=== PATIENT | female | born 1965 | race African-American/Black ===

== ENCOUNTER 2016-12-01 04:32 | Emergency (ER) | payer MEDICAID ==
[~2016-12-01] VITALS: Ht 165.1 cm; Wt 107.0 kg
[~2016-12-01 04:32] MED LIST: ALBUTEROL SULF8.5 GM INH; ATORVASTATIN CA10 MG ORAL; BENADRYL25 MG ORAL; BENADRYL50 MG/ML IV; CIPRO500 MG PO; CIPROFLOXACIN500 M2 ORAL; CLEOCIN150 MG ORAL; COLACE100 MG ORAL; CYCLOBENZAPRINE10 MG ORAL; DIFLUCAN200 MG ORAL; FLAGYL500 MG ORAL; GABAPENTIN100 MG ORAL; GLYBURIDE5 MG PO; IBUPROFEN600 MG ORAL; LORAZEPAM1 MG ORAL; METRONIDAZOLE500 MG ORAL; MULTI VITAMIN1 EACH; NEPHROVITE1 TAB ORAL; NORCO 10/3251 EA ORAL; NORCO 5-325 TA1 EACH ORAL; NORCO 5-325 TA1 EACH PO; NORCO1 EA ORAL; TEMAZEPAM15 MG ORAL; TUMS500 MG ORAL; VICODIN 5-5001 EACH PO; ZOLPIDEM TARTRA10 MG ORAL
[2016-12-01 04:50] VITALS: BP 117/51
--- NOTE | 2016-12-01 04:58 | Emergency Room Report ---
History of Present Illness General Chief Complaint: Abdominal Pain Source: Patient Present Illness HPI This is a 51-year-old male with a history renal failure on hemodialysis Friday, Friday, and Friday. She has a previous failed renal transplant. She presents with chief complaint abdominal pain. Onset yesterday. Diffuse in nature. Sharp, 05/08. No radiation. She felt very nauseous but no vomiting. No diarrhea. Denies any other complaint. No fever but has chills. Allergies: Coded Allergies: PENICILLINS (Verified Allergy, Intermediate, Hives, 12/07/12) MORPHINE (Unverified Allergy, Unknown, 09/22/14) Patient History Past Medical History: see triage record, old chart reviewed, HTN, diverticulitis, renal disease, dialysis Past Surgical History: other Pertinent Family History: none Social History: Denies: smoking Now: No Immunizations: other Reviewed Nursing Documentation: PMH: Agreed, PSxH: Agreed Nursing Documentation-PMH Hx Cardiac Problems: No Hx Hypertension: Yes Hx Pacemaker: No Hx Asthma: No Hx COPD: No Hx Diabetes: Yes Hx Cancer: No Hx Dialysis: Yes - ESRD Hx Neurological Problems: No Hx Cerebrovascular Accident: No Hx Seizures: No Review of Systems Eye: Denies: blurred vision, eye pain ENT: Denies: ear pain, nose congestion, throat swelling Respiratory: Denies: cough, shortness of breath Cardiovascular: Denies: chest pain, palpitations Gastrointestinal: Reports: abdominal pain, nausea, Denies: diarrhea, vomiting Musculoskeletal: Denies: back pain, joint pain Skin: Denies: rash Neurological: Denies: headache, numbness Endocrine: Denies: increased thirst, increased urine Hematologic/Lymphatic: Denies: easy bruising All Other Systems: negative except mentioned in HPI Physical Exam Vital Signs Date Time Temp Pulse Resp B/P Pulse Ox O2 Delivery O2 Flow Rate FiO2 12/01/16 04:35 98.4 99 16 117/51 100 Room Air vitals normal Sp02 EP Interpretation: reviewed, normal General Appearance: well appearing, no apparent distress, alert Head: normocephalic, atraumatic Eyes: bilateral eye EOMI, bilateral eye PERRL ENT: hearing grossly normal, normal pharynx Neck: full range of motion, supple, no meningismus Respiratory: chest non-tender, lungs clear, normal breath sounds Cardiovascular #1: regular rate, rhythm, no murmur Gastrointestinal: no mass, no organomegaly, no bruit, non-distended, abnormal bowel sounds - Hyper active, tenderness Musculoskeletal: back normal, gait/station normal, normal range of motion Neurologic: alert, oriented x3 Psychiatric: mood/affect normal Skin: warm/dry Medical Decision Making Diagnostic Impression: Primary Impression: Abdominal pain Qualified Codes: R10.84 - Generalized abdominal pain Additional Impression: Diverticulitis of sigmoid colon ER Course Patient presents with abdominal pain. She felt better now. CT scan pending. Labs unremarkable. CT scan negative, we'll discharge home. CT scan showed diverticulitis of the sigmoid colon. Lab Results Impression labs are at baseline. CT/MRI/US Diagnostic Results CT/MRI/US Diagnostic Results : Imaging Test Ordered: CT abdomen and pelvis Impression read by radiologist. Acute diverticulitis. Last Vital Signs Date Time Temp Pulse Resp B/P Pulse Ox O2 Delivery O2 Flow Rate FiO2 12/01/16 04:35 98.4 99 16 117/51 100 Room Air Status: improved Disposition: HOME, SELF-CARE Condition: Stable Scripts Hydrocodone/Acetaminophen 5-325* (HYDROCODONE/ACETAMINOPHEN 5-325*) 1 Each Tablet 1 TAB ORAL Q6H Y for For Pain, #20 TAB 0 Refills Prov: ALOK AGUILLON M.D. 12/01/16 Metronidazole* (FLAGYL*) 500 Mg Tablet 500 MG ORAL BID, #14 TAB Prov: ALOK AGUILLON M.D. 12/01/16 Ciprofloxacin Hcl* (CIPROFLOXACIN HCL*) 500 Mg Tablet 500 MG ORAL Q12H, #14 TAB 0 Refills Prov: ALOK AGUILLON M.D. 12/01/16 Additional Instructions: Followup with your DrElder in 2-3 days. Return for increasing pain, fever, chills or any concern. ALOK AGUILLON M.D. Dec 01, 2016 04:58
[2016-12-01] MEDS ORDERED: DiphenhydrAMINE 50mg/ml Inj IVP ONE (05:00)
[2016-12-01] MEDS ORDERED: HYDROmorphone 1mg/ml Carpuject IVP ONE ×2 (05:00→06:15)
[2016-12-01 05:50] LABS: BASOPHILS % (AUTO) 1.2 % (0.0-2.0); LYMPHOCYTES % (AUTO) 15.8 % (20.0-45.0); MEAN CORPUSCULAR HEMOGLOBIN 31.5 PG (27.0-31.0); MEAN CORPUSCULAR HGB CONC 31.7 G/DL (32.0-36.0); MEAN CORPUSCULAR VOLUME 99 FL (80-99); MEAN PLATELET VOLUME 9.4 FL (6.5-10.1); MONOCYTES % (AUTO) 6.9 % (1.0-10.0); NEUTROPHILS % (AUTO) 74.2 % (45.0-75.0); PLATELET COUNT 228 K/UL (150-450); RED BLOOD COUNT 3.76 M/UL (4.20-5.40); RED CELL DISTRIBUTION WIDTH 13.4 % (11.6-14.8); WHITE BLOOD COUNT 13.7 K/UL (4.8-10.8)
[2016-12-01 06:01] LABS: ALANINE AMINOTRANSFERASE 13 U/L (3-33); ALBUMIN/GLOBULIN RATIO 1.1 (1.0-2.7); ANION GAP 20 (5-15); ASPARTATE AMINO TRANSFERASE 12 U/L (5-40); CALCIUM 9.5 mg/dL (8.6-10.2); CARBON DIOXIDE 26 mEQ/L (20-30); CHLORIDE 92 mEQ/L (98-107); CREATININE 9.1 mg/dL (0.5-0.9); GLOMERULAR FILTRATION RATE 5.6 mL/min (>60); HEMOLYSIS 4; LIPASE 40 U/L (< 60); SODIUM 138 mEQ/L (135-145); TOTAL PROTEIN 7.5 g/dL (6.6-8.7)
[2016-12-01] MEDS ORDERED: METRONIDAZOLE500 MG ORAL (06:38)
[2016-12-01] MEDS ORDERED: CIPROFLOXACIN500 M2 ORAL (06:38)
[2016-12-01] MEDS ORDERED: HYDROCODON-ACE1 EA15 ORAL (06:38)
[2016-12-01] MEDS ORDERED: metroNIDAZOLE 500mg tab ORAL ONE (06:45)
[2016-12-01] MEDS ORDERED: Ciprofloxacin 500mg tab ORAL ONE (06:45)
[2016-12-01 06:50] VITALS: BP 123/55
--- NOTE | 2016-12-01 09:08 | Diagnostic Imaging Report ---
Indication: Abdominal pain Technique: CT scan of the abdomen and pelvis utilizing automated exposure control without intravenous or oral contrast. Axial, sagittal and coronal images were obtained. CT dose: Total DLP 1506 mGycm; CTDI vol 32.2 mGy Comparison: 02/14/14 Findings: Evaluation of the solid organs is limited without intravenous contrast material. 2 small nodules are seen within the right lower lobe measuring up to 6 mm. There is fatty infiltration of the liver. The adrenal glands, spleen and pancreas are unremarkable. No CT evident gallstones are seen. Colonic diverticula are seen with mild stranding adjacent to the proximal sigmoid colon. There is no abscess or free air. The bilateral kidneys are atrophic. Fat-containing paraumbilical hernia is seen. The appendix is normal. Degenerative changes of the spine are noted. Impression: Acute diverticulitis of the proximal sigmoid colon. No abscess or free air. Bilateral renal atrophy. Hepatic steatosis. Fat-containing right inguinal and paraumbilical hernias. Left iliac/inguinal clips. 2 tiny nodules of the partially visualized right lower lobe measuring up to 6 mm. Followup recommended as indicated. Other findings as above. The CT scanner at [facility] is accredited by the [employer] and the scans are performed using protocols designed to limit radiation exposure to as low as reasonably achievable to attain images of sufficient resolution adequate for diagnostic evaluation.
== END 2016-12-01 06:55 | disposition home or self-care (01) ==
LOC: EMR 04:56
DX: K57.32 Diverticulitis of large intestine without perforation or abscess without bleeding (principal); E11.22 Type 2 diabetes mellitus with diabetic chronic kidney disease; I12.0 Hypertensive chronic kidney disease with stage 5 chronic kidney disease or end stage renal disease; N18.6 End stage renal disease; Z99.2 Dependence on renal dialysis; Z88.0 Allergy status to penicillin; Z88.6 Allergy status to analgesic agent
CPT/HCPCS: 36415; 74176; 80053; 83690; 85025; 96374; 96375; 99284; J1170; J1200; J2405

== ENCOUNTER 2017-01-05 03:59 | Emergency (ER) | payer MEDICAID ==
[~2017-01-05] VITALS: Ht 165.1 cm; Wt 103.9 kg
[~2017-01-05 03:59] MED LIST changes: +HYDROCODON-ACE1 EA15 ORAL
[2017-01-05 04:15] VITALS: BP 114/60
[2017-01-05] MEDS ORDERED: HYDROmorphone 1mg/ml Carpuject IVP ONE ×2 (04:15→06:45)
[2017-01-05 04:44] LABS: BASOPHILS % (AUTO) 1.2 % (0.0-2.0); EOSINOPHILS % (AUTO) 1.6 % (0.0-3.0); MEAN CORPUSCULAR HEMOGLOBIN 30.6 PG (27.0-31.0); MEAN CORPUSCULAR HGB CONC 31.1 G/DL (32.0-36.0); MEAN CORPUSCULAR VOLUME 98 FL (80-99); MEAN PLATELET VOLUME 7.3 FL (6.5-10.1); MONOCYTES % (AUTO) 9.5 % (1.0-10.0); NEUTROPHILS % (AUTO) 65.7 % (45.0-75.0); PLATELET COUNT 257 K/UL (150-450); RED BLOOD COUNT 3.81 M/UL (4.20-5.40); RED CELL DISTRIBUTION WIDTH 14.4 % (11.6-14.8); WHITE BLOOD COUNT 12.6 K/UL (4.8-10.8)
[2017-01-05 04:59] LABS: ALBUMIN/GLOBULIN RATIO 1.2 (1.0-2.7); CREATININE 10.2 mg/dL (0.5-0.9); GLOMERULAR FILTRATION RATE 4.8 mL/min (>60); POTASSIUM 4.3 mEQ/L (3.4-4.9); TOTAL PROTEIN 8.1 g/dL (6.6-8.7)
[2017-01-05] MEDS ORDERED: DiphenhydrAMINE 50mg/ml Inj IVP ONE (05:45)
--- NOTE | 2017-01-05 06:22 | Emergency Room Report ---
History of Present Illness General Chief Complaint: Abdominal Pain Source: Patient Present Illness HPI Is a 51-year-old female with a history renal failure on hemodialysis Friday, Friday, and Friday. She presents with chief complaint of left lower quadrant pain. She has a history of diverticulitis. Eyes are last month for the same. She got better with antibiotics. Now complaining of left lower quadrant pain for last 2 days. Pain is 8/10. Throbbing nature. Worse with movement. Subjective fever. Allergies: Coded Allergies: PENICILLINS (Verified Allergy, Intermediate, Hives, 12/07/12) MORPHINE (Unverified Allergy, Unknown, 09/22/14) Patient History Past Medical History: see triage record, old chart reviewed, HTN, renal disease , dialysis Past Surgical History: other Pertinent Family History: none Social History: Denies: smoking Now: No Immunizations: other Reviewed Nursing Documentation: PMH: Agreed, PSxH: Agreed Nursing Documentation-PMH Hx Cardiac Problems: No Hx Hypertension: Yes Hx Pacemaker: No Hx Asthma: No Hx COPD: No Hx Diabetes: Yes Hx Cancer: No Hx Dialysis: Yes - ESRD,FRI-FRI-FRI Hx Neurological Problems: No Hx Cerebrovascular Accident: No Hx Seizures: No Review of Systems Eye: Denies: blurred vision, eye pain ENT: Denies: ear pain, nose congestion, throat swelling Respiratory: Denies: cough, shortness of breath Cardiovascular: Denies: chest pain, palpitations Gastrointestinal: Reports: abdominal pain, Denies: diarrhea, nausea, vomiting Musculoskeletal: Denies: back pain, joint pain Skin: Denies: rash Neurological: Denies: headache, numbness Endocrine: Denies: increased thirst, increased urine Hematologic/Lymphatic: Denies: easy bruising All Other Systems: negative except mentioned in HPI Physical Exam Vital Signs Date Time Temp Pulse Resp B/P Pulse Ox O2 Delivery O2 Flow Rate FiO2 01/05/17 04:06 98.2 104 20 118/90 99 Room Air vitals unremarkable Sp02 EP Interpretation: reviewed, normal General Appearance: well appearing, no apparent distress, alert, obese Head: normocephalic, atraumatic Eyes: bilateral eye EOMI, bilateral eye PERRL ENT: hearing grossly normal, normal pharynx Neck: full range of motion, supple, no meningismus Respiratory: chest non-tender, lungs clear, normal breath sounds Cardiovascular #1: regular rate, rhythm, no murmur Gastrointestinal: normal bowel sounds, no mass, no organomegaly, no bruit, non- distended, tenderness - Left lower quadrant Musculoskeletal: back normal, gait/station normal, normal range of motion Neurologic: normal inspection, alert, oriented x3 Psychiatric: mood/affect normal Skin: warm/dry Medical Decision Making Diagnostic Impression: Primary Impression: Abdominal pain Qualified Codes: R10.32 - Left lower quadrant pain ER Course Patient presents with left flank left lower quadrant pain. No evidence of inflammatory changes. This may be musculoskeletal pain. We'll discharge her with pain control. Not better in a couple days told patient to go ahead and fill antibiotics prescription. Return if symptom worsen. I see no evidence of acute abdomen or perforation. Laboratory Tests Test 01/05/17 04:30 White Blood Count 12.6 K/UL (4.8-10.8) H Red Blood Count 3.81 M/UL (4.20-5.40) L Hemoglobin 11.6 G/DL (12.0-16.0) L Hematocrit 37.4 % (37.0-47.0) Mean Corpuscular Volume 98 FL (80-99) Mean Corpuscular Hemoglobin 30.6 PG (27.0-31.0) Mean Corpuscular Hemoglobin Concent 31.1 G/DL (32.0-36.0) L Red Cell Distribution Width 14.4 % (11.6-14.8) Platelet Count 257 K/UL (150-450) Mean Platelet Volume 7.3 FL (6.5-10.1) Neutrophils (%) (Auto) 65.7 % (45.0-75.0) Lymphocytes (%) (Auto) 22.0 % (20.0-45.0) Monocytes (%) (Auto) 9.5 % (1.0-10.0) Eosinophils (%) (Auto) 1.6 % (0.0-3.0) Basophils (%) (Auto) 1.2 % (0.0-2.0) Sodium Level 137 mEQ/L (135-145) Potassium Level 4.3 mEQ/L (3.4-4.9) Chloride Level 90 mEQ/L (98-107) L Carbon Dioxide Level 27 mEQ/L (20-30) Anion Gap 20 (5-15) H Blood Urea Nitrogen 38 mg/dL (7-23) H Creatinine 10.2 mg/dL (0.5-0.9) H Estimat Glomerular Filtration Rate 4.8 mL/min (>60) Glucose Level 160 mg/dL (74-106) H Calcium Level 10.0 mg/dL (8.6-10.2) Total Bilirubin 0.2 mg/dL (0.0-1.2) Aspartate Amino Transf (AST/SGOT) 20 U/L (5-40) Alanine Aminotransferase (ALT/SGPT) 16 U/L (3-33) Alkaline Phosphatase 99 U/L (35-104) Total Protein 8.1 g/dL (6.6-8.7) Albumin 4.5 g/dL (3.5-5.2) Globulin 3.6 g/dL Albumin/Globulin Ratio 1.2 (1.0-2.7) Lab Results Impression labs unremarkable CT/MRI/US Diagnostic Results CT/MRI/US Diagnostic Results : Imaging Test Ordered: CT abdomen and pelvis Impression read by radiologist. No evidence of acute diverticulitis. Last Vital Signs Date Time Temp Pulse Resp B/P Pulse Ox O2 Delivery O2 Flow Rate FiO2 01/05/17 05:46 98.2 01/05/17 04:15 101 20 114/60 95 Room Air Status: improved Disposition: HOME, SELF-CARE Condition: Stable Scripts Hydrocodone/Acetaminophen 5-325* (HYDROCODONE/ACETAMINOPHEN 5-325*) 1 Each Tablet 1 TAB ORAL Q6H Y for For Pain, #30 TAB 0 Refills Prov: ALOK AGUILLON M.D. 01/05/17 Metronidazole* (FLAGYL*) 500 Mg Tablet 500 MG ORAL BID, #14 TAB Prov: ALOK AGUILLON M.D. 01/05/17 Ciprofloxacin Hcl* (CIPROFLOXACIN HCL*) 500 Mg Tablet 500 MG ORAL Q12H, #14 TAB 0 Refills Prov: ALOK AGUILLON M.D. 01/05/17 Referrals: NOT CHOSEN IPA/,REFERRING (PCP) Patient Instructions: Abdominal Pain, Adult Additional Instructions: Followup with your DrElder in 2-3 days. Continuing with dialysis. Take antibiotics if still having left lower quadrant pain after 2 days. ALOK AGUILLON M.D. Jan 05, 2017 06:22
[2017-01-05] MEDS ORDERED: HYDROCODON-ACE1 EA15 ORAL (06:43)
[2017-01-05] MEDS ORDERED: CIPROFLOXACIN500 M2 ORAL (06:43)
[2017-01-05] MEDS ORDERED: METRONIDAZOLE500 MG ORAL (06:43)
[2017-01-05 06:50] VITALS: BP 119/47
[2017-01-05 07:00] VITALS: BP 119/47
--- NOTE | 2017-01-05 09:26 | Diagnostic Imaging Report ---
Indication: Abdominal pain/left-sided back pain Technique: CT scan of the abdomen and pelvis utilizing automated exposure control without intravenous or oral contrast. Axial, sagittal and coronal images were obtained. CT dose: Total DLP 1621 mGycm; CTDI vol 32.8 mGy Comparison: 12/01/16 Findings: Evaluation of the solid organs is limited without intravenous contrast material. Nodules are seen in the partially visualized lung bases measuring up to 8 mm series 6 image 52. The liver is enlarged. There is fatty infiltration of the liver. Adrenal glands, spleen and pancreas are unremarkable. No CT evident gallstones are seen. There is bilateral renal atrophy with punctate calcifications measuring up to 3 mm. There is no hydronephrosis. The small bowel loops are normal in caliber. The appendix is normal. There is colonic diverticulosis without diverticulitis. There is no free intraperitoneal fluid or air. Left iliac clips are seen. Bladder is not well distended limiting evaluation. There is a fat-containing umbilical hernia. Degenerative changes of the spine are present. Impression: Bilateral renal atrophy. Punctate bilateral renal calcifications could represent nonobstructive calculi. No hydronephrosis. Clinical correlation recommended. Hepatomegaly with fatty infiltration. Colonic diverticulosis without diverticulitis. Underdistention of portions of the colon limiting evaluation. Clinical correlation recommended. Normal appendix. Scattered nodules of the partially visualized lung bases coronally. Neoplastic etiology cannot be excluded and further evaluation with dedicated CT of the chest recommended as indicated. The CT scanner at [facility] is accredited by the [employer] and the scans are performed using protocols designed to limit radiation exposure to as low as reasonably achievable to attain images of sufficient resolution adequate for diagnostic evaluation.
== END 2017-01-05 07:00 | disposition home or self-care (01) ==
LOC: EMR 04:37
DX: R10.32 Left lower quadrant pain (principal); Z88.6 Allergy status to analgesic agent; I12.0 Hypertensive chronic kidney disease with stage 5 chronic kidney disease or end stage renal disease; E11.22 Type 2 diabetes mellitus with diabetic chronic kidney disease; N18.6 End stage renal disease; Z99.2 Dependence on renal dialysis
CPT/HCPCS: 36415; 74176; 80053; 85025; 96374; 96375; 99284; J1170; J1200; J2405

== ENCOUNTER 2017-01-09 14:29 | Emergency (ER) | payer MEDICAID ==
[~2017-01-09] VITALS: Ht 165.1 cm; Wt 113.4 kg
--- NOTE | 2017-01-09 15:13 | Emergency Room Report ---
History of Present Illness General Chief Complaint: Pain Source: Patient Present Illness HPI This patient states that for the past couple weeks she has had ongoing pain in her left forearm. She does not recall any injury. She has a very localized area of tenderness that radiates from her lateral elbow to her hand. She states she occasionally has a tingling sensation. His symptoms are worse with movement. She denies fever or chills. She denies swelling. She has no other complaints. Allergies: Coded Allergies: PENICILLINS (Verified Allergy, Intermediate, Hives, 12/07/12) MORPHINE (Unverified Allergy, Unknown, 09/22/14) Patient History Past Medical History: see triage record, DM, HTN, psych hx, renal disease, dialysis Social History: Denies: alcohol use, drug use, smoking Last Menstrual Period: Post Now: No : 3 Para: 3 Reviewed Nursing Documentation: PMH: Agreed, PSxH: Agreed Nursing Documentation-PMH Past Medical History: No History, Except For Hx Cardiac Problems: No Hx Hypertension: Yes Hx Pacemaker: No Hx Asthma: No Hx COPD: No Hx Diabetes: Yes Hx Cancer: No Hx Dialysis: Yes - ESRD,MON-WED-FRI Hx Neurological Problems: No Hx Cerebrovascular Accident: No Hx Seizures: No Review of Systems All Other Systems: negative except mentioned in HPI Physical Exam Vital Signs Date Time Temp Pulse Resp B/P Pulse Ox O2 Delivery O2 Flow Rate FiO2 01/09/17 14:32 98.1 86 18 156/93 97 Room Air Sp02 EP Interpretation: reviewed, normal General Appearance: no apparent distress, alert, GCS 15, non-toxic Head: normocephalic, atraumatic Eyes: bilateral eye PERRL, bilateral eye normal inspection ENT: hearing grossly normal, normal pharynx, no angioedema, normal voice Neck: full range of motion, supple/symm/no masses Respiratory: no respiratory distress, no retraction, no accessory muscle use, speaking full sentences Cardiovascular #1: no edema Rectal: deferred Musculoskeletal: gait/station normal, normal range of motion, other - Localized tenderness to palpation along the left brachioradialis muscle. Sensation intact throughout. Full muscle strength throughout. Neurologic: alert, oriented x3, responsive, motor strength/tone normal, sensory intact, speech normal Psychiatric: judgement/insight normal, memory normal, mood/affect normal, no suicidal/homicidal ideation Skin: normal color, no rash, warm/dry, well hydrated Medical Decision Making Diagnostic Impression: Primary Impression: Muscle strain Additional Impression: Muscle pain ER Course This patient has a clinical presentation consistent with muscle strain/pain. There are no red flags on physical exam or history that would make me concerned for underlying fracture. I did obtain an elbow x-ray which showed no acute findings. The patient has pain with range of motion and has tenderness to palpation along the muscle. There is no evidence of compartment syndrome. There is no neurologic deficit. The patient was instructed on supportive home measures. She was given a sling for comfort. No emergency medical condition was identified. Of note, the patient requested Dilaudid for muscle strain. I did not feel that Dilaudid was indicated for a muscle strain. The patient was given a Claunch tablet. Further, the patient received 30 tablets of Claunch 5 days ago. There is also a history of narcotic seeking behavior and opiate dependence with review of her medical chart. I am very uncomfortable providing this patient any narcotics. Further, there is no medical indication for a narcotic needed. I did not identify an acute emergency medical condition. The patient was instructed to followup with her primary care physician. The patient was given return precautions and followup instructions. Labs Test 01/09/17 15:15 White Blood Count 8.4 K/UL (4.8-10.8) Red Blood Count 3.64 M/UL (4.20-5.40) Hemoglobin 10.8 G/DL (12.0-16.0) Hematocrit 36.3 % (37.0-47.0) Mean Corpuscular Volume 100 FL (80-99) Mean Corpuscular Hemoglobin 29.5 PG (27.0-31.0) Mean Corpuscular Hemoglobin Concent 29.7 G/DL (32.0-36.0) Red Cell Distribution Width 14.8 % (11.6-14.8) Platelet Count 227 K/UL (150-450) Mean Platelet Volume 7.9 FL (6.5-10.1) Neutrophils (%) (Auto) 56.0 % (45.0-75.0) Lymphocytes (%) (Auto) 27.7 % (20.0-45.0) Monocytes (%) (Auto) 12.2 % (1.0-10.0) Eosinophils (%) (Auto) 3.2 % (0.0-3.0) Basophils (%) (Auto) 1.0 % (0.0-2.0) Sodium Level 138 mEQ/L (135-145) Potassium Level 4.5 mEQ/L (3.4-4.9) Chloride Level 96 mEQ/L (98-107) Carbon Dioxide Level 26 mEQ/L (20-30) Anion Gap 16 (5-15) Blood Urea Nitrogen 25 mg/dL (7-23) Creatinine 8.1 mg/dL (0.5-0.9) Estimat Glomerular Filtration Rate 6.3 mL/min (>60) Glucose Level 96 mg/dL (74-106) Calcium Level 9.5 mg/dL (8.6-10.2) Total Creatine Kinase 27 U/L (26-140) Other X-Ray Diagnostic Results Other X-Ray Diagnostic Results : X-Ray Ordered: L. elbow EP Interpretation: Yes Findings: no fractures, no dislocation, no soft tissue swelling Number of Views: 3 Last Vital Signs Date Time Temp Pulse Resp B/P Pulse Ox O2 Delivery O2 Flow Rate FiO2 01/09/17 14:32 98.1 86 18 156/93 97 Room Air Disposition: HOME, SELF-CARE Condition: Improved Referrals: NON PHYSICIAN (PCP) JEN WHATLEY D.O. Jan 09, 2017 15:13
[2017-01-09] MEDS ORDERED: Norco 5mg/325mg tab ORAL ONE (15:15)
[2017-01-09 15:45] LABS: EOSINOPHILS % (AUTO) 3.2 % (0.0-3.0); LYMPHOCYTES % (AUTO) 27.7 % (20.0-45.0); MEAN CORPUSCULAR HEMOGLOBIN 29.5 PG (27.0-31.0); MEAN CORPUSCULAR HGB CONC 29.7 G/DL (32.0-36.0); MEAN CORPUSCULAR VOLUME 100 FL (80-99); MEAN PLATELET VOLUME 7.9 FL (6.5-10.1); MONOCYTES % (AUTO) 12.2 % (1.0-10.0); PLATELET COUNT 227 K/UL (150-450); RED BLOOD COUNT 3.64 M/UL (4.20-5.40); RED CELL DISTRIBUTION WIDTH 14.8 % (11.6-14.8); WHITE BLOOD COUNT 8.4 K/UL (4.8-10.8)
[2017-01-09 15:54] LABS: ANION GAP 16 (5-15); CALCIUM 9.5 mg/dL (8.6-10.2); CARBON DIOXIDE 26 mEQ/L (20-30); CHLORIDE 96 mEQ/L (98-107); CREATININE 8.1 mg/dL (0.5-0.9); GLOMERULAR FILTRATION RATE 6.3 mL/min (>60); HEMOLYSIS 2; POTASSIUM 4.5 mEQ/L (3.4-4.9); SODIUM 138 mEQ/L (135-145)
[2017-01-09] MEDS ORDERED: IBUPROFEN800 MG ORAL (17:08)
--- NOTE | 2017-01-09 17:15 | Diagnostic Imaging Report ---
Indication: PAIN Technique: 3 views of the left elbow Comparison: none Findings: No acute fractures. No dislocations. No joint effusion. Joint spaces are preserved. Normal mineralization. No radiopaque foreign body. Impression: Negative
[2017-01-09 17:19] VITALS: BP 152/95
[2017-01-09 17:20] VITALS: BP 152/95
== END 2017-01-09 17:20 | disposition home or self-care (01) ==
LOC: EMR 15:05
DX: T14.8 Other injury of unspecified body region (principal); M79.1 Myalgia; E11.9 Type 2 diabetes mellitus without complications; I10 Essential (primary) hypertension; I12.0 Hypertensive chronic kidney disease with stage 5 chronic kidney disease or end stage renal disease; E11.22 Type 2 diabetes mellitus with diabetic chronic kidney disease; N18.6 End stage renal disease; Z99.2 Dependence on renal dialysis; Z88.0 Allergy status to penicillin; Z88.6 Allergy status to analgesic agent; X58.XXXA Exposure to other specified factors, initial encounter; Y92.9 Unspecified place or not applicable; Y99.8 Other external cause status
CPT/HCPCS: 29240; 36415; 80048; 82550; 85025; 99283

== ENCOUNTER 2017-04-01 21:05 | Emergency (ER) | payer MEDICAID ==
[~2017-04-01] VITALS: Ht 165.1 cm; Wt 105.2 kg
[~2017-04-01 21:05] MED LIST changes: +IBUPROFEN800 MG ORAL
[2017-04-01] MEDS ORDERED: HYDROmorphone 1mg/ml Carpuject IM ONE (21:45)
--- NOTE | 2017-04-01 21:51 | Emergency Room Report ---
History of Present Illness General Chief Complaint: Back Pain-No Injury Source: Patient, Family Member Present Illness HPI Is a 51-year-old female with a BMI of almost 39. She has a history of renal failure on hemodialysis. She also has history of chronic back pain. She presents with chief complaint of left lower back and flank pain. Onset today. She has vomiting and diarrhea today. Vomiting is nonbloody nonbilious. Diarrhea is watery. It stopped around 3 PM. Tonight when she got up she felt pain to her back. This is worse than before. Pain is 10 out of 10. No radiation. No incontinence of bowel or urine. No anesthesia. No new trauma Allergies: Coded Allergies: PENICILLINS (Verified Allergy, Intermediate, Hives, 12/07/12) MORPHINE (Unverified Allergy, Unknown, 09/22/14) Patient History Past Medical History: see triage record, old chart reviewed, HTN, renal disease , dialysis Past Surgical History: other Pertinent Family History: none Social History: Denies: smoking Now: No Immunizations: other Reviewed Nursing Documentation: PMH: Agreed, PSxH: Agreed Nursing Documentation-PMH Hx Cardiac Problems: No Hx Hypertension: Yes Hx Pacemaker: No Hx Asthma: No Hx COPD: No Hx Diabetes: Yes Hx Cancer: No Hx Dialysis: Yes - ESRD,MON-WED-FRI Hx Neurological Problems: No Hx Cerebrovascular Accident: No Hx Seizures: No Review of Systems Eye: Denies: blurred vision, eye pain ENT: Denies: ear pain, nose congestion, throat swelling Respiratory: Denies: cough, shortness of breath Cardiovascular: Denies: chest pain, palpitations Gastrointestinal: Reports: abdominal pain, diarrhea, nausea, vomiting Musculoskeletal: Reports: back pain, Denies: joint pain Skin: Denies: rash Neurological: Denies: headache, numbness Endocrine: Denies: increased thirst, increased urine Hematologic/Lymphatic: Denies: easy bruising All Other Systems: negative except mentioned in HPI Physical Exam Vital Signs Date Time Temp Pulse Resp B/P Pulse Ox O2 Delivery O2 Flow Rate FiO2 04/01/17 21:25 99.0 106 18 103/66 97 Room Air vitals normal Sp02 EP Interpretation: reviewed, normal General Appearance: well appearing, no apparent distress, alert, obese Head: normocephalic, atraumatic Eyes: bilateral eye EOMI, bilateral eye PERRL ENT: hearing grossly normal, normal pharynx Neck: full range of motion, supple, no meningismus Respiratory: chest non-tender, lungs clear, normal breath sounds Cardiovascular #1: regular rate, rhythm, no murmur Gastrointestinal: normal bowel sounds, non tender, no mass, no organomegaly, no bruit, non-distended Musculoskeletal: gait/station normal, normal range of motion, other - Tenderness over the lower lumbar paraspinous muscle on the left. No midline tenderness. No anesthesia Neurologic: alert, oriented x3 Psychiatric: mood/affect normal Skin: warm/dry Medical Decision Making Diagnostic Impression: Primary Impression: Muscle strain ER Course She presents with back pain. No evidence of cauda equina syndrome, spinal or abscess or neoplastic process. No evidence of kidney stone or infection. Most likely muscle strain from her vomiting and diarrhea. We'll discharge home. She felt better after pain medication. CT/MRI/US Diagnostic Results CT/MRI/US Diagnostic Results : Imaging Test Ordered: CT abdomen and pelvis Impression read by radiologist. No acute finding. Last Vital Signs Date Time Temp Pulse Resp B/P Pulse Ox O2 Delivery O2 Flow Rate FiO2 04/01/17 21:25 99.0 106 18 103/66 97 Room Air Status: improved Disposition: HOME, SELF-CARE Condition: Stable Patient Instructions: Back Pain, Adult Additional Instructions: Followup with your Dr. in 7 days. Return if worse. ALOK AGUILLON M.D. Apr 01, 2017 21:51
[2017-04-01 23:28] VITALS: BP 103/66
--- NOTE | 2017-04-02 15:17 | Diagnostic Imaging Report ---
Indication: Abdominal pain Technique: Continuous helical transaxial imaging of the abdomen and pelvis was obtained from the lung bases to the pubic symphysis. No intravenous contrast was administered. Coronal 2-D reformats were also obtained. Total Dose length Product (DLP): [address] Dose Index Volume (CTDIvol): 19 mGy Comparison: 01/05/17 Findings: There are several small noncalcified nodules at the lung bases. Some of these were noted on the prior study. Would recommend obtaining CT for further evaluation. Kidneys are atrophic consistent with the renal insufficiency. Appendix is seen and normal. Extensive diverticulosis is present within the colon without definite diverticulitis. There is a right inguinal hernia containing fat. Uterus is noted. Urinary bladder is nondistended. There is no free fluid or free air. Impression: No acute findings in the abdomen identified. Normal appendix Extensive diverticulosis of the colon. Multiple small lung nodules. Further evaluation with chest CT is suggested. Atrophy of the [place] kidneys consistent with chronic renal disease The CT scanner at [facility] is accredited by the [employer] and the scans are performed using dose optimization techniques as appropriate to a performed exam including Automatic Exposure control.
== END 2017-04-01 23:30 | disposition home or self-care (01) ==
LOC: EMR 21:18
DX: S39.012A Strain of muscle, fascia and tendon of lower back, initial encounter (principal); Z88.0 Allergy status to penicillin; Z88.6 Allergy status to analgesic agent; I12.0 Hypertensive chronic kidney disease with stage 5 chronic kidney disease or end stage renal disease; E11.22 Type 2 diabetes mellitus with diabetic chronic kidney disease; N18.6 End stage renal disease; Z99.2 Dependence on renal dialysis; R10.9 Unspecified abdominal pain; X58.XXXA Exposure to other specified factors, initial encounter; Y92.9 Unspecified place or not applicable
CPT/HCPCS: 74176; 96372; 99284; J1170

== ENCOUNTER 2017-04-13 06:24 | Inpatient (IN) | payer MEDICAID ==
[~2017-04-13] VITALS: Ht 165.1 cm; Wt 105.2 kg
[2017-04-13] MEDS ORDERED: metroNIDAZOLE 500mg 100 ML IV STA (06:35)
[2017-04-13] MEDS ORDERED: Cefepime HCl 1 GM in NS 55 ML IV STA (06:35)
[2017-04-13] MEDS ORDERED: Vancomycin 1 GM in NS 275 ML IV ONE (06:45)
[2017-04-13] MEDS ORDERED: HYDROmorphone 1mg/ml Carpuject IVP ONE ×2 (06:45→11:45)
[2017-04-13] MEDS ORDERED: Cefepime 1gm vial ONE (06:52)
[2017-04-13 07:10] VITALS: BP 138/78
[2017-04-13 07:13] LABS: BASOPHILS % (AUTO) 1.7 % (0.0-2.0); EOSINOPHILS % (AUTO) 1.1 % (0.0-3.0); LYMPHOCYTES % (AUTO) 15.9 % (20.0-45.0); MEAN CORPUSCULAR HEMOGLOBIN 31.4 PG (27.0-31.0); MEAN CORPUSCULAR HGB CONC 31.7 G/DL (32.0-36.0); MEAN CORPUSCULAR VOLUME 99 FL (80-99); MEAN PLATELET VOLUME 8.5 FL (6.5-10.1); MONOCYTES % (AUTO) 5.3 % (1.0-10.0); NEUTROPHILS % (AUTO) 76.1 % (45.0-75.0); PLATELET COUNT 288 K/UL (150-450); RED BLOOD COUNT 3.51 M/UL (4.20-5.40); RED CELL DISTRIBUTION WIDTH 13.5 % (11.6-14.8)
--- NOTE | 2017-04-13 07:16 | Emergency Room Report ---
History of Present Illness General Chief Complaint: Fever Source: Patient (Ken Berkowitz M.D.) Present Illness HPI The patient was discharged from [facility] for low back pain. She had a CT done on April 10 - it was not done with contrast. She has sciatica. She is a dialysis patient. They gave her MS Contin to control the pain. Last night she developed fevers. She denies any cough. She does not make urine. The pain in her lower back is more severe at this time. She also has some weakness there that is chronic however, it is worse since discharge from [facility]. The pain in her lower back was mainly on the L before. Now the pain is on the R and radiates down her R leg. It is severe and constant. She denies cough, sore throat, chest pain, dyspnea, rashes. No NVD. She has dialysis MWF. (Ken Berkowitz M.D.) Allergies: Coded Allergies: PENICILLINS (Verified Allergy, Intermediate, Hives, 12/07/12) MORPHINE (Unverified Allergy, Unknown, 09/22/14) Patient History Past Medical History: see triage record Social History: Denies: alcohol use, drug use, smoking Social History Narrative with son Now: No Reviewed Nursing Documentation: PMH: Agreed, PSxH: Agreed (Ken Berkowitz M.D.) Nursing Documentation-PMH Hx Cardiac Problems: No Hx Hypertension: Yes Hx Pacemaker: No Hx Asthma: No Hx COPD: No Hx Diabetes: Yes Hx Cancer: No Hx Dialysis: Yes - M,W,F, Kidney Transplant Hx Neurological Problems: No Hx Cerebrovascular Accident: No Hx Seizures: No (Ken Berkowitz M.D.) Review of Systems All Other Systems: negative except mentioned in HPI (Ken Berkowitz M.D.) Physical Exam Vital Signs Date Time Temp Pulse Resp B/P Pulse Ox O2 Delivery O2 Flow Rate FiO2 04/13/17 06:37 103.1 131 14 138/78 96 Room Air Sp02 EP Interpretation: reviewed, normal General Appearance: no apparent distress, GCS 15, obese, Chronically Ill Head: normocephalic, atraumatic Eyes: bilateral eye PERRL, bilateral eye normal inspection ENT: normal pharynx, moist mucus membranes Neck: supple Respiratory: chest non-tender, lungs clear, normal breath sounds Cardiovascular #1: regular rate, rhythm Cardiovascular #2: 2+ radial (R) - fistula R with thrill Gastrointestinal: normal inspection, normal bowel sounds, non tender, no mass, non-distended, no guarding Musculoskeletal: tender - lumbar spine without swelling (obese). SLR + for both increased back and R leg pain Neurologic: alert, oriented x3, motor strength/tone normal, sensory intact, speech normal, no Babinski, other - bearly able to stand due to weakness, but 5/ 5 dorsiflexion and plantar flexion. Reflexes: 1+ knee (R), 1+ knee (L), 0 ankle (R), 0 ankle (L) Skin: normal inspection, other - hot, no rashes (Ken Berkowitz M.D.) Medical Decision Making Diagnostic Impression: Primary Impression: Sepsis Qualified Codes: A41.9 - Sepsis, unspecified organism Additional Impressions: ESRD (end stage renal disease) on dialysis lung nodules Lower back pain Qualified Codes: M54.5 - Low back pain; G89.29 - Other chronic pain ER Course The patient presents with back pain, weakness and fever. As there doesn't appear to be any other source of infection at this time we need to exclude an epidural abscess versus pyelonephritis versus bacteremia. A CT of the abdomen and pelvis and CT of the eyes lumbar spine is going to be performed with contrast. Initially the family was refusing to do CT with contrast but after explaining the importance of excluding an epidural abscess they've agreed to CT with contrast. The patient will be treated with IV antibiotics, some IV hydration and tylenol. In addition, she will be given decadron and dilaudid. Not need oral contrast as no GI symptoms. Labs with leukocytosis. Normal lactic acid. Lytes preclude need for dialysis emergently. Dilaudid repeated, as still with pain (though improved). Discussed in detail with Dr. Johnston and signed out to him. Initially requested telemetry bed, but waiting for CT results. May need transfer to higher level of care if epidural abscess. Laboratory Tests Test 04/13/17 06:50 White Blood Count 15.0 K/UL (4.8-10.8) H Red Blood Count 3.51 M/UL (4.20-5.40) L Hemoglobin 11.0 G/DL (12.0-16.0) L Hematocrit 34.8 % (37.0-47.0) L Mean Corpuscular Volume 99 FL (80-99) Mean Corpuscular Hemoglobin 31.4 PG (27.0-31.0) H Mean Corpuscular Hemoglobin Concent 31.7 G/DL (32.0-36.0) L Red Cell Distribution Width 13.5 % (11.6-14.8) Platelet Count 288 K/UL (150-450) Mean Platelet Volume 8.5 FL (6.5-10.1) Neutrophils (%) (Auto) 76.1 % (45.0-75.0) H Lymphocytes (%) (Auto) 15.9 % (20.0-45.0) L Monocytes (%) (Auto) 5.3 % (1.0-10.0) Eosinophils (%) (Auto) 1.1 % (0.0-3.0) Basophils (%) (Auto) 1.7 % (0.0-2.0) Prothrombin Time 9.7 SEC (9.30-11.50) Prothrombin Time INR 0.9 (0.9-1.1) PTT 26 SEC (23-33) Sodium Level 134 mEQ/L (135-145) L Potassium Level 5.1 mEQ/L (3.4-4.9) H Chloride Level 91 mEQ/L (98-107) L Carbon Dioxide Level 24 mEQ/L (20-30) Anion Gap 19 (5-15) H Blood Urea Nitrogen 35 mg/dL (7-23) H Creatinine 9.1 mg/dL (0.5-0.9) H Estimate Glomerular Filtration Rate 5.5 mL/min (>60) Glucose Level 180 mg/dL (74-106) H Lactic Acid Level 1.50 mmol/L (0.66-2.22) Calcium Level 9.0 mg/dL (8.6-10.2) Total Bilirubin 0.2 mg/dL (0.0-1.2) Aspartate Amino Transferase (AST) 16 U/L (5-40) Alanine Aminotransferase (ALT) 8 U/L (3-33) Alkaline Phosphatase 91 U/L (35-104) Total Creatine Kinase 135 U/L (26-140) Troponin I < 0.30 ng/mL (<=0.30) Pro-B-Type Natriuretic Peptide 858 pg/mL (0-125) H Total Protein 7.8 g/dL (6.6-8.7) Albumin 3.9 g/dL (3.5-5.2) Globulin 3.9 g/dL Albumin/Globulin Ratio 1.0 (1.0-2.7) Lipase 33 U/L (< 60) (Ken Berkowitz M.D.) ER Course Received signout from Dr Berkowitz at 7pm to followup CT AP/LS spine for eval for source of infection, suspected lower back abscess - CT no definitive abscess, collection in lower back - No Abd source of infection - Multiple lung nodules, possible inflammatory Endorsed all the above to Dr Gardiner for tele admit at 1107am ([facility] JOHNSTON M.D.) EKG Diagnostic Results Rate: tachycardiac ST Segments: no acute changes (Ken Berkowitz M.D.) Rhythm Strip Diag. Results EP Interpretation: yes Rhythm: no PVC's, no ectopy, other - ST (Ken Berkowitz M.D.) Status: improved (Ken Berkowitz M.D.) Status: improved ([facility] JOHNSTON M.D.) Disposition: ADMITTED INPATIENT Condition: Serious Referrals: ACCOUNTABLE [facility],REFERRING (PCP) Ken Berkowitz M.D. Apr 13, 2017 07:16 [facility] JOHNSTON M.D. Apr 13, 2017 11:08
[2017-04-13] MEDS ORDERED: Hydromorphone 0.5mg/0.5ml inj IVP STA (07:22)
[2017-04-13 07:24] LABS: ALANINE AMINOTRANSFERASE 8 U/L (3-33); ANION GAP 19 (5-15); ASPARTATE AMINO TRANSFERASE 16 U/L (5-40); CARBON DIOXIDE 24 mEQ/L (20-30); CHLORIDE 91 mEQ/L (98-107); CREATININE 9.1 mg/dL (0.5-0.9); GLOMERULAR FILTRATION RATE 5.5 mL/min (>60); HEMOLYSIS 7; LIPASE 33 U/L (< 60); POTASSIUM 5.1 mEQ/L (3.4-4.9); SODIUM 134 mEQ/L (135-145); TOTAL PROTEIN 7.8 g/dL (6.6-8.7); TROPONIN I < 0.30 ng/mL (<=0.30)
[2017-04-13] MEDS ORDERED: Dexamethasone 4mg/ml vial IVP ONE (07:30)
[2017-04-13 07:33] LABS: INR 0.9 (0.9-1.1); PROTHROMBIN TIME 9.7 SEC (9.30-11.50)
[2017-04-13] MEDS ORDERED: Vancomycin 1gm inj IVPB ONE (08:58)
[2017-04-13 09:05] VITALS: BP 114/51
--- NOTE | 2017-04-13 10:03 | Diagnostic Imaging Report ---
Indication: Low back pain Technique: CT of the abdomen and pelvis utilizing automated exposure control with intravenous contrast. Venous scanning performed. CT dose: Total DLP 1066 mGycm; CTDI vol 19.5 mGy Comparison: None Findings: There is atelectasis in the lung bases. Scattered nodules are seen in the partially visualized lung bases measuring up to 6 mm. There is mild fatty infiltration of the liver. Liver is enlarged. No CT evident gallstones are identified. The adrenal glands and pancreas are unremarkable. The spleen is mildly enlarged measuring 13 cm AP. There is a 5 mm splenic hypodensity. The bilateral kidneys are atrophic. There is a punctate calcification of the right kidney. The small bowel loops are normal in caliber. A fat-containing umbilical hernia is seen. The appendix is normal. There is limited evaluation of the bowel. Colonic diverticulosis is present without definitive evidence of diverticulitis. There is no free intraperitoneal fluid or air. The bladder is collapsed. A small fat-containing right inguinal hernia is seen. There is no gross adnexal abnormality. Degenerative changes of the spine are seen. There is no acute fracture. No obvious paravertebral inflammatory changes are identified. There is generalized increased density of the osseous structures. Mild dependent subcutaneous stranding is seen. Atherosclerotic changes are present. The abdominal aorta is normal in caliber. Left pelvic clips are seen. Impression: No CT evident acute osseous abnormality or obvious paravertebral inflammatory changes. MRI may be obtained for further evaluation as indicated. Atelectasis in the lung bases. Subtle infiltrate in the right base not excluded. Subcentimeter scattered nodules in the partially visualized lung bases. Inflammatory and neoplastic etiologies such as metastatic disease are both considered. Further evaluation recommended. Colonic diverticulosis without diverticulitis. Hepatosplenomegaly. Fatty infiltration of the liver. Bilateral renal atrophy. Punctate calcifications of the bilateral kidneys possibly nonobstructive calculi. No hydronephrosis. Increased density of the osseous structures may suggest renal osteodystrophy. Degenerative changes of the spine. Other findings as above. The CT scanner at [facility] is accredited by the [employer] and the scans are performed using protocols designed to limit radiation exposure to as low as reasonably achievable to attain images of sufficient resolution adequate for diagnostic evaluation.
[2017-04-13 10:42] VITALS: BP 100/59
[2017-04-13] MEDS ORDERED: NORCO 10-325 T1 EACH ORAL (11:09)
[2017-04-13] MEDS ORDERED: BENADRYL25 MG ORAL (11:09)
[2017-04-13] MEDS ORDERED: DiphenhydrAMINE 50mg/ml Inj IVP ONE (11:45)
[2017-04-13 11:53] VITALS: BP 105/62
--- NOTE | 2017-04-13 13:16 | History and Physical ---
History of Present Illness General Reason for Hospitalization: Fever Present Illness HPI This is a 52 yr old female with a PMHx significant for ESRD on HD MWF, HTN and CHF, who was recently discharged from [facility] for low back pain which is chronically on the left part, and is worse at this time and includes the right side with radiation to the right leg. She was treated and given MS Contin for pain control, but last night she developed fevers. She denies any cough. Pain is severe and constant. She denies cough, sore throat, chest pain, dyspnea, rashes, no N/V. Her temperature was found to be 103.1 degrees in the emergency room. So, she received wide spectrum antibiotics therapy. Chest x-ray did not show any significant pathology. CT of the abdomen and pelvis did not show any acute pathology to explain her back pain. Allergies: Coded Allergies: PENICILLINS (Verified Allergy, Intermediate, Hives, 12/07/12) MORPHINE (Unverified Allergy, Unknown, 09/22/14) Medication History Scheduled Atorvastatin Calcium* (Lipitor*), 10 MG ORAL BEDTIME, (Reported) Calcium Carbonate (Calcium), 500 MG ORAL AC, (Reported) Gabapentin* (Gabapentin*), 100 MG ORAL TID, (Reported) Glyburide (Glyburide), 5 MG PO BID, (Reported) Zolpidem Tartrate* (Zolpidem Tartrate*), 10 MG ORAL BEDTIME, (Reported) Scheduled PRN Diphenhydramine Hcl* (Benadryl*), 50 MG ORAL Q6H PRN for Itching, (Reported) Hydrocodone Bit/Acetaminophen 10-325* ([place] 10-325*), 1 TAB ORAL Q4H PRN for For Pain, (Reported) Hydrocodone/Acetaminophen 5-325* (Hydrocodone/Acetaminophen 5-325*), 1 TAB ORAL Q6H PRN for For Pain Lorazepam* (Lorazepam*), 1 MG ORAL PRN PRN for For Anxiety, (Reported) Temazepam (Temazepam*), 30 MG ORAL BEDTIME PRN for For Anxiety, (Reported) Patient History History Provided By: Patient Healthcare decision maker Resuscitation status Advanced Directive on File Past Medical/Surgical History Past Medical/Surgical History: (1) Cervical radiculopathy (2) Degenerative disc disease, cervical (3) Sepsis Review of Systems All Other Systems: negative except mentioned in HPI Physical Exam General Appearance: no apparent distress, alert Lines, tubes and drains: peripheral HEENT: normocephalic, atraumatic Neck: non-tender, normal alignment, supple, normal inspection Respiratory/Chest: lungs clear, normal breath sounds, no respiratory distress Cardiovascular/Chest: normal rate, regular rhythm Abdomen: non tender, soft, no organomegaly Genitourinary/Rectal: other - anuric Extremities: moderate edema Skin Exam: normal pigmentation, warm/dry Neurologic: alert, oriented x 3, responsive, normal mood/affect Last 24 Hour Vital Signs Date Time Temp Pulse Resp B/P Pulse Ox O2 Delivery O2 Flow Rate FiO2 04/13/17 12:04 98.4 90 16 105/62 96 Room Air 04/13/17 11:53 98.4 90 16 105/62 96 Room Air 04/13/17 10:42 98.6 97 16 100/59 96 Room Air 04/13/17 09:05 101.2 111 17 114/51 96 Room Air 04/13/17 07:55 103.1 04/13/17 07:26 103.1 04/13/17 07:26 103.1 04/13/17 07:10 103.1 125 14 138/78 96 Room Air 04/13/17 06:37 103.1 131 14 138/78 96 Room Air Laboratory Tests Test 04/13/17 06:50 White Blood Count 15.0 K/UL (4.8-10.8) H Red Blood Count 3.51 M/UL (4.20-5.40) L Hemoglobin 11.0 G/DL (12.0-16.0) L Hematocrit 34.8 % (37.0-47.0) L Mean Corpuscular Volume 99 FL (80-99) Mean Corpuscular Hemoglobin 31.4 PG (27.0-31.0) H Mean Corpuscular Hemoglobin Concent 31.7 G/DL (32.0-36.0) L Red Cell Distribution Width 13.5 % (11.6-14.8) Platelet Count 288 K/UL (150-450) Mean Platelet Volume 8.5 FL (6.5-10.1) Neutrophils (%) (Auto) 76.1 % (45.0-75.0) H Lymphocytes (%) (Auto) 15.9 % (20.0-45.0) L Monocytes (%) (Auto) 5.3 % (1.0-10.0) Eosinophils (%) (Auto) 1.1 % (0.0-3.0) Basophils (%) (Auto) 1.7 % (0.0-2.0) Prothrombin Time 9.7 SEC (9.30-11.50) Prothromb Time International Ratio 0.9 (0.9-1.1) Activated Partial Thromboplast Time 26 SEC (23-33) Sodium Level 134 mEQ/L (135-145) L Potassium Level 5.1 mEQ/L (3.4-4.9) H Chloride Level 91 mEQ/L (98-107) L Carbon Dioxide Level 24 mEQ/L (20-30) Anion Gap 19 (5-15) H Blood Urea Nitrogen 35 mg/dL (7-23) H Creatinine 9.1 mg/dL (0.5-0.9) H Estimat Glomerular Filtration Rate 5.5 mL/min (>60) Glucose Level 180 mg/dL (74-106) H Lactic Acid Level 1.50 mmol/L (0.66-2.22) Calcium Level 9.0 mg/dL (8.6-10.2) Total Bilirubin 0.2 mg/dL (0.0-1.2) Aspartate Amino Transf (AST/SGOT) 16 U/L (5-40) Alanine Aminotransferase (ALT/SGPT) 8 U/L (3-33) Alkaline Phosphatase 91 U/L (35-104) Total Creatine Kinase 135 U/L (26-140) Troponin I < 0.30 ng/mL (<=0.30) Pro-B-Type Natriuretic Peptide 858 pg/mL (0-125) H Total Protein 7.8 g/dL (6.6-8.7) Albumin 3.9 g/dL (3.5-5.2) Globulin 3.9 g/dL Albumin/Globulin Ratio 1.0 (1.0-2.7) Lipase 33 U/L (< 60) Height (Feet): 5 Height (Inches): 5.00 Weight (Pounds): 232 Medications Current Medications Medications (Trade) Dose Ordered Sig/Regina Route PRN Reason Start Time Stop Time Status Last Admin Dose Admin Dextrose (Dextrose 50%) STAT PRN IV Hypoglycemia 04/13/17 11:45 05/13/17 11:44 Ondansetron HCl (Zofran) 4 mg Q6H PRN IVP Nausea & Vomiting 04/13/17 11:45 05/13/17 11:44 Sodium Chloride (Sodium Chloride 1000ml bag) 1,000 ml @ 100 mls/hr Q10H IV 04/13/17 06:45 05/13/17 06:44 04/13/17 06:57 Assessment/Plan Problem List: (1) Lower back pain ICD Codes: M54.5 - Low back pain SNOMED: 142831773 Qualifiers: Qualified Codes: M54.5 - Low back pain; G89.29 - Other chronic pain (2) Degenerative disc disease, cervical ICD Codes: M50.30 - Degenerative disc disease, cervical SNOMED: 57867153 (3) ESRD (end stage renal disease) on dialysis ICD Codes: N18.6 - End stage renal disease; Z99.2 - Dependence on renal dialysis SNOMED: 206141429 (4) ACS (acute coronary syndrome) ICD Codes: I24.9 - Acute ischemic heart disease, unspecified SNOMED: 836974002 (5) Chest pain ICD Codes: R07.9 - Chest pain, unspecified SNOMED: 48022204 Assessment/Plan Admit to telemetry Continue home meds ID consult Monitor temp Abx per ID HD per schedule Pain management Glycemic control AM labs JORDY MONREAL Apr 13, 2017 13:16
--- NOTE | 2017-04-13 14:45 | Cardiac Electrophysiology PN ---
Subjective Subjective [id number]. HTN, CHF, ESRD on HD, Sepsis Right LBP Objective Last 24 Hour Vital Signs Date Time Temp Pulse Resp B/P Pulse Ox O2 Delivery O2 Flow Rate FiO2 04/13/17 12:04 98.4 90 16 105/62 96 Room Air 04/13/17 11:53 98.4 90 16 105/62 96 Room Air 04/13/17 10:42 98.6 97 16 100/59 96 Room Air 04/13/17 09:05 101.2 111 17 114/51 96 Room Air 04/13/17 07:55 103.1 04/13/17 07:26 103.1 04/13/17 07:26 103.1 04/13/17 07:10 103.1 125 14 138/78 96 Room Air 04/13/17 06:37 103.1 131 14 138/78 96 Room Air Laboratory Tests Test 04/13/17 06:50 White Blood Count 15.0 K/UL (4.8-10.8) H Red Blood Count 3.51 M/UL (4.20-5.40) L Hemoglobin 11.0 G/DL (12.0-16.0) L Hematocrit 34.8 % (37.0-47.0) L Mean Corpuscular Volume 99 FL (80-99) Mean Corpuscular Hemoglobin 31.4 PG (27.0-31.0) H Mean Corpuscular Hemoglobin Concent 31.7 G/DL (32.0-36.0) L Red Cell Distribution Width 13.5 % (11.6-14.8) Platelet Count 288 K/UL (150-450) Mean Platelet Volume 8.5 FL (6.5-10.1) Neutrophils (%) (Auto) 76.1 % (45.0-75.0) H Lymphocytes (%) (Auto) 15.9 % (20.0-45.0) L Monocytes (%) (Auto) 5.3 % (1.0-10.0) Eosinophils (%) (Auto) 1.1 % (0.0-3.0) Basophils (%) (Auto) 1.7 % (0.0-2.0) Prothrombin Time 9.7 SEC (9.30-11.50) Prothromb Time International Ratio 0.9 (0.9-1.1) Activated Partial Thromboplast Time 26 SEC (23-33) Sodium Level 134 mEQ/L (135-145) L Potassium Level 5.1 mEQ/L (3.4-4.9) H Chloride Level 91 mEQ/L (98-107) L Carbon Dioxide Level 24 mEQ/L (20-30) Anion Gap 19 (5-15) H Blood Urea Nitrogen 35 mg/dL (7-23) H Creatinine 9.1 mg/dL (0.5-0.9) H Estimat Glomerular Filtration Rate 5.5 mL/min (>60) Glucose Level 180 mg/dL (74-106) H Lactic Acid Level 1.50 mmol/L (0.66-2.22) Calcium Level 9.0 mg/dL (8.6-10.2) Total Bilirubin 0.2 mg/dL (0.0-1.2) Aspartate Amino Transf (AST/SGOT) 16 U/L (5-40) Alanine Aminotransferase (ALT/SGPT) 8 U/L (3-33) Alkaline Phosphatase 91 U/L (35-104) Total Creatine Kinase 135 U/L (26-140) Troponin I < 0.30 ng/mL (<=0.30) Pro-B-Type Natriuretic Peptide 858 pg/mL (0-125) H Total Protein 7.8 g/dL (6.6-8.7) Albumin 3.9 g/dL (3.5-5.2) Globulin 3.9 g/dL Albumin/Globulin Ratio 1.0 (1.0-2.7) Lipase 33 U/L (< 60) MANISH XIE Apr 13, 2017 14:45
--- NOTE | 2017-04-13 14:49 | Infectious Diseases Prog Note ---
Assessment/Plan Problems: (1) Lower back pain Assessment & Plan: rule out osteomylitis or diskitis, will order MRI of the thoracic/lumbar spine and pelvis , and start vancomycin with cefepime empirically for now, check SED rate (2) Sepsis Assessment & Plan: unclear source yet, will send blood culture and start vancomycin with cefepime empirically for now (3) ESRD (end stage renal disease) on dialysis Assessment & Plan: on HD, renal following (4) Diabetes mellitus Assessment & Plan: recommend tight glycemic control to keep blood glucose between 80-120 (5) Pneumonia Assessment & Plan: on wide spectrum antibiotics Subjective Allergies: Coded Allergies: PENICILLINS (Verified Allergy, Intermediate, Hives, 12/07/12) MORPHINE (Unverified Allergy, Unknown, 09/22/14) Objective Vital Signs Last 24 Hour Vital Signs Date Time Temp Pulse Resp B/P Pulse Ox O2 Delivery O2 Flow Rate FiO2 04/13/17 12:04 98.4 90 16 105/62 96 Room Air 04/13/17 11:53 98.4 90 16 105/62 96 Room Air 04/13/17 10:42 98.6 97 16 100/59 96 Room Air 04/13/17 09:05 101.2 111 17 114/51 96 Room Air 04/13/17 07:55 103.1 04/13/17 07:26 103.1 04/13/17 07:26 103.1 04/13/17 07:10 103.1 125 14 138/78 96 Room Air 04/13/17 06:37 103.1 131 14 138/78 96 Room Air Height (Feet): 5 Height (Inches): 5.00 Weight (Pounds): 232 Laboratory Tests Test 04/13/17 06:50 White Blood Count 15.0 K/UL (4.8-10.8) H Red Blood Count 3.51 M/UL (4.20-5.40) L Hemoglobin 11.0 G/DL (12.0-16.0) L Hematocrit 34.8 % (37.0-47.0) L Mean Corpuscular Volume 99 FL (80-99) Mean Corpuscular Hemoglobin 31.4 PG (27.0-31.0) H Mean Corpuscular Hemoglobin Concent 31.7 G/DL (32.0-36.0) L Red Cell Distribution Width 13.5 % (11.6-14.8) Platelet Count 288 K/UL (150-450) Mean Platelet Volume 8.5 FL (6.5-10.1) Neutrophils (%) (Auto) 76.1 % (45.0-75.0) H Lymphocytes (%) (Auto) 15.9 % (20.0-45.0) L Monocytes (%) (Auto) 5.3 % (1.0-10.0) Eosinophils (%) (Auto) 1.1 % (0.0-3.0) Basophils (%) (Auto) 1.7 % (0.0-2.0) Prothrombin Time 9.7 SEC (9.30-11.50) Prothromb Time International Ratio 0.9 (0.9-1.1) Activated Partial Thromboplast Time 26 SEC (23-33) Sodium Level 134 mEQ/L (135-145) L Potassium Level 5.1 mEQ/L (3.4-4.9) H Chloride Level 91 mEQ/L (98-107) L Carbon Dioxide Level 24 mEQ/L (20-30) Anion Gap 19 (5-15) H Blood Urea Nitrogen 35 mg/dL (7-23) H Creatinine 9.1 mg/dL (0.5-0.9) H Estimat Glomerular Filtration Rate 5.5 mL/min (>60) Glucose Level 180 mg/dL (74-106) H Lactic Acid Level 1.50 mmol/L (0.66-2.22) Calcium Level 9.0 mg/dL (8.6-10.2) Total Bilirubin 0.2 mg/dL (0.0-1.2) Aspartate Amino Transf (AST/SGOT) 16 U/L (5-40) Alanine Aminotransferase (ALT/SGPT) 8 U/L (3-33) Alkaline Phosphatase 91 U/L (35-104) Total Creatine Kinase 135 U/L (26-140) Troponin I < 0.30 ng/mL (<=0.30) Pro-B-Type Natriuretic Peptide 858 pg/mL (0-125) H Total Protein 7.8 g/dL (6.6-8.7) Albumin 3.9 g/dL (3.5-5.2) Globulin 3.9 g/dL Albumin/Globulin Ratio 1.0 (1.0-2.7) Lipase 33 U/L (< 60) Current Medications Medications (Trade) Dose Ordered Sig/Regina Route PRN Reason Start Time Stop Time Status Last Admin Dose Admin Dextrose (Dextrose 50%) STAT PRN IV Hypoglycemia 04/13/17 11:45 05/13/17 11:44 Hydromorphone HCl (Dilaudid) 1 mg Q4H PRN IVP For Pain 04/13/17 13:30 04/20/17 13:29 Ondansetron HCl (Zofran) 4 mg Q6H PRN IVP Nausea & Vomiting 04/13/17 11:45 05/13/17 11:44 Sodium Chloride (Sodium Chloride 1000ml bag) 1,000 ml @ 100 mls/hr Q10H IV 04/13/17 06:45 05/13/17 06:44 04/13/17 06:57 Italia De La Vega M.D. Apr 13, 2017 14:49
[2017-04-13 16:00] VITALS: BP 123/57
[2017-04-13] MEDS: NovoLOG Insulin Flexpen SUBQ SCH ×2 (17:49→19:56)
[2017-04-13] MEDS: HYDROmorphone 1mg/ml Carpuject IVP PRN (19:54)
[2017-04-13 20:00] VITALS: BP 96/50
[2017-04-14] VITALS: BP_SYST 109; BP_SYST 96; BP_DIAS 50; BP_DIAS 59
--- NOTE | 2017-04-14 00:45 | Consultation ---
DATE OF CONSULTATION: 04/13/2017 CARDIOLOGY CONSULTATION REFERRING PHYSICIAN: Memo Miranda M.D. REASON FOR CONSULTATION: Management of hypertension and congestive heart failure. HISTORY OF PRESENT ILLNESS: The patient is a 52-year-old lady with history of hypertension, diabetes, end-stage renal disease, on hemodialysis, and congestive heart failure, was discharged from [facility] for low back pain. The patient presented to the emergency room with low back pain, worse on the right side with radiation to the right leg. The patient received morphine sulfate, but overnight developed fevers. A Cardiology consultation was also obtained for further management per cardiac issues. REVIEW OF SYSTEMS: Negative other than what was mentioned in history of present illness. PAST MEDICAL HISTORY: 1. Diabetes. 2. Hyperlipidemia. 3. Congestive heart failure. 4. End-stage renal disease, on hemodialysis. MEDICATIONS: Lipitor 10 mg daily, glyburide 5 mg b.i.d., gabapentin, and calcium carbonate. SOCIAL HISTORY: She lives at home. Does not smoke or drink alcohol. FAMILY HISTORY: Noncontributory. PHYSICAL EXAMINATION: VITAL SIGNS: Blood pressure is 105/62, pulse 96, temperature 98.4 degrees. HEAD AND NECK: Showed no JVD. LUNGS: Clear. CARDIOVASCULAR: Regular S1 and S2 with no gallop or murmur. ABDOMEN: Soft and nontender. Morbid obesity. EXTREMITIES: No pitting edema. Her right arm has AV fistula. LABORATORY DATA: White count 15, hemoglobin 11, hematocrit of 34.8, and platelet count 288,000. Sodium 134, potassium 5.1, BUN 35, creatinine 9.1, and glucose of 180. INR is 0.9. Her EKG showed sinus tachycardia at 128, poor R-wave progression. ASSESSMENT AND PLAN: 1. History of congestive heart failure. The patient is already on hemodialysis. We will get an echocardiogram and brain natriuretic peptide again. Her baseline BNP is almost 900. The first troponin is also negative. 2. Hypertension hemodialysis. 3. End-stage renal disease, on hemodialysis. 4. Sepsis, on IV antibiotics. 5. Back pain. Thank you very much Dr. Miranda for allowing me to participate in the care of this patient. Please do not hesitate to contact me for any questions regarding my evaluation. Pawel Daugherty M.D. DR: David JOB#: [id number] CC:
[2017-04-14] MEDS: HYDROmorphone 1mg/ml Carpuject IVP PRN ×4 (00:56→21:16)
[2017-04-14] MEDS: Cefepime HCl 500 MG in D5W 55 ML IV SCH (02:41)
--- NOTE | 2017-04-14 03:00 | Consultation ---
DATE OF CONSULTATION: INFECTIOUS DISEASE CONSULTATION REQUESTING PHYSICIAN: Memo Miranda M.D. REASON FOR CONSULTATION: Sepsis, low back pain, fever, recommendation for antibiotics treatment. HISTORY OF PRESENT ILLNESS: The patient is a 52-year-old female with end-stage renal disease, on hemodialysis, was recently discharged from [facility] for low back pain and had a CT scan on 04/10/2017, which was done without contrast, she was found to have sciatica. She was treated with MS Contin to control her pain and discharged home. Last night, she developed fever up to 103 degrees with severe left-sided lower back pain radiated to the right lower extremity dull, deep, aching pain associated with some numbness in the right leg. Denied any trauma or falls. No cough or shortness of breath. She had some weakness, which is chronic in the lower extremities, but worse since she was discharged from [place]. The patient denied any sore throat, runny nose, or earache. No diarrhea. No recent travel or sick contacts. Her temperature was found to be 103.1 degrees in the emergency room. So, she received wide spectrum antibiotics therapy. Chest x-ray did not show any significant pathology. CT of the abdomen and pelvis did not show any acute pathology to explain her back pain. She was admitted to the hospital for further evaluation and management and I was consulted by the primary provider team for antibiotics management of her sepsis and possible spine infection. REVIEW OF SYSTEMS: A 12-point system reviewed, were all negative apart from the one I mentioned above in my History and Physical. PAST MEDICAL HISTORY: Significant for hypertension, diabetes, and end-stage renal disease, on hemodialysis Friday, Friday, and Friday. PAST SURGICAL HISTORY: Negative. SOCIAL HISTORY: She lives at home with family. Unemployed. Denied using drugs, tobacco, or alcohol. ALLERGIES: She is allergic to penicillin and morphine. MEDICATIONS: She received vancomycin, cefepime, and Flagyl in the emergency room. For the rest of her medications, please refer to MAR. PHYSICAL EXAMINATION: GENERAL: A middle-aged female, lying in bed, complains of back pain, not in acute distress. VITAL SIGNS: Temperature 98.4 degrees, pulse 90, respirations 16, blood pressure 105/62, and saturation 96% on room air. HEENT: Normocephalic and atraumatic. Pupils are reactive to light. Dry oral mucosa. No exudate. NECK: Supple. No lymphadenopathy. CARDIOVASCULAR: Regular rate and rhythm. No murmur. LUNGS: She had diminished breathing sounds at the bases with crackles. No wheezing or rhonchi. ABDOMEN: Soft, nontender, and nondistended. Positive bowel sounds. No hepatosplenomegaly or ascites. EXTREMITIES: No edema or cyanosis. BACK: She had tenderness in the lumbar area and the sacrum, radiates to the right leg mainly. LABORATORY AND DIAGNOSTIC DATA: Showed white count of 15,000, platelets of 288,000. BUN of 35, creatinine of 9.1. AST of 16 and ALT of 8. Imaging, CT scan of the abdomen and pelvis showed no acute osseous abnormalities or obvious paravertebral inflammatory changes, atelectasis in the lung bases, focal infiltrate in the right base, not excluded, subcentimeter scattered nodules in the partially visualized lung bases. ASSESSMENT AND RECOMMENDATION: 1. Low back pain with fever, rule out osteomyelitis and discitis. We will order MRI of the thoracic and lumbar spine and pelvis. We will start the patient empirically on vancomycin and cefepime. We will check blood culture and sedimentation rate. 2. Sepsis, unclear etiology at this point. We will send blood culture and start cefepime and vancomycin for empiric treatment pending further culture. 3. End-stage renal disease, on hemodialysis. Renal is following. 4. Diabetes. Recommend tight glycemic control to keep blood glucose between 80 to 120. 5. possible pneumonia ; already on wide spectrum antibiotics Thank you for the consult. Infectious Disease will continue to follow with you. Italia De La Vega M.D. DR: Jasen JOB#: [id number] CC: BEATRIZ
[2017-04-14 04:00] VITALS: BP 95/51
[2017-04-14] MEDS: NovoLOG Insulin Flexpen SUBQ SCH ×4 (06:21→21:00)
[2017-04-14 06:58] LABS: MEAN CORPUSCULAR HEMOGLOBIN 32.4 PG (27.0-31.0); MEAN CORPUSCULAR HGB CONC 32.6 G/DL (32.0-36.0); MEAN CORPUSCULAR VOLUME 99 FL (80-99); MEAN PLATELET VOLUME 9.1 FL (6.5-10.1); PLATELET COUNT 249 K/UL (150-450); RED CELL DISTRIBUTION WIDTH 13.5 % (11.6-14.8); WHITE BLOOD COUNT 14.3 K/UL (4.8-10.8)
[2017-04-14 07:09] LABS: TROPONIN I < 0.30 ng/mL (<=0.30)
[2017-04-14 07:36] LABS: CALCIUM 8.7 mg/dL (8.6-10.2); CHOLESTEROL/HDL RATIO 7.5 (3.3-4.4); CREATININE 10.8 mg/dL (0.5-0.9); GLOMERULAR FILTRATION RATE 4.5 mL/min (>60)
[2017-04-14 07:37] LABS: POTASSIUM 6.4 mEQ/L (3.4-4.9)
[2017-04-14 07:43] LABS: BAND NEUTROPHILS % (MANUAL) 0 % (0-8); BASOPHILS % (MANUAL) 0 % (0-2); EOSINOPHILS % (MANUAL) 0 % (0-3); HYPOCHROMASIA 1+; LYMPHOCYTES % (MANUAL) 4 % (20-45); NEUTROPHILS % (MANUAL) 91 % (45-75); PLATELET ESTIMATE ADEQUATE; PLATELET MORPHOLOGY NORMAL; TOTAL CELLS COUNTED 100
[2017-04-14 07:46] LABS: THYROID STIMULATING HORMONE 1.12 uIU/mL (0.300-4.500)
[2017-04-14 08:00] VITALS: BP 92/55
--- NOTE | 2017-04-14 08:40 | Diagnostic Imaging Report ---
Indication: Chest pain Technique: XRAY CHEST 1 V Comparison: 07/28/16 Findings: Cardiac silhouette is prominent. There is mild central pulmonary vessel congestion. There is no consolidation or pleural effusion. Degenerative changes of the spine are seen. Left-sided vascular stent is noted. Impression: Cardiomegaly with mild central pulmonary vascular congestion.
--- NOTE | 2017-04-14 10:29 | Consultation ---
Consult Note Consult Note DATE OF CONSULTATION: 04/14/2017 PULMONARY CONSULTATION REFERRING PHYSICIAN: Memo Miranda M.D. REASON FOR CONSULTATION: Pulmonary edema and lung nodules HISTORY OF PRESENT ILLNESS: The patient is a 52-year-old lady with history of hypertension, diabetes, end-stage renal disease, on hemodialysis, and congestive heart failure, was discharged from [facility] for low back pain. The patient presented to the emergency room with low back pain, worse on the right side with radiation to the right leg. The patient received morphine sulfate, but overnight developed fevers. A CT abdomen showed atelectasis ans bilateral pulmonary nodules. REVIEW OF SYSTEMS: Negative other than what was mentioned in history of present illness. PAST MEDICAL HISTORY: 1. Diabetes. 2. Hyperlipidemia. 3. Congestive heart failure. 4. End-stage renal disease, on hemodialysis. MEDICATIONS: Lipitor 10 mg daily, glyburide 5 mg b.i.d., gabapentin, and calcium carbonate. SOCIAL HISTORY: She lives at home. Does not smoke or drink alcohol. FAMILY HISTORY: Noncontributory. PHYSICAL EXAMINATION: VITAL SIGNS: Blood pressure is 105/62, pulse 96, temperature 98.4 degrees. HEAD AND NECK: Showed no JVD. LUNGS: Decreased biltaerally. CARDIOVASCULAR: Regular S1 and S2 with no gallop or murmur. ABDOMEN: Soft and nontender. Morbid obesity. EXTREMITIES: No pitting edema. Her right arm has AV fistula. LABORATORY DATA: White count 15, hemoglobin 11, hematocrit of 34.8, and platelet count 288,000. Sodium 134, potassium 5.1, BUN 35, creatinine 9.1, and glucose of 180. INR is 0.9. CT andomen discussed above ASSESSMENT AND PLAN: 1. History of congestive heart failure. 2. Hypertension 3. End-stage renal disease, on hemodialysis. 4. Sepsis, on IV antibiotics. 5. Back pain. 6. Pulmonary nodules; will need dedicated CT chest once pt is stable Thank you very much Dr. Miranda for allowing me to participate in the care of this patient. Please do not hesitate to contact me for any questions regarding my evaluation. Vinicio Weaver M.D., MD Apr 14, 2017 10:29
[2017-04-14 12:00] VITALS: BP 98/61
[2017-04-14] MEDS: DiphenhydrAMINE 50mg/ml Inj IVP PRN ×2 (13:20→21:24)
--- NOTE | 2017-04-14 15:45 | Infectious Diseases Prog Note ---
Assessment/Plan Problems: (1) Lower back pain Assessment & Plan: rule out osteomylitis or diskitis, await MRI of the thoracic/lumbar spine , and continue vancomycin with cefepime empirically for now, check SED rate (2) Sepsis Assessment & Plan: unclear source yet, await blood culture and continue vancomycin with cefepime empirically for now (3) ESRD (end stage renal disease) on dialysis Assessment & Plan: on HD, renal following (4) Diabetes mellitus Assessment & Plan: recommend tight glycemic control to keep blood glucose between 80-120 (5) Pneumonia Assessment & Plan: on wide spectrum antibiotics Subjective Constitutional: Reports: no symptoms HEENT: Reports: no symptoms Respiratory: Reports: no symptoms Breasts: Reports: no symptoms Cardiovascular: Reports: no symptoms Gastrointestinal/Abdominal: Reports: no symptoms Genitourinary: Reports: no symptoms Neurologic: Reports: no symptoms Psychiatric: Reports: no symptoms Skin: Reports: no symptoms Musculoskeletal: Reports: pain Allergies: Coded Allergies: PENICILLINS (Verified Allergy, Intermediate, Hives, 12/07/12) MORPHINE (Unverified Allergy, Unknown, 09/22/14) Subjective she had less back pain and no fever today Objective Vital Signs Last 24 Hour Vital Signs Date Time Temp Pulse Resp B/P Pulse Ox O2 Delivery O2 Flow Rate FiO2 04/14/17 13:43 97.5 04/14/17 12:40 Room Air 04/14/17 12:00 97.5 84 17 98/61 99 Room Air 04/14/17 08:00 97.7 90 17 92/55 100 Room Air 04/14/17 04:00 90 04/14/17 04:00 97.3 65 23 95/51 99 Room Air 04/14/17 00:00 98.1 93 20 109/59 95 Room Air 04/14/17 00:00 96.9 95 20 96/50 99 Room Air 04/14/17 00:00 92 04/13/17 20:00 97.7 95 20 96/50 99 Room Air 04/13/17 20:00 105 04/13/17 16:00 91 04/13/17 16:00 96.9 107 17 123/57 95 Room Air Height (Feet): 5 Height (Inches): 5.00 Weight (Pounds): 232 General Appearance: WD/WN, no acute distress HEENT: normocephalic, atraumatic, anicteric, mucous membranes moist Respiratory/Chest: chest wall non-tender, lungs clear, normal breath sounds, no respiratory distress, no accessory muscle use Cardiovascular: normal peripheral pulses, normal rate, regular rhythm, no gallop/murmur, no JVD Abdomen: normal bowel sounds, soft, non tender, no organomegaly, non distended , no mass Extremities: no cyanosis, no clubbing Skin: no rash, no lesions, no ulcers Neurologic/Psychiatric: alert, oriented x 3 Lymphatic: no groin adenopathy Laboratory Tests Test 04/14/17 05:20 White Blood Count 14.3 K/UL (4.8-10.8) H Red Blood Count 3.00 M/UL (4.20-5.40) L Hemoglobin 9.7 G/DL (12.0-16.0) L Hematocrit 29.7 % (37.0-47.0) L Mean Corpuscular Volume 99 FL (80-99) Mean Corpuscular Hemoglobin 32.4 PG (27.0-31.0) H Mean Corpuscular Hemoglobin Concent 32.6 G/DL (32.0-36.0) Red Cell Distribution Width 13.5 % (11.6-14.8) Platelet Count 249 K/UL (150-450) Mean Platelet Volume 9.1 FL (6.5-10.1) Neutrophils (%) (Auto) % (45.0-75.0) Lymphocytes (%) (Auto) % (20.0-45.0) Monocytes (%) (Auto) % (1.0-10.0) Eosinophils (%) (Auto) % (0.0-3.0) Basophils (%) (Auto) % (0.0-2.0) Differential Total Cells Counted 100 Neutrophils % (Manual) 91 % (45-75) H Lymphocytes % (Manual) 4 % (20-45) L Monocytes % (Manual) 5 % (1-10) Eosinophils % (Manual) 0 % (0-3) Basophils % (Manual) 0 % (0-2) Band Neutrophils 0 % (0-8) Platelet Estimate Adequate Platelet Morphology Normal Hypochromasia 1+ Sodium Level 134 mEQ/L (135-145) L Potassium Level 6.4 mEQ/L (3.4-4.9) *H Chloride Level 92 mEQ/L (98-107) L Carbon Dioxide Level 21 mEQ/L (20-30) Anion Gap 21 (5-15) H Blood Urea Nitrogen 60 mg/dL (7-23) #H Creatinine 10.8 mg/dL (0.5-0.9) H Estimat Glomerular Filtration Rate 4.5 mL/min (>60) Glucose Level 200 mg/dL (74-106) H Calcium Level 8.7 mg/dL (8.6-10.2) Troponin I < 0.30 ng/mL (<=0.30) Pro-B-Type Natriuretic Peptide 3515 pg/mL (0-125) H Triglycerides Level 386 mg/dL (< 150) H Cholesterol Level 196 mg/dL (< 200) LDL Cholesterol 93 mg/dL (60-99) HDL Cholesterol 26 mg/dL (> 60) Cholesterol/HDL Ratio 7.5 (3.3-4.4) H Thyroid Stimulating Hormone (TSH) 1.120 uIU/mL (0.300-4.500) Free Thyroxine 0.78 ng/dL (0.86-1.85) L Current Medications Medications (Trade) Dose Ordered Sig/Regina Route PRN Reason Start Time Stop Time Status Last Admin Dose Admin Cefepime HCl/ Dextrose (Maxipime/D5W) 55 ml @ 110 mls/hr DAILY@0400 IV 04/14/17 04:00 04/21/17 03:59 04/14/17 02:41 Dextrose (Dextrose 50%) STAT PRN IV Hypoglycemia 04/13/17 11:45 05/13/17 11:44 Diphenhydramine HCl (Benadryl) 25 mg Q4H PRN IVP Itching 04/14/17 13:15 05/14/17 13:14 04/14/17 13:20 Hydromorphone HCl (Dilaudid) 1 mg Q4H PRN IVP For Pain 04/13/17 13:30 04/20/17 13:29 04/14/17 13:13 Insulin Aspart (NovoLOG) BEFORE MEALS AND HS SUBQ 04/13/17 17:00 05/13/17 16:59 04/13/17 19:56 Lidocaine (Xylocaine 5% cream) 1 applic Q4H PRN TOPIC for dialysis 04/14/17 12:57 05/14/17 12:29 04/14/17 13:02 Ondansetron HCl (Zofran) 4 mg Q6H PRN IVP Nausea & Vomiting 04/13/17 11:45 05/13/17 11:44 Sodium Chloride (Sodium Chloride 1000ml bag) 1,000 ml @ 100 mls/hr Q10H IV 04/13/17 06:45 05/13/17 06:44 04/14/17 02:40 Vancomycin HCl 1 ea 1 ea DAILY PRN MISC Per rx protocol 04/13/17 14:45 05/13/17 14:44 Italia De La Vega M.D. Apr 14, 2017 15:45
[2017-04-14 16:00] VITALS: BP 91/80
--- NOTE | 2017-04-14 16:08 | Nephrology Progress Note ---
Assessment/Plan Problem List: (1) Degenerative disc disease, cervical (2) Lower back pain (3) Sepsis (4) lung nodules (5) Septicemia (6) ESRD (end stage renal disease) on dialysis (7) ACS (acute coronary syndrome) (8) Diabetes mellitus (9) Obesity (10) Diabetic peripheral neuropathy (11) Hypertension Plan Monitor temp Abx per ID Monitor lytes, correct with HD Pain management HD with ultrafiltration, MWF f/u with ID rec AM labs Subjective Subjective In bed, in no apparent distress, HD ongoing, pt is sleeping but easily aroused. Objective Objective Last 24 Hour Vital Signs Date Time Temp Pulse Resp B/P Pulse Ox O2 Delivery O2 Flow Rate FiO2 04/14/17 13:43 97.5 04/14/17 12:40 Room Air 04/14/17 12:00 97.5 84 17 98/61 99 Room Air 04/14/17 08:00 97.7 90 17 92/55 100 Room Air 04/14/17 04:00 90 04/14/17 04:00 97.3 65 23 95/51 99 Room Air 04/14/17 00:00 98.1 93 20 109/59 95 Room Air 04/14/17 00:00 96.9 95 20 96/50 99 Room Air 04/14/17 00:00 92 04/13/17 20:00 97.7 95 20 96/50 99 Room Air 04/13/17 20:00 105 Intake and Output 04/13/17 04/14/17 19:00 07:00 Intake Total 1255 ml 500 ml Output Total 0 ml Balance 1255 ml 500 ml Intake Oral 450 ml IV Total 755 ml 500 ml Other 50 ml Output Urine Total 0 ml # Bowel Movements 1 Laboratory Tests 04/14/17 05:20: White Blood Count 14.3H, Red Blood Count 3.00L, Hemoglobin 9.7L, Hematocrit 29.7L, Mean Corpuscular Volume 99, Mean Corpuscular Hemoglobin 32.4H, Mean Corpuscular Hemoglobin Concent 32.6, Red Cell Distribution Width 13.5, Platelet Count 249, Mean Platelet Volume 9.1, Neutrophils (%) (Auto) , Lymphocytes (%) ( Auto) , Monocytes (%) (Auto) , Eosinophils (%) (Auto) , Basophils (%) (Auto) , Differential Total Cells Counted 100, Neutrophils % (Manual) 91H, Lymphocytes % (Manual) 4L, Monocytes % (Manual) 5, Eosinophils % (Manual) 0, Basophils % ( Manual) 0, Band Neutrophils 0, Platelet Estimate Adequate, Platelet Morphology Normal, Hypochromasia 1+, Sodium Level 134L, Potassium Level 6.4*H, Chloride Level 92L, Carbon Dioxide Level 21, Anion Gap 21H, Blood Urea Nitrogen 60#H, Creatinine 10.8H, Estimat Glomerular Filtration Rate 4.5, Glucose Level 200H, Calcium Level 8.7, Troponin I < 0.30, Pro-B-Type Natriuretic Peptide 3515H, Triglycerides Level 386H, Cholesterol Level 196, LDL Cholesterol 93, HDL Cholesterol 26, Cholesterol/HDL Ratio 7.5H, Thyroid Stimulating Hormone (TSH) 1.120, Free Thyroxine 0.78L Height (Feet): 5 Height (Inches): 5.00 Weight (Pounds): 232 General Appearance: no apparent distress EENT: normal ENT inspection Neck: non-tender, normal alignment Cardiovascular: normal rate, regular rhythm, no JVD Respiratory/Chest: lungs clear, normal breath sounds Abdomen: non tender, soft Genitourinary/Rectal: other - defered Extremities: moderate edema Neurologic: alert, oriented x 3, responsive Mirna Tatum N.P. Apr 14, 2017 16:08
--- NOTE | 2017-04-14 17:58 | Cardiac Electrophysiology PN ---
Assessment/Plan Assessment/Plan 1. Congestive heart failure. The patient is already on hemodialysis. Echocardiogram pending.Brain natriuretic peptide >3000. Ruled out for [place] 2. Hypertension On hemodialysis. 3. End-stage renal disease, on hemodialysis. 4. Sepsis, on IV antibiotics. 5. Back pain. Subjective Subjective Alert in NAD. Just had HD. Family at bedside. Objective Last 24 Hour Vital Signs Date Time Temp Pulse Resp B/P Pulse Ox O2 Delivery O2 Flow Rate FiO2 04/14/17 16:54 Room Air 04/14/17 16:00 97.8 88 18 91/80 98 Room Air 86 04/14/17 13:43 97.5 04/14/17 12:40 Room Air 04/14/17 12:00 97.5 84 17 98/61 99 Room Air 04/14/17 08:00 97.7 90 17 92/55 100 Room Air 04/14/17 04:00 90 04/14/17 04:00 97.3 65 23 95/51 99 Room Air 04/14/17 00:00 98.1 93 20 109/59 95 Room Air 04/14/17 00:00 96.9 95 20 96/50 99 Room Air 04/14/17 00:00 92 04/13/17 20:00 97.7 95 20 96/50 99 Room Air 04/13/17 20:00 105 Intake and Output 04/13/17 04/14/17 19:00 07:00 Intake Total 1255 ml 500 ml Output Total 0 ml Balance 1255 ml 500 ml Intake Oral 450 ml IV Total 755 ml 500 ml Other 50 ml Output Urine Total 0 ml # Bowel Movements 1 Laboratory Tests Test 04/14/17 05:20 White Blood Count 14.3 K/UL (4.8-10.8) H Red Blood Count 3.00 M/UL (4.20-5.40) L Hemoglobin 9.7 G/DL (12.0-16.0) L Hematocrit 29.7 % (37.0-47.0) L Mean Corpuscular Volume 99 FL (80-99) Mean Corpuscular Hemoglobin 32.4 PG (27.0-31.0) H Mean Corpuscular Hemoglobin Concent 32.6 G/DL (32.0-36.0) Red Cell Distribution Width 13.5 % (11.6-14.8) Platelet Count 249 K/UL (150-450) Mean Platelet Volume 9.1 FL (6.5-10.1) Neutrophils (%) (Auto) % (45.0-75.0) Lymphocytes (%) (Auto) % (20.0-45.0) Monocytes (%) (Auto) % (1.0-10.0) Eosinophils (%) (Auto) % (0.0-3.0) Basophils (%) (Auto) % (0.0-2.0) Differential Total Cells Counted 100 Neutrophils % (Manual) 91 % (45-75) H Lymphocytes % (Manual) 4 % (20-45) L Monocytes % (Manual) 5 % (1-10) Eosinophils % (Manual) 0 % (0-3) Basophils % (Manual) 0 % (0-2) Band Neutrophils 0 % (0-8) Platelet Estimate Adequate Platelet Morphology Normal Hypochromasia 1+ Sodium Level 134 mEQ/L (135-145) L Potassium Level 6.4 mEQ/L (3.4-4.9) *H Chloride Level 92 mEQ/L (98-107) L Carbon Dioxide Level 21 mEQ/L (20-30) Anion Gap 21 (5-15) H Blood Urea Nitrogen 60 mg/dL (7-23) #H Creatinine 10.8 mg/dL (0.5-0.9) H Estimat Glomerular Filtration Rate 4.5 mL/min (>60) Glucose Level 200 mg/dL (74-106) H Calcium Level 8.7 mg/dL (8.6-10.2) Troponin I < 0.30 ng/mL (<=0.30) Pro-B-Type Natriuretic Peptide 3515 pg/mL (0-125) H Triglycerides Level 386 mg/dL (< 150) H Cholesterol Level 196 mg/dL (< 200) LDL Cholesterol 93 mg/dL (60-99) HDL Cholesterol 26 mg/dL (> 60) Cholesterol/HDL Ratio 7.5 (3.3-4.4) H Thyroid Stimulating Hormone (TSH) 1.120 uIU/mL (0.300-4.500) Free Thyroxine 0.78 ng/dL (0.86-1.85) L Objective HEAD AND NECK: Showed no JVD. LUNGS: Clear. CARDIOVASCULAR: Regular S1 and S2 with no gallop or murmur. ABDOMEN: Soft and nontender. Morbid obesity. EXTREMITIES: No pitting edema. Her right arm has AV fistula. MANISH XIE Apr 14, 2017 17:58
[2017-04-14 20:00] VITALS: BP 107/58
[2017-04-15] VITALS (7 sets, daily range): BP systolic 98–134; BP diastolic 50–65
[2017-04-15] MEDS: DiphenhydrAMINE 50mg/ml Inj IVP PRN ×3 (02:34→20:20)
[2017-04-15] MEDS: HYDROmorphone 1mg/ml Carpuject IVP PRN ×3 (02:35→20:20)
[2017-04-15] MEDS: Cefepime HCl 500 MG in D5W 55 ML IV SCH (04:28)
[2017-04-15] MEDS: NovoLOG Insulin Flexpen SUBQ SCH ×4 (06:30→21:00)
[2017-04-15 08:22] LABS: BASOPHILS % (AUTO) 0.9 % (0.0-2.0); EOSINOPHILS % (AUTO) 0.3 % (0.0-3.0); LYMPHOCYTES % (AUTO) 13.3 % (20.0-45.0); MEAN CORPUSCULAR HEMOGLOBIN 32.1 PG (27.0-31.0); MEAN CORPUSCULAR VOLUME 100 FL (80-99); MEAN PLATELET VOLUME 8.6 FL (6.5-10.1); MONOCYTES % (AUTO) 7.8 % (1.0-10.0); NEUTROPHILS % (AUTO) 77.8 % (45.0-75.0); PLATELET COUNT 263 K/UL (150-450); RED BLOOD COUNT 3.01 M/UL (4.20-5.40); RED CELL DISTRIBUTION WIDTH 13.7 % (11.6-14.8); WHITE BLOOD COUNT 13.5 K/UL (4.8-10.8)
[2017-04-15 08:33] LABS: CALCIUM 8.8 mg/dL (8.6-10.2); CREATININE 8.8 mg/dL (0.5-0.9); GLOMERULAR FILTRATION RATE 5.7 mL/min (>60); POTASSIUM 5.5 mEQ/L (3.4-4.9)
--- NOTE | 2017-04-15 09:58 | Cardiac Electrophysiology PN ---
Assessment/Plan Assessment/Plan 1. Congestive heart failure. On hemodialysis. Echocardiogram report EF 65%. Brain natriuretic peptide >3000. Ruled out for [place] 2. Hypertension On hemodialysis. 3. End-stage renal disease, on hemodialysis. 4. Sepsis, on IV antibiotics.Blood Cx negative 5. Back pain. 6. Hyperkalemia this am. Jayro ALEGRE RN Subjective Subjective Alert in NAD.Had HD yesterday. RN at bedside. Objective Last 24 Hour Vital Signs Date Time Temp Pulse Resp B/P Pulse Ox O2 Delivery O2 Flow Rate FiO2 04/15/17 08:00 89 04/15/17 07:44 97.3 73 18 134/58 95 Room Air 04/15/17 04:00 85 04/15/17 03:52 97.6 79 19 98/56 96 Room Air 04/15/17 03:15 97.8 04/15/17 00:04 97.8 83 18 101/52 98 Room Air 04/15/17 00:00 84 04/14/17 20:00 93 04/14/17 20:00 97.7 91 19 107/58 94 Room Air 04/14/17 16:54 Room Air 04/14/17 16:00 97.8 88 18 91/80 98 Room Air 86 04/14/17 16:00 84 04/14/17 12:40 Room Air 04/14/17 12:00 97.5 84 17 98/61 99 Room Air 04/14/17 12:00 85 Intake and Output 04/14/17 04/15/17 19:00 07:00 Output Total 2100 ml Balance -2100 ml Hemodialysis UF 2100 ml Laboratory Tests Test 04/15/17 07:30 White Blood Count 13.5 K/UL (4.8-10.8) H Red Blood Count 3.01 M/UL (4.20-5.40) L Hemoglobin 9.7 G/DL (12.0-16.0) L Hematocrit 30.2 % (37.0-47.0) L Mean Corpuscular Volume 100 FL (80-99) H Mean Corpuscular Hemoglobin 32.1 PG (27.0-31.0) H Mean Corpuscular Hemoglobin Concent 32.0 G/DL (32.0-36.0) Red Cell Distribution Width 13.7 % (11.6-14.8) Platelet Count 263 K/UL (150-450) Mean Platelet Volume 8.6 FL (6.5-10.1) Neutrophils (%) (Auto) 77.8 % (45.0-75.0) H Lymphocytes (%) (Auto) 13.3 % (20.0-45.0) L Monocytes (%) (Auto) 7.8 % (1.0-10.0) Eosinophils (%) (Auto) 0.3 % (0.0-3.0) Basophils (%) (Auto) 0.9 % (0.0-2.0) Sodium Level 136 mEQ/L (135-145) Potassium Level 5.5 mEQ/L (3.4-4.9) H Chloride Level 94 mEQ/L (98-107) L Carbon Dioxide Level 23 mEQ/L (20-30) Anion Gap 19 (5-15) H Blood Urea Nitrogen 54 mg/dL (7-23) H Creatinine 8.8 mg/dL (0.5-0.9) H Estimat Glomerular Filtration Rate 5.7 mL/min (>60) Glucose Level 147 mg/dL (74-106) H Calcium Level 8.8 mg/dL (8.6-10.2) Random Vancomycin Level 8.7 ug/mL Microbiology Date/Time Source Procedure Growth Status 04/13/17 06:50 Blood Blood Culture - Preliminary NO GROWTH AFTER 24 HOURS Resulted 04/13/17 06:35 Blood Blood Culture - Preliminary NO GROWTH AFTER 24 HOURS Resulted 04/13/17 12:02 Nasal Nares MRSA Culture - Final NO METHICILLIN RESISTANT STAPH AUREUS... Complete 04/13/17 12:02 Rectum VRE Culture - Final NO VANCOMYCIN RESISTANT ENTEROCOCCUS ... Complete Objective HEAD AND NECK: Showed no JVD. LUNGS: Clear. CARDIOVASCULAR: Regular S1 and S2 with no gallop or murmur. ABDOMEN: Soft and nontender. Morbid obesity. EXTREMITIES: No pitting edema. Her right arm has AV fistula. AMNISH XIE Apr 15, 2017 09:58
[2017-04-15] MEDS ORDERED: Sodium Polystyrene Sulfonate 15gm Powder ORAL ONE (10:30)
[2017-04-15] MEDS ORDERED: Vancomycin 1500mg IVPB ONE (12:00)
--- NOTE | 2017-04-15 12:12 | Pulmonology Progress Note ---
Assessment/Plan Assessment/Plan 1. History of congestive heart failure. 2. Hypertension 3. End-stage renal disease, on hemodialysis. 4. Sepsis, on IV antibiotics. 5. Back pain. 6. Pulmonary nodules; will need dedicated CT chest once pt is stable Will follow and monitor Subjective Interval Events: No new reported events Constitutional: Reports: no symptoms HEENT: Repors: no symptoms Respiratory: Reports: no symptoms Cardiovascular: Reports: no symptoms Allergies: Coded Allergies: PENICILLINS (Verified Allergy, Intermediate, Hives, 12/07/12) MORPHINE (Unverified Allergy, Unknown, 09/22/14) Objective Last 24 Hour Vital Signs Date Time Temp Pulse Resp B/P Pulse Ox O2 Delivery O2 Flow Rate FiO2 04/15/17 11:19 97.3 79 18 114/65 100 Room Air 04/15/17 08:00 89 04/15/17 07:44 97.3 73 18 134/58 95 Room Air 04/15/17 04:00 85 04/15/17 03:52 97.6 79 19 98/56 96 Room Air 04/15/17 03:15 97.8 04/15/17 00:04 97.8 83 18 101/52 98 Room Air 04/15/17 00:00 84 04/14/17 20:00 93 04/14/17 20:00 97.7 91 19 107/58 94 Room Air 04/14/17 16:54 Room Air 04/14/17 16:00 97.8 88 18 91/80 98 Room Air 86 04/14/17 16:00 84 04/14/17 12:40 Room Air Intake and Output 04/14/17 04/15/17 19:00 07:00 Output Total 2100 ml Balance -2100 ml Hemodialysis UF 2100 ml General Appearance: no acute distress HEENT: normocephalic Respiratory/Chest: chest wall non-tender, decreased breath sounds Cardiovascular: normal peripheral pulses, normal rate, regular rhythm Microbiology Date/Time Source Procedure Growth Status 04/13/17 06:50 Blood Blood Culture - Preliminary NO GROWTH AFTER 24 HOURS Resulted 04/13/17 06:35 Blood Blood Culture - Preliminary NO GROWTH AFTER 24 HOURS Resulted 04/13/17 12:02 Nasal Nares MRSA Culture - Final NO METHICILLIN RESISTANT STAPH AUREUS... Complete 04/13/17 12:02 Rectum VRE Culture - Final NO VANCOMYCIN RESISTANT ENTEROCOCCUS ... Complete Laboratory Tests 04/15/17 07:30: White Blood Count 13.5H, Red Blood Count 3.01L, Hemoglobin 9.7L, Hematocrit 30.2L, Mean Corpuscular Volume 100H, Mean Corpuscular Hemoglobin 32.1H, Mean Corpuscular Hemoglobin Concent 32.0, Red Cell Distribution Width 13.7, Platelet Count 263, Mean Platelet Volume 8.6, Neutrophils (%) (Auto) 77.8H, Lymphocytes ( %) (Auto) 13.3L, Monocytes (%) (Auto) 7.8, Eosinophils (%) (Auto) 0.3, Basophils (%) (Auto) 0.9, Sodium Level 136, Potassium Level 5.5H, Chloride Level 94L, Carbon Dioxide Level 23, Anion Gap 19H, Blood Urea Nitrogen 54H, Creatinine 8.8H, Estimat Glomerular Filtration Rate 5.7, Glucose Level 147H, Calcium Level 8.8, Random Vancomycin Level 8.7 Current Medications Medications (Trade) Dose Ordered Sig/Regina Route PRN Reason Start Time Stop Time Status Last Admin Dose Admin Cefepime HCl/ Dextrose (Maxipime/D5W) 55 ml @ 110 mls/hr DAILY@0400 IV 04/14/17 04:00 04/21/17 03:59 04/15/17 04:28 Dextrose (Dextrose 50%) STAT PRN IV Hypoglycemia 04/13/17 11:45 05/13/17 11:44 Diphenhydramine HCl 25 mg 25 mg Q4H PRN IVP Itching 04/14/17 13:15 05/14/17 13:14 04/15/17 10:57 Hydromorphone HCl (Dilaudid) 1 mg Q4H PRN IVP For Pain 04/13/17 13:30 04/20/17 13:29 04/15/17 11:04 Insulin Aspart (NovoLOG) BEFORE MEALS AND HS SUBQ 04/13/17 17:00 05/13/17 16:59 04/13/17 19:56 Lidocaine (Xylocaine 5% cream) 1 applic Q4H PRN TOPIC for dialysis 04/14/17 12:57 05/14/17 12:29 04/14/17 13:02 Ondansetron HCl (Zofran) 4 mg Q6H PRN IVP Nausea & Vomiting 04/13/17 11:45 05/13/17 11:44 Sodium Chloride (Sodium Chloride 1000ml bag) 1,000 ml @ 100 mls/hr Q10H IV 04/13/17 06:45 05/13/17 06:44 04/14/17 02:40 Vancomycin HCl 1 ea 1 ea DAILY PRN MISC Per rx protocol 04/13/17 14:45 05/13/17 14:44 Vancomycin HCl/ Dextrose (Vancomycin 1.5gm/D5W 250ml) 250 ml @ 125 mls/hr ONCE ONCE IVPB 04/15/17 12:00 04/15/17 13:59 Vinicio Johnston MD Apr 15, 2017 12:12
--- NOTE | 2017-04-15 14:35 | Diagnostic Imaging Report ---
Indication: Back pain Technique: MRI examination of the Lumbar spine was performed in a 1.5 Yudith magnet. Sequences obtained include sagittal and axial T1 and T2 fast spin echo, and sagittal STIR. No IV gadolinium was given Comparison: none Findings: There is no evidence of bone marrow edema. There is no evidence of discitis. The intervertebral discs demonstrate normal signal and height. Conus medullaris is slightly low-lying. The tip of the conus is seen opposite the mid to lower L2 vertebra level. The filum terminale does not appear thickened. There is no evidence of traction, fatty changes or lipoma within the filum terminale. No evidence on this exam for spinal dysraphic present. The spinal canal is capacious. There is no central or lateral recess narrowing. There is no evidence of foraminal stenosis. Bone marrow signal is diffusely abnormal with diffusely low signal intensity on all sequences. Findings reflect relative absence of yellow marrow, which has a large differential diagnosis which includes benign or malignant marrow proliferation such as myelodysplasia, multiple myeloma or reconversion disorders such as sickle cell anemia. There are many other possibilities. Kidneys are atrophic Impression: No evidence of discitis/osteomyelitis involving the lumbar spine. Incidental low-lying conus medullaris. No associated abnormalities seen on this examination to suggest tethered cord syndrome. Please correlate clinically. Abnormal bone marrow signal as discussed above. Findings are nonspecific. Clinical correlation is suggested. Atrophic kidneys
--- NOTE | 2017-04-15 15:00 | Infectious Diseases Prog Note ---
Assessment/Plan Problems: (1) Lower back pain Assessment & Plan: no evidence of osteomylitis or diskitis on MRI of the lumbar spine , but abnormal bone marrow signal suggesting myelodysplasia or MM, recommend HEM/ONC consult for further eval, will continue vancomycin with cefepime empirically for now pending blood culture results (2) Sepsis Assessment & Plan: unclear source yet, await blood culture and continue vancomycin with cefepime empirically for now (3) ESRD (end stage renal disease) on dialysis Assessment & Plan: on HD, renal following (4) Diabetes mellitus Assessment & Plan: recommend tight glycemic control to keep blood glucose between 80-120 (5) Pneumonia Assessment & Plan: on wide spectrum antibiotics , improving. Subjective Constitutional: Reports: no symptoms HEENT: Reports: no symptoms Respiratory: Reports: no symptoms Breasts: Reports: no symptoms Cardiovascular: Reports: no symptoms Gastrointestinal/Abdominal: Reports: no symptoms Genitourinary: Reports: no symptoms Neurologic: Reports: weakness Psychiatric: Reports: no symptoms Skin: Reports: no symptoms Musculoskeletal: Reports: pain Allergies: Coded Allergies: PENICILLINS (Verified Allergy, Intermediate, Hives, 12/07/12) MORPHINE (Unverified Allergy, Unknown, 09/22/14) Subjective she had less back pain and no fever today Objective Vital Signs Last 24 Hour Vital Signs Date Time Temp Pulse Resp B/P Pulse Ox O2 Delivery O2 Flow Rate FiO2 04/15/17 12:00 81 04/15/17 11:19 97.3 79 18 114/65 100 Room Air 04/15/17 08:00 89 04/15/17 07:44 97.3 73 18 134/58 95 Room Air 04/15/17 04:00 85 04/15/17 03:52 97.6 79 19 98/56 96 Room Air 04/15/17 03:15 97.8 04/15/17 00:04 97.8 83 18 101/52 98 Room Air 04/15/17 00:00 84 04/14/17 20:00 93 04/14/17 20:00 97.7 91 19 107/58 94 Room Air 04/14/17 16:54 Room Air 04/14/17 16:00 97.8 88 18 91/80 98 Room Air 86 04/14/17 16:00 84 Height (Feet): 5 Height (Inches): 5.00 Weight (Pounds): 232 General Appearance: WD/WN, no acute distress HEENT: normocephalic, atraumatic, anicteric, mucous membranes moist, PERRL, supple, no JVD Respiratory/Chest: chest wall non-tender, lungs clear, normal breath sounds, no respiratory distress, no accessory muscle use Cardiovascular: normal peripheral pulses, normal rate, regular rhythm, no gallop/murmur, no JVD Abdomen: normal bowel sounds, soft, non tender, no organomegaly, non distended , no mass, no scars Extremities: no cyanosis, no clubbing Skin: no rash, no lesions, no ulcers Lymphatic: no neck adenopathy, no groin adenopathy Microbiology Date/Time Source Procedure Growth Status 04/13/17 06:50 Blood Blood Culture - Preliminary NO GROWTH AFTER 24 HOURS Resulted 04/13/17 06:35 Blood Blood Culture - Preliminary NO GROWTH AFTER 24 HOURS Resulted 04/13/17 12:02 Nasal Nares MRSA Culture - Final NO METHICILLIN RESISTANT STAPH AUREUS... Complete 04/13/17 12:02 Rectum VRE Culture - Final NO VANCOMYCIN RESISTANT ENTEROCOCCUS ... Complete Laboratory Tests Test 04/15/17 07:30 White Blood Count 13.5 K/UL (4.8-10.8) H Red Blood Count 3.01 M/UL (4.20-5.40) L Hemoglobin 9.7 G/DL (12.0-16.0) L Hematocrit 30.2 % (37.0-47.0) L Mean Corpuscular Volume 100 FL (80-99) H Mean Corpuscular Hemoglobin 32.1 PG (27.0-31.0) H Mean Corpuscular Hemoglobin Concent 32.0 G/DL (32.0-36.0) Red Cell Distribution Width 13.7 % (11.6-14.8) Platelet Count 263 K/UL (150-450) Mean Platelet Volume 8.6 FL (6.5-10.1) Neutrophils (%) (Auto) 77.8 % (45.0-75.0) H Lymphocytes (%) (Auto) 13.3 % (20.0-45.0) L Monocytes (%) (Auto) 7.8 % (1.0-10.0) Eosinophils (%) (Auto) 0.3 % (0.0-3.0) Basophils (%) (Auto) 0.9 % (0.0-2.0) Sodium Level 136 mEQ/L (135-145) Potassium Level 5.5 mEQ/L (3.4-4.9) H Chloride Level 94 mEQ/L (98-107) L Carbon Dioxide Level 23 mEQ/L (20-30) Anion Gap 19 (5-15) H Blood Urea Nitrogen 54 mg/dL (7-23) H Creatinine 8.8 mg/dL (0.5-0.9) H Estimat Glomerular Filtration Rate 5.7 mL/min (>60) Glucose Level 147 mg/dL (74-106) H Calcium Level 8.8 mg/dL (8.6-10.2) Random Vancomycin Level 8.7 ug/mL Current Medications Medications (Trade) Dose Ordered Sig/Regina Route PRN Reason Start Time Stop Time Status Last Admin Dose Admin Cefepime HCl/ Dextrose (Maxipime/D5W) 55 ml @ 110 mls/hr DAILY@0400 IV 04/14/17 04:00 04/21/17 03:59 04/15/17 04:28 Dextrose (Dextrose 50%) STAT PRN IV Hypoglycemia 04/13/17 11:45 05/13/17 11:44 Diphenhydramine HCl (Benadryl) 25 mg Q4H PRN IVP Itching 04/14/17 13:15 05/14/17 13:14 04/15/17 10:57 Hydromorphone HCl (Dilaudid) 1 mg Q4H PRN IVP For Pain 04/13/17 13:30 04/20/17 13:29 04/15/17 11:04 Insulin Aspart (NovoLOG) BEFORE MEALS AND HS SUBQ 04/13/17 17:00 05/13/17 16:59 04/13/17 19:56 Lidocaine (Xylocaine 5% cream) 1 applic Q4H PRN TOPIC for dialysis 04/14/17 12:57 05/14/17 12:29 04/14/17 13:02 Ondansetron HCl (Zofran) 4 mg Q6H PRN IVP Nausea & Vomiting 04/13/17 11:45 05/13/17 11:44 Sodium Chloride (Sodium Chloride 1000ml bag) 1,000 ml @ 100 mls/hr Q10H IV 04/13/17 06:45 05/13/17 06:44 04/14/17 02:40 Vancomycin HCl 1 ea 1 ea DAILY PRN MISC Per rx protocol 04/13/17 14:45 05/13/17 14:44 Italia De La Vega M.D. Apr 15, 2017 15:00
[2017-04-15 19:44] LABS: THYROID STIMULATING HORMONE 0.993 uIU/mL (0.300-4.500)
[2017-04-15 22:15] LABS: BAND NEUTROPHILS % (MANUAL) 0 % (0-8); BASOPHILS % (MANUAL) 0 % (0-2); EOSINOPHILS % (MANUAL) 0 % (0-3); LYMPHOCYTES % (MANUAL) 17 % (20-45); NEUTROPHILS % (MANUAL) 79 % (45-75); PLATELET ESTIMATE ADEQUATE; PLATELET MORPHOLOGY NORMAL; TOTAL CELLS COUNTED 100
[2017-04-15 22:16] LABS: PATH BLOOD SMEAR/OMC SENT TO PATHOLOGIST
[2017-04-16] VITALS: BP 120/47
--- NOTE | 2017-04-16 00:14 | Nephrology Progress Note ---
Assessment/Plan Problem List: (1) Lower back pain (2) Degenerative disc disease, cervical (3) ESRD (end stage renal disease) on dialysis (4) ACS (acute coronary syndrome) (5) Chest pain Plan HD tomorrow. monitor labs. Subjective Subjective no new c/o. Objective Objective Last 24 Hour Vital Signs Date Time Temp Pulse Resp B/P Pulse Ox O2 Delivery O2 Flow Rate FiO2 04/16/17 00:00 97.0 80 20 120/47 100 Room Air 04/15/17 20:12 97.7 81 23 109/62 96 Room Air 04/15/17 20:00 97.7 81 23 109/62 Room Air 04/15/17 16:00 73 04/15/17 15:22 97.5 72 18 103/50 96 Room Air 04/15/17 12:00 81 04/15/17 11:19 97.3 79 18 114/65 100 Room Air 04/15/17 08:00 89 04/15/17 07:44 97.3 73 18 134/58 95 Room Air 04/15/17 04:00 85 04/15/17 03:52 97.6 79 19 98/56 96 Room Air 04/15/17 03:15 97.8 Intake and Output 04/15/17 04/16/17 19:00 07:00 Intake Total 850 ml Balance 850 ml Intake Oral 600 ml IV Total 250 ml Laboratory Tests 04/15/17 07:30: White Blood Count 13.5H, Red Blood Count 3.01L, Hemoglobin 9.7L, Hematocrit 30.2L, Mean Corpuscular Volume 100H, Mean Corpuscular Hemoglobin 32.1H, Mean Corpuscular Hemoglobin Concent 32.0, Red Cell Distribution Width 13.7, Platelet Count 263, Mean Platelet Volume 8.6, Neutrophils (%) (Auto) 77.8H, Lymphocytes ( %) (Auto) 13.3L, Monocytes (%) (Auto) 7.8, Eosinophils (%) (Auto) 0.3, Basophils (%) (Auto) 0.9, Differential Total Cells Counted 100, Neutrophils % ( Manual) 79H, Lymphocytes % (Manual) 17L, Monocytes % (Manual) 4, Eosinophils % ( Manual) 0, Basophils % (Manual) 0, Band Neutrophils 0, Platelet Estimate Adequate, Platelet Morphology Normal, Red Blood Cell Morphology Normal, Reticulocyte Count 1.2, Sodium Level 136, Potassium Level 5.5H, Chloride Level 94L, Carbon Dioxide Level 23, Anion Gap 19H, Blood Urea Nitrogen 54H, Creatinine 8.8H, Estimat Glomerular Filtration Rate 5.7, Glucose Level 147H, Calcium Level 8.8, Iron Level 77, Total Iron Binding Capacity 231L, Percent Iron Saturation 33, Unsaturated Iron Binding 154, Ferritin 913H, Total Protein ( PEP) [Pending], Albumin (PEP) [Pending], Globulin (PEP) [Pending], Albumin/ Globulin Ratio [Pending], Sfswe-8-Xkvsmuvad [Pending], Fwooi-4-Tkyscotia [ Pending], Beta Globulins [Pending], Beta Gamma Globulin [Pending], PEP Abnormal Protein Bands [Pending], Protein Electrophoresis Interpret [Pending], Carcinoembryonic Antigen 1.6, CA 15-3 Antigen [Pending], CA 19-9 Antigen 28.10, CA 125 Antigen [Pending], Vitamin B12 Level 339, Thyroid Stimulating Hormone ( TSH) 0.993, Random Vancomycin Level 8.7, HIV (1&2) Antibody Rapid Negative 04/15/17 23:30: Lactic Acid Level [Pending] Height (Feet): 5 Height (Inches): 5.00 Weight (Pounds): 232 General Appearance: no apparent distress Cardiovascular: normal rate, regular rhythm Respiratory/Chest: lungs clear Abdomen: non tender, soft JORDY MONREAL Apr 16, 2017 00:14
[2017-04-16] MEDS: HYDROmorphone 1mg/ml Carpuject IVP PRN ×3 (00:28→16:00)
[2017-04-16] MEDS: DiphenhydrAMINE 50mg/ml Inj IVP PRN ×3 (00:28→16:10)
[2017-04-16] MEDS: Cefepime HCl 500 MG in D5W 55 ML IV SCH (04:00)
--- NOTE | 2017-04-16 05:30 | Consultation ---
DATE OF CONSULTATION: 04/15/2017 HEMATOLOGY/ONCOLOGY CONSULTATION CONSULTING PHYSICIAN: Uriel Flor M.D. REQUESTING PHYSICIAN: Memo Miranda M.D. REASON FOR CONSULTATION: Evaluation of abnormal bone signal. IDENTIFICATION DATA: Dear Dr. Memo Miranda, The patient is a pleasant 52-year-old female with a past medical history significant for end-stage renal disease, is on hemodialysis, recently discharged from [facility] for low back pain, had a CT scan on 04/10/2017, which was done without contrast and was found to have sciatica, treated with MS Contin. Denies any recent trauma or falls. She had a fever and ID service was consulted for some broad-spectrum antibiotics. CAT of the abdomen and pelvis did not show any acute pathology. nodules noted in the lungs, rule out metastatic disease. Increased density in the osseous structures may suggest renal osteodystrophy. An MRI of the lumbar spine shows bone marrow signal diffusely abnormal. Findings reflect bone marrow, which has large differentials including benign/malignant marrow infiltration. No evidence of diskitis or osteomyelitis. PAST MEDICAL HISTORY: Hypertension, diabetes mellitus, end-stage renal disease, on hemodialysis three times a week. PAST SURGICAL HISTORY: None noted. MEDICATIONS: Vancomycin, cefepime, and Flagyl. ALLERGIES: Allergic to penicillin and morphine. SOCIAL HISTORY: Lives at home. . Denies any alcohol, tobacco, or illicit drug use. REVIEW OF SYSTEMS: Constitutional: No fever, chills, or night sweats. Skin: No rashes, lumps, or itching. HEENT: No headache, hearing or vision changes. Breasts: No lumps, pain, or discharge. Pulmonary: No cough, sputum, or shortness of breath. Cardiovascular: No chest pain, tightness, or palpitations. Gastrointestinal: No nausea, vomiting, or diarrhea. Genitourinary: No dysuria, frequency, or urgency. PHYSICAL EXAMINATION: GENERAL: The patient is in no acute distress. VITAL SIGNS: Reviewed. PULMONARY: Decreased breath sounds. CARDIOVASCULAR: Regular rate. No S3 or S4. ABDOMEN: Soft, nontender, and nondistended. EXTREMITIES: A 1+ edema. LABORATORY DATA: WBC 13.5, hemoglobin 9.7, hematocrit 30, and platelet count 363,000. INR 0.9. Potassium 4.5, BUN 54, and creatinine 8.8. ASSESSMENT AND PLAN: 1. Abnormal bone marrow findings on MRI. Findings are nonspecific. Many possibilities exist. We will send biopsy at this time, tumor markers workup in addition to anemia workup. 2. Anemia secondary to chronic disease. 3. Anemia secondary to kidney disease. 4. Hyperkalemia with a history of underlying end-stage renal disease. 5. Lactic acidosis. 6. Leukocytosis. 7. History of underlying infection. 8. Hyperglycemia. Continue to closely monitor. 9. Elevated BNP. Cardiology is on board. 10. Pulmonary nodules to be monitored by pulmonary team. 11. At this time, hold off on bone marrow biopsy. Uriel Flor M.D. DR: EDUARDO JOB#: [id number] CC:
[2017-04-16] MEDS: NovoLOG Insulin Flexpen SUBQ SCH ×3 (06:11→16:30)
[2017-04-16 07:30] VITALS: BP 129/70
--- NOTE | 2017-04-16 07:50 | Diagnostic Imaging Report ---
APPROVED REPORT CPT Code: 46627 Present Symptoms Comments: Back pain BILATERAL: Imaging reveals a patent deep venous system bilaterally. There is no evidence of thrombus within the femoral, popliteal or tibial segments. The greater saphenous veins are also within normal limits. Doppler indicates normal spontaneous flow within these segments.
[2017-04-16 08:41] LABS: CALCIUM 8.3 mg/dL (8.6-10.2); CREATININE 10.2 mg/dL (0.5-0.9); GLOMERULAR FILTRATION RATE 4.8 mL/min (>60); POTASSIUM 4.5 mEQ/L (3.4-4.9)
--- NOTE | 2017-04-16 09:06 | Pulmonology Progress Note ---
Assessment/Plan Assessment/Plan 1. History of congestive heart failure. 2. Hypertension 3. End-stage renal disease, on hemodialysis. 4. Sepsis, on IV antibiotics. 5. Back pain. 6. Pulmonary nodules; will need dedicated CT chest once pt is stable Will follow and monitor Subjective Interval Events: None reported Constitutional: Reports: no symptoms HEENT: Repors: no symptoms Respiratory: Reports: no symptoms Cardiovascular: Reports: no symptoms Genitourinary: Reports: no symptoms Allergies: Coded Allergies: PENICILLINS (Verified Allergy, Intermediate, Hives, 12/07/12) MORPHINE (Unverified Allergy, Unknown, 09/22/14) Objective Last 24 Hour Vital Signs Date Time Temp Pulse Resp B/P Pulse Ox O2 Delivery O2 Flow Rate FiO2 04/16/17 07:30 97.2 77 22 129/70 99 Room Air 04/16/17 04:00 73 04/16/17 00:00 81 04/16/17 00:00 97.0 80 20 120/47 100 Room Air 04/15/17 20:12 97.7 81 23 109/62 96 Room Air 04/15/17 20:00 97.7 81 23 109/62 Room Air 04/15/17 20:00 79 04/15/17 16:00 73 04/15/17 15:22 97.5 72 18 103/50 96 Room Air 04/15/17 12:00 81 04/15/17 11:19 97.3 79 18 114/65 100 Room Air Intake and Output 04/15/17 04/16/17 19:00 07:00 Intake Total 850 ml Output Total 600 ml Balance 850 ml -600 ml Intake Oral 600 ml IV Total 250 ml Output Urine Total 600 ml # Voids 2 General Appearance: no acute distress HEENT: normocephalic Respiratory/Chest: chest wall non-tender, decreased breath sounds Cardiovascular: normal peripheral pulses Microbiology Date/Time Source Procedure Growth Status 04/13/17 12:02 Nasal Nares MRSA Culture - Final NO METHICILLIN RESISTANT STAPH AUREUS... Complete 04/13/17 12:02 Rectum VRE Culture - Final NO VANCOMYCIN RESISTANT ENTEROCOCCUS ... Complete Laboratory Tests 04/15/17 23:30: Lactic Acid Level 1.30 04/16/17 07:40: Sodium Level 135, Potassium Level 4.5, Chloride Level 94L, Carbon Dioxide Level 21, Anion Gap 20H, Blood Urea Nitrogen 72H, Creatinine 10.2H, Estimat Glomerular Filtration Rate 4.8, Glucose Level 102, Calcium Level 8.3L Current Medications Medications (Trade) Dose Ordered Sig/Regina Route PRN Reason Start Time Stop Time Status Last Admin Dose Admin Cefepime HCl/ Dextrose (Maxipime/D5W) 55 ml @ 110 mls/hr DAILY@0400 IV 04/14/17 04:00 04/21/17 03:59 04/16/17 04:00 Dextrose (Dextrose 50%) STAT PRN IV Hypoglycemia 04/13/17 11:45 05/13/17 11:44 Diphenhydramine HCl (Benadryl) 25 mg Q4H PRN IVP Itching 04/14/17 13:15 05/14/17 13:14 04/16/17 06:34 Hydromorphone HCl (Dilaudid) 1 mg Q4H PRN IVP For Pain 04/13/17 13:30 04/20/17 13:29 04/16/17 06:33 Insulin Aspart (NovoLOG) BEFORE MEALS AND HS SUBQ 04/13/17 17:00 05/13/17 16:59 04/13/17 19:56 Lidocaine (Xylocaine 5% cream) 1 applic Q4H PRN TOPIC for dialysis 04/14/17 12:57 05/14/17 12:29 04/14/17 13:02 Ondansetron HCl (Zofran) 4 mg Q6H PRN IVP Nausea & Vomiting 04/13/17 11:45 05/13/17 11:44 Vancomycin HCl 1 ea 1 ea DAILY PRN MISC Per rx protocol 04/13/17 14:45 05/13/17 14:44 Vinicio Johnston MD Apr 16, 2017 09:06
--- NOTE | 2017-04-16 09:44 | Cardiac Electrophysiology PN ---
Assessment/Plan Assessment/Plan 1. Congestive heart failure. Echocardiogram EF 65%. Brain natriuretic peptide >3000. Ruled out for DC. On hemodialysis. 2. Hypertension On hemodialysis. 3. End-stage renal disease, getting hemodialysis today. 4. Sepsis, on IV antibiotics.Blood Cx negative 5. Back pain. 6. Hyperkalemia resolved after kayoxalate DW RN DC tele Subjective Subjective Alert in NAD.Son and RN at bedside. Objective Last 24 Hour Vital Signs Date Time Temp Pulse Resp B/P Pulse Ox O2 Delivery O2 Flow Rate FiO2 04/16/17 08:00 87 04/16/17 07:30 97.2 77 22 129/70 99 Room Air 04/16/17 04:00 73 04/16/17 00:00 81 04/16/17 00:00 97.0 80 20 120/47 100 Room Air 04/15/17 20:12 97.7 81 23 109/62 96 Room Air 04/15/17 20:00 97.7 81 23 109/62 Room Air 04/15/17 20:00 79 04/15/17 16:00 73 04/15/17 15:22 97.5 72 18 103/50 96 Room Air 04/15/17 12:00 81 04/15/17 11:19 97.3 79 18 114/65 100 Room Air Intake and Output 04/15/17 04/16/17 19:00 07:00 Intake Total 850 ml Output Total 600 ml Balance 850 ml -600 ml Intake Oral 600 ml IV Total 250 ml Output Urine Total 600 ml # Voids 2 Laboratory Tests Test 04/15/17 23:30 04/16/17 07:40 Lactic Acid Level 1.30 mmol/L (0.66-2.22) Sodium Level 135 mEQ/L (135-145) Potassium Level 4.5 mEQ/L (3.4-4.9) Chloride Level 94 mEQ/L (98-107) L Carbon Dioxide Level 21 mEQ/L (20-30) Anion Gap 20 (5-15) H Blood Urea Nitrogen 72 mg/dL (7-23) H Creatinine 10.2 mg/dL (0.5-0.9) H Estimat Glomerular Filtration Rate 4.8 mL/min (>60) Glucose Level 102 mg/dL (74-106) Calcium Level 8.3 mg/dL (8.6-10.2) L Microbiology Date/Time Source Procedure Growth Status 04/13/17 12:02 Nasal Nares MRSA Culture - Final NO METHICILLIN RESISTANT STAPH AUREUS... Complete 04/13/17 12:02 Rectum VRE Culture - Final NO VANCOMYCIN RESISTANT ENTEROCOCCUS ... Complete Objective HEAD AND NECK: Showed no JVD. LUNGS: Clear. CARDIOVASCULAR: Regular S1 and S2 with no gallop or murmur. ABDOMEN: Soft and nontender. Morbid obesity. EXTREMITIES: No pitting edema, Right arm has AV fistula. MANISH XIE Apr 16, 2017 09:44
[2017-04-16 11:46] VITALS: BP 108/55
[2017-04-16 12:18] LABS: A/G RATIO 0.9 (0.7-1.7); ABNORMAL PROTEIN BAND 1 Not Observed g/dL (Not Observed); ALBUMIN 3.7 g/dL (2.9-4.4); ALPHA-1 GLOBULIN 0.3 g/dL (0.0-0.4); ALPHA-2 GLOBULIN 1.2 g/dL (0.4-1.0); BETA GLOBULIN 1.1 g/dL (0.7-1.3); GAMMA GLOBULIN 1.5 g/dL (0.4-1.8); TOTAL PROTEIN 7.7 g/dL (6.0-8.5)
[2017-04-16] MEDS ORDERED: LEVAQUIN500 MG ORAL (13:55)
--- NOTE | 2017-04-16 15:17 | Infectious Diseases Prog Note ---
Assessment/Plan Problems: (1) Lower back pain Assessment & Plan: no evidence of osteomylitis or diskitis on MRI of the lumbar spine , but abnormal bone marrow signal , was evaluated by HEM/ONC , will switch vancomycin and cefepime to oral levaquin, to finish her course (2) Sepsis Assessment & Plan: unclear source yet, await blood culture and continue vancomycin with cefepime empirically for now (3) ESRD (end stage renal disease) on dialysis Assessment & Plan: on HD, renal following (4) Diabetes mellitus Assessment & Plan: recommend tight glycemic control to keep blood glucose between 80-120 (5) Pneumonia Assessment & Plan: on wide spectrum antibiotics , improving. Subjective Constitutional: Reports: no symptoms HEENT: Reports: no symptoms Respiratory: Reports: no symptoms Breasts: Reports: no symptoms Cardiovascular: Reports: no symptoms Gastrointestinal/Abdominal: Reports: no symptoms Genitourinary: Reports: no symptoms Neurologic: Reports: no symptoms Psychiatric: Reports: no symptoms Skin: Reports: no symptoms Musculoskeletal: Reports: pain Allergies: Coded Allergies: PENICILLINS (Verified Allergy, Intermediate, Hives, 12/07/12) MORPHINE (Unverified Allergy, Unknown, 09/22/14) Subjective she had less back pain and no fever today Objective Vital Signs Last 24 Hour Vital Signs Date Time Temp Pulse Resp B/P Pulse Ox O2 Delivery O2 Flow Rate FiO2 04/16/17 11:46 97.0 70 20 108/55 98 Room Air 04/16/17 08:00 87 04/16/17 07:30 97.2 77 22 129/70 99 Room Air 04/16/17 04:00 73 04/16/17 00:00 81 04/16/17 00:00 97.0 80 20 120/47 100 Room Air 04/15/17 20:12 97.7 81 23 109/62 96 Room Air 04/15/17 20:00 97.7 81 23 109/62 Room Air 04/15/17 20:00 79 04/15/17 16:00 73 04/15/17 15:22 97.5 72 18 103/50 96 Room Air Height (Feet): 5 Height (Inches): 5.00 Weight (Pounds): 232 General Appearance: WD/WN, no acute distress HEENT: normocephalic, atraumatic Respiratory/Chest: chest wall non-tender, lungs clear, normal breath sounds, no respiratory distress, no accessory muscle use Cardiovascular: normal peripheral pulses, normal rate, regular rhythm, no gallop/murmur, no JVD Abdomen: normal bowel sounds, soft, non tender, no organomegaly, non distended , no mass Extremities: no cyanosis, no clubbing Skin: no rash, no lesions Neurologic/Psychiatric: alert, oriented x 3 Laboratory Tests Test 04/15/17 23:30 04/16/17 07:40 Lactic Acid Level 1.30 mmol/L (0.66-2.22) Sodium Level 135 mEQ/L (135-145) Potassium Level 4.5 mEQ/L (3.4-4.9) Chloride Level 94 mEQ/L (98-107) L Carbon Dioxide Level 21 mEQ/L (20-30) Anion Gap 20 (5-15) H Blood Urea Nitrogen 72 mg/dL (7-23) H Creatinine 10.2 mg/dL (0.5-0.9) H Estimat Glomerular Filtration Rate 4.8 mL/min (>60) Glucose Level 102 mg/dL (74-106) Calcium Level 8.3 mg/dL (8.6-10.2) L Current Medications Medications (Trade) Dose Ordered Sig/Regina Route PRN Reason Start Time Stop Time Status Last Admin Dose Admin Cefepime HCl/ Dextrose (Maxipime/D5W) 55 ml @ 110 mls/hr DAILY@0400 IV 04/14/17 04:00 04/21/17 03:59 04/16/17 04:00 Dextrose (Dextrose 50%) STAT PRN IV Hypoglycemia 04/13/17 11:45 05/13/17 11:44 Diphenhydramine HCl (Benadryl) 25 mg Q4H PRN IVP Itching 04/14/17 13:15 05/14/17 13:14 04/16/17 06:34 Hydromorphone HCl (Dilaudid) 1 mg Q4H PRN IVP For Pain 04/13/17 13:30 04/20/17 13:29 04/16/17 06:33 Insulin Aspart (NovoLOG) BEFORE MEALS AND HS SUBQ 04/13/17 17:00 05/13/17 16:59 04/13/17 19:56 Lidocaine (Xylocaine 5% cream) 1 applic Q4H PRN TOPIC for dialysis 04/14/17 12:57 05/14/17 12:29 04/14/17 13:02 Ondansetron HCl (Zofran) 4 mg Q6H PRN IVP Nausea & Vomiting 04/13/17 11:45 05/13/17 11:44 Vancomycin HCl 1 ea 1 ea DAILY PRN MISC Per rx protocol 04/13/17 14:45 05/13/17 14:44 Italia De La Vega M.D. Apr 16, 2017 15:17
[2017-04-16 16:00] VITALS: BP 115/67
--- NOTE | 2017-04-16 17:01 | Cardiology Report ---
APPROVED REPORT EKG Measurement Heart [id number] Sinus tachycardia Cannot rule out Anterior infarct, age undetermined Abnormal ECG
--- NOTE | 2017-04-16 17:50 | Nephrology Progress Note ---
Assessment/Plan Problem List: (1) Degenerative disc disease, cervical (2) Lower back pain (3) Sepsis (4) lung nodules (5) Septicemia (6) ESRD (end stage renal disease) on dialysis (7) ACS (acute coronary syndrome) (8) Diabetes mellitus (9) Obesity (10) Diabetic peripheral neuropathy (11) Hypertension Plan Monitor temp Abx per ID Monitor lytes, correct with HD Pain management HD with ultrafiltration, MWF f/u with ID rec DC home after HD Subjective Constitutional: Denies: chills, diaphoresis, fever, malaise, no symptoms, other , weakness HEENT: Denies: blurred vision, double vision, ear discharge, ear pain, eye pain , mouth pain, mouth swelling, no symptoms, nose congestion, nose pain, other, tearing, throat pain, throat swelling Genitourinary: Denies: burning, discharge, flank pain, frequency, hematuria, incontinence, no symptoms, other, pain, urgency Neurologic/Psychiatric: Denies: anxiety, depressed, emotional problems, headache, no symptoms, numbness, other, paresthesia, pre-existing deficit, seizure, tingling, tremors, weakness Subjective In bed, in no apparent distress, HD ongoing, pt is sleeping but easily aroused. Objective Objective Last 24 Hour Vital Signs Date Time Temp Pulse Resp B/P Pulse Ox O2 Delivery O2 Flow Rate FiO2 04/16/17 16:35 Room Air 04/16/17 16:00 97.2 21 115/67 100 Room Air 04/16/17 11:46 97.0 70 20 108/55 98 Room Air 04/16/17 08:00 87 04/16/17 07:30 97.2 77 22 129/70 99 Room Air 04/16/17 04:00 73 04/16/17 00:00 81 04/16/17 00:00 97.0 80 20 120/47 100 Room Air 04/15/17 20:12 97.7 81 23 109/62 96 Room Air 04/15/17 20:00 97.7 81 23 109/62 Room Air 04/15/17 20:00 79 Intake and Output 04/15/17 04/16/17 19:00 07:00 Intake Total 850 ml Output Total 600 ml Balance 850 ml -600 ml Intake Oral 600 ml IV Total 250 ml Output Urine Total 600 ml # Voids 2 Laboratory Tests 04/15/17 23:30: Lactic Acid Level 1.30 04/16/17 07:40: Sodium Level 135, Potassium Level 4.5, Chloride Level 94L, Carbon Dioxide Level 21, Anion Gap 20H, Blood Urea Nitrogen 72H, Creatinine 10.2H, Estimat Glomerular Filtration Rate 4.8, Glucose Level 102, Calcium Level 8.3L Height (Feet): 5 Height (Inches): 5.00 Weight (Pounds): 232 General Appearance: no apparent distress, alert EENT: normal ENT inspection Neck: non-tender, normal alignment Cardiovascular: normal rate, regular rhythm, no JVD Respiratory/Chest: normal breath sounds, no respiratory distress Abdomen: non tender, soft Extremities: non-tender Neurologic: alert, oriented x 3, responsive Mirna Tatum N.P. Apr 16, 2017 17:50
--- NOTE | 2017-04-16 19:25 | General Progress Note ---
Assessment/Plan Assessment/Plan 1. Abnormal bone marrow findings on MRI. Findings are nonspecific. Many possibilities exist. We will send biopsy at this time, tumor markers workup in addition to anemia workup. --> has been reviewed --> have ordered hgb electrophoresis 2. Anemia secondary to chronic disease. 3. Anemia secondary to kidney disease. 4. Hyperkalemia with a history of underlying end-stage renal disease. 5. Lactic acidosis. 6. Leukocytosis. 7. History of underlying infection. 8. Hyperglycemia. Continue to closely monitor. 9. Elevated BNP. Cardiology is on board. 10. Pulmonary nodules to be monitored by pulmonary team. 11. At this time, hold off on bone marrow biopsy. Subjective Constitutional: Reports: no symptoms HEENT: Reports: no symptoms Cardiovascular: Reports: no symptoms Respiratory: Reports: no symptoms Gastrointestinal/Abdominal: Reports: no symptoms Genitourinary: Reports: no symptoms Neurologic/Psychiatric: Reports: no symptoms Endocrine: Reports: no symptoms Hematologic/Lymphatic: Reports: no symptoms Allergies: Coded Allergies: PENICILLINS (Verified Allergy, Intermediate, Hives, 12/07/12) MORPHINE (Unverified Allergy, Unknown, 09/22/14) Subjective afebrile, no acute complaints Objective Last 24 Hour Vital Signs Date Time Temp Pulse Resp B/P Pulse Ox O2 Delivery O2 Flow Rate FiO2 04/16/17 18:54 Room Air 04/16/17 16:35 Room Air 04/16/17 16:00 97.2 21 115/67 100 Room Air 04/16/17 11:46 97.0 70 20 108/55 98 Room Air 04/16/17 08:00 87 04/16/17 07:30 97.2 77 22 129/70 99 Room Air 04/16/17 04:00 73 04/16/17 00:00 81 04/16/17 00:00 97.0 80 20 120/47 100 Room Air 04/15/17 20:12 97.7 81 23 109/62 96 Room Air 04/15/17 20:00 97.7 81 23 109/62 Room Air 04/15/17 20:00 79 Intake and Output 04/15/17 04/16/17 19:00 07:00 Intake Total 850 ml Output Total 600 ml Balance 850 ml -600 ml Intake Oral 600 ml IV Total 250 ml Output Urine Total 600 ml # Voids 2 Laboratory Tests 04/15/17 23:30: Lactic Acid Level 1.30 04/16/17 07:40: Sodium Level 135, Potassium Level 4.5, Chloride Level 94L, Carbon Dioxide Level 21, Anion Gap 20H, Blood Urea Nitrogen 72H, Creatinine 10.2H, Estimat Glomerular Filtration Rate 4.8, Glucose Level 102, Calcium Level 8.3L Height (Feet): 5 Height (Inches): 5.00 Weight (Pounds): 232 General Appearance: no apparent distress EENT: PERRL/EOMI Neck: normal alignment Cardiovascular: normal peripheral pulses Respiratory/Chest: chest wall non-tender Abdomen: no organomegaly Edema: no edema noted Pedal (L), no edema noted Pedal (R) Neurologic: clinical project assistant II-XII grossly normal Skin: warm/dry Uriel Flor Apr 16, 2017 19:25
--- NOTE | 2017-04-17 09:45 | Cardiology Report ---
APPROVED REPORT EXAM: Two-dimensional and M-mode echocardiogram with Doppler and color Doppler. INDICATION Congestive Heart Failure M-Mode DIMENSIONS IVSd0.8 (0.7-1.1cm)Left Atrium (MM)3.3 (1.6-4.0cm) LVDd5.1 (3.5-5.6cm)Aortic Root2.5 (2.0-3.7cm) PWd0.9 (0.7-1.1cm)Aortic Cusp Exc.2.0 (1.5-2.0cm) LVDs3.6 (2.5-4.0cm) PWs1.0 cm Normal left ventricular chamber size, systolic function and wall motion. Left ventricular ejection fraction estimated to be 60-65%. No evidence of left ventricular hypertrophy. No evidence of pericardial fat or effusion. Right cardiac chamber sizes are within normal limits. Mild left atrial enlargement by 2D. Focal aortic valve sclerosis with adequate cusp excursion Thickened mitral valve leaflets with normal excursion. Mitral annulus and aortic root calcification. Pulmonic valve not well visualized. Normal tricuspid valve structure. IVC dilated at 3.0cm with physiological collapse. RA pressure of 10mmHg. A color flow and spectral Doppler study was performed and revealed: No aortic regurgitation. No mitral regurgitation. Normal left ventricular diastolic function. Mild tricuspid regurgitation. Tricuspid systolic velocities suggests peak right ventricular systolic pressure of 39 mmHg Consistent with mild pulmonary hypertension.
[2017-04-17 13:12] LABS: CA 125 17.6 U/mL (0.0-38.1); CA15-3 26.3 U/mL (0.0-25.0)
--- NOTE | 2017-04-17 20:21 | Discharge Summary ---
Discharge Summary Hospital Course Date of Admission Apr 13, 2017 at 06:50 Date of Discharge Apr 16, 2017 at 20:03 Admitting Diagnosis sepsis/ESRD HPI John Hinds is a 52 year old female who was admitted on Apr 13, 2017 at 06: 50 for Sepsis End Stage Renal Failure Hospital Course [id number] Discharge Discharge Disposition Patient was discharged to Home (01) Discharge Diagnoses: Karrie Nguyen NP Apr 17, 2017 20:21
--- NOTE | 2017-04-18 01:15 | Discharge Summary 2 SIG ---
DATE OF ADMISSION: 04/13/2017 DATE OF DISCHARGE: 04/16/2017 CONSULTANTS: 1. Uriel Flor M.D. 2. Italia De La Vega M.D. 3. Pawel Daugherty M.D. 4. Vinicio Johnston M.D. BRIEF HOSPITAL COURSE: The patient is a 52-year-old female with past medical history significant for end-stage renal disease, on hemodialysis, every Friday, Friday, and Friday, hypertension, and CHF, who was recently discharged from [facility] for low back pain, which is chronically on the left part and got worse and included radiation to the right leg. She was treated and was given MS Contin for pain control, however she developed fever and pain had been severe and constant. She presented to ED. On evaluation, the patient was febrile, temperature of 103 degrees. She was given IV hydration and was given Decadron and Dilaudid. Laboratories showed leukocytosis, WBC 15. Potassium was 5.1. Creatinine was 9. CT of the abdomen and pelvis showed no evident acute osseous abnormality and there was concern for a spine infection, suspect lower back abscess. However, there was no definitive abscess or collection seen on CT scan. She was then admitted to telemetry for evaluation of low back pain, ACS, and chest pain. She was started on vancomycin and cefepime. CRP was elevated to 8. ESR was 87. She had MRI of the lumbar spine, which showed no evidence of diskitis or osteomyelitis with abnormal bone marrow signal. The findings were nonspecific and recommended some additional workup as an outpatient. Hold off on bone marrow biopsy for now. There were also pulmonary nodules and will need a dedicated CT of the chest that can be done once the patient is stable. She had echocardiogram done showed ejection fraction of 65%. BNP was was greater than 3000. Troponin was negative x2. She was ruled out for LA. She was continued on inpatient hemodialysis and hyperkalemia resolved. Blood cultures did not isolate any growth. Antibiotic was switched to oral Levaquin. She was then discharged home post dialysis. FINAL DIAGNOSES: 1. Sepsis. 2. Degenerative disk disease. 3. Lung nodule. 4. End-stage renal disease, on hemodialysis. 5. Diabetes mellitus. 6. Obesity. 7. Diabetes with peripheral neuropathy. 8. Hypertension. 9. Abnormal bone marrow finding. 10. Anemia of chronic disease. 11. Anemia of kidney disease. 12. Hyperkalemia. 13. Congestive heart failure. Memo Miranda M.D. I have been assigned to dictate discharge summary on this account and I was not involved in the patient's management. Karrie Nguyen N.P. DR: Johnny JOB#: [id number] CC:
== END 2017-04-16 20:03 | disposition home or self-care (01) | DRG 720 ==
LOC: ENRESERVDT → ENRESERVTM → ENRESERV → EMR 06:34 → 2E 06:50 → EDBEDREQ 07:01 → 2E 04-15 07:49
PROC: 5A1D60Z (ICD-10-PCS; principal; 2017-04-14)
DX: A41.9 Sepsis, unspecified organism (principal); N18.6 End stage renal disease; J18.9 Pneumonia, unspecified organism; I12.0 Hypertensive chronic kidney disease with stage 5 chronic kidney disease or end stage renal disease; E11.22 Type 2 diabetes mellitus with diabetic chronic kidney disease; Z99.2 Dependence on renal dialysis; I50.9 Heart failure, unspecified; M54.5 Low back pain; R91.8 Other nonspecific abnormal finding of lung field; E11.42 Type 2 diabetes mellitus with diabetic polyneuropathy; E66.9 Obesity, unspecified; D63.1 Anemia in chronic kidney disease; E87.5 Hyperkalemia; Z88.6 Allergy status to analgesic agent; Z88.0 Allergy status to penicillin; E78.5 Hyperlipidemia, unspecified; E11.65 Type 2 diabetes mellitus with hyperglycemia; M50.30 Other cervical disc degeneration, unspecified cervical region
CPT/HCPCS: 36415; 71010; 72148; 74177; 80048; 80053; 80061; 80202; 82378; 82550; 82607; 82728; 82962; 83036; 83540; 83550; 83605; 83690; 83880; 84165; 84439; 84443; 84484; 85007; 85025; 85044; 85060; 85610; 85651; 85730; 86140; 86300; 86301; 86304; 86703; 87040; 87081; 93005; 93306; 93970; J1815; J2405

== ENCOUNTER 2017-05-13 13:29 | Emergency (ER) | payer MEDICAID ==
[~2017-05-13] VITALS: Ht 165.1 cm; Wt 103.4 kg
[~2017-05-13 13:29] MED LIST changes: +LEVAQUIN500 MG ORAL; +NORCO 10-325 T1 EACH ORAL
[2017-05-13 13:41] VITALS: BP 129/73
[2017-05-13] MEDS ORDERED: NORCO 5-325 TA1 EAC1 ORAL (14:57)
[2017-05-13] MEDS ORDERED: CEPHALEXIN500 MG ORAL (14:57)
[2017-05-13] MEDS ORDERED: Norco 5mg/325mg tab ORAL ONE (15:00)
[2017-05-13 15:06] VITALS: BP 129/73
--- NOTE | 2017-05-13 15:32 | Diagnostic Imaging Report ---
Indication: PAIN Technique: 3 views right hand Comparison: none Findings: There is a small ossific density adjacent to the ulnar styloid, could represent an old ununited fracture or developmental anomaly. There is mild narrowing of the second through fifth proximal interphalangeal joints, and of the fourth and fifth distal interphalangeal joints, and possibly of the fifth metacarpal phalangeal joint. No acute fractures. No dislocations. Impression: No acute bony trauma Degenerative changes, as described
--- NOTE | 2017-05-13 16:16 | Emergency Room Report ---
History of Present Illness General Chief Complaint: Pain Source: Patient Present Illness HPI The patient is a 52-year-old female presenting for right index finger pain. The pain began one week prior for no known reason. She denies any injury. She noticed swelling to the area as well. Pain is described as a 7/10 dull/ throbbing ache. Does not radiate. Worse with movement. She denies any numbness or tingling. She denies any fever, chills, shortness of breath, chest pain. She denies history of smoking Allergies: Coded Allergies: PENICILLINS (Verified Allergy, Intermediate, Hives, 12/07/12) MORPHINE (Unverified Allergy, Unknown, 09/22/14) Patient History Past Medical History: see triage record Pertinent Family History: none Reviewed Nursing Documentation: PMH: Agreed, PSxH: Agreed Nursing Documentation-PMH Hx Cardiac Problems: No Hx Hypertension: Yes Hx Pacemaker: No Hx Asthma: No Hx COPD: No Hx Diabetes: Yes Hx Cancer: No Hx Gastrointestinal Problems: Yes - DIVERTICULITIS Hx Dialysis: Yes - M-W-F Hx Neurological Problems: No Hx Cerebrovascular Accident: No Hx Seizures: No Review of Systems All Other Systems: negative except mentioned in HPI Physical Exam Vital Signs Date Time Temp Pulse Resp B/P Pulse Ox O2 Delivery O2 Flow Rate FiO2 05/13/17 13:41 98.8 99 18 129/73 95 Room Air Sp02 EP Interpretation: reviewed, normal General Appearance: no apparent distress, alert, GCS 15, non-toxic Head: normocephalic, atraumatic Eyes: bilateral eye PERRL, bilateral eye normal inspection ENT: hearing grossly normal, normal pharynx, no angioedema, normal voice Neck: full range of motion, supple/symm/no masses Respiratory: chest non-tender, lungs clear, normal breath sounds, speaking full sentences Cardiovascular #1: normal peripheral pulses, normal capillary refill Cardiovascular #2: 2+ radial (R), 2+ radial (L) Musculoskeletal: decreased range of motion - Decreased active flexion due to pain, swelling - R index finger from PIPJ to DIPJ, tender - diffuse TTP over the R index finger Neurologic: alert, oriented x3, responsive, motor strength/tone normal, sensory intact, speech normal Psychiatric: judgement/insight normal, memory normal, mood/affect normal, no suicidal/homicidal ideation Skin: normal turgor, other - mild pallor of the R index finger. Lymphatic: no adenopathy Medical Decision Making PA Attestation Dr. Cook is my supervising physician. Patient management was discussed with my supervising physician Diagnostic Impression: Primary Impression: Arthritis ER Course The patient is a 52-year-old female presenting for right index finger pain Ddx considered include but not limited to sprain/strain, fracture, contusion, Raynaud disease, tenosynovitis, among others PE: afebrile. NAD Right index finger has soft tissue swelling from the MCP to DIP joint. Tender to palpation diffusely. Mild pallor. Good cap refill Otherwise exam is unremarkable X-ray shows no acute findings The patient will be discharged home with a prescription for pain medication and antibiotics and is to follow up with primary doctor. ER precautions given Other X-Ray Diagnostic Results Other X-Ray Diagnostic Results : X-Ray ordered: R hand # of Views/Limited Vs Complete: 3 View Indication: Pain EP Interpretation: Yes Interpretation: no dislocation, no fractures, other - + STS of index Impression: Other - R index finger swollen Interpreting ER Provider: Dr. Joey PAVON Scribe Text I am acting as scribe for my supervising physician. My supervising physician's interpretation of the R hand xrays are there are no fractures, dislocations. There is isolated STS to index finger Last Vital Signs Date Time Temp Pulse Resp B/P Pulse Ox O2 Delivery O2 Flow Rate FiO2 05/13/17 15:06 98.8 99 18 129/73 95 Room Air Status: improved Disposition: HOME, SELF-CARE Condition: Improved Scripts Cephalexin* (KEFLEX*) 500 Mg Capsule 500 MG ORAL EVERY 12 HOURS, #14 CAP 0 Refills Prov: TERZIAN,JAYE P.A. 05/13/17 Hydrocodone Bit/Acetaminophen 5-325* (NORCO 5-325 TABLET*) 1 Each Tablet 1 TAB ORAL Q6HR Y for For Pain, #10 TAB Prov: TERZIAN,JAYE P.A. 05/13/17 Patient Instructions: Arthritis Additional Instructions: I discussed my findings with the patient. All questions and concerns have been answered. Treatment and medication compliance have been addressed. I advised the patient that they need to follow up with PMD in 3-5 days. Return to ED if pain remains or worsens, numbness or tingling occurs, new rash is noticed, fever is noticed, your finger becomes discolored, or if needed for any reason. Patient verbalized understanding of discharge instructions. JAYE RODRIGUEZ May 13, 2017 16:16
== END 2017-05-13 15:06 | disposition home or self-care (01) ==
LOC: EMR 14:26
DX: M19.041 Primary osteoarthritis, right hand (principal); E11.9 Type 2 diabetes mellitus without complications; I10 Essential (primary) hypertension
CPT/HCPCS: 99284

== ENCOUNTER 2017-09-03 14:56 | Inpatient (IN) | payer MEDICAID ==
[~2017-09-03] VITALS: Ht 165.1 cm; Wt 102.5 kg
[~2017-09-03 14:56] MED LIST changes: +CEPHALEXIN500 MG ORAL; +NORCO 5-325 TA1 EAC1 ORAL
[2017-09-03 15:02] VITALS: BP 119/73
[2017-09-03] MEDS ORDERED: Vancomycin 1.5gm/D5W 250ml 250 ML IVPB ONE (15:30)
[2017-09-03] MEDS ORDERED: HYDROmorphone 1mg/ml Carpuject IVP ONE (15:30)
[2017-09-03] MEDS ORDERED: DiphenhydrAMINE 50mg/ml Inj IVP ONE ×2 (15:30→17:45)
[2017-09-03] MEDS ORDERED: Cefepime HCl 1 GM in NS 55 ML IV SCH (15:30)
--- NOTE | 2017-09-03 15:34 | Emergency Room Report ---
History of Present Illness General Chief Complaint: General Complaint Source: Patient Present Illness HPI The patient complains that 2 days of increased swelling and pain in the midportion of her anterior chest. She denies any fevers. The pain is 8/10 and pressure in burning at this time. She's dialysis patient. She was told by dialysis nurses today not to press on that area. She's never had this problem before. She's not being creasing upper extremity workout. There's no productive cough at the moment. The patient does not make urine. She denies any exertional dyspnea or worsening of the chest pain there. It is worsened with movement and also with deep breathing. The size of the bump gotten larger over the last 2 days in the pain is now constant. Her dialysis fistula is in her right upper arm. She had dialysis today without any problems. No NVD, headache, rashes (other than darkening of bump), extremity pain, edema. In the past she's had a CT with abnormalities in lungs (nodularity). Allergies: Coded Allergies: PENICILLINS (Verified Allergy, Intermediate, Hives, 12/07/12) MORPHINE (Unverified Allergy, Unknown, 09/22/14) VANCOMYCIN (Verified Allergy, Unknown, Rash, 09/03/17) Patient History Past Medical History: see triage record, old chart reviewed Past Surgical History: other - History Social History: Reports: smoking - former Social History Narrative Reviewed Nursing Documentation: PMH: Agreed, PSxH: Agreed Nursing Documentation-PMH Hx Cardiac Problems: No Hx Hypertension: Yes Hx Pacemaker: No Hx Asthma: No Hx COPD: No Hx Diabetes: Yes Hx Cancer: No Hx Gastrointestinal Problems: Yes - DIVERTICULITIS Hx Dialysis: Yes - M-W-F Hx Neurological Problems: No Hx Cerebrovascular Accident: No Hx Seizures: No Review of Systems All Other Systems: negative except mentioned in HPI Physical Exam Vital Signs Date Time Temp Pulse Resp B/P (MAP) Pulse Ox O2 Delivery O2 Flow Rate FiO2 09/03/17 15:02 98.2 96 14 119/73 99 Room Air Sp02 EP Interpretation: reviewed, normal General Appearance: well appearing, no apparent distress, GCS 15 Head: normocephalic Eyes: bilateral eye normal inspection, bilateral eye PERRL ENT: moist mucus membranes Neck: full range of motion, supple Respiratory: lungs clear, normal breath sounds, other - sternomanubrial tenderness with mass present Cardiovascular #1: regular rate, rhythm Cardiovascular #2: 2+ radial (R) - fistula with thrill RUE Gastrointestinal: normal inspection, normal bowel sounds, non tender, no mass, non-distended Musculoskeletal: back normal, gait/station normal, normal range of motion Neurologic: alert, oriented x3, grossly normal Psychiatric: mood/affect normal Skin: warm/dry, other - lesion with hyperpigmentation Medical Decision Making Diagnostic Impression: Primary Impression: Sternal mass Additional Impressions: ESRD (end stage renal disease) on dialysis Chest pain Qualified Codes: R07.9 - Chest pain, unspecified ER Course ESRD patient with swelling and mass central chest DDX abscess, cellulitis, costochondritis amongst others. Evaluation with labs, BC, lactate, EKG and CXR. Suspicion for cellulitis or abscess is high, will start antibiotics covering staph and strep. In addition, patient needs analgesia. Dialysis today so doubt renal emergency. Patient requesting Dilaudid. Normal WBC but elevated sed rate. Patient with hives with Vanco (after contrast). Stopped. CT without evidence of abscess. Admit med Dr. Miranda for continued evaluation for cellulitis, costochondritis versus painful lipoma. Laboratory Tests Test 09/03/17 16:15 White Blood Count 8.1 K/UL (4.8-10.8) Red Blood Count 4.49 M/UL (4.20-5.40) Hemoglobin 13.4 G/DL (12.0-16.0) Hematocrit 43.0 % (37.0-47.0) Mean Corpuscular Volume 96 FL (80-99) Mean Corpuscular Hemoglobin 29.9 PG (27.0-31.0) Mean Corpuscular Hemoglobin Concent 31.2 G/DL (32.0-36.0) L Red Cell Distribution Width 13.4 % (11.6-14.8) Platelet Count 263 K/UL (150-450) Mean Platelet Volume 9.7 FL (6.5-10.1) Neutrophils (%) (Auto) 66.3 % (45.0-75.0) Lymphocytes (%) (Auto) 24.4 % (20.0-45.0) Monocytes (%) (Auto) 5.8 % (1.0-10.0) Eosinophils (%) (Auto) 1.8 % (0.0-3.0) Basophils (%) (Auto) 1.7 % (0.0-2.0) Erythrocyte Sedimentation Rate 63 MM/HR (0-30) H Prothrombin Time 9.7 SEC (9.30-11.50) Prothrombin Time INR 0.9 (0.9-1.1) PTT 25 SEC (23-33) Sodium Level 138 MMOL/L (136-145) Potassium Level 3.8 MMOL/L (3.5-5.1) Chloride Level 97 MMOL/L (98-107) L Carbon Dioxide Level 31 MMOL/L (21-32) Anion Gap 11 mmol/L (5-15) Blood Urea Nitrogen 16 mg/dL (7-18) Creatinine 5.8 MG/DL (0.55-1.30) H Estimate Glomerular Filtration Rate 9.2 mL/min (>60) Glucose Level 130 MG/DL (74-106) H Lactic Acid Level 0.90 mmol/L (0.66-2.22) Calcium Level 9.9 MG/DL (8.5-10.1) Total Bilirubin 0.3 MG/DL (0.2-1.0) Aspartate Amino Transferase (AST) 15 U/L (15-37) Alanine Aminotransferase (ALT) 14 U/L (12-78) Alkaline Phosphatase 167 U/L (46-116) H Total Creatine Kinase 42 U/L (26-308) Troponin I 0.000 ng/mL (0.000-0.056) Pro-B-Type Natriuretic Peptide 537 pg/mL (0-125) H Total Protein 9.1 G/DL (6.4-8.2) H Albumin 4.3 G/DL (3.4-5.0) Globulin 4.8 g/dL Albumin/Globulin Ratio 0.9 (1.0-2.7) L EKG Diagnostic Results Rate: normal Rhythm: NSR ST Segments: no acute changes Rhythm Strip Diag. Results EP Interpretation: yes Rhythm: NSR, no PVC's, no ectopy Chest X-Ray Diagnostic Results Chest X-Ray Diagnostic Results : Chest X-Ray Ordered: Yes # of Views/Limited/Complete: 1 View Indication: Other EP Interpretation: Yes Interpretation: no consolidation, no effusion, no pneumothorax Impression: Other Electronically Signed by: Ken Berkowitz MD CT/MRI/US Diagnostic Results CT/MRI/US Diagnostic Results : Imaging Test Ordered: chest with contrast Impression fatty mass no evidence of abscess. Pulmonary nodularity Last Vital Signs Date Time Temp Pulse Resp B/P (MAP) Pulse Ox O2 Delivery O2 Flow Rate FiO2 09/03/17 19:59 97.9 88 18 139/73 98 Room Air Status: improved Disposition: ADMITTED INPATIENT Condition: Serious Ken Berkowitz M.D. Sep 03, 2017 15:34
[2017-09-03] MEDS ORDERED: Cefepime 1gm vial ONE (16:05)
[2017-09-03 16:38] LABS: BASOPHILS % (AUTO) 1.7 % (0.0-2.0); EOSINOPHILS % (AUTO) 1.8 % (0.0-3.0); LYMPHOCYTES % (AUTO) 24.4 % (20.0-45.0); MEAN CORPUSCULAR HEMOGLOBIN 29.9 PG (27.0-31.0); MEAN CORPUSCULAR HGB CONC 31.2 G/DL (32.0-36.0); MEAN CORPUSCULAR VOLUME 96 FL (80-99); MEAN PLATELET VOLUME 9.7 FL (6.5-10.1); MONOCYTES % (AUTO) 5.8 % (1.0-10.0); NEUTROPHILS % (AUTO) 66.3 % (45.0-75.0); PLATELET COUNT 263 K/UL (150-450); RED BLOOD COUNT 4.49 M/UL (4.20-5.40); RED CELL DISTRIBUTION WIDTH 13.4 % (11.6-14.8); WHITE BLOOD COUNT 8.1 K/UL (4.8-10.8)
[2017-09-03 16:48] VITALS: BP 129/66
[2017-09-03 16:53] LABS: ANION GAP 11 mmol/L (5-15); CALCIUM 9.9 MG/DL (8.5-10.1); CARBON DIOXIDE 31 MMOL/L (21-32); CHLORIDE 97 MMOL/L (98-107); CREATININE 5.8 MG/DL (0.55-1.30); GLOMERULAR FILTRATION RATE 9.2 mL/min (>60); POTASSIUM 3.8 MMOL/L (3.5-5.1); SODIUM 138 MMOL/L (136-145)
[2017-09-03 17:05] LABS: ALANINE AMINOTRANSFERASE 14 U/L (12-78); ALBUMIN/GLOBULIN RATIO 0.9 (1.0-2.7); ASPARTATE AMINO TRANSFERASE 15 U/L (15-37); TOTAL PROTEIN 9.1 G/DL (6.4-8.2)
[2017-09-03 17:07] LABS: INR 0.9 (0.9-1.1); PROTHROMBIN TIME 9.7 SEC (9.30-11.50)
--- NOTE | 2017-09-03 17:15 | Diagnostic Imaging Report ---
Clinical Indication: Sternal pain in the midportion of the anterior chest, 05/08 Technique: IV administration nonionic contrast. Spiral acquisition obtained through the chest. Multiplanar reconstructions generated. Total dose length product 1373 mGycm. CTDIvol(s) 8, 73, 31 mGy. Dose reduction achieved using automated exposure control Comparison: 06/12/2013 Findings: Large collateral veins are seen in the presacral fat, also evident previously. The pre-sternal fat is otherwise unremarkable, without evidence of cellulitis or abscess. No significant retrosternal abnormality is demonstrated. No osseous sternal abnormality is demonstrated. The remainder of the chest wall soft tissues are unremarkable. There is a left subclavian stent. There may be some stenosis of the downstream end of the stent, but the left innominate vein nonetheless remains patent. No acute fractures. The remaining bones are likewise intact. Slight diffuse osteosclerosis may indicate a component of early renal osteodystrophy. Again demonstrated are innumerable mostly subcentimeter nodules scattered throughout both lungs. These appear similar in size and extent as was demonstrated on the prior study. No infiltrates, effusions, or congestion demonstrated The heart size is normal. No pericardial effusion. No mediastinal or hilar mass or adenopathy. No axillary or chest wall mass or adenopathy. Included thyroid is unremarkable. The included upper, anatomy demonstrates atrophic [place] kidneys. The liver is incompletely visualized, but quite possibly enlarged. Impression: No anterior chest wall abnormality or sternal abnormality to suggest etiology of stated clinical history of sternal pain and swelling. Innumerable bilateral lung nodules. These appear similar to the previous chest CT of 06/12/2013, and therefore most likely postinflammatory rather than neoplastic in etiology Left subclavian stent, also previously reported. Patent, but with possible downstream stenosis, which may be the source of some chest wall collaterals also previously demonstrated No osseous abnormality Atrophic [place] kidneys, consistent with known history of chronic renal disease Possible hepatomegaly, also reported on recent abdomen pelvis CT The CT scanner at [facility] is accredited by the [employer] and the scans are performed using protocols designed to limit radiation exposure to as low as reasonably achievable to attain images of sufficient resolution adequate for diagnostic evaluation.
[2017-09-03 17:42] LABS: ERYTHROCYTE SEDIMENTATION RATE 63 MM/HR (0-30)
[2017-09-03] MEDS ORDERED: Solu-MEDROL 125mg Inj IVP ONE (17:45)
[2017-09-03] MEDS ORDERED: KENALOG 0.1% CR15 GM (18:29)
[2017-09-03] MEDS ORDERED: FAMOTIDINE40 MG PO (18:29)
[2017-09-03] MEDS ORDERED: ALPHAGAN P5 M2 (18:29)
[2017-09-03] MEDS ORDERED: LIDOCAINE HCL30 ML (18:29)
[2017-09-03] MEDS ORDERED: TUMS500 MG ORAL (18:30)
[2017-09-03] MEDS ORDERED: AFRIN NASAL SPR30 ML NASAL (18:32)
[2017-09-03 18:58] VITALS: BP 139/73
[2017-09-03] MEDS ORDERED: Cefepime HCl 1 GM in D5W 55 ML IVPB SCH (19:30)
[2017-09-03 19:59] VITALS: BP 126/64
--- NOTE | 2017-09-03 20:05 | Infectious Diseases Prog Note ---
Assessment/Plan Problems: (1) Cellulitis of sternum Assessment & Plan: will start vancomycin and cefepime empirically, pending blood culture, check ESR, ans CRP (2) Sepsis Assessment & Plan: due to the above, susanna send blood culture, and continue vancomycin and cefepime empirically (3) ESRD (end stage renal disease) on dialysis Assessment & Plan: continue HD as per renal (4) Chest pain Assessment & Plan: due to the above, rule out ACS, recommend troponin monitor and cardiology eval (5) Diabetes mellitus Assessment & Plan: poorly controlled, recommend tight glycemic control to keep blood glucose between 80 -120 Subjective Allergies: Coded Allergies: PENICILLINS (Verified Allergy, Intermediate, Hives, 12/07/12) MORPHINE (Unverified Allergy, Unknown, 09/22/14) Objective Vital Signs Last 24 Hour Vital Signs Date Time Temp Pulse Resp B/P (MAP) Pulse Ox O2 Delivery O2 Flow Rate FiO2 09/03/17 19:59 97.9 88 18 139/73 98 Room Air 09/03/17 19:59 97.9 88 18 126/64 99 Room Air 09/03/17 18:58 89 18 139/73 98 Room Air 09/03/17 16:48 97.9 91 16 129/66 99 Room Air 09/03/17 15:02 98.2 96 14 119/73 99 Room Air 09/03/17 15:02 98.2 96 14 119/73 99 Room Air Height (Feet): 5 Height (Inches): 5.00 Weight (Pounds): 226 Laboratory Tests Test 09/03/17 16:15 White Blood Count 8.1 K/UL (4.8-10.8) Red Blood Count 4.49 M/UL (4.20-5.40) Hemoglobin 13.4 G/DL (12.0-16.0) Hematocrit 43.0 % (37.0-47.0) Mean Corpuscular Volume 96 FL (80-99) Mean Corpuscular Hemoglobin 29.9 PG (27.0-31.0) Mean Corpuscular Hemoglobin Concent 31.2 G/DL (32.0-36.0) L Red Cell Distribution Width 13.4 % (11.6-14.8) Platelet Count 263 K/UL (150-450) Mean Platelet Volume 9.7 FL (6.5-10.1) Neutrophils (%) (Auto) 66.3 % (45.0-75.0) Lymphocytes (%) (Auto) 24.4 % (20.0-45.0) Monocytes (%) (Auto) 5.8 % (1.0-10.0) Eosinophils (%) (Auto) 1.8 % (0.0-3.0) Basophils (%) (Auto) 1.7 % (0.0-2.0) Erythrocyte Sedimentation Rate 63 MM/HR (0-30) H Prothrombin Time 9.7 SEC (9.30-11.50) Prothromb Time International Ratio 0.9 (0.9-1.1) Activated Partial Thromboplast Time 25 SEC (23-33) Sodium Level 138 MMOL/L (136-145) Potassium Level 3.8 MMOL/L (3.5-5.1) Chloride Level 97 MMOL/L (98-107) L Carbon Dioxide Level 31 MMOL/L (21-32) Anion Gap 11 mmol/L (5-15) Blood Urea Nitrogen 16 mg/dL (7-18) Creatinine 5.8 MG/DL (0.55-1.30) H Estimat Glomerular Filtration Rate 9.2 mL/min (>60) Glucose Level 130 MG/DL (74-106) H Lactic Acid Level 0.90 mmol/L (0.66-2.22) Calcium Level 9.9 MG/DL (8.5-10.1) Total Bilirubin 0.3 MG/DL (0.2-1.0) Aspartate Amino Transf (AST/SGOT) 15 U/L (15-37) Alanine Aminotransferase (ALT/SGPT) 14 U/L (12-78) Alkaline Phosphatase 167 U/L (46-116) H Total Creatine Kinase 42 U/L (26-308) Troponin I 0.000 ng/mL (0.000-0.056) Pro-B-Type Natriuretic Peptide 537 pg/mL (0-125) H Total Protein 9.1 G/DL (6.4-8.2) H Albumin 4.3 G/DL (3.4-5.0) Globulin 4.8 g/dL Albumin/Globulin Ratio 0.9 (1.0-2.7) L Current Medications Medications (Trade) Dose Ordered Sig/Regina Route PRN Reason Start Time Stop Time Status Last Admin Dose Admin Cefepime HCl 1 gm/ Dextrose 55 ml @ 110 mls/hr Q24H IVPB 09/03/17 19:30 09/10/17 19:29 UNV Cefepime HCl 1 gm/ Sodium Chloride 55 ml @ 110 mls/hr Q12H IV 09/03/17 15:30 09/04/17 15:29 09/03/17 16:06 Vancomycin HCl (Vanco rx to dose) 1 ea DAILY PRN MISC Per rx protocol 09/03/17 19:30 10/03/17 19:29 [id number] Italia De La Vega M.D. Sep 03, 2017 20:05
[2017-09-03] MEDS ORDERED: LORazepam 1mg tab ORAL PRN ×2 (22:00→22:45)
[2017-09-03] MEDS: Hydromorphone 0.5mg/0.5ml inj IVP PRN (22:36)
[2017-09-03] MEDS: Zolpidem 5mg tab ORAL SCH (23:43)
[2017-09-03] MEDS: Tums 500mg ORAL SCH (23:44)
[2017-09-04] VITALS: BP 111/68
[2017-09-04] MEDS: Hydromorphone 0.5mg/0.5ml inj IVP PRN ×6 (02:38→22:45)
[2017-09-04 04:00] VITALS: BP 123/59
[2017-09-04 08:00] VITALS: BP 150/79
--- NOTE | 2017-09-04 08:20 | Diagnostic Imaging Report ---
Indication: Chest pain Technique: One view of the chest Comparison: 04/13/2017 Findings: The lungs and pleural spaces are clear. Heart is enlarged. Nodules described on recent chest CT are not visible radiographically Findings are unchanged Impression: No acute process
[2017-09-04] MEDS: Tums 500mg ORAL SCH ×3 (08:55→18:42)
[2017-09-04] MEDS ORDERED: Tums 500mg ORAL SCH (09:00)
[2017-09-04] MEDS: Clindamycin 600mg/D5W 50ml Pre-Mix IV SCH ×2 (10:25→18:43)
[2017-09-04] MEDS: DiphenhydrAMINE 50mg/ml Inj IVP PRN ×2 (11:18→18:43)
--- NOTE | 2017-09-04 11:34 | Cardiac Electrophysiology PN ---
Subjective Subjective [id number] Objective Last 24 Hour Vital Signs Date Time Temp Pulse Resp B/P (MAP) Pulse Ox O2 Delivery O2 Flow Rate FiO2 09/04/17 08:00 97.7 96 20 150/79 99 09/04/17 04:00 97.9 98 18 123/59 100 09/04/17 00:00 98.1 98 21 111/68 95 09/03/17 19:59 97.9 88 18 139/73 98 Room Air 09/03/17 19:59 97.9 88 18 126/64 99 Room Air 09/03/17 18:58 89 18 139/73 98 Room Air 09/03/17 16:48 97.9 91 16 129/66 99 Room Air 09/03/17 15:02 98.2 96 14 119/73 99 Room Air 09/03/17 15:02 98.2 96 14 119/73 99 Room Air Laboratory Tests Test 09/03/17 16:15 09/04/17 06:10 White Blood Count 8.1 K/UL (4.8-10.8) Red Blood Count 4.49 M/UL (4.20-5.40) Hemoglobin 13.4 G/DL (12.0-16.0) Hematocrit 43.0 % (37.0-47.0) Mean Corpuscular Volume 96 FL (80-99) Mean Corpuscular Hemoglobin 29.9 PG (27.0-31.0) Mean Corpuscular Hemoglobin Concent 31.2 G/DL (32.0-36.0) L Red Cell Distribution Width 13.4 % (11.6-14.8) Platelet Count 263 K/UL (150-450) Mean Platelet Volume 9.7 FL (6.5-10.1) Neutrophils (%) (Auto) 66.3 % (45.0-75.0) Lymphocytes (%) (Auto) 24.4 % (20.0-45.0) Monocytes (%) (Auto) 5.8 % (1.0-10.0) Eosinophils (%) (Auto) 1.8 % (0.0-3.0) Basophils (%) (Auto) 1.7 % (0.0-2.0) Erythrocyte Sedimentation Rate 63 MM/HR (0-30) H Prothrombin Time 9.7 SEC (9.30-11.50) Prothromb Time International Ratio 0.9 (0.9-1.1) Activated Partial Thromboplast Time 25 SEC (23-33) Sodium Level 138 MMOL/L (136-145) Potassium Level 3.8 MMOL/L (3.5-5.1) Chloride Level 97 MMOL/L (98-107) L Carbon Dioxide Level 31 MMOL/L (21-32) Anion Gap 11 mmol/L (5-15) Blood Urea Nitrogen 16 mg/dL (7-18) Creatinine 5.8 MG/DL (0.55-1.30) H Estimat Glomerular Filtration Rate 9.2 mL/min (>60) Glucose Level 130 MG/DL (74-106) H Lactic Acid Level 0.90 mmol/L (0.66-2.22) Calcium Level 9.9 MG/DL (8.5-10.1) Total Bilirubin 0.3 MG/DL (0.2-1.0) Aspartate Amino Transf (AST/SGOT) 15 U/L (15-37) Alanine Aminotransferase (ALT/SGPT) 14 U/L (12-78) Alkaline Phosphatase 167 U/L (46-116) H Total Creatine Kinase 42 U/L (26-308) Troponin I 0.000 ng/mL (0.000-0.056) Pro-B-Type Natriuretic Peptide 537 pg/mL (0-125) H Total Protein 9.1 G/DL (6.4-8.2) H Albumin 4.3 G/DL (3.4-5.0) Globulin 4.8 g/dL Albumin/Globulin Ratio 0.9 (1.0-2.7) L Random Vancomycin Level < 2.0 ug/mL MANISH XIE Sep 04, 2017 11:34
[2017-09-04 12:02] VITALS: BP 127/76
--- NOTE | 2017-09-04 13:42 | Consultation ---
History of Present Illness General Date patient seen: Sep 04, 2017 Chief Complaint: General Complaint Reason for Consultation: sternal pain Present Illness HPI 52 year old female with history of ESRD on HD, DM, Right upper arm AV fistula with prior stent for stenosis presents with sternal chest discomfort. As per patient she began to note some sternal superficial discomfort yesterday and noted some edema around her mid sternum with tenderness on palpation. Came to ED for evaluation. States that when given meds in ED felt better. Swelling has since improved. Labs okay without signs of infection. CT demonstrates no significant abnormality of anterior chest except for some dilated collateral veins in presternal fat. Surgery called to evaluate. When seen states pain improved and swelling decreased. Still has some discomfort but not much. Cardiac enzymes normal. Allergies: Coded Allergies: PENICILLINS (Verified Allergy, Intermediate, Hives, 12/07/12) MORPHINE (Unverified Allergy, Unknown, 09/22/14) VANCOMYCIN (Verified Allergy, Unknown, Rash, 09/03/17) Medication History Scheduled Atorvastatin Calcium* (Lipitor*), 10 MG ORAL BEDTIME, (Reported) Calcium Carbonate (Calcium), 500 MG ORAL AC, (Reported) Famotidine (Famotidine), 40 MG PO DAILY, (Reported) Gabapentin* (Gabapentin*), 100 MG ORAL TID, (Reported) Glyburide (Glyburide), 5 MG PO BID, (Reported) Oxymetazoline HCl (Afrin), 1 SPRAY NASAL TWICE A DAY, (Reported) Zolpidem Tartrate* (Zolpidem Tartrate*), 10 MG ORAL BEDTIME, (Reported) Scheduled PRN Diphenhydramine Hcl* (Benadryl*), 50 MG ORAL Q6H PRN for Dialysis, (Reported) Hydrocodone Bit/Acetaminophen 10-325* (Ravenel 10-325*), 1 TAB ORAL Q4H PRN for For Pain, (Reported) Lidocaine HCl (Lidocaine HCl), for Dialysis, (Reported) Lorazepam* (Lorazepam*), 1 MG ORAL PRN PRN for For Anxiety, (Reported) Miscellaneous Medications Brimonidine Tartrate (Alphagan P), (Reported) Triamcinolone Acet (Triamcinolone Acetonide), (Reported) Discontinued Medications Cephalexin* (Keflex*), 500 MG ORAL EVERY 12 HOURS Discontinued Reason: Pt stopped taking med Hydrocodone Bit/Acetaminophen 5-325* (Ravenel 5-325 Tablet*), 1 TAB ORAL Q6HR PRN for For Pain Discontinued Reason: Pt stopped taking med Hydrocodone/Acetaminophen 5-325* (Hydrocodone/Acetaminophen 5-325*), 1 TAB ORAL Q6H PRN for For Pain Discontinued Reason: Pt stopped taking med Levofloxacin* (Levaquin*), 500 MG ORAL DAILY, (Reported) Discontinued Reason: Pt stopped taking med Temazepam (Temazepam*), 30 MG ORAL BEDTIME PRN for For Anxiety, (Reported) Discontinued Reason: Pt stopped taking med Patient History History Provided By: Patient Healthcare decision maker Resuscitation status Full Code Advanced Directive on File Past Medical/Surgical History Past Medical/Surgical History: (1) Chest pain (2) Hyperkalemia (3) Contusion shoulder/arm (4) Muscle strain (5) Cervical radiculopathy (6) Degenerative disc disease, cervical (7) Pneumonia (8) Arthritis (9) Sepsis (10) Cellulitis of sternum (11) Sternal mass (12) Diverticulitis of sigmoid colon (13) lung nodules (14) Diverticulitis of sigmoid colon (15) Septicemia (16) Bleeding (17) Leukocytosis (18) Flank pain (19) Colitis (20) Leukocytosis (21) muscle strain (22) Opiate dependence (23) Abdominal pain (24) Pain (25) Pain (26) Headache (27) Headache (28) Chest pain (29) ESRD (end stage renal disease) on dialysis (30) ACS (acute coronary syndrome) (31) ESRD (end stage renal disease) on dialysis (32) Hypertension (33) Diabetes mellitus (34) Obesity (35) Diabetic peripheral neuropathy (36) Hypercholesteremia (37) GERD (gastroesophageal reflux disease) (38) Chest pain (39) HTN (hypertension) Review of Systems Constitutional: Denies: no symptoms, see HPI, chills, sweats, fever, malaise, weakness, other Eye: Denies: no symptoms, see HPI, eye pain, blurred vision, tearing, double vision, nose pain, nose congestion, acuity changes, discharge, other ENT: Denies: no symptoms, see HPI, ear pain, ear discharge, nose pain, nose congestion, throat pain, throat swelling, mouth pain, hearing loss, nasal discharge, other Respiratory: Denies: no symptoms, see HPI, cough, orthopnea, shortness of breath, stridor, wheezing, LEON, sputum, other Cardiovascular: Reports: chest pain, edema Gastrointestinal: Denies: no symptoms, see HPI, abdominal pain, constipation, diarrhea, nausea, vomiting, melena, hematemesis, other Genitourinary: Denies: no symptoms, see HPI, discharge, dysuria, frequency, hematuria, pain, retention, incontinence, urgency, vag bleed/dc, other Musculoskeletal: Denies: no symptoms, see HPI, back pain, gout, joint pain, joint swelling, muscle pain, muscle stiffness, other Skin: Denies: no symptoms, see HPI, rash, change in color, change in hair/nails , dryness, lesions, other Psychiatric: Denies: no symptoms, see HPI, prior hx, anxiety, depressed feelings, emotional problems, SI, HI, hallucinations, other Neurological: Denies: no symptoms, see HPI, headache, numbness, paresthesia, seizure, tingling, tremors, focal weakness, syncope, dizziness, other Endocrine: Denies: no symptoms, see HPI, excessive sweating, flushing, intolerance to temperature, increased thirst, increased urine, unexplained weight loss, other Hematologic/Lymphatic: Denies: no symptoms, see HPI, anemia, blood clots, easy bleeding, easy bruising, swollen glands, diathesis, other All Other Systems: negative except mentioned in HPI Physical Exam General Appearance: WD/WN, no apparent distress Lines, tubes and drains: peripheral HEENT: normocephalic, mucous membranes moist, PERRL Neck: normal alignment Respiratory/Chest: normal breath sounds, no respiratory distress, no accessory muscle use Cardiovascular/Chest: normal peripheral pulses, normal rate, other - superfical discomfort/tenderness around presternal fat. mild edema but likely fat. no masses. no signs of infection. no trauma. dilated veins noted around superficial superior breast area in anterior chest wall. Abdomen: normal bowel sounds, non tender, soft, no organomegaly Extremities: normal inspection, other - right arm AV fistula Skin Exam: normal pigmentation Neurologic: alert, oriented x 3 Last 24 Hour Vital Signs Date Time Temp Pulse Resp B/P (MAP) Pulse Ox O2 Delivery O2 Flow Rate FiO2 09/04/17 12:02 98.6 81 18 127/76 95 Room Air 09/04/17 08:00 97.7 96 20 150/79 99 09/04/17 04:00 97.9 98 18 123/59 100 09/04/17 00:00 98.1 98 21 111/68 95 09/03/17 19:59 97.9 88 18 139/73 98 Room Air 09/03/17 19:59 97.9 88 18 126/64 99 Room Air 09/03/17 18:58 89 18 139/73 98 Room Air 09/03/17 16:48 97.9 91 16 129/66 99 Room Air 09/03/17 15:02 98.2 96 14 119/73 99 Room Air 09/03/17 15:02 98.2 96 14 119/73 99 Room Air Intake and Output 09/04/17 09/05/17 19:00 07:00 Intake Total 50 ml Balance 50 ml IV Total 50 ml Laboratory Tests Test 09/03/17 16:15 09/04/17 06:10 White Blood Count 8.1 K/UL (4.8-10.8) Red Blood Count 4.49 M/UL (4.20-5.40) Hemoglobin 13.4 G/DL (12.0-16.0) Hematocrit 43.0 % (37.0-47.0) Mean Corpuscular Volume 96 FL (80-99) Mean Corpuscular Hemoglobin 29.9 PG (27.0-31.0) Mean Corpuscular Hemoglobin Concent 31.2 G/DL (32.0-36.0) L Red Cell Distribution Width 13.4 % (11.6-14.8) Platelet Count 263 K/UL (150-450) Mean Platelet Volume 9.7 FL (6.5-10.1) Neutrophils (%) (Auto) 66.3 % (45.0-75.0) Lymphocytes (%) (Auto) 24.4 % (20.0-45.0) Monocytes (%) (Auto) 5.8 % (1.0-10.0) Eosinophils (%) (Auto) 1.8 % (0.0-3.0) Basophils (%) (Auto) 1.7 % (0.0-2.0) Erythrocyte Sedimentation Rate 63 MM/HR (0-30) H Prothrombin Time 9.7 SEC (9.30-11.50) Prothromb Time International Ratio 0.9 (0.9-1.1) Activated Partial Thromboplast Time 25 SEC (23-33) Sodium Level 138 MMOL/L (136-145) Potassium Level 3.8 MMOL/L (3.5-5.1) Chloride Level 97 MMOL/L (98-107) L Carbon Dioxide Level 31 MMOL/L (21-32) Anion Gap 11 mmol/L (5-15) Blood Urea Nitrogen 16 mg/dL (7-18) Creatinine 5.8 MG/DL (0.55-1.30) H Estimat Glomerular Filtration Rate 9.2 mL/min (>60) Glucose Level 130 MG/DL (74-106) H Lactic Acid Level 0.90 mmol/L (0.66-2.22) Calcium Level 9.9 MG/DL (8.5-10.1) Total Bilirubin 0.3 MG/DL (0.2-1.0) Aspartate Amino Transf (AST/SGOT) 15 U/L (15-37) Alanine Aminotransferase (ALT/SGPT) 14 U/L (12-78) Alkaline Phosphatase 167 U/L (46-116) H Total Creatine Kinase 42 U/L (26-308) Troponin I 0.000 ng/mL (0.000-0.056) Pro-B-Type Natriuretic Peptide 537 pg/mL (0-125) H Total Protein 9.1 G/DL (6.4-8.2) H Albumin 4.3 G/DL (3.4-5.0) Globulin 4.8 g/dL Albumin/Globulin Ratio 0.9 (1.0-2.7) L Random Vancomycin Level < 2.0 ug/mL Height (Feet): 5 Height (Inches): 5.00 Weight (Pounds): 226 Medications Current Medications Medications (Trade) Dose Ordered Sig/Regina Route PRN Reason Start Time Stop Time Status Last Admin Dose Admin Atorvastatin Calcium (Lipitor) 10 mg BEDTIME ORAL 09/04/17 21:00 10/04/17 20:59 Calcium Carbonate (Tums) 1,000 mg THREE TIMES A DAY ORAL 09/03/17 23:00 10/03/17 22:59 09/04/17 13:14 Cefepime HCl 500 mg/Dextrose 55 ml @ 110 mls/hr Q24H IVPB 09/04/17 21:00 09/11/17 20:59 Clindamycin HCl/ Dextrose 50 ml @ 100 mls/hr Q6HR IV 09/04/17 10:00 09/11/17 09:59 09/04/17 10:25 Diphenhydramine HCl (Benadryl) 25 mg Q6H PRN IVP Itching 09/04/17 10:15 10/04/17 10:14 09/04/17 11:18 Diphenhydramine HCl (Benadryl) 50 mg Q6H PRN ORAL Dialysis 09/03/17 22:00 10/03/17 21:59 Gabapentin (Neurontin) 100 mg TID ORAL 09/04/17 09:00 10/04/17 08:59 09/04/17 13:13 Glyburide (Diabeta) 5 mg BID ORAL 09/04/17 09:00 10/04/17 08:59 Hydromorphone HCl (Dilaudid) 1 mg Q4H PRN IVP For Moderate to Severe Pain 09/03/17 21:15 09/10/17 21:14 09/04/17 11:18 Lorazepam (Ativan) 1 mg EVERY 6 HOURS PRN ORAL For Anxiety 09/03/17 22:45 09/10/17 21:59 Multivitamins (Multivitamins) 1 tab DAILY ORAL 09/04/17 09:00 10/04/17 08:59 09/04/17 08:55 Ondansetron HCl (Zofran) 4 mg Q4H PRN IVP Nausea & Vomiting 09/03/17 22:15 10/03/17 22:14 Zolpidem Tartrate (Ambien) 10 mg BEDTIME ORAL 09/03/17 22:45 09/10/17 22:44 09/03/17 23:43 Assessment/Plan Problem List: (1) Chest pain Assessment & Plan: 52F with superficial sternal chest pain/discomfort. improved since admission. afebrile. HD stable. VSS. no leukocytosis. no signs or symptoms of infection. exam benign otherwise without masses or tumors. CT reviewed and no abnormalities noted other than dilated presternal collateral veins. Likely dilated superficial phlebitis of presternal vein causing some discomfort which is resolving.\ -no acute surgical intervention necessary -okay to warm packs on area -recommend anti-inflammatory till resolved thank you for this consultation. ICD Codes: R07.9 - Chest pain, unspecified SNOMED: [id number] Status: stable Pardeep Robins Sep 04, 2017 13:42
--- NOTE | 2017-09-04 14:53 | Infectious Diseases Prog Note ---
Assessment/Plan Problems: (1) Cellulitis of sternum Assessment & Plan: will switch vancomycin to clindamycin and continue cefepime empirically, pending blood culture, will order venous doppler of both arms to rule out DVT (2) Sepsis Assessment & Plan: due to the above, await blood culture, and continue clindamycin and cefepime empirically (3) ESRD (end stage renal disease) on dialysis Assessment & Plan: continue HD as per renal (4) Chest pain Assessment & Plan: due to the above, rule out ACS, recommend troponin monitor and cardiology eval (5) Diabetes mellitus Assessment & Plan: poorly controlled, recommend tight glycemic control to keep blood glucose between 80 -120 Subjective Constitutional: Reports: no symptoms HEENT: Reports: no symptoms Respiratory: Reports: no symptoms Breasts: Reports: no symptoms Cardiovascular: Reports: no symptoms Gastrointestinal/Abdominal: Reports: no symptoms Genitourinary: Reports: no symptoms Neurologic: Reports: no symptoms Psychiatric: Reports: no symptoms Skin: Reports: other - swallen and tender on the anterior chest , no erythema Endocrine: Reports: no symptoms Hematologic: Reports: no symptoms Musculoskeletal: Reports: no symptoms Allergies: Coded Allergies: PENICILLINS (Verified Allergy, Intermediate, Hives, 12/07/12) MORPHINE (Unverified Allergy, Unknown, 09/22/14) VANCOMYCIN (Verified Allergy, Unknown, Rash, 09/03/17) Objective Vital Signs Last 24 Hour Vital Signs Date Time Temp Pulse Resp B/P (MAP) Pulse Ox O2 Delivery O2 Flow Rate FiO2 09/04/17 12:02 98.6 81 18 127/76 95 Room Air 09/04/17 08:00 97.7 96 20 150/79 99 09/04/17 04:00 97.9 98 18 123/59 100 09/04/17 00:00 98.1 98 21 111/68 95 09/03/17 19:59 97.9 88 18 139/73 98 Room Air 09/03/17 19:59 97.9 88 18 126/64 99 Room Air 09/03/17 18:58 89 18 139/73 98 Room Air 09/03/17 16:48 97.9 91 16 129/66 99 Room Air 09/03/17 15:02 98.2 96 14 119/73 99 Room Air 09/03/17 15:02 98.2 96 14 119/73 99 Room Air Height (Feet): 5 Height (Inches): 5.00 Weight (Pounds): 226 General Appearance: WD/WN, no acute distress HEENT: normocephalic, atraumatic, anicteric, mucous membranes moist, PERRL, EOMI, pharynx normal, supple, no JVD Respiratory/Chest: chest wall non-tender, lungs clear, normal breath sounds, no respiratory distress, no accessory muscle use, decreased breath sounds Cardiovascular: normal peripheral pulses, normal rate, regular rhythm, no gallop/murmur, no JVD Abdomen: normal bowel sounds, soft, non tender, no organomegaly, non distended , no mass, no scars Extremities: no cyanosis, no clubbing Skin: no rash, no lesions, no ulcers Neurologic/Psychiatric: alert, oriented x 3 Lymphatic: no neck adenopathy, no groin adenopathy Laboratory Tests Test 09/03/17 16:15 09/04/17 06:10 White Blood Count 8.1 K/UL (4.8-10.8) Red Blood Count 4.49 M/UL (4.20-5.40) Hemoglobin 13.4 G/DL (12.0-16.0) Hematocrit 43.0 % (37.0-47.0) Mean Corpuscular Volume 96 FL (80-99) Mean Corpuscular Hemoglobin 29.9 PG (27.0-31.0) Mean Corpuscular Hemoglobin Concent 31.2 G/DL (32.0-36.0) L Red Cell Distribution Width 13.4 % (11.6-14.8) Platelet Count 263 K/UL (150-450) Mean Platelet Volume 9.7 FL (6.5-10.1) Neutrophils (%) (Auto) 66.3 % (45.0-75.0) Lymphocytes (%) (Auto) 24.4 % (20.0-45.0) Monocytes (%) (Auto) 5.8 % (1.0-10.0) Eosinophils (%) (Auto) 1.8 % (0.0-3.0) Basophils (%) (Auto) 1.7 % (0.0-2.0) Erythrocyte Sedimentation Rate 63 MM/HR (0-30) H Prothrombin Time 9.7 SEC (9.30-11.50) Prothromb Time International Ratio 0.9 (0.9-1.1) Activated Partial Thromboplast Time 25 SEC (23-33) Sodium Level 138 MMOL/L (136-145) Potassium Level 3.8 MMOL/L (3.5-5.1) Chloride Level 97 MMOL/L (98-107) L Carbon Dioxide Level 31 MMOL/L (21-32) Anion Gap 11 mmol/L (5-15) Blood Urea Nitrogen 16 mg/dL (7-18) Creatinine 5.8 MG/DL (0.55-1.30) H Estimat Glomerular Filtration Rate 9.2 mL/min (>60) Glucose Level 130 MG/DL (74-106) H Lactic Acid Level 0.90 mmol/L (0.66-2.22) Calcium Level 9.9 MG/DL (8.5-10.1) Total Bilirubin 0.3 MG/DL (0.2-1.0) Aspartate Amino Transf (AST/SGOT) 15 U/L (15-37) Alanine Aminotransferase (ALT/SGPT) 14 U/L (12-78) Alkaline Phosphatase 167 U/L (46-116) H Total Creatine Kinase 42 U/L (26-308) Troponin I 0.000 ng/mL (0.000-0.056) Pro-B-Type Natriuretic Peptide 537 pg/mL (0-125) H Total Protein 9.1 G/DL (6.4-8.2) H Albumin 4.3 G/DL (3.4-5.0) Globulin 4.8 g/dL Albumin/Globulin Ratio 0.9 (1.0-2.7) L Random Vancomycin Level < 2.0 ug/mL Current Medications Medications (Trade) Dose Ordered Sig/Regina Route PRN Reason Start Time Stop Time Status Last Admin Dose Admin Atorvastatin Calcium (Lipitor) 10 mg BEDTIME ORAL 09/04/17 21:00 10/04/17 20:59 Calcium Carbonate (Tums) 1,000 mg THREE TIMES A DAY ORAL 09/03/17 23:00 10/03/17 22:59 09/04/17 13:14 Cefepime HCl 500 mg/Dextrose 55 ml @ 110 mls/hr Q24H IVPB 09/04/17 21:00 09/11/17 20:59 Clindamycin HCl/ Dextrose 50 ml @ 100 mls/hr Q6HR IV 09/04/17 10:00 09/11/17 09:59 09/04/17 10:25 Diphenhydramine HCl (Benadryl) 25 mg Q6H PRN IVP Itching 09/04/17 10:15 10/04/17 10:14 09/04/17 11:18 Diphenhydramine HCl (Benadryl) 50 mg Q6H PRN ORAL Dialysis 09/03/17 22:00 10/03/17 21:59 Gabapentin (Neurontin) 100 mg TID ORAL 09/04/17 09:00 10/04/17 08:59 09/04/17 13:13 Glyburide (Diabeta) 5 mg BID ORAL 09/04/17 09:00 10/04/17 08:59 Hydromorphone HCl (Dilaudid) 1 mg Q4H PRN IVP For Moderate to Severe Pain 09/03/17 21:15 09/10/17 21:14 09/04/17 11:18 Lorazepam (Ativan) 1 mg EVERY 6 HOURS PRN ORAL For Anxiety 09/03/17 22:45 09/10/17 21:59 Multivitamins (Multivitamins) 1 tab DAILY ORAL 09/04/17 09:00 10/04/17 08:59 09/04/17 08:55 Ondansetron HCl (Zofran) 4 mg Q4H PRN IVP Nausea & Vomiting 09/03/17 22:15 10/03/17 22:14 Zolpidem Tartrate (Ambien) 10 mg BEDTIME ORAL 09/03/17 22:45 09/10/17 22:44 09/03/17 23:43 Italia De La Vega M.D. Sep 04, 2017 14:53
[2017-09-04] MEDS ORDERED: Tubing IV Secondary IV ONE (16:04)
[2017-09-04 16:28] VITALS: BP 117/69
--- NOTE | 2017-09-04 17:30 | Consultation ---
DATE OF CONSULTATION: 09/04/2017 INFECTIOUS DISEASE CONSULTATION REQUESTING PHYSICIAN: Memo Miranda M.D. REASON FOR CONSULTATION: Anterior chest cellulitis and swelling. Recommendation for antibiotics therapy. HISTORY OF PRESENT ILLNESS: The patient is a 52-year-old female with end-stage renal disease, on hemodialysis, diabetes, right upper extremity AV fistula, and left subclavian vein stent presented to the emergency room at [facility] for anterior chest discomfort and swelling. Symptoms started on Friday all of sudden. Denied any trauma or any injury to the anterior wall of the chest. She noticed swelling in front of the sternum, below the neck area. No difficulty breathing. No cough or shortness of breath. No wheezing. No fever or chills. The patient was brought into the emergency room for evaluation and had a CT scan of the chest showed collateral veins, but no abscess or other etiology to explain her anterior chest the pain and swelling. The patient received IV antibiotics in the emergency room and I was consulted by the primary provider for antibiotics treatment and further management. PAST MEDICAL HISTORY: Significant for end-stage renal disease, on hemodialysis, diabetes, hypertension, and history of diverticulitis. PAST SURGICAL HISTORY: She had right upper extremity AV fistula and stent placement in the left subclavian vein of the upper extremity. MEDICATIONS: The patient received vancomycin and cefepime by the emergency room physician and methyl prednisolone. For the rest of her medications, please refer to [facility]. ALLERGIES: She is allergic to penicillin, morphine and vancomycin, which she reacted in the emergency room with itching. SOCIAL HISTORY: The patient is , lives with family, unemployed. Denied using any drugs, tobacco, or alcohol. FAMILY HISTORY: Not contributory. REVIEW OF SYSTEMS: A 14-point of system reviewed were all negative apart from the one I mentioned above in my History and Physical. PHYSICAL EXAMINATION: GENERAL: A middle-aged female, obese, sitting in chair, awake, alert, complaining of mild anterior chest wall pain and swelling, not in distress. VITAL SIGNS: Temperature 97.9 degrees, pulse 88, respiration 18, blood pressure 126/64 and pulse oximetry 99% on room air. HEENT: Normocephalic and atraumatic. Pupils are reactive to light. Moist oral mucosa. No exudate. NECK: Supple. No lymphadenopathy. CHEST: She had anterior sternum swelling and tenderness with local palpation. No redness. No skin break or open wound. CARDIOVASCULAR: Regular rate and rhythm. No murmur or gallop. LUNGS: Clear bilaterally. No wheezing or rhonchi. Normal breathing sounds. ABDOMEN: Soft, obese, nontender, nondistended. Positive bowel sounds. No hepatosplenomegaly. No ascites. EXTREMITIES: No edema or cyanosis. Right upper extremity AV fistula with good bruits sounds. LABORATORY AND DIAGNOSTIC DATA: Labs showed white count of 8.1, hemoglobin 13.4 and platelet count of 263. BUN of 16, creatinine of 5.8, and glucose of 130. Imaging, chest x-ray showed no acute process. CT scan of the chest with contrast showed no anterior chest wall abnormalities or sternal abnormality to suggest the etiology of the stated clinical history of sternal pain and swelling. Enumerable bilateral lung nodules appeared to be similar to previous CT scan in 2013. Left subclavian stent also previously reported with possible downstream stenosis. ASSESSMENT AND RECOMMENDATION: 1. Cellulitis of the anterior sternum skin. We will start the patient on vancomycin and cefepime empiric coverage pending blood culture. Check sedimentation rate and C-reactive protein. CT scan did not show any evidence of drainable fluid. I am concerned about subclavian vein stent occlusion. So, I am going to order a venous Doppler of both arms and carotid Doppler on both sides, rule out vascular etiology. 2. Sepsis due to the above. We will send blood culture and continue vancomycin and cefepime empiric treatment. 3. End-stage renal disease, on hemodialysis. Continue hemodialysis as per Renal. 4. Chest pain due to the above, rule out acute coronary syndrome. Recommend troponin monitor and Cardiology evaluation. 5. Diabetes, poorly controlled. Recommend tight glycemic control to keep blood glucose between 80 to 120. Thank you for the consult. ID will continue to follow. Italia De La Vega M.D. DR: JASKARAN JOB#: [id number] CC:
--- NOTE | 2017-09-04 18:30 | Consultation ---
DATE OF CONSULTATION: 09/04/2017 PULMONARY CONSULTATION CONSULTING PHYSICIAN: Vinicio Johnston M.D. HISTORY OF PRESENT ILLNESS: This is a 52-year-old female with a long-standing history of ESRD, on dialysis. She came to the emergency room with complaints of pain and swelling in the mid portion of anterior chest pain. She denied fever. She states the pain was severe and she was requesting pain medications. This is a new issue for her. The patient has history of bilateral upper extremity grafts. Presently, she is using only the right upper extremity graft. She was dialyzed yesterday without problems. She underwent imaging studies at [facility], which showed that there is no obvious anterior chest wall abnormality; however, there is a large collateral vein seen in the presternal fat. There was no evidence of cellulitis or abscess. PAST MEDICAL HISTORY: Notable for opiate dependence; history of headaches; ESRD on dialysis; hypertension; diabetes mellitus; obesity; peripheral neuropathy; hyperlipidemia; and GERD. The patient denies any headaches, hematemesis, melena, or hematochezia. HOME MEDICATIONS: Include Lipitor, Tums, Benadryl, Neurontin, DiaBeta, Dilaudid, Ativan, multivitamin, Zofran, and Ambien. ALLERGIES: To penicillin, morphine, and vancomycin. PHYSICAL EXAMINATION: GENERAL: An obese 52-year-old female. VITAL SIGNS: Blood pressure 150/70, heart rate 74, respirations 16, afebrile. HEENT: Unremarkable. CHEST: Clear breath sounds bilaterally. There is palpable fullness of the suprasternal area, however, there is no fluctuance, erythema, warmth, or tenderness. ABDOMEN: Soft. NEUROLOGICAL: Nonfocal. EXTREMITIES: Vascular grafts are noted. LABORATORY DATA: Lab testing shows normal CBC. BMP is notable for creatinine 5.8. IMAGING STUDIES: As discussed above. IMPRESSION: 1. Presternal prominence, suspect secondary to vascular congestion, likely secondary to vascular grafts. 2. End-stage renal disease, on dialysis. 3. Diabetes mellitus. 4. Hypertension. 5. Opiate dependence. DISCUSSION: At this point, I do not see an actual pathological problem in the presternal area, although the patient is very concerned about it. Dr. De La Vega has recommended antibiotics, with which I concur, although I would recommend discontinuing them unless there is clear evidence of infection. We will follow carefully. Vinicio Johnston M.D. DR: Salomón JOB#: [id number] CC:
[2017-09-04 20:02] VITALS: BP 135/69
--- NOTE | 2017-09-04 20:45 | Consultation ---
DATE OF CONSULTATION: 09/04/2017 CARDIOLOGY CONSULTATION CONSULTING PHYSICIAN: Pawel Daugherty M.D. REFERRING PHYSICIAN: Memo Miranda M.D. REASON FOR CONSULTATION: Chest pain. HISTORY OF PRESENT ILLNESS: The patient is a very pleasant 52-year-old lady with history of hypertension and diabetes as well as history of diverticulitis, who is on dialysis Friday, Friday, and Friday, and came to the emergency room with two days of increased swelling and pain in the midportion of the anterior chest. Pain was 8/10 and was very tender by touching it. She never had this before. 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 She stated that she has had stent placement in that area in the past. Cardiology consultation was obtained for further evaluation and management. CT of the chest showed no evidence of abscess. PAST MEDICAL HISTORY: As mentioned above. FAMILY HISTORY: Noncontributory. SOCIAL HISTORY: She lives at home. Does not smoke or drink alcohol. REVIEW OF SYSTEMS: Performed and was negative other than what was mentioned in the history of present illness. PHYSICAL EXAMINATION: VITAL SIGNS: Blood pressure is 152/79, pulse 96, respirations 18, and temperature 97.7. HEAD AND NECK: Shows no JVD or carotid bruits. LUNGS: Clear. CARDIOVASCULAR: Shows regular S1 and S2. The mid anterior chest wall is tender, but no erythema. EXTREMITIES: No pitting edema. ABDOMEN: Soft. LABORATORY AND DIAGNOSTIC DATA: Show white count 8.1, hemoglobin 13.4, hematocrit 43, and platelet count 263,000. Sodium 138, potassium 3.9. creatinine 5.8 and glucose of 130. Troponin is negative. ASSESSMENT AND PLAN: 1. Anterior chest pain, chest wall. Troponin is negative. We will get an EKG and echocardiogram for further evaluation and completely rule out myocardial infarction protocol even though it is unlikely. 2. Hypertension. Blood pressure is stable off antihypertensive therapy. 3. Hyperlipidemia, on Lipitor. 4. Diabetes, on glyburide. 5. End-stage renal disease, on hemodialysis per Dr. Miranda. Thank you very much, Dr. Miranda, for allowing me to participate in the care of this patient. Please do not hesitate to contact me for any questions regarding my evaluation. Pawel Daugherty M.D. DR: FABRICE JOB#: [id number] CC:
[2017-09-04] MEDS ORDERED: Zolpidem 5mg tab ORAL SCH (21:00)
[2017-09-04] MEDS: Zolpidem 5mg tab ORAL SCH (22:33)
--- NOTE | 2017-09-04 22:49 | History and Physical ---
History of Present Illness General Date patient seen: Sep 04, 2017 Reason for Hospitalization: General Complaint Present Illness Allergies: Coded Allergies: PENICILLINS (Verified Allergy, Intermediate, Hives, 12/07/12) MORPHINE (Unverified Allergy, Unknown, 09/22/14) VANCOMYCIN (Verified Allergy, Unknown, Rash, 09/03/17) Medication History Scheduled Atorvastatin Calcium* (Lipitor*), 10 MG ORAL BEDTIME, (Reported) Calcium Carbonate (Calcium), 500 MG ORAL AC, (Reported) Famotidine (Famotidine), 40 MG PO DAILY, (Reported) Gabapentin* (Gabapentin*), 100 MG ORAL TID, (Reported) Glyburide (Glyburide), 5 MG PO BID, (Reported) Oxymetazoline HCl (Afrin), 1 SPRAY NASAL TWICE A DAY, (Reported) Zolpidem Tartrate* (Zolpidem Tartrate*), 10 MG ORAL BEDTIME, (Reported) Scheduled PRN Diphenhydramine Hcl* (Benadryl*), 50 MG ORAL Q6H PRN for Dialysis, (Reported) Hydrocodone Bit/Acetaminophen 10-325* ([place] 10-325*), 1 TAB ORAL Q4H PRN for For Pain, (Reported) Lidocaine HCl (Lidocaine HCl), for Dialysis, (Reported) Lorazepam* (Lorazepam*), 1 MG ORAL PRN PRN for For Anxiety, (Reported) Miscellaneous Medications Brimonidine Tartrate (Alphagan P), (Reported) Triamcinolone Acet (Triamcinolone Acetonide), (Reported) Discontinued Medications Cephalexin* (Keflex*), 500 MG ORAL EVERY 12 HOURS Discontinued Reason: Pt stopped taking med Hydrocodone Bit/Acetaminophen 5-325* ([place] 5-325 Tablet*), 1 TAB ORAL Q6HR PRN for For Pain Discontinued Reason: Pt stopped taking med Hydrocodone/Acetaminophen 5-325* (Hydrocodone/Acetaminophen 5-325*), 1 TAB ORAL Q6H PRN for For Pain Discontinued Reason: Pt stopped taking med Levofloxacin* (Levaquin*), 500 MG ORAL DAILY, (Reported) Discontinued Reason: Pt stopped taking med Temazepam (Temazepam*), 30 MG ORAL BEDTIME PRN for For Anxiety, (Reported) Discontinued Reason: Pt stopped taking med Patient History Healthcare decision maker Resuscitation status Full Code Advanced Directive on File Physical Exam Last 24 Hour Vital Signs Date Time Temp Pulse Resp B/P (MAP) Pulse Ox O2 Delivery O2 Flow Rate FiO2 09/04/17 20:02 97.7 87 14 135/69 100 Room Air 09/04/17 16:28 97.7 89 14 117/69 89 Room Air 09/04/17 12:02 98.6 81 18 127/76 95 Room Air 09/04/17 08:00 97.7 96 20 150/79 99 09/04/17 04:00 97.9 98 18 123/59 100 09/04/17 00:00 98.1 98 21 111/68 95 Intake and Output 09/04/17 09/05/17 19:00 07:00 Intake Total 1850 ml 50 ml Balance 1850 ml 50 ml Intake Oral 1800 ml IV Total 50 ml 50 ml # Voids 3 # Bowel Movements 1 Laboratory Tests Test 09/04/17 06:10 Random Vancomycin Level < 2.0 ug/mL Height (Feet): 5 Height (Inches): 5.00 Weight (Pounds): 226 Medications Current Medications Medications (Trade) Dose Ordered Sig/Regina Route PRN Reason Start Time Stop Time Status Last Admin Dose Admin Atorvastatin Calcium (Lipitor) 10 mg BEDTIME ORAL 09/04/17 21:00 10/04/17 20:59 09/04/17 22:33 Calcium Carbonate (Tums) 1,000 mg THREE TIMES A DAY ORAL 09/03/17 23:00 10/03/17 22:59 09/04/17 18:42 Cefepime HCl 500 mg/Dextrose 55 ml @ 110 mls/hr Q24H IVPB 09/04/17 21:00 09/11/17 20:59 Clindamycin HCl/ Dextrose 50 ml @ 100 mls/hr Q6HR IV 09/04/17 10:00 09/11/17 09:59 09/04/17 18:43 Diphenhydramine HCl (Benadryl) 25 mg Q6H PRN IVP Itching 09/04/17 10:15 10/04/17 10:14 09/04/17 18:43 Diphenhydramine HCl (Benadryl) 50 mg Q6H PRN ORAL Dialysis 09/03/17 22:00 10/03/17 21:59 Gabapentin (Neurontin) 100 mg TID ORAL 09/04/17 09:00 10/04/17 08:59 09/04/17 18:42 Glyburide (Diabeta) 5 mg BID ORAL 09/04/17 09:00 10/04/17 08:59 09/04/17 18:42 Hydromorphone HCl (Dilaudid) 1 mg Q4H PRN IVP For Moderate to Severe Pain 09/03/17 21:15 09/10/17 21:14 09/04/17 22:45 Lorazepam (Ativan) 1 mg EVERY 6 HOURS PRN ORAL For Anxiety 09/03/17 22:45 09/10/17 21:59 Multivitamins (Multivitamins) 1 tab DAILY ORAL 09/04/17 09:00 10/04/17 08:59 09/04/17 08:55 Ondansetron HCl (Zofran) 4 mg Q4H PRN IVP Nausea & Vomiting 09/03/17 22:15 10/03/17 22:14 Zolpidem Tartrate (Ambien) 10 mg BEDTIME ORAL 09/03/17 22:45 09/10/17 22:44 09/04/17 22:33 JORDY MONREAL Sep 04, 2017 22:49
[2017-09-04] MEDS: Cefepime 500mg in D5W 55ml IVPB SCH (22:50)
[2017-09-05] MEDS: Clindamycin 600mg/D5W 50ml Pre-Mix IV SCH ×4 (00:31→18:35)
[2017-09-05] MEDS: DiphenhydrAMINE 50mg/ml Inj IVP PRN ×4 (00:31→23:10)
[2017-09-05 00:34] VITALS: BP 101/56
[2017-09-05] MEDS: Hydromorphone 0.5mg/0.5ml inj IVP PRN ×4 (04:00→23:10)
[2017-09-05 04:58] VITALS: BP 121/65
[2017-09-05] MEDS: NovoLOG Insulin Flexpen SUBQ SCH ×4 (05:58→21:00)
[2017-09-05 08:00] VITALS: BP 138/63
[2017-09-05 08:09] LABS: THYROID STIMULATING HORMONE 0.679 uiU/mL (0.358-3.740)
--- NOTE | 2017-09-05 08:55 | Pulmonology Progress Note ---
Assessment/Plan Assessment/Plan IMPRESSION: 1. Presternal prominence, suspect secondary to vascular congestion, likely secondary to vascular grafts. 2. End-stage renal disease, on dialysis. 3. Diabetes mellitus. 4. Hypertension. 5. Opiate dependence. DISCUSSION: At this point, I do not see an actual pathological problem in the presternal area, although the patient is very concerned about it. Dr. De La Vega has recommended antibiotics, with which I concur, although I would recommend discontinuing them unless there is clear evidence of infection. We will follow carefully. Subjective Interval Events: No new events Constitutional: Reports: no symptoms HEENT: Repors: no symptoms Respiratory: Reports: no symptoms Cardiovascular: Reports: no symptoms Gastrointestinal/Abdominal: Reports: no symptoms Genitourinary: Reports: no symptoms Allergies: Coded Allergies: PENICILLINS (Verified Allergy, Intermediate, Hives, 12/07/12) MORPHINE (Unverified Allergy, Unknown, 09/22/14) VANCOMYCIN (Verified Allergy, Unknown, Rash, 09/03/17) Objective Last 24 Hour Vital Signs Date Time Temp Pulse Resp B/P (MAP) Pulse Ox O2 Delivery O2 Flow Rate FiO2 09/05/17 04:58 97.7 73 14 121/65 98 Room Air 09/05/17 00:34 97.7 80 14 101/56 98 Room Air 09/04/17 20:02 97.7 87 14 135/69 100 Room Air 09/04/17 16:28 97.7 89 14 117/69 89 Room Air 09/04/17 12:02 98.6 81 18 127/76 95 Room Air General Appearance: no acute distress HEENT: normocephalic Respiratory/Chest: chest wall non-tender, lungs clear Cardiovascular: normal peripheral pulses, normal rate Abdomen: normal bowel sounds Microbiology Date/Time Source Procedure Growth Status 09/03/17 16:15 Blood Blood Culture - Preliminary NO GROWTH AFTER 24 HOURS Resulted 09/03/17 16:05 Blood Blood Culture - Preliminary NO GROWTH AFTER 24 HOURS Resulted Laboratory Tests 09/05/17 05:50: Troponin I 0.000, Pro-B-Type Natriuretic Peptide 426H, Thyroid Stimulating Hormone (TSH) 0.679, Free Thyroxine 0.71L Current Medications Medications (Trade) Dose Ordered Sig/Regina Route PRN Reason Start Time Stop Time Status Last Admin Dose Admin Atorvastatin Calcium (Lipitor) 10 mg BEDTIME ORAL 09/04/17 21:00 10/04/17 20:59 09/04/17 22:33 Calcium Carbonate (Tums) 1,000 mg THREE TIMES A DAY ORAL 09/03/17 23:00 10/03/17 22:59 09/04/17 18:42 Cefepime HCl 500 mg/Dextrose 55 ml @ 110 mls/hr Q24H IVPB 09/04/17 21:00 09/11/17 20:59 09/04/17 22:50 Clindamycin HCl/ Dextrose 50 ml @ 100 mls/hr Q6HR IV 09/04/17 10:00 09/11/17 09:59 09/05/17 05:33 Dextrose (Dextrose 50%) STAT PRN IV Hypoglycemia 09/05/17 01:00 10/05/17 00:59 Diphenhydramine HCl (Benadryl) 25 mg Q6H PRN IVP Itching 09/04/17 10:15 10/04/17 10:14 09/05/17 00:31 Diphenhydramine HCl (Benadryl) 50 mg Q6H PRN ORAL Dialysis 09/03/17 22:00 10/03/17 21:59 Gabapentin (Neurontin) 100 mg TID ORAL 09/04/17 09:00 10/04/17 08:59 09/04/17 18:42 Hydromorphone HCl (Dilaudid) 1 mg Q4H PRN IVP For Moderate to Severe Pain 09/03/17 21:15 09/10/17 21:14 09/05/17 04:00 Insulin Aspart (NovoLOG) BEFORE MEALS AND HS SUBQ 09/05/17 06:30 10/05/17 06:29 Lorazepam (Ativan) 1 mg EVERY 6 HOURS PRN ORAL For Anxiety 09/03/17 22:45 09/10/17 21:59 Multivitamins (Multivitamins) 1 tab DAILY ORAL 09/04/17 09:00 10/04/17 08:59 09/04/17 08:55 Ondansetron HCl (Zofran) 4 mg Q4H PRN IVP Nausea & Vomiting 09/03/17 22:15 10/03/17 22:14 Zolpidem Tartrate (Ambien) 10 mg BEDTIME ORAL 09/03/17 22:45 09/10/17 22:44 09/04/17 22:33 Vinicio Johnston MD Sep 05, 2017 08:55
[2017-09-05] MEDS: Tums 500mg ORAL SCH ×3 (09:06→18:34)
--- NOTE | 2017-09-05 09:20 | General Surgery Progress Note ---
General Surgery-Progress Note Subjective Symptoms: improved Additional Comments doing well. no complaints. pain improved. no n/v/f/c. tolerating diet. ambulatory. Objective Last 24 Hour Vital Signs Date Time Temp Pulse Resp B/P (MAP) Pulse Ox O2 Delivery O2 Flow Rate FiO2 09/05/17 04:58 97.7 73 14 121/65 98 Room Air 09/05/17 00:34 97.7 80 14 101/56 98 Room Air 09/04/17 20:02 97.7 87 14 135/69 100 Room Air 09/04/17 16:28 97.7 89 14 117/69 89 Room Air 09/04/17 12:02 98.6 81 18 127/76 95 Room Air Cardiovascular: RSR Respiratory: clear Abdomen: soft, non-tender, present bowel sounds Extremities: other - right upper extremity fistula functional. Laboratory Tests Test 09/05/17 05:50 Troponin I 0.000 ng/mL (0.000-0.056) Pro-B-Type Natriuretic Peptide 426 pg/mL (0-125) H Thyroid Stimulating Hormone (TSH) 0.679 uiU/mL (0.358-3.740) Free Thyroxine 0.71 NG/DL (0.76-1.46) L Plan Problems: (1) Chest pain Assessment & Plan: 52F with superficial sternal chest pain/discomfort. afebrile. HD stable. VSS. labs okay. no signs or symptoms of infection. exam benign otherwise without masses or tumors. CT reviewed and no abnormalities noted other than dilated presternal collateral veins possibly from distal stenosis. Likely dilated superficial phlebitis of presternal vein causing some discomfort which is resolving. -no acute surgical intervention necessary -recommend anti-inflammatory for discomfort. thank you for this consultation. Pardeep Robins Sep 05, 2017 09:20
--- NOTE | 2017-09-05 11:27 | Cardiology Report ---
APPROVED REPORT EKG Measurement Heart [id number] Normal sinus rhythm Cannot rule out Anterior infarct, age undetermined Abnormal ECG
--- NOTE | 2017-09-05 11:34 | Cardiology Report ---
APPROVED REPORT EKG Measurement Heart [id number] [place] [id number] Normal sinus rhythm Septal infarct, age undetermined Abnormal ECG
[2017-09-05 12:00] VITALS: BP 142/74
--- NOTE | 2017-09-05 14:15 | Infectious Diseases Prog Note ---
Assessment/Plan Problems: (1) Cellulitis of sternum Assessment & Plan: improving on clindamycin and cefepime empirically, pending blood culture, await venous doppler of both arms to rule out DVT (2) Sepsis Assessment & Plan: due to the above, await blood culture, and continue clindamycin and cefepime empirically (3) ESRD (end stage renal disease) on dialysis Assessment & Plan: continue HD as per renal (4) Chest pain Assessment & Plan: due to the above, rule out ACS, recommend troponin monitor and cardiology eval (5) Diabetes mellitus Assessment & Plan: poorly controlled, recommend tight glycemic control to keep blood glucose between 80 -120 Subjective Constitutional: Reports: no symptoms HEENT: Reports: no symptoms Respiratory: Reports: no symptoms Breasts: Reports: no symptoms Cardiovascular: Reports: no symptoms Gastrointestinal/Abdominal: Reports: no symptoms Genitourinary: Reports: no symptoms Neurologic: Reports: no symptoms Psychiatric: Reports: no symptoms Skin: Reports: no symptoms Endocrine: Reports: no symptoms Hematologic: Reports: no symptoms Musculoskeletal: Reports: pain, swelling, other - on the sternum Allergies: Coded Allergies: PENICILLINS (Verified Allergy, Intermediate, Hives, 12/07/12) MORPHINE (Unverified Allergy, Unknown, 09/22/14) VANCOMYCIN (Verified Allergy, Unknown, Rash, 09/03/17) Objective Vital Signs Last 24 Hour Vital Signs Date Time Temp Pulse Resp B/P (MAP) Pulse Ox O2 Delivery O2 Flow Rate FiO2 09/05/17 09:46 97.7 09/05/17 04:58 97.7 73 14 121/65 98 Room Air 09/05/17 00:34 97.7 80 14 101/56 98 Room Air 09/04/17 20:02 97.7 87 14 135/69 100 Room Air 09/04/17 16:28 97.7 89 14 117/69 89 Room Air Height (Feet): 5 Height (Inches): 5.00 Weight (Pounds): 226 General Appearance: WD/WN, no acute distress HEENT: normocephalic, atraumatic, anicteric, mucous membranes moist, PERRL, EOMI, pharynx normal, supple, no JVD Respiratory/Chest: chest wall non-tender, lungs clear, normal breath sounds, no respiratory distress, no accessory muscle use, decreased breath sounds Cardiovascular: normal peripheral pulses, normal rate, regular rhythm, no gallop/murmur, no JVD Abdomen: normal bowel sounds, soft, non tender, no organomegaly, non distended , no mass, no scars Extremities: no cyanosis, no clubbing Skin: no rash, no lesions, no ulcers Neurologic/Psychiatric: alert, oriented x 3, responsive Microbiology Date/Time Source Procedure Growth Status 09/03/17 16:15 Blood Blood Culture - Preliminary NO GROWTH AFTER 24 HOURS Resulted 09/03/17 16:05 Blood Blood Culture - Preliminary NO GROWTH AFTER 24 HOURS Resulted Laboratory Tests Test 09/05/17 05:50 Troponin I 0.000 ng/mL (0.000-0.056) Pro-B-Type Natriuretic Peptide 426 pg/mL (0-125) H Thyroid Stimulating Hormone (TSH) 0.679 uiU/mL (0.358-3.740) Free Thyroxine 0.71 NG/DL (0.76-1.46) L Current Medications Medications (Trade) Dose Ordered Sig/Regina Route PRN Reason Start Time Stop Time Status Last Admin Dose Admin Atorvastatin Calcium (Lipitor) 10 mg BEDTIME ORAL 09/04/17 21:00 10/04/17 20:59 09/04/17 22:33 Calcium Carbonate (Tums) 1,000 mg THREE TIMES A DAY ORAL 09/03/17 23:00 10/03/17 22:59 09/05/17 09:06 Cefepime HCl 500 mg/Dextrose 55 ml @ 110 mls/hr Q24H IVPB 09/04/17 21:00 09/11/17 20:59 09/04/17 22:50 Clindamycin HCl/ Dextrose 50 ml @ 100 mls/hr Q6HR IV 09/04/17 10:00 09/11/17 09:59 09/05/17 12:33 Dextrose (Dextrose 50%) STAT PRN IV Hypoglycemia 09/05/17 01:00 10/05/17 00:59 Diphenhydramine HCl (Benadryl) 25 mg Q6H PRN IVP Itching 09/04/17 10:15 10/04/17 10:14 09/05/17 09:12 Diphenhydramine HCl (Benadryl) 50 mg Q6H PRN IVP PRN DIALYSIS 09/05/17 13:45 10/05/17 13:44 09/05/17 13:44 Gabapentin (Neurontin) 100 mg TID ORAL 09/04/17 09:00 10/04/17 08:59 09/05/17 12:33 Hydromorphone HCl (Dilaudid) 1 mg Q4H PRN IVP For Moderate to Severe Pain 09/03/17 21:15 09/10/17 21:14 09/05/17 09:16 Insulin Aspart (NovoLOG) BEFORE MEALS AND HS SUBQ 09/05/17 06:30 10/05/17 06:29 09/05/17 12:35 Lorazepam (Ativan) 1 mg EVERY 6 HOURS PRN ORAL For Anxiety 09/03/17 22:45 09/10/17 21:59 Multivitamins (Multivitamins) 1 tab DAILY ORAL 09/04/17 09:00 10/04/17 08:59 09/05/17 09:06 Ondansetron HCl (Zofran) 4 mg Q4H PRN IVP Nausea & Vomiting 09/03/17 22:15 10/03/17 22:14 Zolpidem Tartrate (Ambien) 10 mg BEDTIME ORAL 09/03/17 22:45 09/10/17 22:44 09/04/17 22:33 Italia De La Vega M.D. Sep 05, 2017 14:15
--- NOTE | 2017-09-05 14:37 | Nephrology Progress Note ---
Assessment/Plan Problem List: (1) ESRD (end stage renal disease) on dialysis (2) ACS (acute coronary syndrome) (3) Hypertension (4) Diabetes mellitus (5) Chest pain (6) Cellulitis of sternum Plan Continue HD per schedule Pain med as needed Monitor lites and correct with HD Fluid restriction Abx per Dr De La Vega AM labs Subjective Constitutional: Denies: no symptoms, chills, diaphoresis, fever, malaise, weakness, other HEENT: Denies: no symptoms, eye pain, blurred vision, tearing, double vision, ear pain, ear discharge, nose pain, nose congestion, throat pain, throat swelling, mouth pain, mouth swelling, other Genitourinary: Denies: no symptoms, burning, discharge, frequency, flank pain, hematuria, incontinence, pain, urgency, other Neurologic/Psychiatric: Denies: no symptoms, anxiety, depressed, emotional problems, headache, numbness, paresthesia, pre-existing deficit, seizure, tingling, tremors, weakness, other Subjective In bed, on dialysis, in no apparent distress, states some pain in her chest area Objective Objective Last 24 Hour Vital Signs Date Time Temp Pulse Resp B/P (MAP) Pulse Ox O2 Delivery O2 Flow Rate FiO2 09/05/17 09:46 97.7 09/05/17 04:58 97.7 73 14 121/65 98 Room Air 09/05/17 00:34 97.7 80 14 101/56 98 Room Air 09/04/17 20:02 97.7 87 14 135/69 100 Room Air 09/04/17 16:28 97.7 89 14 117/69 89 Room Air Laboratory Tests 09/05/17 05:50: Troponin I 0.000, Pro-B-Type Natriuretic Peptide 426H, Thyroid Stimulating Hormone (TSH) 0.679, Free Thyroxine 0.71L Height (Feet): 5 Height (Inches): 5.00 Weight (Pounds): 226 General Appearance: no apparent distress, alert EENT: normal ENT inspection Neck: non-tender, normal alignment, supple Cardiovascular: normal rate, no JVD Respiratory/Chest: lungs clear, normal breath sounds Abdomen: non tender, soft, no organomegaly Extremities: non-tender, normal inspection Neurologic: alert, oriented x 3, responsive, normal mood/affect Mirna Tatum N.P. Sep 05, 2017 14:37
[2017-09-05 16:00] VITALS: BP 121/67
--- NOTE | 2017-09-05 16:00 | Cardiac Electrophysiology PN ---
Assessment/Plan Assessment/Plan 1. Anterior chest chest wall pain. Troponin is negative. EKG non ischemic and echocardiogram Nl EF 2. Hypertension. Stable off antihypertensive therapy. 3. Hyperlipidemia, on Lipitor. 4. Diabetes, on glyburide. 5. End-stage renal disease, on hemodialysis per Dr. Miranda. Subjective Subjective Comfortable getting HD. No chest pain or SOB. Tele DCed Objective Last 24 Hour Vital Signs Date Time Temp Pulse Resp B/P (MAP) Pulse Ox O2 Delivery O2 Flow Rate FiO2 09/05/17 13:25 Room Air 09/05/17 12:00 98.1 81 16 142/74 98 Room Air 09/05/17 09:46 97.7 09/05/17 08:00 138/63 09/05/17 04:58 97.7 73 14 121/65 98 Room Air 09/05/17 00:34 97.7 80 14 101/56 98 Room Air 09/04/17 20:02 97.7 87 14 135/69 100 Room Air 09/04/17 16:28 97.7 89 14 117/69 89 Room Air Laboratory Tests Test 09/05/17 05:50 Troponin I 0.000 ng/mL (0.000-0.056) Pro-B-Type Natriuretic Peptide 426 pg/mL (0-125) H Thyroid Stimulating Hormone (TSH) 0.679 uiU/mL (0.358-3.740) Free Thyroxine 0.71 NG/DL (0.76-1.46) L Microbiology Date/Time Source Procedure Growth Status 09/03/17 16:15 Blood Blood Culture - Preliminary NO GROWTH AFTER 24 HOURS Resulted 09/03/17 16:05 Blood Blood Culture - Preliminary NO GROWTH AFTER 24 HOURS Resulted Objective HEAD AND NECK: Shows no JVD or carotid bruits. LUNGS: Clear. CARDIOVASCULAR: Shows regular S1 and S2. The mid anterior chest wall is tender, but no erythema. EXTREMITIES: No pitting edema. ABDOMEN: Soft. MANISH XIE Sep 05, 2017 16:00
[2017-09-05 20:00] VITALS: BP 133/73
[2017-09-05] MEDS: Cefepime 500mg in D5W 55ml IVPB SCH (21:33)
[2017-09-06] VITALS: BP 120/66
[2017-09-06] MEDS: Clindamycin 600mg/D5W 50ml Pre-Mix IV SCH ×4 (00:06→17:38)
[2017-09-06] MEDS: Zolpidem 5mg tab ORAL PRN ×2 (00:06→01:08)
[2017-09-06 04:00] VITALS: BP 106/58
[2017-09-06] MEDS: Hydromorphone 0.5mg/0.5ml inj IVP PRN ×4 (06:05→21:14)
[2017-09-06] MEDS: NovoLOG Insulin Flexpen SUBQ SCH ×4 (06:12→21:00)
[2017-09-06 08:00] VITALS: BP 108/57
[2017-09-06] MEDS: Tums 500mg ORAL SCH ×3 (08:52→17:38)
[2017-09-06] MEDS: DiphenhydrAMINE 50mg/ml Inj IVP PRN ×2 (10:23→21:25)
--- NOTE | 2017-09-06 11:06 | General Surgery Progress Note ---
General Surgery-Progress Note Subjective Symptoms: improved, tolerating diet, voiding well, passing flatus, BM Additional Comments pain resolved. symptoms improved. no complaints. Objective Last 24 Hour Vital Signs Date Time Temp Pulse Resp B/P (MAP) Pulse Ox O2 Delivery O2 Flow Rate FiO2 09/06/17 10:53 97.7 09/06/17 08:00 97.7 81 18 108/57 100 09/06/17 04:00 97.7 83 19 106/58 100 Room Air 09/06/17 00:00 97.3 86 20 120/66 96 Room Air 09/05/17 20:00 97.9 89 20 133/73 97 Room Air 09/05/17 16:00 97.6 82 16 121/67 99 Room Air 09/05/17 13:25 Room Air 09/05/17 12:00 98.1 81 16 142/74 98 Room Air Drains: none Cardiovascular: RSR Respiratory: clear Abdomen: soft, non-tender, present bowel sounds Extremities: no tenderness Plan Problems: (1) Chest pain Assessment & Plan: 52F with superficial sternal chest pain/discomfort. afebrile. HD stable. VSS. labs okay. no signs or symptoms of infection. exam benign otherwise without masses or tumors. CT reviewed and no abnormalities noted other than dilated presternal collateral veins possibly from distal stenosis. currently asymptomatic. Likely dilated superficial phlebitis of presternal vein causing some discomfort which is resolving. -no acute surgical intervention necessary -recommend anti-inflammatory for discomfort. -office info given to patient for outpatient follow up as needed thank you for this consultation. Pardeep Robins Sep 06, 2017 11:06
[2017-09-06 12:00] VITALS: BP 115/63
[2017-09-06] MEDS ORDERED: Tubing IV Secondary IV ONE (14:51)
[2017-09-06] MEDS ORDERED: NS 500ML ONE (14:51)
[2017-09-06 16:15] VITALS: BP 137/69
--- NOTE | 2017-09-06 16:31 | Cardiac Electrophysiology PN ---
Assessment/Plan Assessment/Plan 1. Anterior chest chest wall pain.Due to local cellulitis.On Abx per Dr De La Vega. Troponin is negative.EKG non ischemic and echocardiogram Nl EF 2. Hypertension. Stable off antihypertensive therapy. 3. Hyperlipidemia, on Lipitor. 4. Diabetes, on glyburide. 5. End-stage renal disease, on hemodialysis per Dr. Miranda. Subjective Subjective Had HD yesterday. No SOB. Tele DCed. Still has chest wall tenderness. Objective Last 24 Hour Vital Signs Date Time Temp Pulse Resp B/P (MAP) Pulse Ox O2 Delivery O2 Flow Rate FiO2 09/06/17 12:00 98.0 79 18 115/63 98 09/06/17 10:53 97.7 09/06/17 08:00 97.7 81 18 108/57 100 09/06/17 04:00 97.7 83 19 106/58 100 Room Air 09/06/17 00:00 97.3 86 20 120/66 96 Room Air 09/05/17 20:00 97.9 89 20 133/73 97 Room Air Intake and Output 09/06/17 09/07/17 19:00 07:00 Intake Total 800 ml Balance 800 ml Intake Oral 800 ml # Voids 4 Microbiology Date/Time Source Procedure Growth Status 09/03/17 19:42 Nasal Nares MRSA Culture - Final NO METHICILLIN RESISTANT STAPH AUREUS... Complete 09/03/17 19:42 Rectum VRE Culture - Final NO VANCOMYCIN RESISTANT ENTEROCOCCUS ... Complete Objective HEAD AND NECK: Shows no JVD or carotid bruits. LUNGS: Clear. CARDIOVASCULAR: Shows regular S1 and S2. The mid anterior chest wall is tender EXTREMITIES: No pitting edema. ABDOMEN: Soft. MANISH XIE Sep 06, 2017 16:31
[2017-09-06 20:00] VITALS: BP 131/68
--- NOTE | 2017-09-06 20:28 | Infectious Diseases Prog Note ---
Assessment/Plan Problems: (1) Cellulitis of sternum Assessment & Plan: improving on clindamycin and cefepime empirically, pending blood culture, venous doppler of both arms is negative for DVT (2) Sepsis Assessment & Plan: less likely with negative blood culture, already on clindamycin and cefepime empirically (3) ESRD (end stage renal disease) on dialysis Assessment & Plan: continue HD as per renal (4) Chest pain Assessment & Plan: due to the above, rule out ACS, recommend troponin monitor and cardiology eval (5) Diabetes mellitus Assessment & Plan: poorly controlled, recommend tight glycemic control to keep blood glucose between 80 -120 Subjective Constitutional: Reports: no symptoms HEENT: Reports: no symptoms Respiratory: Reports: no symptoms Breasts: Reports: no symptoms Cardiovascular: Reports: no symptoms Gastrointestinal/Abdominal: Reports: no symptoms Genitourinary: Reports: no symptoms Neurologic: Reports: no symptoms Psychiatric: Reports: no symptoms Skin: Reports: other - STERNUM SKIN SWELLING AND TENDERNESS Endocrine: Reports: no symptoms Hematologic: Reports: no symptoms Allergies: Coded Allergies: PENICILLINS (Verified Allergy, Intermediate, Hives, 12/07/12) MORPHINE (Unverified Allergy, Unknown, 09/22/14) VANCOMYCIN (Verified Allergy, Unknown, Rash, 09/03/17) Objective Vital Signs Last 24 Hour Vital Signs Date Time Temp Pulse Resp B/P (MAP) Pulse Ox O2 Delivery O2 Flow Rate FiO2 09/06/17 16:15 98.2 80 21 137/69 99 Room Air 09/06/17 15:31 98.2 09/06/17 12:00 98.0 79 18 115/63 98 09/06/17 08:00 97.7 81 18 108/57 100 09/06/17 04:00 97.7 83 19 106/58 100 Room Air 09/06/17 00:00 97.3 86 20 120/66 96 Room Air Height (Feet): 5 Height (Inches): 5.00 Weight (Pounds): 226 General Appearance: WD/WN, no acute distress HEENT: normocephalic, atraumatic, anicteric, mucous membranes moist Respiratory/Chest: chest wall non-tender, lungs clear, normal breath sounds, no respiratory distress, no accessory muscle use Cardiovascular: normal peripheral pulses, normal rate, regular rhythm, no gallop/murmur, no JVD Abdomen: normal bowel sounds, soft, non tender, no organomegaly, non distended , no mass, no scars Genitourinary: normal external genitalia Extremities: no cyanosis, no clubbing Skin: no rash, no lesions, no ulcers, other - mild swelling and tenderness in the sternum skin area Neurologic/Psychiatric: alert, oriented x 3, responsive Current Medications Medications (Trade) Dose Ordered Sig/Regina Route PRN Reason Start Time Stop Time Status Last Admin Dose Admin Atorvastatin Calcium (Lipitor) 10 mg BEDTIME ORAL 09/04/17 21:00 10/04/17 20:59 09/05/17 21:33 Calcium Carbonate (Tums) 1,000 mg THREE TIMES A DAY ORAL 09/03/17 23:00 10/03/17 22:59 09/06/17 17:38 Cefepime HCl 500 mg/Dextrose 55 ml @ 110 mls/hr Q24H IVPB 09/04/17 21:00 09/11/17 20:59 09/05/17 21:33 Clindamycin HCl/ Dextrose 50 ml @ 100 mls/hr Q6HR IV 09/04/17 10:00 09/11/17 09:59 09/06/17 17:38 Dextrose (Dextrose 50%) STAT PRN IV Hypoglycemia 09/05/17 01:00 10/05/17 00:59 Diphenhydramine HCl (Benadryl) 25 mg Q6H PRN IVP Itching 09/04/17 10:15 10/04/17 10:14 09/06/17 10:23 Diphenhydramine HCl (Benadryl) 50 mg Q6H PRN IVP PRN DIALYSIS 09/05/17 13:45 10/05/17 13:44 09/05/17 13:44 Gabapentin (Neurontin) 100 mg TID ORAL 09/04/17 09:00 10/04/17 08:59 09/06/17 17:38 Hydromorphone HCl (Dilaudid) 1 mg Q4H PRN IVP For Moderate to Severe Pain 09/03/17 21:15 09/10/17 21:14 09/06/17 15:01 Insulin Aspart (NovoLOG) BEFORE MEALS AND HS SUBQ 09/05/17 06:30 10/05/17 06:29 09/05/17 12:35 Lorazepam (Ativan) 1 mg EVERY 6 HOURS PRN ORAL For Anxiety 09/03/17 22:45 09/10/17 21:59 Multivitamins (Multivitamins) 1 tab DAILY ORAL 09/04/17 09:00 10/04/17 08:59 09/06/17 08:51 Ondansetron HCl (Zofran) 4 mg Q4H PRN IVP Nausea & Vomiting 09/03/17 22:15 10/03/17 22:14 Zolpidem Tartrate (Ambien) 5 mg BEDTIME PRN ORAL sleep 09/05/17 14:30 09/12/17 14:29 09/06/17 01:08 Italia De La Vega M.D. Sep 06, 2017 20:28
[2017-09-06] MEDS: Cefepime 500mg in D5W 55ml IVPB SCH (21:33)
--- NOTE | 2017-09-06 23:59 | Nephrology Progress Note ---
Objective Objective Last 24 Hour Vital Signs Date Time Temp Pulse Resp B/P (MAP) Pulse Ox O2 Delivery O2 Flow Rate FiO2 09/06/17 20:00 97.3 78 18 131/68 98 Room Air 09/06/17 16:15 98.2 80 21 137/69 99 Room Air 09/06/17 15:31 98.2 09/06/17 12:00 98.0 79 18 115/63 98 09/06/17 08:00 97.7 81 18 108/57 100 09/06/17 04:00 97.7 83 19 106/58 100 Room Air 09/06/17 00:00 97.3 86 20 120/66 96 Room Air Intake and Output 09/06/17 09/07/17 19:00 07:00 Intake Total 1280 ml Balance 1280 ml Intake Oral 1280 ml # Voids 4 Height (Feet): 5 Height (Inches): 5.00 Weight (Pounds): 226 JORDY MONREAL Sep 06, 2017 23:59
[2017-09-07] VITALS: BP 109/68
[2017-09-07] MEDS: Clindamycin 600mg/D5W 50ml Pre-Mix IV SCH ×4 (00:02→18:00)
[2017-09-07] MEDS: Zolpidem 5mg tab ORAL PRN ×2 (00:17→22:03)
[2017-09-07] MEDS: Hydromorphone 0.5mg/0.5ml inj IVP PRN ×6 (01:24→22:38)
[2017-09-07 04:00] VITALS: BP 122/66
[2017-09-07] MEDS: DiphenhydrAMINE 50mg/ml Inj IVP PRN ×3 (05:30→22:45)
[2017-09-07] MEDS: NovoLOG Insulin Flexpen SUBQ SCH ×4 (06:30→21:00)
[2017-09-07 08:15] VITALS: BP 125/58
[2017-09-07] MEDS: Tums 500mg ORAL SCH ×3 (09:04→18:27)
[2017-09-07 12:04] VITALS: BP 145/73
--- NOTE | 2017-09-07 13:59 | Infectious Diseases Prog Note ---
Assessment/Plan Problems: (1) Cellulitis of sternum Assessment & Plan: improving on clindamycin and cefepime empirically, blood culture is negative , venous doppler of both arms is negative for DVT, will switch to oral levaquin for 6 more days (2) Sepsis Assessment & Plan: less likely with negative blood culture, already on clindamycin and cefepime empirically (3) ESRD (end stage renal disease) on dialysis Assessment & Plan: continue HD as per renal (4) Chest pain Assessment & Plan: due to the above, rule out ACS, recommend troponin monitor and cardiology eval (5) Diabetes mellitus Assessment & Plan: poorly controlled, recommend tight glycemic control to keep blood glucose between 80 -120 Subjective Constitutional: Reports: no symptoms HEENT: Reports: no symptoms Respiratory: Reports: no symptoms Breasts: Reports: no symptoms Cardiovascular: Reports: no symptoms Gastrointestinal/Abdominal: Reports: no symptoms Genitourinary: Reports: no symptoms Neurologic: Reports: no symptoms Psychiatric: Reports: no symptoms Skin: Reports: no symptoms Endocrine: Reports: no symptoms Hematologic: Reports: no symptoms Allergies: Coded Allergies: PENICILLINS (Verified Allergy, Intermediate, Hives, 12/07/12) MORPHINE (Unverified Allergy, Unknown, 09/22/14) VANCOMYCIN (Verified Allergy, Unknown, Rash, 09/03/17) Objective Vital Signs Last 24 Hour Vital Signs Date Time Temp Pulse Resp B/P (MAP) Pulse Ox O2 Delivery O2 Flow Rate FiO2 09/07/17 12:04 97.6 80 23 145/73 99 Room Air 09/07/17 10:34 97.7 09/07/17 08:15 97.7 76 21 125/58 97 Room Air 09/07/17 04:00 97.9 80 20 122/66 100 Room Air 09/07/17 00:00 97.7 78 18 109/68 97 Room Air 09/06/17 20:00 97.3 78 18 131/68 98 Room Air 09/06/17 16:15 98.2 80 21 137/69 99 Room Air Height (Feet): 5 Height (Inches): 5.00 Weight (Pounds): 226 General Appearance: WD/WN, no acute distress HEENT: normocephalic, atraumatic, anicteric, mucous membranes moist, PERRL, EOMI, pharynx normal, supple, no JVD Respiratory/Chest: chest wall non-tender, lungs clear, normal breath sounds, no respiratory distress, no accessory muscle use Cardiovascular: normal peripheral pulses, normal rate, regular rhythm, no gallop/murmur, no JVD Abdomen: normal bowel sounds, soft, non tender, no organomegaly, non distended , no mass, no scars Extremities: no cyanosis, no clubbing Skin: no rash, no lesions, no ulcers Neurologic/Psychiatric: alert, oriented x 3, responsive Current Medications Medications (Trade) Dose Ordered Sig/Regina Route PRN Reason Start Time Stop Time Status Last Admin Dose Admin Atorvastatin Calcium (Lipitor) 10 mg BEDTIME ORAL 09/04/17 21:00 10/04/17 20:59 09/06/17 21:12 Calcium Carbonate (Tums) 1,000 mg THREE TIMES A DAY ORAL 09/03/17 23:00 10/03/17 22:59 09/07/17 12:03 Cefepime HCl 500 mg/Dextrose 55 ml @ 110 mls/hr Q24H IVPB 09/04/17 21:00 09/11/17 20:59 09/06/17 21:33 Clindamycin HCl/ Dextrose 50 ml @ 100 mls/hr Q6HR IV 09/04/17 10:00 09/11/17 09:59 09/07/17 12:03 Dextrose (Dextrose 50%) STAT PRN IV Hypoglycemia 09/05/17 01:00 10/05/17 00:59 Diphenhydramine HCl (Benadryl) 25 mg Q6H PRN IVP Itching 09/04/17 10:15 10/04/17 10:14 09/07/17 05:30 Diphenhydramine HCl (Benadryl) 50 mg Q6H PRN IVP PRN DIALYSIS 09/05/17 13:45 10/05/17 13:44 09/05/17 13:44 Gabapentin (Neurontin) 100 mg TID ORAL 09/04/17 09:00 10/04/17 08:59 09/07/17 12:04 Hydromorphone HCl (Dilaudid) 1 mg Q4H PRN IVP For Moderate to Severe Pain 09/03/17 21:15 09/10/17 21:14 09/07/17 10:04 Insulin Aspart (NovoLOG) BEFORE MEALS AND HS SUBQ 09/05/17 06:30 10/05/17 06:29 09/05/17 12:35 Lorazepam (Ativan) 1 mg EVERY 6 HOURS PRN ORAL For Anxiety 09/03/17 22:45 09/10/17 21:59 Multivitamins (Multivitamins) 1 tab DAILY ORAL 09/04/17 09:00 10/04/17 08:59 09/07/17 09:03 Ondansetron HCl (Zofran) 4 mg Q4H PRN IVP Nausea & Vomiting 09/03/17 22:15 10/03/17 22:14 Zolpidem Tartrate (Ambien) 5 mg BEDTIME PRN ORAL sleep 09/05/17 14:30 09/12/17 14:29 09/07/17 00:17 Italia De La Vega M.D. Sep 07, 2017 13:59
[2017-09-07 16:14] VITALS: BP 119/53
[2017-09-07 20:00] VITALS: BP 133/69
[2017-09-07] MEDS: Cefepime 500mg in D5W 55ml IVPB SCH (21:15)
[2017-09-08] VITALS: BP 109/63
[2017-09-08] MEDS: Clindamycin 600mg/D5W 50ml Pre-Mix IV SCH ×4 (00:06→12:00)
[2017-09-08] MEDS: Hydromorphone 0.5mg/0.5ml inj IVP PRN ×2 (05:50→12:23)
[2017-09-08] MEDS: DiphenhydrAMINE 50mg/ml Inj IVP PRN ×2 (06:04→10:02)
[2017-09-08] MEDS: NovoLOG Insulin Flexpen SUBQ SCH ×2 (06:16→11:30)
[2017-09-08 08:15] VITALS: BP 122/72
[2017-09-08] MEDS: Tums 500mg ORAL SCH (08:28)
--- NOTE | 2017-09-08 08:51 | Pulmonology Progress Note ---
Assessment/Plan Assessment/Plan IMPRESSION: 1. Presternal prominence, suspect secondary to vascular congestion, likely secondary to vascular grafts. ID treating for cellulitis. 2. End-stage renal disease, on dialysis. 3. Diabetes mellitus. 4. Hypertension. 5. Opiate dependence. DISCUSSION: No new recommendations Subjective Interval Events: None Constitutional: Reports: no symptoms HEENT: Repors: no symptoms Respiratory: Reports: no symptoms Cardiovascular: Reports: no symptoms Gastrointestinal/Abdominal: Reports: no symptoms Allergies: Coded Allergies: PENICILLINS (Verified Allergy, Intermediate, Hives, 12/07/12) MORPHINE (Unverified Allergy, Unknown, 09/22/14) VANCOMYCIN (Verified Allergy, Unknown, Rash, 09/03/17) Objective Last 24 Hour Vital Signs Date Time Temp Pulse Resp B/P (MAP) Pulse Ox O2 Delivery O2 Flow Rate FiO2 09/08/17 04:00 Room Air 09/08/17 00:00 Room Air 09/08/17 00:00 97.7 86 21 109/63 93 09/07/17 20:00 Room Air 09/07/17 20:00 97.7 75 21 133/69 96 09/07/17 18:58 97.5 09/07/17 16:14 97.5 74 21 119/53 97 Room Air 09/07/17 12:04 97.6 80 23 145/73 99 Room Air General Appearance: no acute distress HEENT: normocephalic Respiratory/Chest: chest wall non-tender, lungs clear Cardiovascular: normal peripheral pulses, normal rate Current Medications Medications (Trade) Dose Ordered Sig/Regina Route PRN Reason Start Time Stop Time Status Last Admin Dose Admin Atorvastatin Calcium (Lipitor) 10 mg BEDTIME ORAL 09/04/17 21:00 10/04/17 20:59 09/07/17 21:15 Calcium Carbonate (Tums) 1,000 mg THREE TIMES A DAY ORAL 09/03/17 23:00 10/03/17 22:59 09/08/17 08:28 Cefepime HCl 500 mg/Dextrose 55 ml @ 110 mls/hr Q24H IVPB 09/04/17 21:00 09/11/17 20:59 09/07/17 21:15 Clindamycin HCl/ Dextrose 50 ml @ 100 mls/hr Q6HR IV 09/04/17 10:00 09/11/17 09:59 09/08/17 00:06 Dextrose (Dextrose 50%) STAT PRN IV Hypoglycemia 09/05/17 01:00 10/05/17 00:59 Diphenhydramine HCl (Benadryl) 25 mg Q6H PRN IVP Itching 09/04/17 10:15 10/04/17 10:14 09/08/17 06:04 Diphenhydramine HCl (Benadryl) 50 mg Q6H PRN IVP PRN DIALYSIS 09/05/17 13:45 10/05/17 13:44 09/05/17 13:44 Gabapentin (Neurontin) 100 mg TID ORAL 09/04/17 09:00 10/04/17 08:59 09/08/17 08:28 Hydromorphone HCl (Dilaudid) 1 mg Q4H PRN IVP For Moderate to Severe Pain 09/03/17 21:15 09/10/17 21:14 09/08/17 05:50 Insulin Aspart (NovoLOG) BEFORE MEALS AND HS SUBQ 09/05/17 06:30 10/05/17 06:29 09/05/17 12:35 Lorazepam (Ativan) 1 mg EVERY 6 HOURS PRN ORAL For Anxiety 09/03/17 22:45 09/10/17 21:59 Multivitamins (Multivitamins) 1 tab DAILY ORAL 09/04/17 09:00 10/04/17 08:59 09/08/17 08:27 Ondansetron HCl (Zofran) 4 mg Q4H PRN IVP Nausea & Vomiting 09/03/17 22:15 10/03/17 22:14 09/08/17 06:03 Zolpidem Tartrate (Ambien) 5 mg BEDTIME PRN ORAL sleep 09/05/17 14:30 09/12/17 14:29 09/07/17 22:03 Vinicio Johnston MD Sep 08, 2017 08:51
[2017-09-08 09:00] VITALS: BP 155/80
[2017-09-08 10:09] LABS: ANION GAP 15 mmol/L (5-15); CALCIUM 8.4 MG/DL (8.5-10.1); CARBON DIOXIDE 26 MMOL/L (21-32); CHLORIDE 96 MMOL/L (98-107); CREATININE 13.5 MG/DL (0.55-1.30); GLOMERULAR FILTRATION RATE 3.5 mL/min (>60); POTASSIUM 5.4 MMOL/L (3.5-5.1); SODIUM 136 MMOL/L (136-145)
--- NOTE | 2017-09-08 10:19 | Cardiology Report ---
APPROVED REPORT EXAM: Two-dimensional and M-mode echocardiogram with Doppler and color Doppler. M-Mode DIMENSIONS IVSd1.1 (0.7-1.1cm)Left Atrium (MM)3.0 (1.6-4.0cm) LVDd5.9 (3.5-5.6cm)Aortic Root3.6 (2.0-3.7cm) PWd1.2 (0.7-1.1cm)Aortic Cusp Exc.2.2 (1.5-2.0cm) IVSs1.4 cm LVDs4.4 (2.5-4.0cm) PWs1.4 cm Normal left ventricular chamber size, systolic function and wall motion. Left ventricular ejection fraction estimated to be 55 %. Mild left ventricular hypertrophy. No evidence of pericardial effusion. All other cardiac chamber sizes are within normal limits. Focal aortic valve sclerosis with adequate cusp excursion. Thickened mitral valve leaflets with normal excursion. Mitral annulus and aortic root calcification. Pulmonic valve not well visualized. Normal tricuspid valve structure. IVC dilated at 2.9 cm with slight physiologic collapse suggestive of increased RA pressure. A color flow and spectral Doppler study was performed and revealed: No aortic regurgitation. Trace mitral regurgitation. Normal left ventricular function . Mild tricuspid regurgitation. Tricuspid systolic velocities suggests peak right ventricular systolic pressure of 24 mmHg No Pulmonic regurgitation present.
[2017-09-08 10:28] LABS: BASOPHILS % (AUTO) 1.9 % (0.0-2.0); EOSINOPHILS % (AUTO) 4.1 % (0.0-3.0); LYMPHOCYTES % (AUTO) 25.1 % (20.0-45.0); MEAN CORPUSCULAR HEMOGLOBIN 30.8 PG (27.0-31.0); MEAN CORPUSCULAR HGB CONC 32.3 G/DL (32.0-36.0); MEAN CORPUSCULAR VOLUME 95 FL (80-99); MEAN PLATELET VOLUME 8.7 FL (6.5-10.1); MONOCYTES % (AUTO) 6.8 % (1.0-10.0); PLATELET COUNT 211 K/UL (150-450); RED BLOOD COUNT 3.56 M/UL (4.20-5.40); RED CELL DISTRIBUTION WIDTH 13.5 % (11.6-14.8)
--- NOTE | 2017-09-08 12:02 | Cardiac Electrophysiology PN ---
Assessment/Plan Assessment/Plan 1. Anterior chest chest wall pain. Due to local cellulitis.On Abx per Dr De La Vega. Better No AK.EKG non ischemic and echocardiogram Nl EF 2. Hypertension. Stable off antihypertensive therapy. 3. Hyperlipidemia, on Lipitor. 4. Diabetes, on glyburide. 5. End-stage renal disease, on hemodialysis per Dr. Miranda. OK to DC Subjective Subjective Getting HD . No SOB. Awaiting DC after HD today. Son and sister at bedside. Objective Last 24 Hour Vital Signs Date Time Temp Pulse Resp B/P (MAP) Pulse Ox O2 Delivery O2 Flow Rate FiO2 09/08/17 08:15 97.3 70 22 122/72 96 Room Air 09/08/17 04:00 Room Air 09/08/17 00:00 Room Air 09/08/17 00:00 97.7 86 21 109/63 93 09/07/17 20:00 Room Air 09/07/17 20:00 97.7 75 21 133/69 96 09/07/17 18:58 97.5 09/07/17 16:14 97.5 74 21 119/53 97 Room Air 09/07/17 12:04 97.6 80 23 145/73 99 Room Air Intake and Output 09/08/17 09/09/17 19:00 07:00 Intake Total 240 ml Balance 240 ml Intake Oral 240 ml # Voids 1 # Bowel Movements 1 Laboratory Tests Test 09/08/17 09:50 White Blood Count 9.0 K/UL (4.8-10.8) Red Blood Count 3.56 M/UL (4.20-5.40) L Hemoglobin 11.0 G/DL (12.0-16.0) L Hematocrit 34.0 % (37.0-47.0) L Mean Corpuscular Volume 95 FL (80-99) Mean Corpuscular Hemoglobin 30.8 PG (27.0-31.0) Mean Corpuscular Hemoglobin Concent 32.3 G/DL (32.0-36.0) Red Cell Distribution Width 13.5 % (11.6-14.8) Platelet Count 211 K/UL (150-450) Mean Platelet Volume 8.7 FL (6.5-10.1) Neutrophils (%) (Auto) 62.0 % (45.0-75.0) Lymphocytes (%) (Auto) 25.1 % (20.0-45.0) Monocytes (%) (Auto) 6.8 % (1.0-10.0) Eosinophils (%) (Auto) 4.1 % (0.0-3.0) H Basophils (%) (Auto) 1.9 % (0.0-2.0) Sodium Level 136 MMOL/L (136-145) Potassium Level 5.4 MMOL/L (3.5-5.1) H Chloride Level 96 MMOL/L (98-107) L Carbon Dioxide Level 26 MMOL/L (21-32) Anion Gap 15 mmol/L (5-15) Blood Urea Nitrogen 76 mg/dL (7-18) H Creatinine 13.5 MG/DL (0.55-1.30) H Estimat Glomerular Filtration Rate 3.5 mL/min (>60) Glucose Level 214 MG/DL (74-106) H Calcium Level 8.4 MG/DL (8.5-10.1) L Objective HEAD AND NECK: Shows no JVD LUNGS: Clear. CARDIOVASCULAR: Shows regular S1 and S2. The mid anterior chest wall is tenderness is better EXTREMITIES: No pitting edema. ABDOMEN: Soft. MANISH XIE Sep 08, 2017 12:02
[2017-09-08 12:15] VITALS: BP 116/65
--- NOTE | 2017-09-08 12:43 | Nephrology Progress Note ---
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 Subjective Constitutional: Denies: no symptoms, chills, diaphoresis, fever, malaise, weakness, other HEENT: Denies: no symptoms, eye pain, blurred vision, tearing, double vision, ear pain, ear discharge, nose pain, nose congestion, throat pain, throat swelling, mouth pain, mouth swelling, other Genitourinary: Denies: no symptoms, burning, discharge, frequency, flank pain, hematuria, incontinence, pain, urgency, other Neurologic/Psychiatric: Denies: no symptoms, anxiety, depressed, emotional problems, headache, numbness, paresthesia, pre-existing deficit, seizure, tingling, tremors, weakness, other Subjective In bed, on dialysis, in no apparent distress Objective Objective Last 24 Hour Vital Signs Date Time Temp Pulse Resp B/P (MAP) Pulse Ox O2 Delivery O2 Flow Rate FiO2 09/08/17 12:37 97.7 09/08/17 12:15 97.7 86 20 116/65 97 Room Air 09/08/17 08:15 97.3 70 22 122/72 96 Room Air 09/08/17 04:00 Room Air 09/08/17 00:00 Room Air 09/08/17 00:00 97.7 86 21 109/63 93 09/07/17 20:00 Room Air 09/07/17 20:00 97.7 75 21 133/69 96 09/07/17 16:14 97.5 74 21 119/53 97 Room Air Intake and Output 09/08/17 09/09/17 19:00 07:00 Intake Total 240 ml Balance 240 ml Intake Oral 240 ml # Voids 1 # Bowel Movements 1 Laboratory Tests 09/08/17 09:50: White Blood Count 9.0, Red Blood Count 3.56L, Hemoglobin 11.0L, Hematocrit 34.0L , Mean Corpuscular Volume 95, Mean Corpuscular Hemoglobin 30.8, Mean Corpuscular Hemoglobin Concent 32.3, Red Cell Distribution Width 13.5, Platelet Count 211, Mean Platelet Volume 8.7, Neutrophils (%) (Auto) 62.0, Lymphocytes (% ) (Auto) 25.1, Monocytes (%) (Auto) 6.8, Eosinophils (%) (Auto) 4.1H, Basophils (%) (Auto) 1.9, Sodium Level 136, Potassium Level 5.4H, Chloride Level 96L, Carbon Dioxide Level 26, Anion Gap 15, Blood Urea Nitrogen 76H, Creatinine 13.5H , Estimat Glomerular Filtration Rate 3.5, Glucose Level 214H, Calcium Level 8.4L Height (Feet): 5 Height (Inches): 5.00 Weight (Pounds): 226 General Appearance: no apparent distress, alert Neck: non-tender Cardiovascular: normal rate, regular rhythm, no JVD Respiratory/Chest: normal breath sounds Abdomen: soft, no organomegaly Extremities: non-tender, normal inspection Neurologic: alert, oriented x 3, responsive, normal mood/affect Mirna Tatum N.P. Sep 08, 2017 12:43
[2017-09-08 13:30] VITALS: BP 128/72
[2017-09-08 13:45] VITALS: BP 128/72
--- NOTE | 2017-09-08 13:51 | Infectious Diseases Prog Note ---
Assessment/Plan Problems: (1) Cellulitis of sternum Assessment & Plan: improving on clindamycin and cefepime empirically, blood culture is negative , venous doppler of both arms is negative for DVT, will switch to oral levaquin for 6 more days to finish her course of therapy (2) Sepsis Assessment & Plan: less likely with negative blood culture, already on clindamycin and cefepime empirically (3) ESRD (end stage renal disease) on dialysis Assessment & Plan: continue HD as per renal (4) Chest pain Assessment & Plan: suspect musculoskeletal , improving , follow up with cardiology (5) Diabetes mellitus Assessment & Plan: poorly controlled, recommend tight glycemic control to keep blood glucose between 80 -120 Subjective Constitutional: Reports: no symptoms HEENT: Reports: no symptoms Respiratory: Reports: no symptoms Breasts: Reports: no symptoms Cardiovascular: Reports: no symptoms Gastrointestinal/Abdominal: Reports: no symptoms Genitourinary: Reports: no symptoms Neurologic: Reports: no symptoms Psychiatric: Reports: no symptoms Skin: Reports: no symptoms Endocrine: Reports: no symptoms Hematologic: Reports: no symptoms Musculoskeletal: Reports: other - mild swelling and tenderness of the sternum Allergies: Coded Allergies: PENICILLINS (Verified Allergy, Intermediate, Hives, 12/07/12) MORPHINE (Unverified Allergy, Unknown, 09/22/14) VANCOMYCIN (Verified Allergy, Unknown, Rash, 09/03/17) Objective Vital Signs Last 24 Hour Vital Signs Date Time Temp Pulse Resp B/P (MAP) Pulse Ox O2 Delivery O2 Flow Rate FiO2 09/08/17 12:37 97.7 09/08/17 12:15 97.7 86 20 116/65 97 Room Air 09/08/17 08:15 97.3 70 22 122/72 96 Room Air 09/08/17 04:00 Room Air 09/08/17 00:00 Room Air 09/08/17 00:00 97.7 86 21 109/63 93 09/07/17 20:00 Room Air 09/07/17 20:00 97.7 75 21 133/69 96 09/07/17 16:14 97.5 74 21 119/53 97 Room Air Height (Feet): 5 Height (Inches): 5.00 Weight (Pounds): 226 General Appearance: WD/WN, no acute distress HEENT: normocephalic, atraumatic, anicteric, mucous membranes moist Respiratory/Chest: lungs clear, normal breath sounds, no respiratory distress, no accessory muscle use, decreased breath sounds, crackles/rales, other - anterior chest wall tenderness Cardiovascular: normal peripheral pulses, normal rate, regular rhythm, no gallop/murmur, no JVD Abdomen: normal bowel sounds, soft, non tender, no organomegaly, non distended , no mass, no scars Extremities: no cyanosis, no clubbing Skin: no rash, no lesions, no ulcers Neurologic/Psychiatric: alert, oriented x 3, responsive Lymphatic: no neck adenopathy, no groin adenopathy Laboratory Tests Test 09/08/17 09:50 White Blood Count 9.0 K/UL (4.8-10.8) Red Blood Count 3.56 M/UL (4.20-5.40) L Hemoglobin 11.0 G/DL (12.0-16.0) L Hematocrit 34.0 % (37.0-47.0) L Mean Corpuscular Volume 95 FL (80-99) Mean Corpuscular Hemoglobin 30.8 PG (27.0-31.0) Mean Corpuscular Hemoglobin Concent 32.3 G/DL (32.0-36.0) Red Cell Distribution Width 13.5 % (11.6-14.8) Platelet Count 211 K/UL (150-450) Mean Platelet Volume 8.7 FL (6.5-10.1) Neutrophils (%) (Auto) 62.0 % (45.0-75.0) Lymphocytes (%) (Auto) 25.1 % (20.0-45.0) Monocytes (%) (Auto) 6.8 % (1.0-10.0) Eosinophils (%) (Auto) 4.1 % (0.0-3.0) H Basophils (%) (Auto) 1.9 % (0.0-2.0) Sodium Level 136 MMOL/L (136-145) Potassium Level 5.4 MMOL/L (3.5-5.1) H Chloride Level 96 MMOL/L (98-107) L Carbon Dioxide Level 26 MMOL/L (21-32) Anion Gap 15 mmol/L (5-15) Blood Urea Nitrogen 76 mg/dL (7-18) H Creatinine 13.5 MG/DL (0.55-1.30) H Estimat Glomerular Filtration Rate 3.5 mL/min (>60) Glucose Level 214 MG/DL (74-106) H Calcium Level 8.4 MG/DL (8.5-10.1) L Current Medications Medications (Trade) Dose Ordered Sig/Regina Route PRN Reason Start Time Stop Time Status Last Admin Dose Admin Atorvastatin Calcium (Lipitor) 10 mg BEDTIME ORAL 09/04/17 21:00 10/04/17 20:59 09/07/17 21:15 Calcium Carbonate (Tums) 1,000 mg THREE TIMES A DAY ORAL 09/03/17 23:00 10/03/17 22:59 09/08/17 08:28 Cefepime HCl 500 mg/Dextrose 55 ml @ 110 mls/hr Q24H IVPB 09/04/17 21:00 09/11/17 20:59 09/07/17 21:15 Clindamycin HCl/ Dextrose 50 ml @ 100 mls/hr Q6HR IV 09/04/17 10:00 09/11/17 09:59 09/08/17 00:06 Dextrose (Dextrose 50%) STAT PRN IV Hypoglycemia 09/05/17 01:00 10/05/17 00:59 Diphenhydramine HCl (Benadryl) 25 mg Q6H PRN IVP Itching 09/04/17 10:15 10/04/17 10:14 09/08/17 06:04 Diphenhydramine HCl (Benadryl) 50 mg Q6H PRN IVP PRN DIALYSIS 09/05/17 13:45 10/05/17 13:44 09/05/17 13:44 Gabapentin (Neurontin) 100 mg TID ORAL 09/04/17 09:00 10/04/17 08:59 09/08/17 08:28 Hydromorphone HCl (Dilaudid) 1 mg Q4H PRN IVP For Moderate to Severe Pain 09/03/17 21:15 09/10/17 21:14 09/08/17 12:23 Insulin Aspart (NovoLOG) BEFORE MEALS AND HS SUBQ 09/05/17 06:30 10/05/17 06:29 09/05/17 12:35 Lorazepam (Ativan) 1 mg EVERY 6 HOURS PRN ORAL For Anxiety 09/03/17 22:45 09/10/17 21:59 Multivitamins (Multivitamins) 1 tab DAILY ORAL 09/04/17 09:00 10/04/17 08:59 09/08/17 08:27 Ondansetron HCl (Zofran) 4 mg Q4H PRN IVP Nausea & Vomiting 09/03/17 22:15 10/03/17 22:14 09/08/17 06:03 Zolpidem Tartrate (Ambien) 5 mg BEDTIME PRN ORAL sleep 09/05/17 14:30 09/12/17 14:29 09/07/17 22:03 Italia De La Vega M.D. Sep 08, 2017 13:51
--- NOTE | 2017-09-08 13:56 | General Surgery Progress Note ---
General Surgery-Progress Note Subjective Symptoms: improved, tolerating diet, BM Additional Comments HD today. doing well. no complaints. pain resolved. Objective Last 24 Hour Vital Signs Date Time Temp Pulse Resp B/P (MAP) Pulse Ox O2 Delivery O2 Flow Rate FiO2 09/08/17 13:45 97.8 78 18 128/72 98 Room Air 09/08/17 12:37 97.7 09/08/17 12:15 97.7 86 20 116/65 97 Room Air 09/08/17 08:15 97.3 70 22 122/72 96 Room Air 09/08/17 04:00 Room Air 09/08/17 00:00 Room Air 09/08/17 00:00 97.7 86 21 109/63 93 09/07/17 20:00 Room Air 09/07/17 20:00 97.7 75 21 133/69 96 09/07/17 16:14 97.5 74 21 119/53 97 Room Air I&O Intake and Output 09/08/17 09/09/17 19:00 07:00 Intake Total 240 ml Balance 240 ml Intake Oral 240 ml # Voids 1 # Bowel Movements 1 Drains: none Respiratory: clear Abdomen: soft, non-tender Extremities: no tenderness Laboratory Tests Test 09/08/17 09:50 White Blood Count 9.0 K/UL (4.8-10.8) Red Blood Count 3.56 M/UL (4.20-5.40) L Hemoglobin 11.0 G/DL (12.0-16.0) L Hematocrit 34.0 % (37.0-47.0) L Mean Corpuscular Volume 95 FL (80-99) Mean Corpuscular Hemoglobin 30.8 PG (27.0-31.0) Mean Corpuscular Hemoglobin Concent 32.3 G/DL (32.0-36.0) Red Cell Distribution Width 13.5 % (11.6-14.8) Platelet Count 211 K/UL (150-450) Mean Platelet Volume 8.7 FL (6.5-10.1) Neutrophils (%) (Auto) 62.0 % (45.0-75.0) Lymphocytes (%) (Auto) 25.1 % (20.0-45.0) Monocytes (%) (Auto) 6.8 % (1.0-10.0) Eosinophils (%) (Auto) 4.1 % (0.0-3.0) H Basophils (%) (Auto) 1.9 % (0.0-2.0) Sodium Level 136 MMOL/L (136-145) Potassium Level 5.4 MMOL/L (3.5-5.1) H Chloride Level 96 MMOL/L (98-107) L Carbon Dioxide Level 26 MMOL/L (21-32) Anion Gap 15 mmol/L (5-15) Blood Urea Nitrogen 76 mg/dL (7-18) H Creatinine 13.5 MG/DL (0.55-1.30) H Estimat Glomerular Filtration Rate 3.5 mL/min (>60) Glucose Level 214 MG/DL (74-106) H Calcium Level 8.4 MG/DL (8.5-10.1) L Plan Problems: (1) Chest pain Assessment & Plan: 52F with superficial sternal chest pain/discomfort. afebrile. HD stable. VSS. labs okay. no signs or symptoms of infection. exam benign otherwise without masses or tumors. CT reviewed and no abnormalities noted other than dilated presternal collateral veins possibly from distal stenosis. currently asymptomatic. Likely dilated superficial phlebitis of presternal vein causing some discomfort which is resolving. -no acute surgical intervention necessary -recommend anti-inflammatory for discomfort. -office info given to patient for outpatient follow up as needed -okay to d/c from surgical standpoint thank you for this consultation. Pardeep Robins Sep 08, 2017 13:56
--- NOTE | 2017-09-09 14:36 | Discharge Summary ---
Discharge Summary Hospital Course Date of Admission Sep 03, 2017 at 16:43 Date of Discharge Sep 08, 2017 at 14:00 Admitting Diagnosis sternomanubrial abscess/ESRD JOAN Hinds is a 52 year old female who was admitted on Sep 03, 2017 at 16: 43 for Sternomanubrial Abscess/End Stage Renal Disease Hospital Course dc summary #[id number] Discharge Discharge Disposition Patient was discharged to Home (01) Discharge Diagnoses: Discharge Instructions Discharge Instructions Special Instructions I have been assigned to complete a D/C Summary on this account. I was not involved in the patient management I have been assigned to complete a D/C Summary on this account. I was not involved in the patient management Jaja Gallagher NP ([place]te[place]) Sep 09, 2017 14:36
--- NOTE | 2017-09-10 05:15 | Discharge Summary 2 SIG ---
DATE OF ADMISSION: 09/03/2017 DATE OF DISCHARGE: 09/08/2017 REASON FOR ADMISSION: 52 years old female with end-stage renal disease, on hemodialysis with history of hypertension and diabetes, presented to emergency department with two-day swelling and pain at the mid point of her anterior chest. She denied fever or chills. Pain described as 8/10, burning, and pressure like. No cough. No congestion. No exertional dyspnea. Pain worsened with movement and with deep breathing. The size of bump got larger over the last two days. Pain upon presentation was reported to be constant. Workup in the emergency room revealed no fever, stable vital signs. Physical examination revealed swelling and a mass in the central anterior chest. Laboratory workup revealed no leukocytosis. Elevated sedimentation rate. The patient was started on vancomycin, but had hives and antibiotic subsequently stopped. EKG revealed normal sinus rate. No ischemic changes. Chest x-ray revealed no acute cardiopulmonary pathology. CT of the chest revealed no evidence of abscess, but showed multiple bilateral lung nodules, appeared similar to the previous chest CT on 06/12/2013. Therefore, most likely post inflammatory rather than neoplastic. The patient was admitted for management of sternal mass, end-stage renal disease, and chest pain. HOSPITAL COURSE: The patient was admitted to telemetry floor. Infectious Disease , Cardiology and Surgery consults were requested. Per Infectious Disease doctor, the patient had cellulitis of the sternum. The patient was started on antibiotics. The patient was clinically improving. Blood cultures were negative. Infectious Disease recommended to complete the course of antibiotic at home with oral antibiotics. [employer] seen and evaluated the patient. [employer] stated the patient had the anterior chest wall pain secondary to local cellulitis. Troponin was negative. EKG revealed normal sinus rhythm. The patient was ruled out for acute coronary syndrome. Echocardiogram revealed preserved ejection fraction of 55%, right ventricular systolic pressure of 24. Statin was continued. The patient at this time was off any antihypertensive medications and remained normotensive. Blood sugar was managed with glyburide and was stable. Pain management was addressed. Bowel regimen instituted. Surgeon seen and evaluated the patient. Per surgeon, the patient had likely dilated superficial phlebitis of presternal vein causing some discomfort, which was resolving. No acute surgical intervention was necessary. Surgeon recommended anti-inflammatory medication for discomfort. Office information provided to the patient for follow up as needed . Surgeon cleared the patient for discharge. The patient was stable for discharge home. Follow up with the primary medical doctor next week. Follow up with outpatient hemodialysis. FINAL DIAGNOSES: : 1. Cellulitis of sternum. 2. Possible sepsis. 3. End-stage renal disease, on hemodialysis. 4. Anterior chest wall pain secondary to local cellulitis 5. Likely dilated superficial phlebitis of presternal vein, 6. Presternal prominence likely secondary to vascular congestion due to vascular grafts. 7. Diabetes mellitus. 8. Hypertension. 9. Hyperlipidemia. 10. Opiate dependency. DISCHARGE MEDICATIONS: The patient needs to complete the course of oral antibiotic as per Infectious Diseases recommendation. DISCHARGE INSTRUCTIONS: The patient to follow up with the primary medical doctor next week. The patient to follow up with outpatient hemodialysis. Memo Miranda M.D. I have been assigned to dictate discharge summary on this account and I was not involved in the patient's management. Jaja Bucknerewa N.PElder DR: Aminta JOB#: [id number] CC: BEATRIZ
--- NOTE | 2017-09-11 11:01 | Diagnostic Imaging Report ---
APPROVED REPORT CPT Code: 25992 Present Symptoms Comments: Pain BILATERAL UPPER EXTREMITY: Imaging reveals patency of the internal jugular, subclavian, axillary and brachial veins. The cephalic and basilic veins are also patent. Doppler indicates normal spontaneous flow within these venous segments, bilaterally. 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
--- NOTE | 2017-09-11 11:01 | Diagnostic Imaging Report ---
APPROVED REPORT CPT Code: 78700 Vascular Symptoms Comments: R/O occlusion Doppler Spectral Velocity Analysis RightLeft BIATERAL CAROTID: CCA - Imaging reveals no significant plaque in the common carotid the external carotid arteries. The Doppler signal indicates the degree of stenosis is minimal (5-10%) in the internal and external carotid arteries. VERTEBRAL - The vertebral arteries are patent, without evidence of stenosis or steal, bilaterally.
== END 2017-09-08 14:00 | disposition home or self-care (01) | DRG 383 ==
LOC: EDBEDREQ 15:38 → EMR 16:15 → 4E 16:43 → EDBEDREQ 16:58 → 4E 20:17
PROC: 5A1D70Z Performance of Urinary Filtration, Intermittent, Less than 6 Hours Per Day (ICD-10-PCS; principal; 2017-09-05)
DX: L03.313 Cellulitis of chest wall (principal); A41.9 Sepsis, unspecified organism; N18.6 End stage renal disease; I12.0 Hypertensive chronic kidney disease with stage 5 chronic kidney disease or end stage renal disease; I80.8 Phlebitis and thrombophlebitis of other sites; F11.20 Opioid dependence, uncomplicated; E11.22 Type 2 diabetes mellitus with diabetic chronic kidney disease; R07.9 Chest pain, unspecified; E11.65 Type 2 diabetes mellitus with hyperglycemia; Z99.2 Dependence on renal dialysis; Z88.6 Allergy status to analgesic agent; Z88.1 Allergy status to other antibiotic agents; Z88.0 Allergy status to penicillin; G62.9 Polyneuropathy, unspecified; E78.5 Hyperlipidemia, unspecified; Z79.84 Long term (current) use of oral hypoglycemic drugs
CPT/HCPCS: 36415; 71010; 71260; 80048; 80053; 80202; 82550; 82962; 83605; 83880; 84439; 84443; 84484; 85025; 85610; 85651; 85730; 86850; 86900; 86901; 87040; 87081; 93005; 93306; 93880; 93970; 99285; J1815; J2405; S0077

== ENCOUNTER 2017-10-19 00:23 | Emergency (ER) | payer MEDICAID ==
[~2017-10-19] VITALS: Ht 165.1 cm; Wt 102.5 kg
[~2017-10-19 00:23] MED LIST changes: +AFRIN NASAL SPR30 ML NASAL; +ALPHAGAN P5 M2; +FAMOTIDINE40 MG PO; +KENALOG 0.1% CR15 GM; +LIDOCAINE HCL30 ML
[2017-10-19] MEDS ORDERED: Ketorolac 30mg Inj IV ONE (01:00)
[2017-10-19 01:51] LABS: BASOPHILS % (AUTO) 0.7 % (0.0-2.0); HEMATOCRIT 36.2 % (37.0-47.0); HEMOGLOBIN 11.6 G/DL (12.0-16.0); LYMPHOCYTES % (AUTO) 19.7 % (20.0-45.0); MEAN CORPUSCULAR VOLUME 96 FL (80-99); MONOCYTES % (AUTO) 10.9 % (1.0-10.0); NEUTROPHILS % (AUTO) 66.7 % (45.0-75.0); PLATELET COUNT 224 K/UL (150-450); RED BLOOD COUNT 3.76 M/UL (4.20-5.40); RED CELL DISTRIBUTION WIDTH 14.1 % (11.6-14.8)
[2017-10-19] MEDS ORDERED: HYDROmorphone 1mg/ml Carpuject IVP ONE (02:00)
[2017-10-19 02:06] LABS: ANION GAP 15 mmol/L (5-15); BLOOD UREA NITROGEN 44 mg/dL (7-18); CALCIUM 8.7 MG/DL (8.5-10.1); CARBON DIOXIDE 29 MMOL/L (21-32); CHLORIDE 94 MMOL/L (98-107); CREATININE 10.3 MG/DL (0.55-1.30); POTASSIUM 4.4 MMOL/L (3.5-5.1); SODIUM 138 MMOL/L (136-145)
[2017-10-19] MEDS ORDERED: IBUPROFEN600 MG ORAL (02:27)
[2017-10-19] MEDS ORDERED: TAMIFLU75 MG ORAL (02:27)
--- NOTE | 2017-10-19 02:28 | Emergency Room Report ---
History of Present Illness General Chief Complaint: General Complaint Source: Patient Present Illness HPI This is a 52-year-old female with a history of renal failure hemodialysis. She presents with chief complaint of fever up to 102 at home. Also with diffuse body pain and back pain. Has nausea but no vomiting. Mild cough. No abdominal pain. Never had this problem before. Has not been sick in the last 2 months. Allergies: Coded Allergies: PENICILLINS (Verified Allergy, Intermediate, Hives, 12/07/12) MORPHINE (Unverified Allergy, Unknown, 09/22/14) VANCOMYCIN (Verified Allergy, Unknown, Rash, 09/03/17) Patient History Past Medical History: see triage record, old chart reviewed, HTN, renal disease , dialysis Past Surgical History: other Pertinent Family History: none Social History: Denies: smoking Last Menstrual Period: 2005 Now: No : 3 Para: 3 Immunizations: other Reviewed Nursing Documentation: PMH: Agreed, PSxH: Agreed Nursing Documentation-PMH Hx Cardiac Problems: No Hx Hypertension: Yes Hx Pacemaker: No Hx Asthma: No Hx COPD: No Hx Diabetes: Yes Hx Cancer: No Hx Gastrointestinal Problems: Yes - DIVERTICULITIS Hx Dialysis: Yes - M-W-F Hx Neurological Problems: No Hx Cerebrovascular Accident: No Hx Seizures: No Review of Systems Constitutional: Reports: chills, fever Eye: Denies: eye pain, blurred vision ENT: Denies: ear pain, nose congestion, throat swelling Respiratory: Denies: cough, shortness of breath Cardiovascular: Denies: chest pain, palpitations Gastrointestinal: Reports: nausea, Denies: abdominal pain, diarrhea, vomiting Musculoskeletal: Reports: back pain, Denies: joint pain Skin: Denies: rash Neurological: Denies: headache, numbness Endocrine: Denies: increased thirst, increased urine Hematologic/Lymphatic: Denies: easy bruising All Other Systems: negative except mentioned in HPI Physical Exam Vital Signs Date Time Temp Pulse Resp B/P (MAP) Pulse Ox O2 Delivery O2 Flow Rate FiO2 10/19/17 00:35 99.7 112 18 110/60 91 Room Air vitals with low-grade fever Sp02 EP Interpretation: reviewed, normal - Oxygenation on room air is 95% without intervention General Appearance: well appearing, no apparent distress, alert, obese Head: normocephalic, atraumatic Eyes: bilateral eye PERRL, bilateral eye EOMI ENT: hearing grossly normal, normal pharynx Neck: full range of motion, supple, no meningismus Respiratory: chest non-tender, lungs clear, normal breath sounds Cardiovascular #1: regular rate, rhythm, no murmur Gastrointestinal: normal bowel sounds, non tender, no mass, no organomegaly, no bruit, non-distended Musculoskeletal: back normal, gait/station normal, normal range of motion Psychiatric: mood/affect normal Skin: warm/dry Medical Decision Making Diagnostic Impression: Primary Impression: Influenza-like illness ER Course Patient with influenza-like illness. Even though flu swab was negative, we'll go injury because of her risk factor of obesity and renal failure. CBC unremarkable but differential was elevated monocyte count. This points toward a viral illness. No evidence of pneumonia, sepsis, ACS, acute abdomen to name a few. She felt better now. We'll discharge home. Lab Results Impression labs unremarkable Chest X-Ray Diagnostic Results Chest X-Ray Diagnostic Results : Chest X-Ray Ordered: Yes # of Views/Limited/Complete: 1 View Indication: Shortness of Breath EP Interpretation: Yes Interpretation: no consolidation, no effusion, no pneumothorax, no acute cardiopulmonary disease Impression: No acute disease Electronically Signed by: Clayton Hair MD Last Vital Signs Date Time Temp Pulse Resp B/P (MAP) Pulse Ox O2 Delivery O2 Flow Rate FiO2 10/19/17 00:35 99.7 112 18 110/60 91 Room Air Status: improved Disposition: HOME, SELF-CARE Condition: Stable Scripts Oseltamivir Phosphate (Tamiflu) 75 Mg Capsule 75 MG ORAL TWICE A DAY, #10 CAP Prov: CLAYTON HAIR M.D. 10/19/17 Ibuprofen* (MOTRIN*) 600 Mg Tablet 600 MG ORAL Q8H Y for For Pain, #30 TAB 0 Refills Prov: CLAYTON HAIR M.D. 10/19/17 Referrals: NOT CHOSEN IPA/,REFERRING (PCP) Additional Instructions: Followup with your DrElder in 7 days. Return if symptom worsen. CLAYTON HAIR M.D. Oct 19, 2017 02:28
[2017-10-19 02:30] VITALS: BP 115/56
[2017-10-19 02:40] VITALS: BP 115/56
--- NOTE | 2017-10-19 09:14 | Diagnostic Imaging Report ---
Indication: Reason For Exam: COUGH Technique: XRAY Chest 1v Comparison:09/03/2017 Findings: The heart remains enlarged. Pulmonary vascularity is unchanged. No new infiltrates. No pleural fluid. This been no change from prior study. Impression: No change from prior examination. No acute abnormality.
== END 2017-10-19 02:40 | disposition home or self-care (01) ==
LOC: EMR 01:06
DX: J11.1 Influenza due to unidentified influenza virus with other respiratory manifestations (principal); I12.0 Hypertensive chronic kidney disease with stage 5 chronic kidney disease or end stage renal disease; N18.6 End stage renal disease; Z99.2 Dependence on renal dialysis; Z88.0 Allergy status to penicillin; Z88.5 Allergy status to narcotic agent
CPT/HCPCS: 36415; 71045; 80048; 85025; 86710; 87040; 96374; 96375; 99284; J1170; J2405

== ENCOUNTER 2017-11-28 14:42 | Emergency (ER) | payer MEDICAID ==
[~2017-11-28] VITALS: Ht 165.1 cm; Wt 104.3 kg
[~2017-11-28 14:42] MED LIST changes: +TAMIFLU75 MG ORAL
[2017-11-28 15:59] LABS: BASOPHILS % (AUTO) 1.4 % (0.0-2.0); EOSINOPHILS % (AUTO) 1.7 % (0.0-3.0); HEMATOCRIT 37.8 % (37.0-47.0); HEMOGLOBIN 12.8 G/DL (12.0-16.0); MEAN CORPUSCULAR VOLUME 96 FL (80-99); MONOCYTES % (AUTO) 7.4 % (1.0-10.0); NEUTROPHILS % (AUTO) 63.4 % (45.0-75.0); PLATELET COUNT 273 K/UL (150-450); RED BLOOD COUNT 3.95 M/UL (4.20-5.40); RED CELL DISTRIBUTION WIDTH 14.2 % (11.6-14.8); WHITE BLOOD COUNT 9.2 K/UL (4.8-10.8)
--- NOTE | 2017-11-28 16:05 | Emergency Room Report ---
History of Present Illness General Chief Complaint: Back Pain-No Injury Source: Patient, Medical Record Present Illness HPI 52 YO Female presents to the ED c/O left flank pain x 3 days, rated as 10/10 in severity, intermittent in nature. She denies nausea, vomiting, fevers or chills. Patient reports she has end-stage renal disease and is on dialysis Friday. Denies swelling of the lower extremities. She reports history of diverticulitis which presented with pain in the same area. She states that she has anuria due to kidney disease. She denies abdominal tenderness, constipation or diarrhea. Denies CP, Palpitations, LOC, AMS, dizziness, Changes in Vision, Sensation, paresthesias, or a sudden severe headache. Pt. re ports she is rx'd 10mg Nora's for which she has not taken for her symptoms. Allergies: Coded Allergies: PENICILLINS (Verified Allergy, Intermediate, Hives, 12/07/12) MORPHINE (Unverified Allergy, Unknown, 09/22/14) VANCOMYCIN (Verified Allergy, Unknown, Rash, 09/03/17) Patient History Past Medical History: see triage record Past Surgical History: none Pertinent Family History: none Reviewed Nursing Documentation: PMH: Agreed, PSxH: Agreed Nursing Documentation-PMH Past Medical History: No History, Except For Hx Cardiac Problems: No Hx Hypertension: Yes Hx Pacemaker: No Hx Asthma: No Hx COPD: No Hx Diabetes: Yes Hx Cancer: No Hx Gastrointestinal Problems: Yes - DIVERTICULITIS Hx Dialysis: Yes - M-W-F Hx Neurological Problems: No Hx Cerebrovascular Accident: No Hx Seizures: No Review of Systems All Other Systems: negative except mentioned in HPI Physical Exam Vital Signs Date Time Temp Pulse Resp B/P (MAP) Pulse Ox O2 Delivery O2 Flow Rate FiO2 11/28/17 14:53 98.7 104 18 115/68 100 Room Air 98.8 Sp02 EP Interpretation: reviewed, normal General Appearance: no apparent distress, alert, GCS 15, non-toxic Head: normocephalic, atraumatic ENT: hearing grossly normal, normal voice Neck: full range of motion Respiratory: chest non-tender, lungs clear, normal breath sounds, no respiratory distress, no wheezing, speaking full sentences Cardiovascular #1: regular rate, rhythm, no edema, normal capillary refill Gastrointestinal: normal bowel sounds, non tender, soft, non-distended, no guarding Rectal: deferred Genitourinary: normal inspection, no CVA tenderness Musculoskeletal: back normal, gait/station normal, normal range of motion, tender - some left posterior lateral TTP to the flank area. Neurologic: alert, oriented x3, responsive, motor strength/tone normal, sensory intact, speech normal, grossly normal Psychiatric: judgement/insight normal Skin: normal color, no rash, warm/dry, well hydrated Medical Decision Making PA Attestation Dr. Solorzano is my supervising Physician whom patient management has been discussed with. Diagnostic Impression: Primary Impression: Flank pain Additional Impression: ESRD (end stage renal disease) on dialysis ER Course 52 YO Female presents to the ED c/O left flank pain x 3 days, rated as 10/10 in severity, intermittent in nature. She denies nausea, vomiting, fevers or chills. Patient reports she has end-stage renal disease and is on dialysis Friday. Denies swelling of the lower extremities. She reports history of diverticulitis which presented with pain in the same area. She states that she has anuria due to kidney disease. She denies abdominal tenderness, constipation or diarrhea. Denies CP, Palpitations, LOC, AMS, dizziness, Changes in Vision, Sensation, paresthesias, or a sudden severe headache. Pt. re ports she is rx'd 10mg Nora's for which she has not taken for her symptoms. Ddx considered but are not limited to Diverticulitis, acute appy, diarrhea,UC, PUD, GE, pancreatitis, gallstone, kidney stone, pyelonephritis, UTI, obstruction. Vital signs: are WNL, pt. is afebrile H&PE are most consistent with possible kidney stone will r/o diverticulitis due to hx, however abdominal exam is benign other than some left flank tenderness, no appreciable CVA. ORDERS: -CBC: Unremarkable - CMP: Elevated Cr, BUN, alk phos. decreased NACl - consistent with ESRD - CT abdomen and pelvis no contrast: "NO evidence of stones, renal atrophy bilaterally, diverticulosis, multiple lung nodules. "Per official radiology report- Please see report for specific details. ED INTERVENTIONS: --1mg Dilaudid for pain -I do not identify an emergent condition at this time. With current presentation , pt. is stable for close outpatient follow up and conservative treatment. D/ w pt. to return promptly to ED with worsening or new symptoms.- Pt. (and or responsible democrat) verbalizes' understanding and agreement with proposed treatment plan.proposed treatment plan. DISCHARGE: At this time pt. is stable for d/c to home. Will provide printed patient care instructions, and any necessary prescriptions. Care plan and follow up instructions have been discussed with the patient prior to discharge. Labs Test 11/28/17 15:21 White Blood Count 9.2 K/UL (4.8-10.8) Red Blood Count 3.95 M/UL (4.20-5.40) Hemoglobin 12.8 G/DL (12.0-16.0) Hematocrit 37.8 % (37.0-47.0) Mean Corpuscular Volume 96 FL (80-99) Mean Corpuscular Hemoglobin 32.3 PG (27.0-31.0) Mean Corpuscular Hemoglobin Concent 33.8 G/DL (32.0-36.0) Red Cell Distribution Width 14.2 % (11.6-14.8) Platelet Count 273 K/UL (150-450) Mean Platelet Volume 9.1 FL (6.5-10.1) Neutrophils (%) (Auto) 63.4 % (45.0-75.0) Lymphocytes (%) (Auto) 26.0 % (20.0-45.0) Monocytes (%) (Auto) 7.4 % (1.0-10.0) Eosinophils (%) (Auto) 1.7 % (0.0-3.0) Basophils (%) (Auto) 1.4 % (0.0-2.0) Sodium Level 135 MMOL/L (136-145) Potassium Level 3.9 MMOL/L (3.5-5.1) Chloride Level 96 MMOL/L (98-107) Carbon Dioxide Level 28 MMOL/L (21-32) Anion Gap 11 mmol/L (5-15) Blood Urea Nitrogen 21 mg/dL (7-18) Creatinine 5.3 MG/DL (0.55-1.30) Estimat Glomerular Filtration Rate 10.3 mL/min (>60) Glucose Level 158 MG/DL (74-106) Calcium Level 9.6 MG/DL (8.5-10.1) Total Bilirubin 0.3 MG/DL (0.2-1.0) Aspartate Amino Transf (AST/SGOT) 13 U/L (15-37) Alanine Aminotransferase (ALT/SGPT) 19 U/L (12-78) Alkaline Phosphatase 180 U/L (46-116) Total Protein 8.5 G/DL (6.4-8.2) Albumin 4.0 G/DL (3.4-5.0) Globulin 4.5 g/dL Albumin/Globulin Ratio 0.9 (1.0-2.7) CT/MRI/US Diagnostic Results CT/MRI/US Diagnostic Results : Imaging Test Ordered: CT Abdomen and Pelvis No Contrast Impression "No Acute findings prominent liver diverticulosis no definitive diverticulitis, atrophic kidneys, evidence of previous surgery in the left inguinal/iliac region. A and nodules partially imaged that comparison to previous CT nodules were felt to be postinflammatory and stable since 2012" - Per official radiology report- Please see report for specific details. Last Vital Signs Date Time Temp Pulse Resp B/P (MAP) Pulse Ox O2 Delivery O2 Flow Rate FiO2 11/28/17 14:53 98.7 104 18 115/68 100 Room Air 98.8 Status: unchanged Disposition: HOME, SELF-CARE Condition: Stable Patient Instructions: Back Pain, Adult, [place]-Edcw, Flank Pain, Sgrx-of-[id number] Additional Instructions: Take medications as directed. Follow up with a Primary Care Provider in 3-5 days, even if your symptoms have resolved. --Please review list of primary care clinics, if you do not already have a primary care provider Return sooner to ED if new symptoms occur, or current symptoms become worse. Do not drink alcohol, drive, or operate heavy machinery while taking Muscle Relaxers as this may cause drowsiness. - Please note that this Emergency Department Report was dictated using Profistamechanical facilities technician technology software, occasionally this can lead to erroneous entry secondary to interpretation by the dictation equipment. Kati Obrien Nov 28, 2017 16:05
[2017-11-28 16:11] LABS: ANION GAP 11 mmol/L (5-15); BLOOD UREA NITROGEN 21 mg/dL (7-18); CALCIUM 9.6 MG/DL (8.5-10.1); CARBON DIOXIDE 28 MMOL/L (21-32); CHLORIDE 96 MMOL/L (98-107); CREATININE 5.3 MG/DL (0.55-1.30); POTASSIUM 3.9 MMOL/L (3.5-5.1); SODIUM 135 MMOL/L (136-145)
[2017-11-28 16:16] LABS: ALANINE AMINOTRANSFERASE 19 U/L (12-78); ALBUMIN/GLOBULIN RATIO 0.9 (1.0-2.7); ALKALINE PHOSPHATASE 180 U/L (46-116); ASPARTATE AMINO TRANSFERASE 13 U/L (15-37); BILIRUBIN,TOTAL 0.3 MG/DL (0.2-1.0)
--- NOTE | 2017-11-28 16:30 | Diagnostic Imaging Report ---
Indication: Abdominal pain Technique: Continuous helical transaxial imaging of the abdomen and pelvis was obtained from the lung bases to the pubic symphysis. No intravenous contrast was administered. Coronal 2-D reformats were also obtained. Automatic Exposure Control was utilized. Total Dose length Product (DLP): 966.[address] Dose Index Volume (CTDIvol): 19.07 mGy Comparison: none Findings: There are multiple noncalcified lung nodules within the visualized portion of the lung bases. Metastatic neoplasm is certainly possible. However, patient has a history of multiple lung nodules documented on CT chest 09/03/2017. Comparison at that time to an earlier study from 2012 had demonstrated stability and therefore it was felt to most likely be postinflammatory. The nodules at this time are not adequately evaluated and only partially seen within the visualized part of the lung base. The kidneys are markedly atrophic. The liver is enlarged. Gallbladder is unremarkable. There are diverticula within the sigmoid colon. No obvious acute diverticulitis. Surgical clips in the left hemipelvis noted. Atrophic uterus demonstrated. The urinary bladder is nondistended. A normal appendix is demonstrated. There is no free fluid. The evaluation of solid organs is limited given absence of intravenous contrast. IMPRESSION: No acute findings in the abdomen identified. Prominent liver. Diverticulosis of the colon. No definite diverticulitis. Atrophic kidneys Evidence of previous surgery in the left inguinal/iliac region. Innumerable lung nodules, partially imaged on this study. By report patient has had evaluation by CT chest 09/03/2017, at which time the nodules were felt to be postinflammatory given stability since 2012. The CT scanner at [facility] is accredited by the [employer] and the scans are performed using dose optimization techniques as appropriate to a performed exam including Automatic Exposure control.
[2017-11-28 17:43] VITALS: BP 95/59
== END 2017-11-28 17:40 | disposition home or self-care (01) ==
LOC: EMR 16:00
DX: R10.9 Unspecified abdominal pain (principal); I12.0 Hypertensive chronic kidney disease with stage 5 chronic kidney disease or end stage renal disease; N18.6 End stage renal disease; Z99.2 Dependence on renal dialysis; E11.9 Type 2 diabetes mellitus without complications; Z88.0 Allergy status to penicillin; Z88.2 Allergy status to sulfonamides; K57.30 Diverticulosis of large intestine without perforation or abscess without bleeding
CPT/HCPCS: 36415; 74176; 80053; 85025; 96374; 99284; J1170

== ENCOUNTER 2018-01-04 15:03 | Emergency (ER) | payer MEDICAID ==
[~2018-01-04] VITALS: Ht 165.1 cm; Wt 105.2 kg
[2018-01-04 15:29] VITALS: BP 118/70
--- NOTE | 2018-01-04 15:41 | Emergency Room Report ---
History of Present Illness General Chief Complaint: Upper Respiratory Illness Source: Patient Present Illness HPI 52-year-old female, history of hypertension, diabetes, end-stage renal disease on dialysis Friday, last dialysis was Friday, presents with myalgias cough, runny nose for 7 days. Cough is productive with greenish yellow phlegm. Pt still eating/drinking well. . No recent travel. Complaining of some chest congestion and shortness of breath no chest pain. No abdominal pain nausea vomiting or diarrhea. Patient states that she was prescribed azithromycin by her PCP, she has 2 days left Allergies: Coded Allergies: PENICILLINS (Verified Allergy, Intermediate, Hives, 12/07/12) MORPHINE (Unverified Allergy, Unknown, 09/22/14) VANCOMYCIN (Verified Allergy, Unknown, Rash, 09/03/17) Patient History Past Medical History: see triage record Past Surgical History: none Pertinent Family History: none Reviewed Nursing Documentation: PMH: Agreed; PSxH: Agreed Nursing Documentation-PMH Hx Cardiac Problems: No Hx Hypertension: Yes Hx Pacemaker: No Hx Asthma: No Hx COPD: No Hx Diabetes: Yes Hx Cancer: No Hx Gastrointestinal Problems: Yes - DIVERTICULITIS Hx Dialysis: Yes - M-W-F Hx Neurological Problems: No Hx Cerebrovascular Accident: No Hx Seizures: No Review of Systems All Other Systems: negative except mentioned in HPI Physical Exam Vital Signs Date Time Temp Pulse Resp B/P (MAP) Pulse Ox O2 Delivery O2 Flow Rate FiO2 01/04/18 15:12 98.1 82 16 118/70 100 Room Air 98.1 Sp02 EP Interpretation: reviewed, normal General Appearance: alert, GCS 15, non-toxic, mild distress Head: normocephalic, atraumatic Eyes: bilateral eye normal inspection, bilateral eye PERRL, bilateral eye EOMI ENT: normal ENT inspection, normal pharynx, normal voice, moist mucus membranes Neck: normal inspection, full range of motion, supple Respiratory: normal inspection, lungs clear, normal breath sounds, no respiratory distress, no retraction, no wheezing, speaking full sentences, chest symmetrical Cardiovascular #1: normal inspection, regular rate, rhythm, no edema, normal capillary refill Cardiovascular #2: 2+ radial (R), 2+ radial (L) Gastrointestinal: normal inspection, non tender, soft, non-distended, no guarding Musculoskeletal: normal inspection, back normal, normal range of motion, non- tender Neurologic: normal inspection, alert, oriented x3, responsive, motor strength/ tone normal, sensory intact, normal gait, speech normal Psychiatric: normal inspection, judgement/insight normal, memory normal Skin: normal inspection, normal color, no rash, warm/dry, well hydrated, normal turgor Medical Decision Making Diagnostic Impression: Primary Impression: Upper respiratory infection ER Course 52-year-old female, myalgias, runny nose, cough Appears non- toxic, well hydrated, tolerating PO DDX: Viral URI / pneumonia Plan: Labs, chest x-ray ER course: Pt stable in ED, remains nontoxic appearing, no sob. Tolerating PO Patient has been conversing at bedside with family member, nontoxic-appearing, labs revealing no leukocytosis, has renal failure already known, no hyperkalemia Chest x-ray is negative Patient is nontoxic appearing, able to be discharged home Likely viral illness but unable to give Tamiflu secondary to renal failure Patient is instructed to just finish her azithromycin and follow up with her doctor Disposition: Patient discharged to home with Patricia Brower Patient instructed to follow up with PMD in 1 week Very strict return precautions discussed with patient such as intractable fever and chills, unable to eat or drink, severe chest pain or shortness of breath. Patient verbalized understanding and agrees with plan. Please note that this Emergency Department Report was dictated using [employer] technology software, occasionally this can lead to erroneous entry secondary to interpretation by the dictation equipment EKG Diagnostic Results EP Interpretation: Yes Rate: normal Rhythm: NSR ST Segments: No acute changes ASA given to patient: No Rhythm Strip EP Interpretation: Yes Rate: 70 Rhythm: NSR, no PVCs, no ectopy Chest X-ray CXR: Ordered: Yes 1 view Indication: Cough EP interpretation: Yes Interpretation: enlarged heart Impression: enlarged heart Electronically signed by Reg Reddy MD Laboratory Tests Test 01/04/18 15:45 White Blood Count 11.9 K/UL (4.8-10.8) H Red Blood Count 3.65 M/UL (4.20-5.40) L Hemoglobin 11.1 G/DL (12.0-16.0) L Hematocrit 34.7 % (37.0-47.0) L Mean Corpuscular Volume 95 FL (80-99) Mean Corpuscular Hemoglobin 30.3 PG (27.0-31.0) Mean Corpuscular Hemoglobin Concent 31.8 G/DL (32.0-36.0) L Red Cell Distribution Width 14.1 % (11.6-14.8) Platelet Count 221 K/UL (150-450) Mean Platelet Volume 8.1 FL (6.5-10.1) Neutrophils (%) (Auto) 59.8 % (45.0-75.0) Lymphocytes (%) (Auto) 26.8 % (20.0-45.0) Monocytes (%) (Auto) 8.1 % (1.0-10.0) Eosinophils (%) (Auto) 3.5 % (0.0-3.0) H Basophils (%) (Auto) 1.8 % (0.0-2.0) Sodium Level 136 MMOL/L (136-145) Potassium Level 4.6 MMOL/L (3.5-5.1) Chloride Level 97 MMOL/L (98-107) L Carbon Dioxide Level 25 MMOL/L (21-32) Anion Gap 14 mmol/L (5-15) Blood Urea Nitrogen 50 mg/dL (7-18) H Creatinine 11.3 MG/DL (0.55-1.30) H Estimate Glomerular Filtration Rate 4.4 mL/min (>60) Glucose Level 101 MG/DL (74-106) Lactic Acid Level 0.90 mmol/L (0.66-2.22) Calcium Level 8.8 MG/DL (8.5-10.1) Total Bilirubin 0.2 MG/DL (0.2-1.0) Aspartate Amino Transferase (AST) 14 U/L (15-37) L Alanine Aminotransferase (ALT) 15 U/L (12-78) Alkaline Phosphatase 144 U/L (46-116) H Pro-B-Type Natriuretic Peptide 323 pg/mL (0-125) H Total Protein 8.0 G/DL (6.4-8.2) Albumin 3.5 G/DL (3.4-5.0) Globulin 4.5 g/dL Albumin/Globulin Ratio 0.8 (1.0-2.7) L Last Vital Signs Date Time Temp Pulse Resp B/P (MAP) Pulse Ox O2 Delivery O2 Flow Rate FiO2 01/04/18 15:29 98.1 16 118/70 100 Room Air 98.1 01/04/18 15:29 82 Disposition: HOME, SELF-CARE Condition: Improved Scripts Benzonatate* (PATRICIA LÓPEZ*) 100 Mg Capsule 100 MG ORAL THREE TIMES A DAY, #21 PERLE Prov: Reg Reddy M.D. 01/04/18 Reg Reddy M.D. Jan 04, 2018 15:41
[2018-01-04] MEDS ORDERED: Acetaminophen 500mg (ES) tab ORAL ONE (15:45)
[2018-01-04 16:21] LABS: BASOPHILS % (AUTO) 1.8 % (0.0-2.0); EOSINOPHILS % (AUTO) 3.5 % (0.0-3.0); HEMATOCRIT 34.7 % (37.0-47.0); HEMOGLOBIN 11.1 G/DL (12.0-16.0); LYMPHOCYTES % (AUTO) 26.8 % (20.0-45.0); MEAN CORPUSCULAR VOLUME 95 FL (80-99); MONOCYTES % (AUTO) 8.1 % (1.0-10.0); NEUTROPHILS % (AUTO) 59.8 % (45.0-75.0); PLATELET COUNT 221 K/UL (150-450); RED BLOOD COUNT 3.65 M/UL (4.20-5.40); RED CELL DISTRIBUTION WIDTH 14.1 % (11.6-14.8); WHITE BLOOD COUNT 11.9 K/UL (4.8-10.8)
[2018-01-04 16:23] LABS: ANION GAP 14 mmol/L (5-15); BLOOD UREA NITROGEN 50 mg/dL (7-18); CALCIUM 8.8 MG/DL (8.5-10.1); CARBON DIOXIDE 25 MMOL/L (21-32); CHLORIDE 97 MMOL/L (98-107); CREATININE 11.3 MG/DL (0.55-1.30); POTASSIUM 4.6 MMOL/L (3.5-5.1); SODIUM 136 MMOL/L (136-145)
[2018-01-04 16:34] LABS: ALANINE AMINOTRANSFERASE 15 U/L (12-78); ALBUMIN 3.5 G/DL (3.4-5.0); ALBUMIN/GLOBULIN RATIO 0.8 (1.0-2.7); ALKALINE PHOSPHATASE 144 U/L (46-116); ASPARTATE AMINO TRANSFERASE 14 U/L (15-37); BILIRUBIN,TOTAL 0.2 MG/DL (0.2-1.0)
[2018-01-04] MEDS ORDERED: TESSALON PERLE100 MG ORAL (16:34)
[2018-01-04] MEDS ORDERED: DiphenhydrAMINE 50mg/ml Inj IVP ONE (16:45)
[2018-01-04 16:55] VITALS: BP 132/77
--- NOTE | 2018-01-05 10:21 | Diagnostic Imaging Report ---
Indication: Cough Comparison: 10/19/2017 A single view chest radiograph was obtained. Findings: There is some interstitial and vascular prominence but this appears stable and chronic. Heart is enlarged. The bones are unremarkable. IMPRESSION: No acute disease
== END 2018-01-04 16:56 | disposition home or self-care (01) ==
LOC: EMR 15:55
DX: J06.9 Acute upper respiratory infection, unspecified (principal); I12.0 Hypertensive chronic kidney disease with stage 5 chronic kidney disease or end stage renal disease; E11.22 Type 2 diabetes mellitus with diabetic chronic kidney disease; N18.6 End stage renal disease; Z99.2 Dependence on renal dialysis; K57.90 Diverticulosis of intestine, part unspecified, without perforation or abscess without bleeding
CPT/HCPCS: 36415; 71045; 80053; 83605; 83880; 85025; 86710; 87040; 93005; 96374; 96375; 99284; J1200; J2405

== ENCOUNTER → 2018-02-19 | Emergency (ER) | payer MEDICAID ==
[~2018-02-19] VITALS: Ht 165.1 cm; Wt 105.2 kg
[~2018-02-19] MED LIST changes: +Hydromorphone 0.5mg/0.5ml inj IM ONE; +Hydromorphone 0.5mg/0.5ml inj IVP ONE; +TESSALON PERLE100 MG ORAL
[2018-02-19 06:34] VITALS: BP 117/69
--- NOTE | 2018-02-19 06:54 | Emergency Room Report ---
History of Present Illness General Chief Complaint: Pain Source: Patient Present Illness HPI Patient presents initially complaining of total body discomfort On my examination complains of left-sided body pain starting from the left top of the head all the way down to the left foot Reports the pain started last night and was having difficulty sleeping Denies any abdominal pain Denies any focal weakness Pain is 10 out of 10 Denies any trauma recently Patient is on dialysis and had essentially full dialysis yesterday Does not make urine Pain is a sharp type pain Denies any other chest pain or shortness of breath Allergies: Coded Allergies: PENICILLINS (Verified Allergy, Intermediate, Hives, 02/19/18) MORPHINE (Unverified Allergy, Unknown, 02/19/18) VANCOMYCIN (Verified Allergy, Unknown, Rash, 02/19/18) Patient History Past Medical History: see triage record Pertinent Family History: none Last Menstrual Period: n/a Reviewed Nursing Documentation: PMH: Agreed; PSxH: Agreed Nursing Documentation-PMH Past Medical History: No History, Except For Hx Cardiac Problems: No Hx Hypertension: Yes Hx Pacemaker: No Hx Asthma: No Hx COPD: No Hx Diabetes: Yes Hx Cancer: No Hx Gastrointestinal Problems: Yes - DIVERTICULITIS Hx Dialysis: Yes - M-W-F, shunt upper right arm Hx Neurological Problems: No Hx Cerebrovascular Accident: No Hx Seizures: No Review of Systems All Other Systems: negative except mentioned in HPI Physical Exam Vital Signs Date Time Temp Pulse Resp B/P (MAP) Pulse Ox O2 Delivery O2 Flow Rate FiO2 02/19/18 06:19 98.0 97 16 117/69 96 Room Air 98.1 Sp02 EP Interpretation: reviewed, normal General Appearance: well appearing, no apparent distress Head: normocephalic, atraumatic Eyes: bilateral eye PERRL, bilateral eye EOMI ENT: hearing grossly normal, normal pharynx, TMs + canals normal, uvula midline Neck: full range of motion, supple, no meningismus, no bony tend Respiratory: lungs clear, normal breath sounds, no rhonchi, no respiratory distress, no retraction, no accessory muscle use Cardiovascular #1: normal peripheral pulses, regular rate, rhythm, no edema, no gallop, no JVD, no murmur Gastrointestinal: normal bowel sounds, non tender, soft, no mass, no organomegaly, non-distended, no guarding, no hernia, no pulsatile mass, no rebound Genitourinary: no CVA tenderness Musculoskeletal: normal inspection Neurologic: oriented x3, responsive, equine vet III-XII nml as tested, motor strength/ tone normal, sensory intact Psychiatric: mood/affect normal Skin: normal color, no rash, warm/dry, palpation normal Lymphatic: normal inspection, no adenopathy Medical Decision Making Diagnostic Impression: Primary Impression: Renal failure Additional Impression: Myalgia ER Course Multiple differentials entertained including but not limited to, neurological, neurosurgical, infectious, cardiac pathology Patient's clinical history and exam does not sound to be consistent with CVA or NV Patient did have EKG done which is similar to previous Patient was provided with pain medication here which included Dilaudid She has done better At the time of disposition patient is requesting prescription for 800 mg Motrin Patient is discussed regarding her pain medication prescriptions and care She has regular medication provided by a physician who is best suited to continue her pain management She was provided with several Motrin pills until she can discuss that with her physician and will return with any concerning changes EKG Diagnostic Results Rate: normal Rhythm: NSR ST Segments: other - nonspecific ST changes Rhythm Strip Diag. Results EP Interpretation: yes Rate: 88 Rhythm: NSR, no PVC's, no ectopy Last Vital Signs Date Time Temp Pulse Resp B/P (MAP) Pulse Ox O2 Delivery O2 Flow Rate FiO2 02/19/18 06:34 98.1 16 117/69 96 Room Air 98.1 02/19/18 06:19 97 Status: improved Disposition: HOME, SELF-CARE Condition: Improved Scripts Ibuprofen* (MOTRIN*) 600 Mg Tablet 600 MG ORAL Q8H PRN for For Pain, #10 TAB 0 Refills Prov: Elton Lee DO 02/19/18 Referrals: NON PHYSICIAN (PCP) Additional Instructions: Patient is provided with the discharge instructions notified to follow up with primary doctor in the next 2-3 days otherwise return to the er with any worsening symptoms. Please note that this report is being documented using [facility] technology. This can lead to erroneous entry secondary to incorrect interpretation by the dictating instrument. Elton Lee DO February 19, 2018 06:54
[2018-02-19 07:45] VITALS: BP 120/76
--- NOTE | 2018-02-20 22:42 | Cardiology Report ---
APPROVED REPORT EKG Measurement Heart [id number] Normal sinus rhythm Septal infarct, age undetermined Abnormal ECG
== END | disposition home or self-care (01) ==
LOC: EMR 06:45
DX: N19 Unspecified kidney failure (principal); M79.1 Myalgia; E11.9 Type 2 diabetes mellitus without complications; I10 Essential (primary) hypertension; Z88.0 Allergy status to penicillin; Z88.5 Allergy status to narcotic agent; Z87.19 Personal history of other diseases of the digestive system
CPT/HCPCS: 93005; 96372; 99284; J1170

== ENCOUNTER 2018-04-01 20:38 | Emergency (ER) | payer MEDICAID ==
[~2018-04-01] VITALS: Ht 165.1 cm; Wt 104.8 kg
[~2018-04-01 20:38] MED LIST changes: +BACTRIM DS TAB1 EAC1 ORAL; +GABAPENTIN300 MG ORAL; -Hydromorphone 0.5mg/0.5ml inj IM ONE; -Hydromorphone 0.5mg/0.5ml inj IVP ONE; +MUPIROCIN22 GM TOPIC; +TRAMADOL HCL50 MG ORAL
[2018-04-01] MEDS ORDERED: Norco 5mg/325mg tab ORAL ONE (21:30)
[2018-04-01] MEDS ORDERED: Vitamin A&D ud Packet TOPIC ONE (21:30)
[2018-04-01] MEDS ORDERED: Vitamin A&D Oint 2oz Tube TOPIC ONE (21:45)
[2018-04-01] MEDS ORDERED: Lidocaine HCl 2% Jelly 5ml Tube TOPIC ONE (22:00)
[2018-04-01 22:07] LABS: EOSINOPHILS % (AUTO) 2.1 % (0.0-3.0); HEMATOCRIT 37.2 % (37.0-47.0); HEMOGLOBIN 12.2 G/DL (12.0-16.0); LYMPHOCYTES % (AUTO) 20.3 % (20.0-45.0); MEAN CORPUSCULAR VOLUME 97 FL (80-99); MONOCYTES % (AUTO) 6.8 % (1.0-10.0); NEUTROPHILS % (AUTO) 68.9 % (45.0-75.0); PLATELET COUNT 209 K/UL (150-450); RED BLOOD COUNT 3.85 M/UL (4.20-5.40); RED CELL DISTRIBUTION WIDTH 14.9 % (11.6-14.8)
[2018-04-01 22:10] VITALS: BP 120/70
[2018-04-01 22:34] LABS: ANION GAP 10 mmol/L (5-15); BLOOD UREA NITROGEN 32 mg/dL (7-18); CALCIUM 9.1 MG/DL (8.5-10.1); CARBON DIOXIDE 30 MMOL/L (21-32); CHLORIDE 99 MMOL/L (98-107); CREATININE 8.1 MG/DL (0.55-1.30); POTASSIUM 4.4 MMOL/L (3.5-5.1); SODIUM 139 MMOL/L (136-145)
[2018-04-01] MEDS ORDERED: DESITIN DIAPER28 GM TP (22:36)
[2018-04-01] MEDS ORDERED: DIFLUCAN100 MG ORAL (22:36)
[2018-04-01] MEDS ORDERED: CEPHALEXIN500 MG ORAL (22:36)
[2018-04-01 22:46] VITALS: BP 106/72
[2018-04-01 22:47] LABS: ALANINE AMINOTRANSFERASE 21 U/L (12-78); ALBUMIN 3.7 G/DL (3.4-5.0); ALBUMIN/GLOBULIN RATIO 0.8 (1.0-2.7); ALKALINE PHOSPHATASE 175 U/L (46-116); ASPARTATE AMINO TRANSFERASE 11 U/L (15-37); BILIRUBIN,TOTAL 0.2 MG/DL (0.2-1.0)
--- NOTE | 2018-04-02 06:32 | Emergency Room Report ---
History of Present Illness General Chief Complaint: Skin Rash/Abscess Source: Patient Present Illness HPI Patient is a 52-year-old female who presented after increased painful area to her vulvar area. The patient had prior history of end-stage renal disease and is on dialysis. Patient reports having recent visits emergency department for similar symptoms. She reported having increased progression of the ar discomfort with prior diagnosis of shingles and subsequently postherpetic neuralgia. She denies any fever or numbness to her extremities. Allergies: Coded Allergies: PENICILLINS (Verified Allergy, Intermediate, Hives, 04/01/18) CIPROFLOXACIN (Verified Allergy, Unknown, Hives, 04/01/18) MORPHINE (Unverified Allergy, Unknown, 04/01/18) SULFAMETHOXAZOLE (Verified Allergy, Unknown, Hives, 04/01/18) TRIMETHOPRIM (Verified Allergy, Unknown, Hives, 04/01/18) VANCOMYCIN (Verified Allergy, Unknown, Rash, 04/01/18) Patient History Past Medical History: see triage record Last Menstrual Period: n/a Reviewed Nursing Documentation: PMH: Agreed; PSxH: Agreed Nursing Documentation-PMH Past Medical History: No History, Except For Hx Cardiac Problems: No Hx Hypertension: Yes Hx Pacemaker: No Hx Asthma: No Hx COPD: No Hx Diabetes: Yes Hx Cancer: No Hx Gastrointestinal Problems: Yes - DIVERTICULITIS Hx Dialysis: Yes - M-W-F, shunt upper right arm Hx Neurological Problems: No Hx Cerebrovascular Accident: No Hx Seizures: No Review of Systems All Other Systems: negative except mentioned in HPI Physical Exam Vital Signs Date Time Temp Pulse Resp B/P (MAP) Pulse Ox O2 Delivery O2 Flow Rate FiO2 04/01/18 20:45 98.5 110 16 115/70 97 Room Air 98.4 General Appearance: alert, GCS 15, obese, Chronically Ill Head: normocephalic ENT: normal ENT inspection, normal voice Neck: normal inspection, full range of motion Respiratory: normal inspection, chest non-tender, normal breath sounds Cardiovascular #1: normal inspection, regular rate, rhythm Gastrointestinal: normal inspection Genitourinary: other - ulceration to area between vagina and rectum, no fluctuance. Neurologic: normal inspection, alert, oriented x3, responsive, manager resource III-XII nml as tested Psychiatric: normal inspection Skin: other - ulcer to perineal area, no erythema, no palpable fluctuance Medical Decision Making Diagnostic Impression: Primary Impression: Perineal ulcer ER Course Patient was noted to have area of discomfort to her perineal area. Differential diagnosis included was not limited to had decubitus ulcer, necrotizing fasciitis, herpes, shingles, among others.Because of complexity of patient's case laboratory testing and imaging studies were ordered. The laboratory testing showed a minimally elevated white blood count consistent with patient's previous blood levels. The patient was given prescription for Keflex. The patient was asked if she had any issues with Keflex in the past and she stated that she had only had yeast infections after taking this. The patient was also given prescription for Diflucan. The patient was advised to follow-up with her PRIMARY TEACHER. Patient is advised to return if she had any worsening of condition. Labs Test 04/01/18 22:00 White Blood Count 12.0 K/UL (4.8-10.8) Red Blood Count 3.85 M/UL (4.20-5.40) Hemoglobin 12.2 G/DL (12.0-16.0) Hematocrit 37.2 % (37.0-47.0) Mean Corpuscular Volume 97 FL (80-99) Mean Corpuscular Hemoglobin 31.6 PG (27.0-31.0) Mean Corpuscular Hemoglobin Concent 32.7 G/DL (32.0-36.0) Red Cell Distribution Width 14.9 % (11.6-14.8) Platelet Count 209 K/UL (150-450) Mean Platelet Volume 8.0 FL (6.5-10.1) Neutrophils (%) (Auto) 68.9 % (45.0-75.0) Lymphocytes (%) (Auto) 20.3 % (20.0-45.0) Monocytes (%) (Auto) 6.8 % (1.0-10.0) Eosinophils (%) (Auto) 2.1 % (0.0-3.0) Basophils (%) (Auto) 2.0 % (0.0-2.0) Sodium Level 139 MMOL/L (136-145) Potassium Level 4.4 MMOL/L (3.5-5.1) Chloride Level 99 MMOL/L (98-107) Carbon Dioxide Level 30 MMOL/L (21-32) Anion Gap 10 mmol/L (5-15) Blood Urea Nitrogen 32 mg/dL (7-18) Creatinine 8.1 MG/DL (0.55-1.30) Estimat Glomerular Filtration Rate 6.3 mL/min (>60) Glucose Level 219 MG/DL (74-106) Calcium Level 9.1 MG/DL (8.5-10.1) Total Bilirubin 0.2 MG/DL (0.2-1.0) Aspartate Amino Transf (AST/SGOT) 11 U/L (15-37) Alanine Aminotransferase (ALT/SGPT) 21 U/L (12-78) Alkaline Phosphatase 175 U/L (46-116) Troponin I 0.000 ng/mL (0.000-0.056) Total Protein 8.1 G/DL (6.4-8.2) Albumin 3.7 G/DL (3.4-5.0) Globulin 4.4 g/dL Albumin/Globulin Ratio 0.8 (1.0-2.7) Thyroid Stimulating Hormone (TSH) 1.868 uiU/mL (0.358-3.740) Last Vital Signs Date Time Temp Pulse Resp B/P (MAP) Pulse Ox O2 Delivery O2 Flow Rate FiO2 04/01/18 22:46 98.2 99 19 106/72 99 Room Air 98.2 Status: improved Disposition: HOME, SELF-CARE Condition: Improved Scripts Fluconazole* (DIFLUCAN*) 100 Mg Tablet 100 MG ORAL DAILY, #1 TAB Prov: Eleuterio Cook MD 04/01/18 Cephalexin* (KEFLEX*) 500 Mg Capsule 500 MG ORAL EVERY 6 HOURS, #28 CAP Prov: Eleuterio Cook MD 04/01/18 Cod Liver Oil/Zinc Oxide (DESITIN DIAPER RASH 40% PASTE) 28 Gm Paste..g. 28 GM TP DAILY, #30 GM Prov: Eleuterio Cook MD 04/01/18 Patient Instructions: Rash, [id number] Eleuterio Cook MD Apr 02, 2018 06:32
--- NOTE | 2018-04-03 00:35 | Cardiology Report ---
APPROVED REPORT EKG Measurement Heart [id number] Normal sinus rhythm Septal infarct, age undetermined Abnormal ECG
== END 2018-04-01 22:46 | disposition home or self-care (01) ==
LOC: EMR 21:10
DX: L98.498 Non-pressure chronic ulcer of skin of other sites with other specified severity (principal); I12.0 Hypertensive chronic kidney disease with stage 5 chronic kidney disease or end stage renal disease; N18.6 End stage renal disease; Z99.2 Dependence on renal dialysis; E11.9 Type 2 diabetes mellitus without complications; K57.92 Diverticulitis of intestine, part unspecified, without perforation or abscess without bleeding; Z88.4 Allergy status to anesthetic agent; Z88.1 Allergy status to other antibiotic agents; Z88.0 Allergy status to penicillin; Z88.2 Allergy status to sulfonamides
CPT/HCPCS: 36415; 80053; 84443; 84484; 85025; 93005; 99284

== ENCOUNTER 2018-05-10 12:14 | Emergency (ER) | payer MEDICAID ==
[~2018-05-10] VITALS: Ht 165.1 cm; Wt 103.9 kg
[~2018-05-10 12:14] MED LIST changes: +DESITIN DIAPER28 GM TP; +DIFLUCAN100 MG ORAL
[2018-05-10] MEDS: HYDROcodone/Acetamin 10/325 tab ORAL ONE ×2 (12:48→13:58)
[2018-05-10] MEDS ORDERED: NORCO 10-325 T1 EACH ORAL (13:19)
[2018-05-10 13:26] LABS: BASOPHILS % (AUTO) 1.9 % (0.0-2.0); EOSINOPHILS % (AUTO) 2.4 % (0.0-3.0); LYMPHOCYTES % (AUTO) 26.1 % (20.0-45.0); MEAN CORPUSCULAR VOLUME 97 FL (80-99); MONOCYTES % (AUTO) 9.7 % (1.0-10.0); NEUTROPHILS % (AUTO) 59.9 % (45.0-75.0); PLATELET COUNT 245 K/UL (150-450); RED CELL DISTRIBUTION WIDTH 13.8 % (11.6-14.8); WHITE BLOOD COUNT 11.2 K/UL (4.8-10.8)
[2018-05-10] MEDS ORDERED: DiphenhydrAMINE 50mg/ml Inj IVP ONE (13:30)
[2018-05-10 13:45] VITALS: BP 108/69
[2018-05-10] MEDS ORDERED: Morphine Sulfate 4mg/ml Inj (IV USE ONLY) IVP ONE (13:45)
[2018-05-10] MEDS ORDERED: ZOFRAN4 MG ORAL (14:03)
[2018-05-10 14:04] LABS: ALANINE AMINOTRANSFERASE 19 U/L (12-78); ALBUMIN 3.6 G/DL (3.4-5.0); ALBUMIN/GLOBULIN RATIO 0.8 (1.0-2.7); ALKALINE PHOSPHATASE 160 U/L (46-116); ANION GAP 11 mmol/L (5-15); ASPARTATE AMINO TRANSFERASE 32 U/L (15-37); BILIRUBIN,TOTAL 0.3 MG/DL (0.2-1.0); BLOOD UREA NITROGEN 29 mg/dL (7-18); CALCIUM 9.9 MG/DL (8.5-10.1); CARBON DIOXIDE 29 MMOL/L (21-32); CHLORIDE 96 MMOL/L (98-107); CKMB 0.6 NG/ML (0.0-3.6); CREATINE KINASE 97 U/L (26-308); CREATININE 8.3 MG/DL (0.55-1.30); PHOSPHORUS 3.8 MG/DL (2.5-4.9); SODIUM 136 MMOL/L (136-145)
[2018-05-10 14:05] LABS: POTASSIUM 5.9 MMOL/L (3.5-5.1)
[2018-05-10 14:32] VITALS: BP 107/44
--- NOTE | 2018-05-10 15:05 | Emergency Room Report ---
History of Present Illness General Chief Complaint: Chest Pain Source: Patient Present Illness HPI Patient 53-year-old female who presented after increased sharp chest pain. Patient was having constant pain which began approximately 1 day prior to arrival. Pain had been productive only right-sided. This is worse with movements. Patient states that she had similar symptoms in the past. She is noted to have a prior history of arthritis as well as end-stage renal disease and is currently on dialysis. She reports having been compliant with dialysis. Patient denied any vomiting or shortness of breath. Patient had a chronic pain . Allergies: Coded Allergies: PENICILLINS (Verified Allergy, Intermediate, Hives, 04/01/18) CIPROFLOXACIN (Verified Allergy, Unknown, Hives, 04/01/18) MORPHINE (Unverified Allergy, Unknown, 04/01/18) SULFAMETHOXAZOLE (Verified Allergy, Unknown, Hives, 04/01/18) TRIMETHOPRIM (Verified Allergy, Unknown, Hives, 04/01/18) VANCOMYCIN (Verified Allergy, Unknown, Rash, 04/01/18) Patient History Past Medical History: see triage record Now: No Reviewed Nursing Documentation: PMH: Agreed; PSxH: Agreed Nursing Documentation-PMH Past Medical History: No History, Except For Hx Cardiac Problems: No Hx Hypertension: Yes Hx Pacemaker: No Hx Asthma: No Hx COPD: No Hx Diabetes: Yes Hx Cancer: No Hx Gastrointestinal Problems: Yes - DIVERTICULITIS Hx Dialysis: Yes - M-W-F, shunt upper right arm Hx Neurological Problems: No Hx Cerebrovascular Accident: No Hx Seizures: No Review of Systems All Other Systems: negative except mentioned in HPI Physical Exam Vital Signs Date Time Temp Pulse Resp B/P (MAP) Pulse Ox O2 Delivery O2 Flow Rate FiO2 05/10/18 12:28 98.4 97 18 108/69 97 Room Air 98.4 Sp02 EP Interpretation: reviewed, normal General Appearance: normal inspection, well appearing, no apparent distress, alert, GCS 15, obese Head: atraumatic ENT: normal ENT inspection, hearing grossly normal, normal voice Neck: normal inspection, full range of motion, supple, no bony tend Respiratory: normal inspection, lungs clear, normal breath sounds, no respiratory distress, no retraction, no wheezing Cardiovascular #1: regular rate, rhythm Gastrointestinal: normal inspection, normal bowel sounds, non tender, soft, no guarding, no hernia Genitourinary: no CVA tenderness Musculoskeletal: normal inspection, back normal, normal range of motion Neurologic: normal inspection, alert, oriented x3, responsive, clerk rating III-XII nml as tested, speech normal Psychiatric: normal inspection, judgement/insight normal, mood/affect normal Skin: normal inspection, normal color, no rash Medical Decision Making Diagnostic Impression: Primary Impression: Chest pain Additional Impressions: Chronic pain ESRD (end stage renal disease) on dialysis ER Course Patient presented for chest pain.Differential diagnosis included but was not limited to acute coronary syndrome, pulmonary embolism, pneumonia, aortic dissection, shingles, pneumothorax, aortic dissection, esophageal rupture, pericarditis. Because of complexity of patient's case laboratory testing and imaging studies were ordered. The patient is given pain medications with some improvement in her symptoms. The patient was noted to have recent prior workups and this appears to be noncardiac pain based on the timing and character of the pain and negative troponin. The patient is advised to follow up with primary care doctor in 1-2 days. Patient is advised to return if any worsening condition or if any changes in status that are concerning. This report is dictated with [employer] software which may occasionally lead to discrepancies related to use of this software. Labs Test 05/10/18 13:03 White Blood Count 11.2 K/UL (4.8-10.8) Red Blood Count 4.20 M/UL (4.20-5.40) Hemoglobin 13.0 G/DL (12.0-16.0) Hematocrit 41.0 % (37.0-47.0) Mean Corpuscular Volume 97 FL (80-99) Mean Corpuscular Hemoglobin 30.9 PG (27.0-31.0) Mean Corpuscular Hemoglobin Concent 31.7 G/DL (32.0-36.0) Red Cell Distribution Width 13.8 % (11.6-14.8) Platelet Count 245 K/UL (150-450) Mean Platelet Volume 9.1 FL (6.5-10.1) Neutrophils (%) (Auto) 59.9 % (45.0-75.0) Lymphocytes (%) (Auto) 26.1 % (20.0-45.0) Monocytes (%) (Auto) 9.7 % (1.0-10.0) Eosinophils (%) (Auto) 2.4 % (0.0-3.0) Basophils (%) (Auto) 1.9 % (0.0-2.0) Sodium Level 136 MMOL/L (136-145) Potassium Level 5.9 MMOL/L (3.5-5.1) Chloride Level 96 MMOL/L (98-107) Carbon Dioxide Level 29 MMOL/L (21-32) Anion Gap 11 mmol/L (5-15) Blood Urea Nitrogen 29 mg/dL (7-18) Creatinine 8.3 MG/DL (0.55-1.30) Estimat Glomerular Filtration Rate 6.1 mL/min (>60) Glucose Level 161 MG/DL (74-106) Lactic Acid Level 2.40 mmol/L (0.4-2.0) Calcium Level 9.9 MG/DL (8.5-10.1) Phosphorus Level 3.8 MG/DL (2.5-4.9) Magnesium Level 2.4 MG/DL (1.8-2.4) Total Bilirubin 0.3 MG/DL (0.2-1.0) Aspartate Amino Transf (AST/SGOT) 32 U/L (15-37) Alanine Aminotransferase (ALT/SGPT) 19 U/L (12-78) Alkaline Phosphatase 160 U/L (46-116) Total Creatine Kinase 97 U/L (26-308) Creatine Kinase MB 0.6 NG/ML (0.0-3.6) Creatine Kinase MB Relative Index 0.6 Troponin I 0.000 ng/mL (0.000-0.056) Total Protein 8.4 G/DL (6.4-8.2) Albumin 3.6 G/DL (3.4-5.0) Globulin 4.8 g/dL Albumin/Globulin Ratio 0.8 (1.0-2.7) EKG Diagnostic Results Rate: normal Rhythm: NSR - 97 ST Segments: no acute changes ASA given to the pt in ED: No Last Vital Signs Date Time Temp Pulse Resp B/P (MAP) Pulse Ox O2 Delivery O2 Flow Rate FiO2 05/10/18 14:32 98.2 85 16 107/44 100 Room Air 98.4 Disposition: HOME, SELF-CARE Condition: Stable Scripts Ondansetron (Zofran) 4 Mg Tablet 4 MG ORAL Q6H PRN for Nausea & Vomiting, #30 TAB 0 Refills Prov: Eleuterio Cook MD 05/10/18 Hydrocodone Bit/Acetaminophen 10-325* (NORCO 10-325*) 1 Each Tablet 1 TAB ORAL Q6H PRN for For Pain, #10 TAB 0 Refills PRN PAIN Prov: Eleuterio Cook MD 05/10/18 Patient Instructions: Nonspecific Chest Pain Eleuterio Cook MD May 10, 2018 15:05
--- NOTE | 2018-05-11 08:31 | Diagnostic Imaging Report ---
Complete Indication: Shortness of breath Technique: One view of the chest Comparison: For 05/18/2018 Findings: Lungs and pleural spaces are clear. Heart size is normal . No significant interim change Impression: No acute process This agrees with the preliminary interpretation provided overnight by [facility] teleradiology service.
== END 2018-05-10 14:33 | disposition home or self-care (01) ==
LOC: EMR 13:48
DX: R07.9 Chest pain, unspecified (principal); N18.6 End stage renal disease; Z99.2 Dependence on renal dialysis; R68.84 Jaw pain; M19.90 Unspecified osteoarthritis, unspecified site; K57.92 Diverticulitis of intestine, part unspecified, without perforation or abscess without bleeding; Z88.0 Allergy status to penicillin; Z88.1 Allergy status to other antibiotic agents; Z88.5 Allergy status to narcotic agent; Z88.2 Allergy status to sulfonamides; Z88.3 Allergy status to other anti-infective agents
CPT/HCPCS: 36415; 71045; 80053; 82550; 82553; 83605; 83735; 84100; 84484; 85025; 87040; 93005; 99284; J1200; J2270; J2405

== ENCOUNTER 2018-06-23 07:32 | Inpatient (IN) | payer MEDICAID ==
[~2018-06-23] VITALS: Ht 157.5 cm; Wt 108.9 kg
[~2018-06-23 07:32] MED LIST changes: +ZOFRAN4 MG ORAL
[2018-06-23] MEDS ORDERED: Sodium Chloride 500ML 500 ML IV ONE (07:52)
[2018-06-23] MEDS ORDERED: Isovue-300 100ml vial INJ PRN (08:00)
[2018-06-23] MEDS ORDERED: HYDROmorphone 1mg/ml Carpuject IVP ONE ×2 (08:00→10:15)
[2018-06-23 08:14] LABS: BASOPHILS % (AUTO) 1.1 % (0.0-2.0); EOSINOPHILS % (AUTO) 2.2 % (0.0-3.0); HEMATOCRIT 40.7 % (37.0-47.0); HEMOGLOBIN 13.1 G/DL (12.0-16.0); MEAN CORPUSCULAR VOLUME 96 FL (80-99); NEUTROPHILS % (AUTO) 62.6 % (45.0-75.0); PLATELET COUNT 264 K/UL (150-450); RED BLOOD COUNT 4.23 M/UL (4.20-5.40); RED CELL DISTRIBUTION WIDTH 13.4 % (11.6-14.8); WHITE BLOOD COUNT 10.2 K/UL (4.8-10.8)
--- NOTE | 2018-06-23 08:16 | Emergency Room Report ---
History of Present Illness General Chief Complaint: Abdominal Pain Source: Patient Present Illness HPI 53-year-old female presents ED complaining of abdominal pain. Started around 3 AM. Sudden onset. Sharp, diffuse, 8 out of 10, nonradiating. Notes nausea and vomiting. Denies diarrhea. States this feels like when she had her diverticulitis in the past. Denies fevers or chills. History of end-stage renal disease on dialysis. Last dialysis was yesterday. Denies chest pain or shortness of breath. No other aggravating relieving factors. Denies any other associated symptoms Allergies: Coded Allergies: PENICILLINS (Verified Allergy, Intermediate, Hives, 04/01/18) CIPROFLOXACIN (Verified Allergy, Unknown, Hives, 04/01/18) MORPHINE (Unverified Allergy, Unknown, 04/01/18) SULFAMETHOXAZOLE (Verified Allergy, Unknown, Hives, 04/01/18) TRIMETHOPRIM (Verified Allergy, Unknown, Hives, 04/01/18) VANCOMYCIN (Verified Allergy, Unknown, Rash, 04/01/18) Patient History Past Medical History: HTN, renal disease, dialysis, other - diverticulitis Past Surgical History: none Pertinent Family History: none Social History: Denies: smoking, alcohol use, drug use Now: No Immunizations: UTD Reviewed Nursing Documentation: PMH: Agreed; PSxH: Agreed Nursing Documentation-PMH Hx Cardiac Problems: No Hx Hypertension: Yes Hx Pacemaker: No Hx Asthma: No Hx COPD: No Hx Diabetes: Yes Hx Cancer: No Hx Gastrointestinal Problems: Yes - DIVERTICULITIS Hx Dialysis: Yes - M-W-F, shunt upper right arm Hx Neurological Problems: No Hx Cerebrovascular Accident: No Hx Seizures: No Review of Systems All Other Systems: negative except mentioned in HPI Physical Exam Vital Signs Date Time Temp Pulse Resp B/P (MAP) Pulse Ox O2 Delivery O2 Flow Rate FiO2 06/23/18 07:37 98.4 98 18 105/72 94 Room Air 98.4 Sp02 EP Interpretation: reviewed, normal General Appearance: alert, GCS 15, non-toxic, mild distress, obese Head: normocephalic, atraumatic Eyes: bilateral eye normal inspection, bilateral eye PERRL ENT: hearing grossly normal, normal pharynx, no angioedema, normal voice Neck: full range of motion, supple/symm/no masses Respiratory: chest non-tender, lungs clear, normal breath sounds, speaking full sentences Cardiovascular #1: regular rate, rhythm, no edema Cardiovascular #2: 2+ carotid (R), 2+ carotid (L), 2+ radial (R), 2+ radial (L) , 2+ dorsalis pedis (R), 2+ dorsalis pedis (L) Gastrointestinal: normal bowel sounds, soft, non-distended, no rebound, tenderness Rectal: deferred Genitourinary: normal inspection, no CVA tenderness Musculoskeletal: back normal, gait/station normal, normal range of motion, non- tender Neurologic: alert, oriented x3, responsive, motor strength/tone normal, sensory intact, speech normal Psychiatric: judgement/insight normal, memory normal, mood/affect normal, no suicidal/homicidal ideation Reflexes: 3+ bicep (R), 3+ bicep (L), 3+ tricep (R), 3+ tricep (L), 3+ knee (R) , 3+ knee (L) Skin: normal color, no rash, warm/dry, well hydrated Lymphatic: no adenopathy Medical Decision Making Diagnostic Impression: Primary Impression: ESRD (end stage renal disease) on dialysis Additional Impression: Diverticulitis of sigmoid colon ER Course Hospital Course 53-year-old female presents to ED with lower abdominal pain, vomiting Differential diagnoses include: appendicitis, diverticulitis, SBO, gastroenteritis Clinical course 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 After initial history and physical I ordered labs, IV fluids, UA, pain medication and CT scan Labs - no leukocytosis, Hb/Hct stable. BUN/Cr elevated (ESRD) CT abdomen and pelvis - diverticulitis Patient required additional pain medications. Antibiotics given. Case discussed with Dr Miranda/Wayne and he agreed to accept the patient to his service for further care and support I feel this is a highly complex case requiring extensive working including EKG/ Rhythm strip, Xray/CT/US, Blood/urine lab work, repeat exams while in ED, and administration of strong opiates/narcotics for pain control, admission to hospital or close patient follow up. Diagnosis - ESRD on dialysis, divertculitis Patient admitted to floor in serious condition Labs Test 06/23/18 08:00 White Blood Count 10.2 K/UL (4.8-10.8) Red Blood Count 4.23 M/UL (4.20-5.40) Hemoglobin 13.1 G/DL (12.0-16.0) Hematocrit 40.7 % (37.0-47.0) Mean Corpuscular Volume 96 FL (80-99) Mean Corpuscular Hemoglobin 30.9 PG (27.0-31.0) Mean Corpuscular Hemoglobin Concent 32.1 G/DL (32.0-36.0) Red Cell Distribution Width 13.4 % (11.6-14.8) Platelet Count 264 K/UL (150-450) Mean Platelet Volume 8.1 FL (6.5-10.1) Neutrophils (%) (Auto) 62.6 % (45.0-75.0) Lymphocytes (%) (Auto) 26.0 % (20.0-45.0) Monocytes (%) (Auto) 8.0 % (1.0-10.0) Eosinophils (%) (Auto) 2.2 % (0.0-3.0) Basophils (%) (Auto) 1.1 % (0.0-2.0) Sodium Level 137 MMOL/L (136-145) Potassium Level 5.1 MMOL/L (3.5-5.1) Chloride Level 97 MMOL/L (98-107) Carbon Dioxide Level 26 MMOL/L (21-32) Anion Gap 14 mmol/L (5-15) Blood Urea Nitrogen 33 mg/dL (7-18) Creatinine 9.3 MG/DL (0.55-1.30) Estimat Glomerular Filtration Rate 5.5 mL/min (>60) Glucose Level 182 MG/DL (74-106) Calcium Level 10.2 MG/DL (8.5-10.1) Total Bilirubin 0.3 MG/DL (0.2-1.0) Aspartate Amino Transf (AST/SGOT) 6 U/L (15-37) Alanine Aminotransferase (ALT/SGPT) 23 U/L (12-78) Alkaline Phosphatase 165 U/L (46-116) Troponin I 0.000 ng/mL (0.000-0.056) Total Protein 8.6 G/DL (6.4-8.2) Albumin 3.9 G/DL (3.4-5.0) Globulin 4.7 g/dL Albumin/Globulin Ratio 0.8 (1.0-2.7) Lipase 210 U/L (73-393) CT/MRI/US Diagnostic Results CT/MRI/US Diagnostic Results : Imaging Test Ordered: CT A/P Impression diverticulitis Last Vital Signs Date Time Temp Pulse Resp B/P (MAP) Pulse Ox O2 Delivery O2 Flow Rate FiO2 06/23/18 07:37 98.4 98 18 105/72 94 Room Air 98.4 Status: improved Disposition: ADMITTED INPATIENT Condition: Serious Referrals: NON PHYSICIAN (PCP) Miguel Baez MD Jun 23, 2018 08:16
[2018-06-23 08:33] LABS: ANION GAP 14 mmol/L (5-15); BLOOD UREA NITROGEN 33 mg/dL (7-18); CALCIUM 10.2 MG/DL (8.5-10.1); CARBON DIOXIDE 26 MMOL/L (21-32); CHLORIDE 97 MMOL/L (98-107); CREATININE 9.3 MG/DL (0.55-1.30); POTASSIUM 5.1 MMOL/L (3.5-5.1); SODIUM 137 MMOL/L (136-145)
[2018-06-23] MEDS: Sodium Chloride 500ML 550 ML IV SCH ×2 (08:34→16:30)
[2018-06-23 08:37] LABS: ALBUMIN 3.9 G/DL (3.4-5.0); ALBUMIN/GLOBULIN RATIO 0.8 (1.0-2.7); ALKALINE PHOSPHATASE 165 U/L (46-116); ASPARTATE AMINO TRANSFERASE 6 U/L (15-37); BILIRUBIN,TOTAL 0.3 MG/DL (0.2-1.0)
[2018-06-23] MEDS ORDERED: DiphenhydrAMINE 50mg/ml Inj ONE (08:37)
[2018-06-23] MEDS ORDERED: DiphenhydrAMINE 50mg/ml Inj IVP ONE ×3 (08:45→12:00)
[2018-06-23 08:47] VITALS: BP 105/72
[2018-06-23 10:07] VITALS: BP 116/62
--- NOTE | 2018-06-23 10:21 | Diagnostic Imaging Report ---
Clinical Indication: Abdominal pain sudden onset, sharp diffuse, irregular 10, nonradiating, nausea and vomiting Technique: No oral contrast utilized, per emergency room physician request IV administration nonionic contrast. Venous phase spiral acquisition obtained through the abdomen and pelvis. Multiplanar reconstructions were generated. Total dose length product 952.98 mGycm. CTDIvol(s) 19.28 mGy. Dose reduction achieved using automated exposure control Comparison: 04/13/2017 contrast study, 11/28/2017 noncontrast study Findings: Lack of enteric contrast limits assessment of the GI tract. There is colonic diverticulosis. There is mild wall thickening of the distal transverse colon and the splenic flexure and proximal descending colon. There is equivocal very slight infiltration of the pericolonic fat adjacent to the descending colon distally. The appendix is normal. There is a tiny umbilical hernia which contains only fat. The distal esophagus, stomach, duodenum are unremarkable. No free or loculated intraperitoneal gas or fluid. There is mild diastasis of the rectus abdominis tendon. The liver is diffusely hypoattenuating, consistent with fatty change. No focal abnormality. Gallbladder, bile ducts, pancreas, spleen, adrenals are unremarkable. The kidneys are markedly atrophic bilaterally, even more so than on the previous study. No pelvic mass or adenopathy. Uterus and adnexal structures appear unremarkable. Surgical clips are seen in the left pelvis, may be related to prior renal transplant surgery The included lung bases demonstrate numerous subcentimeter nodular opacities most of which appear similar in size and extent to the previous exam. The bones demonstrate diffuse sclerosis, likely on the basis of renal osteodystrophy. There are degenerative changes of the lumbosacral junction. Impression: Extensive diverticulosis, also previously reported. Equivocal slight infiltration of the pericolonic fat adjacent to the descending colon, could indicate very early acute diverticulitis. Correlate with clinical findings Slight wall thickening of the distal transverse, proximal descending colon and splenic flexure. Possibly related to the above, or could indicate colitis unrelated to diverticular disease. Fatty liver Atrophic bilateral kidneys, consistent with known history of chronic renal disease Bilateral lung nodules, also reported on multiple prior CT scans dating back to 2012 and therefore likely postinflammatory Diffuse osseous sclerosis, likely on the basis of renal osteodystrophy Other findings as noted, including small fat-containing umbilical hernia, degenerative spondylosis The CT scanner at [facility] is accredited by the [employer] and the scans are performed using protocols designed to limit radiation exposure to as low as reasonably achievable to attain images of sufficient resolution adequate for diagnostic evaluation.
[2018-06-23 10:56] LABS: ALANINE AMINOTRANSFERASE 23 U/L (12-78)
[2018-06-23 11:25] VITALS: BP 144/70
[2018-06-23] MEDS ORDERED: Solu-MEDROL 125mg Inj IVP ONE (12:00)
[2018-06-23] MEDS ORDERED: traMADol 50mg tab ORAL PRN (12:15)
[2018-06-23] MEDS ORDERED: Brimonidine 0.2% Opth Sol BOTH EYES SCH (14:00)
--- NOTE | 2018-06-23 15:53 | Infectious Diseases Prog Note ---
Assessment/Plan Problems: (1) Diverticulitis of sigmoid colon Assessment & Plan: will start ertapenem empirically and send stool for culture , continue hydration and pain management (2) Colitis Assessment & Plan: will send stool for C diff toxin , and culture , will start ertapenem empirically (3) Abdominal pain Assessment & Plan: due to the above, continue antibiotics and pain management as needed (4) ESRD (end stage renal disease) on dialysis Assessment & Plan: continue HD as per renal (5) Diabetes mellitus Assessment & Plan: recommend tight glycemic control to keep blood glucose between 100-140 Subjective Allergies: Coded Allergies: PENICILLINS (Verified Allergy, Intermediate, Hives, 04/01/18) CIPROFLOXACIN (Verified Allergy, Unknown, Hives, 04/01/18) MORPHINE (Unverified Allergy, Unknown, 04/01/18) SULFAMETHOXAZOLE (Verified Allergy, Unknown, Hives, 04/01/18) TRIMETHOPRIM (Verified Allergy, Unknown, Hives, 04/01/18) VANCOMYCIN (Verified Allergy, Unknown, Rash, 04/01/18) Objective Vital Signs Last 24 Hour Vital Signs Date Time Temp Pulse Resp B/P (MAP) Pulse Ox O2 Delivery O2 Flow Rate FiO2 06/23/18 13:22 98.1 95 18 144/70 99 Room Air 98.1 91 06/23/18 11:27 98.1 06/23/18 11:27 98.1 06/23/18 11:25 91 18 144/70 99 Room Air 06/23/18 10:28 98.1 06/23/18 10:09 98.1 90 18 116/62 98 Room Air 98.1 06/23/18 10:07 98.1 90 18 116/62 98 Room Air 98.1 06/23/18 08:47 98.4 95 18 105/72 94 Room Air 98.4 06/23/18 08:32 98.4 06/23/18 07:37 98.4 98 18 105/72 94 Room Air 98.4 Height (Feet): 5 Height (Inches): 5.00 Weight (Pounds): 230 Laboratory Tests Test 06/23/18 08:00 White Blood Count 10.2 K/UL (4.8-10.8) Red Blood Count 4.23 M/UL (4.20-5.40) Hemoglobin 13.1 G/DL (12.0-16.0) Hematocrit 40.7 % (37.0-47.0) Mean Corpuscular Volume 96 FL (80-99) Mean Corpuscular Hemoglobin 30.9 PG (27.0-31.0) Mean Corpuscular Hemoglobin Concent 32.1 G/DL (32.0-36.0) Red Cell Distribution Width 13.4 % (11.6-14.8) Platelet Count 264 K/UL (150-450) Mean Platelet Volume 8.1 FL (6.5-10.1) Neutrophils (%) (Auto) 62.6 % (45.0-75.0) Lymphocytes (%) (Auto) 26.0 % (20.0-45.0) Monocytes (%) (Auto) 8.0 % (1.0-10.0) Eosinophils (%) (Auto) 2.2 % (0.0-3.0) Basophils (%) (Auto) 1.1 % (0.0-2.0) Sodium Level 137 MMOL/L (136-145) Potassium Level 5.1 MMOL/L (3.5-5.1) Chloride Level 97 MMOL/L (98-107) L Carbon Dioxide Level 26 MMOL/L (21-32) Anion Gap 14 mmol/L (5-15) Blood Urea Nitrogen 33 mg/dL (7-18) H Creatinine 9.3 MG/DL (0.55-1.30) H Estimat Glomerular Filtration Rate 5.5 mL/min (>60) Glucose Level 182 MG/DL (74-106) H Calcium Level 10.2 MG/DL (8.5-10.1) H Total Bilirubin 0.3 MG/DL (0.2-1.0) Aspartate Amino Transf (AST/SGOT) 6 U/L (15-37) L Alanine Aminotransferase (ALT/SGPT) 23 U/L (12-78) Alkaline Phosphatase 165 U/L (46-116) H Troponin I 0.000 ng/mL (0.000-0.056) Total Protein 8.6 G/DL (6.4-8.2) H Albumin 3.9 G/DL (3.4-5.0) Globulin 4.7 g/dL Albumin/Globulin Ratio 0.8 (1.0-2.7) L Lipase 210 U/L (73-393) Current Medications Medications (Trade) Dose Ordered Sig/Regina Route PRN Reason Start Time Stop Time Status Last Admin Dose Admin Acetaminophen (Tylenol) 650 mg Q4H PRN ORAL Mild Pain (Pain Scale 1-3) 06/23/18 12:15 07/23/18 12:14 Atorvastatin Calcium (Lipitor) 10 mg QHS ORAL 06/23/18 21:00 07/23/18 20:59 Calcium Carbonate (Os-Toni) 1,000 mg TID ORAL 06/23/18 13:00 07/23/18 12:59 Dextrose (Dextrose 50%) 25 ml Q1H PRN IV Hypoglycemia 06/23/18 12:15 Dextrose (Dextrose 50%) 50 ml Q1H PRN IV Hypoglycemia 06/23/18 12:15 Diphenhydramine HCl (Benadryl) 25 mg Q6H PRN ORAL Itching/Pruritis 06/23/18 12:15 07/23/18 12:14 Gabapentin (Neurontin) 300 mg QHS ORAL 06/23/18 21:00 07/23/18 20:59 Heparin Sodium (Porcine) (Heparin 5000 units/ml) 5,000 units EVERY 8 HOURS SUBQ 06/23/18 14:00 07/23/18 13:59 Iopamidol (Isovue-300 100ml) 100 ml NOW PRN INJ Radiology Procedure 06/23/18 08:00 Ondansetron HCl (Zofran) 4 mg Q6H PRN IVP Nausea & Vomiting 06/23/18 12:15 07/23/18 12:14 Sodium Chloride 550 ml @ 100 mls/hr Q5H30M IV 06/23/18 08:00 07/23/18 07:59 06/23/18 08:34 Tramadol HCl (Ultram) 50 mg Q8H PRN ORAL Moderate Pain (Pain Scale 4-6) 06/23/18 12:15 06/30/18 12:14 Italia De La Vega M.D. Jun 23, 2018 15:53
[2018-06-23 16:00] VITALS: BP 104/53
[2018-06-23] MEDS ORDERED: Hydromorphone 0.5mg/0.5ml inj IVP SCH (16:00)
--- NOTE | 2018-06-23 16:16 | Consultation ---
History of Present Illness General Date patient seen: Jun 23, 2018 Chief Complaint: Abdominal Pain Reason for Consultation: abdominal pain Present Illness HPI 53 year old female with history of ESRD on HD M/W/F presented to ED with abdominal pain. States that she was well until 3 AM when she began to have worsening abdominal pain with associated nausea and emesis. Pain upper abdomen with radiation to RUQ/epigastric region. Multiple episodes of non bloody emesis. No prior episodes similar. Normal BM and flatus. In ED had labs which demonstrated slightly elevated alk phos and lft's. no leukocytosis. CT with possible colitis vs diverticulitis. Surgery called to evaluate. patient seen, chart reviewed, patient examined. Allergies: Coded Allergies: PENICILLINS (Verified Allergy, Intermediate, Hives, 04/01/18) CIPROFLOXACIN (Verified Allergy, Unknown, Hives, 04/01/18) MORPHINE (Unverified Allergy, Unknown, 04/01/18) SULFAMETHOXAZOLE (Verified Allergy, Unknown, Hives, 04/01/18) TRIMETHOPRIM (Verified Allergy, Unknown, Hives, 04/01/18) VANCOMYCIN (Verified Allergy, Unknown, Rash, 04/01/18) Medication History Scheduled Atorvastatin Calcium* (Lipitor*), 10 MG ORAL BEDTIME, (Reported) Calcium Carbonate (Calcium), 500 MG ORAL AC, (Reported) Cephalexin* (Keflex*), 500 MG ORAL EVERY 6 HOURS Ciprofloxacin Hcl* (Ciprofloxacin Hcl*), 500 MG ORAL EVERY 12 HOURS Cod Liver Oil/Zinc Oxide (Desitin Diaper Rash 40% Paste), 28 GM TP DAILY Fluconazole* (Diflucan*), 100 MG ORAL DAILY Gabapentin* (Gabapentin*), 300 MG ORAL THREE TIMES A DAY Trimethoprim/Sulfamethoxazole 160/800* (Bactrim Ds Tablet*), 1 TAB ORAL TWICE A DAY Zolpidem Tartrate* (Zolpidem Tartrate*), 10 MG ORAL BEDTIME, (Reported) Scheduled PRN Hydrocodone Bit/Acetaminophen 10-325* ([place] 10-325*), 1 TAB ORAL Q6H PRN for For Pain Lorazepam* (Lorazepam*), 1 MG ORAL PRN PRN for For Anxiety, (Reported) Ondansetron (Zofran), 4 MG ORAL Q6H PRN for Nausea & Vomiting Tramadol Hcl* (Ultram*), 50 MG ORAL Q6H PRN for For Pain Miscellaneous Medications Brimonidine Tartrate (Alphagan P), (Reported) Patient History History Provided By: Patient, Medical Record, PMD Healthcare decision maker Resuscitation status Advanced Directive on File Past Medical/Surgical History Past Medical/Surgical History: (1) Sepsis (2) Cellulitis of sternum (3) Hyperkalemia (4) Muscle strain (5) Arthritis (6) Pneumonia (7) Contusion shoulder/arm (8) Cervical radiculopathy (9) Degenerative disc disease, cervical (10) Perineal ulcer (11) Chronic pain (12) Diverticulitis of sigmoid colon (13) lung nodules (14) Diverticulitis of sigmoid colon (15) Septicemia (16) Bleeding (17) Leukocytosis (18) Flank pain (19) Colitis (20) Leukocytosis (21) muscle strain (22) Opiate dependence (23) Abdominal pain (24) Pain (25) Pain (26) Chest pain (27) Headache (28) Headache (29) Chest pain (30) ESRD (end stage renal disease) on dialysis (31) ACS (acute coronary syndrome) (32) ESRD (end stage renal disease) on dialysis (33) Hypertension (34) Diabetes mellitus (35) Obesity (36) Diabetic peripheral neuropathy (37) Hypercholesteremia (38) GERD (gastroesophageal reflux disease) (39) Chest pain (40) HTN (hypertension) Review of Systems All Other Systems: negative except mentioned in HPI Physical Exam General Appearance: no apparent distress, alert Lines, tubes and drains: peripheral HEENT: normocephalic, mucous membranes moist Respiratory/Chest: lungs clear, normal breath sounds, no respiratory distress, no accessory muscle use Cardiovascular/Chest: normal rate, regular rhythm Abdomen: normal bowel sounds, soft, no organomegaly, no mass, tender - ruq/ luq / epigastric Extremities: normal range of motion Skin Exam: warm/dry Neurologic: alert, oriented x 3, responsive Last 24 Hour Vital Signs Date Time Temp Pulse Resp B/P (MAP) Pulse Ox O2 Delivery O2 Flow Rate FiO2 06/23/18 13:22 98.1 95 18 144/70 99 Room Air 98.1 91 06/23/18 11:27 98.1 06/23/18 11:27 98.1 06/23/18 11:25 91 18 144/70 99 Room Air 06/23/18 10:28 98.1 06/23/18 10:09 98.1 90 18 116/62 98 Room Air 98.1 06/23/18 10:07 98.1 90 18 116/62 98 Room Air 98.1 06/23/18 08:47 98.4 95 18 105/72 94 Room Air 98.4 06/23/18 08:32 98.4 06/23/18 07:37 98.4 98 18 105/72 94 Room Air 98.4 Laboratory Tests Test 06/23/18 08:00 White Blood Count 10.2 K/UL (4.8-10.8) Red Blood Count 4.23 M/UL (4.20-5.40) Hemoglobin 13.1 G/DL (12.0-16.0) Hematocrit 40.7 % (37.0-47.0) Mean Corpuscular Volume 96 FL (80-99) Mean Corpuscular Hemoglobin 30.9 PG (27.0-31.0) Mean Corpuscular Hemoglobin Concent 32.1 G/DL (32.0-36.0) Red Cell Distribution Width 13.4 % (11.6-14.8) Platelet Count 264 K/UL (150-450) Mean Platelet Volume 8.1 FL (6.5-10.1) Neutrophils (%) (Auto) 62.6 % (45.0-75.0) Lymphocytes (%) (Auto) 26.0 % (20.0-45.0) Monocytes (%) (Auto) 8.0 % (1.0-10.0) Eosinophils (%) (Auto) 2.2 % (0.0-3.0) Basophils (%) (Auto) 1.1 % (0.0-2.0) Sodium Level 137 MMOL/L (136-145) Potassium Level 5.1 MMOL/L (3.5-5.1) Chloride Level 97 MMOL/L (98-107) L Carbon Dioxide Level 26 MMOL/L (21-32) Anion Gap 14 mmol/L (5-15) Blood Urea Nitrogen 33 mg/dL (7-18) H Creatinine 9.3 MG/DL (0.55-1.30) H Estimat Glomerular Filtration Rate 5.5 mL/min (>60) Glucose Level 182 MG/DL (74-106) H Calcium Level 10.2 MG/DL (8.5-10.1) H Total Bilirubin 0.3 MG/DL (0.2-1.0) Aspartate Amino Transf (AST/SGOT) 6 U/L (15-37) L Alanine Aminotransferase (ALT/SGPT) 23 U/L (12-78) Alkaline Phosphatase 165 U/L (46-116) H Troponin I 0.000 ng/mL (0.000-0.056) Total Protein 8.6 G/DL (6.4-8.2) H Albumin 3.9 G/DL (3.4-5.0) Globulin 4.7 g/dL Albumin/Globulin Ratio 0.8 (1.0-2.7) L Lipase 210 U/L (73-393) Height (Feet): 5 Height (Inches): 5.00 Weight (Pounds): 230 Medications Current Medications Medications (Trade) Dose Ordered Sig/Regina Route PRN Reason Start Time Stop Time Status Last Admin Dose Admin Acetaminophen (Tylenol) 650 mg Q4H PRN ORAL Mild Pain (Pain Scale 1-3) 06/23/18 12:15 07/23/18 12:14 Atorvastatin Calcium (Lipitor) 10 mg QHS ORAL 06/23/18 21:00 07/23/18 20:59 Calcium Carbonate (Os-Toni) 1,000 mg TID ORAL 06/23/18 13:00 07/23/18 12:59 Dextrose (Dextrose 50%) 25 ml Q1H PRN IV Hypoglycemia 06/23/18 12:15 Dextrose (Dextrose 50%) 50 ml Q1H PRN IV Hypoglycemia 06/23/18 12:15 Diphenhydramine HCl (Benadryl) 25 mg Q6H PRN ORAL Itching/Pruritis 06/23/18 12:15 07/23/18 12:14 Ertapenem 1 gm/ Sodium Chloride 55 ml @ 110 mls/hr Q24H IVPB 06/23/18 17:00 06/28/18 16:59 Gabapentin (Neurontin) 300 mg QHS ORAL 06/23/18 21:00 07/23/18 20:59 Heparin Sodium (Porcine) (Heparin 5000 units/ml) 5,000 units EVERY 8 HOURS SUBQ 06/23/18 14:00 07/23/18 13:59 Hydromorphone HCl (Dilaudid) 0.5 mg ONCE IVP 06/23/18 16:00 06/23/18 17:00 Iopamidol (Isovue-300 100ml) 100 ml NOW PRN INJ Radiology Procedure 06/23/18 08:00 Ondansetron HCl (Zofran) 4 mg Q6H PRN IVP Nausea & Vomiting 06/23/18 12:15 07/23/18 12:14 Sodium Chloride 550 ml @ 100 mls/hr Q5H30M IV 06/23/18 08:00 07/23/18 07:59 06/23/18 08:34 Tramadol HCl (Ultram) 50 mg Q8H PRN ORAL Moderate Pain (Pain Scale 4-6) 06/23/18 12:15 06/30/18 12:14 Assessment/Plan Problem List: (1) Abdominal pain Assessment & Plan: acute upper abdominal pain, nausea, emesis. no leukocytosis. elevated lft's. CT with Extensive diverticulosis, also previously reported. Equivocal slight infiltration of the pericolonic fat adjacent to the descending colon, could indicate very early acute diverticulitis. Correlate with clinical findings. Slight wall thickening of the distal transverse, proximal descending colon and splenic flexure. Possibly related to the above, or could indicate colitis unrelated to diverticular disease. -Ultrasound Abd evaluate GB -okay for diet -trend labs will follow with recs. thank you for this consultation ICD Codes: R10.9 - Unspecified abdominal pain SNOMED: [id number] Qualifiers: Qualified Codes: R10.10 - Upper abdominal pain, unspecified Pardeep Robins Jun 23, 2018 16:16
[2018-06-23] MEDS: Calcium Carbonate 1250mg/5ml Liquid ud ORAL SCH ×2 (16:29→17:48)
[2018-06-23] MEDS: Heparin 5000 units/ml inj SUBQ SCH ×2 (16:31→21:54)
[2018-06-23] MEDS ORDERED: Ertapenem 1 GM in NS 55 ML IVPB SCH (17:00)
[2018-06-23] MEDS: DiphenhydrAMINE 50mg/ml Inj IVP PRN (18:09)
--- NOTE | 2018-06-23 18:45 | History and Physical Report ---
DATE OF ADMISSION: 06/23/2018 REASON FOR ADMISSION: 1. Abdominal pain. 2. Diverticulitis. HISTORY OF PRESENT ILLNESS: The patient is a pleasant 53-year-old female on regular dialysis every Friday, Friday, and Friday. She presented to the emergency room overnight for further evaluation and care of worsening abdominal pain since 3 a.m. She has had no nausea or vomiting, but had some diarrhea since presenting to the emergency room. She says in the past she has had diverticulitis as well. CT of abdomen and pelvis was also consistent with possible diverticulitis. She has no chest pain or shortness of breath. She did undergo her hemodialysis session yesterday. PAST MEDICAL HISTORY: 1. Anemia of chronic kidney disease. 2. Hypertension. 3. ESRD. 4. Diverticulitis. PAST SURGICAL HISTORY: Right-sided AV fistula. ALLERGIES: Penicillin, Cipro, morphine, Bactrim, and vancomycin. SOCIAL HISTORY: No tobacco, alcohol, or illicit drug use. FAMILY HISTORY: Positive for hypertension. REVIEW OF SYSTEMS: NEUROLOGIC: The patient denies headache, change in vision, syncope, or presyncopal episodes. CARDIOVASCULAR: No current chest pain, palpitations, or angina. PULMONARY: No difficulty breathing, productive cough, or sputum. GASTROINTESTINAL/GENITOURINARY: The patient is having abdominal pain and diarrhea. ENDOCRINOLOGY: No night sweats, fevers, or chills. MUSCULOSKELETAL: The patient is feeling weak, tired, and fatigued. PHYSICAL EXAMINATION: VITAL SIGNS: Blood pressure 144/70, pulse ox 99% on room air, respiratory rate 18, pulse 91, and temperature 98.1. GENERAL: The patient is awake, alert, and not in distress. HEENT: Extraocular muscles intact. No lymphadenopathy. Oropharyngeal mucosa clear and dry. CARDIOVASCULAR: S1, S2. No rubs or gallops. PULMONARY: Clear to auscultation bilaterally. No rales, rhonchi or wheezes. ABDOMEN: Nondistended and nontender. EXTREMITY: A 1+ edema. LABORATORY DATA: Laboratories dated 06/23/2018, sodium 137, potassium 5.1, BUN 33, and creatinine 9.3. Troponin 0. Alkaline phosphatase 165. Lipase 210. Hemoglobin 13.1, white cell count 10.2, and platelet count 262,000. ASSESSMENT AND PLAN: 1. End-stage renal disease, on hemodialysis. We will continue Friday, Friday and Friday schedule. 2. Anemia of chronic kidney disease. We will initiate Epogen if hemoglobin less than 10. 3. Abdominal pain secondary to diverticulitis. We will continue IV antibiotics and consult Infectious Disease and General surgery for further evaluation and management. 4. Deep venous thrombosis prophylaxis with heparin subcutaneous. 5. Secondary hyperparathyroidism. The patient is on calcium carbonate. 6. Hypertension. We will initiate Coreg 3.125 mg p.o. b.i.d. Seymouraly Wayne MD DR: MELODY JOB#: [id number] CC:
[2018-06-23 20:00] VITALS: BP 105/64
[2018-06-23] MEDS: Zolpidem 5mg tab ORAL PRN (20:40)
[2018-06-23] MEDS: NovoLOG Insulin Flexpen SUBQ SCH (20:40)
[2018-06-23] MEDS: Hydromorphone 0.5mg/0.5ml inj IVP PRN (21:19)
--- NOTE | 2018-06-23 23:00 | Consultation ---
DATE OF CONSULTATION: 06/23/2018 CONSULTING PHYSICIAN: Italia De La Vega M.D. REQUESTING PHYSICIAN: Seymour Wayne M.D. REASON FOR CONSULTATION: Acute diverticulitis and colitis in a patient with multiple antibiotics allergies. Recommendation for antibiotics treatment and further management. HISTORY OF PRESENT ILLNESS: The patient is a 53-year-old female, who has multiple antibiotics allergy including penicillin, quinolone, Bactrim, and vancomycin with past medical history of hypertension, end-stage renal disease, diabetes, who presented to [facility] Emergency Room with sudden onset of abdominal pain that started at 3 a.m. this morning, diffuse abdominal pain, 8/10, mainly in the epigastric and transverse area of the upper abdomen. She had no nausea or vomiting, but diarrhea. When she arrived to the emergency room, it felt like labor pain as per the patient and she had previous history of diverticulitis in the past. No fever or chills. No other associated symptom. She is not aware of any aggravating factors, but her symptoms improved when she received some pain medicine in the emergency room. The patient had significant allergies to multiple antibiotics including penicillin, quinolone, Bactrim, and vancomycin, so Infectious Disease consultation was requested for antibiotics choice and further management. REVIEW OF SYSTEMS: A 14-point of system reviewed were all negative apart from the one I mentioned above in my H and P. PAST MEDICAL HISTORY: Significant for hypertension, end-stage renal disease, diverticulitis. PAST SURGICAL HISTORY: Negative. FAMILY HISTORY: Not contributory. 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 Denied using any drugs, tobacco, or alcohol. ALLERGIES: She is allergic to penicillin with hives and skin break. She is allergic to quinolone with difficulty breathing and skin rash. Bactrim does the same effect and vancomycin with itching and tongue swelling. MEDICATIONS: She received metronidazole in the emergency room which she had allergic reaction to. For the rest of her medications, please refer to MAR. LABORATORY AND DIAGNOSTIC DATA: White count of 10.2, hemoglobin of 13.1, platelet count of 264,000. BUN of 33, creatinine of 9.3, AST of 6, ALT of 23, lipase of 210. Imaging, CT scan of the abdomen and pelvis with contrast showed extensive diverticulosis, slight infiltration of the pericolonic fat adjacent to the descending colon indicate very early acute diverticulitis with slight wall thickening of the distal transverse and proximal descending colon and splenic flexure possibly related to the above or indicate colitis, bilateral lung nodules reported on previous CT scan in 2013, diffuse osseous sclerosis of renal osteodystrophy. PHYSICAL EXAMINATION: VITAL SIGNS: Temperature 98.1, pulse 91, respiration 18, blood pressure 144/70, pulse oximetry 99% on room air. GENERAL: This is a middle-aged female, obese, up in bed, awake, alert, complaining of mild abdominal pain. HEENT: Normocephalic and atraumatic. Pupils reactive to lights. Moist oral mucosa. No exudate or thrush. NECK: Supple. No lymphadenopathy. CARDIOVASCULAR: Regular rate and rhythm. No murmur. LUNGS: Clear bilaterally. Diminished breathing sounds at the bases. No wheezing or rhonchi. ABDOMEN: Soft. Tender in the upper quadrants and epigastrium, and distended. Hyperactive bowel sounds. No rebound. No ascites. No organomegaly. EXTREMITIES: No edema or cyanosis. Fistula in the upper extremity with good pulse. ASSESSMENT AND RECOMMENDATION: 1. Diverticulitis of the sigmoid colon. We will start ertapenem empiric coverage since she has multi-antibiotics allergy. We will avoid using cephalosporin or Flagyl. We will continue hydration and pain management. We will send stool for culture. Recommend GI evaluation. 2. Colitis. We will send stool for C. difficile and culture. We will start ertapenem empiric coverage. Monitor clinically. 3. Abdominal pain due to the above. Continue antibiotics and pain management as needed as per primary team. 4. End-stage renal disease, on hemodialysis. Continue dialysis as per Renal service. 5. Diabetes mellitus. Recommend tight glycemic control to keep blood glucose between 100 to 140. Thank you for the consult. ID will continue to follow. Please feel free to call with any question. Italia De La Vega M.D. DR: Gianni JOB#: [id number] CC: BEATRIZ
[2018-06-24 00:29] VITALS: BP 104/61
[2018-06-24] MEDS: DiphenhydrAMINE 50mg/ml Inj IVP PRN ×4 (01:56→23:36)
[2018-06-24] MEDS: Hydromorphone 0.5mg/0.5ml inj IVP PRN ×2 (02:02→06:03)
[2018-06-24 04:55] VITALS: BP 117/58
[2018-06-24] MEDS: NovoLOG Insulin Flexpen SUBQ SCH ×4 (05:43→21:00)
[2018-06-24] MEDS: Heparin 5000 units/ml inj SUBQ SCH ×3 (05:43→21:16)
[2018-06-24 08:00] VITALS: BP 103/49
[2018-06-24] MEDS: Calcium Carbonate 1250mg/5ml Liquid ud ORAL SCH ×4 (08:53→17:22)
--- NOTE | 2018-06-24 08:57 | Diagnostic Imaging Report ---
Indication: Abdominal pain, abnormal renal function, abnormal liver function tests Technique: Mcdaniel-scale and duplex images of the upper abdomen were obtained Comparison: 06/23/2018 CT scan, 12/07/2012 sonogram Findings: Exam was technically difficult due to patient body habitus. Gallbladder is unremarkable, without stones, wall thickening, nor pericholecystic fluid. Sonographic Strickland's sign is negative. Common bile duct measures 3 mm in diameter. No intrahepatic biliary ductal dilatation. Liver demonstrates diffusely increased echogenicity, consistent with diffuse hepatocellular disease, most likely fatty change. Portal vein and hepatic veins are patent. Pancreas is obscured by bowel gas. Spleen is unremarkable. Neither kidney could be visualized, presumably in part due to body habitus and part due to marked atrophy demonstrated on recent CT scan. . Abdominal aorta is obscured by bowel gas . Impression: Limited exam, as described. Note nonvisualization of the kidneys, abdominal aorta, and pancreas Liver demonstrates diffusely increased echogenicity, consistent with fatty change reported on prior CT scan. Negative for gallstones or dilated ducts
--- NOTE | 2018-06-24 09:32 | Nephrology Progress Note ---
Assessment/Plan Assessment/Plan A/P 1) ESRD- MWF. Patient seen during her dialysis session 2) Abd Pain- component of narcotic seeking - DC once cleared by Gen Surg and ID 3) Diverticulitis- Abx. US GB negative 4) Anemia of CKD- EPo Hgb <10 5) DM- oral agent and ISS Subjective Date patient seen: Jun 24, 2018 Time patient seen: 09:29 ROS Limited/Unobtainable: No Gastrointestinal/Abdominal: Reports: abdominal pain Allergies: Coded Allergies: PENICILLINS (Verified Allergy, Intermediate, Hives, 04/01/18) CIPROFLOXACIN (Verified Allergy, Unknown, Hives, 04/01/18) MORPHINE (Unverified Allergy, Unknown, 04/01/18) SULFAMETHOXAZOLE (Verified Allergy, Unknown, Hives, 04/01/18) TRIMETHOPRIM (Verified Allergy, Unknown, Hives, 04/01/18) VANCOMYCIN (Verified Allergy, Unknown, Rash, 04/01/18) All Systems: reviewed and negative except above Subjective Patient c/o mild abdominal pain Objective Last 24 Hour Vital Signs Date Time Temp Pulse Resp B/P (MAP) Pulse Ox O2 Delivery O2 Flow Rate FiO2 06/24/18 06:33 98.4 06/24/18 06:03 98.4 06/24/18 04:55 98.4 80 19 117/58 (77) 100 98.4 06/24/18 00:29 98.1 61 19 104/61 (75) 99 98.1 06/23/18 21:19 97.9 06/23/18 21:07 Room Air 06/23/18 20:00 97.9 88 105/64 (78) 97.9 06/23/18 17:52 Room Air 06/23/18 16:21 Room Air 06/23/18 16:00 97.9 88 21 104/53 (70) 99 97.9 88 06/23/18 13:22 98.1 95 18 144/70 99 Room Air 98.1 91 06/23/18 11:27 98.1 06/23/18 11:27 98.1 06/23/18 11:25 91 18 144/70 99 Room Air 06/23/18 10:28 98.1 06/23/18 10:09 98.1 90 18 116/62 98 Room Air 98.1 06/23/18 10:07 98.1 90 18 116/62 98 Room Air 98.1 Intake and Output 06/23/18 06/24/18 19:00 07:00 Intake Total 480 ml Balance 480 ml Intake Oral 480 ml # Voids 1 1 # Bowel Movements 1 Height (Feet): 5 Height (Inches): 2.00 Weight (Pounds): 232 General Appearance: no apparent distress, alert EENT: normal ENT inspection Neck: normal alignment, supple Cardiovascular: normal rate, regular rhythm Respiratory/Chest: lungs clear, normal breath sounds Abdomen: non tender, soft, guarding Edema: no edema noted Arm (L), no edema noted Arm (R), no edema noted Leg (L), no edema noted Leg (R), no edema noted Pedal (L), no edema noted Pedal (R), no edema noted Generalized Seymour Wayne MD Jun 24, 2018 09:32
[2018-06-24] MEDS: HYDROmorphone 1mg/ml Carpuject IVP PRN ×3 (11:09→23:36)
[2018-06-24 12:00] VITALS: BP 95/43
--- NOTE | 2018-06-24 13:48 | General Surgery Progress Note ---
General Surgery-Progress Note Subjective Additional Comments no acute events. intermittent pain only made better by pain meds. exam benign. Objective Last 24 Hour Vital Signs Date Time Temp Pulse Resp B/P (MAP) Pulse Ox O2 Delivery O2 Flow Rate FiO2 06/24/18 12:00 97.9 95 22 95/43 (60) 96 97.9 06/24/18 11:09 97.5 06/24/18 09:00 Room Air 06/24/18 08:00 97.5 80 18 103/49 (67) 97 97.5 06/24/18 06:33 98.4 06/24/18 06:03 98.4 06/24/18 04:55 98.4 80 19 117/58 (77) 100 98.4 06/24/18 00:29 98.1 61 19 104/61 (75) 99 98.1 06/23/18 21:19 97.9 06/23/18 21:07 Room Air 06/23/18 20:00 97.9 88 105/64 (78) 97.9 06/23/18 17:52 Room Air 06/23/18 16:21 Room Air 06/23/18 16:00 97.9 88 21 104/53 (70) 99 97.9 88 I&O Intake and Output 06/23/18 06/24/18 19:00 07:00 Intake Total 480 ml Balance 480 ml Intake Oral 480 ml # Voids 1 1 # Bowel Movements 1 Drains: none Cardiovascular: RSR Respiratory: clear Abdomen: soft, flat, non-tender, present bowel sounds Extremities: no tenderness, no cyanosis Plan Problems: (1) Abdominal pain Assessment & Plan: acute upper abdominal pain, nausea, emesis. no leukocytosis. elevated lft's. CT with Extensive diverticulosis, also previously reported. Equivocal slight infiltration of the pericolonic fat adjacent to the descending colon, could indicate very early acute diverticulitis. Correlate with clinical findings. Slight wall thickening of the distal transverse, proximal descending colon and splenic flexure. Possibly related to the above, or could indicate colitis unrelated to diverticular disease. US without stones or GB pathology -okay for diet -d/c planing will follow with recs. thank you for this consultation Pardeep Robins Jun 24, 2018 13:48
[2018-06-24 16:00] VITALS: BP 95/53
[2018-06-24] MEDS: Ertapenem 0.5gm in NS 55ml IVPB SCH (16:09)
--- NOTE | 2018-06-24 16:48 | Infectious Diseases Prog Note ---
Assessment/Plan Problems: (1) Diverticulitis of sigmoid colon Assessment & Plan: continue ertapenem empirically and send stool for culture, continue hydration and pain management (2) Colitis Assessment & Plan: will send stool for C diff toxin , and culture , will start ertapenem empirically (3) Abdominal pain Assessment & Plan: due to the above, continue antibiotics and pain management as needed (4) ESRD (end stage renal disease) on dialysis Assessment & Plan: continue HD as per renal (5) Diabetes mellitus Assessment & Plan: recommend tight glycemic control to keep blood glucose between 100-140 Subjective Constitutional: Reports: no symptoms HEENT: Reports: no symptoms Respiratory: Reports: no symptoms Breasts: Reports: no symptoms Cardiovascular: Reports: no symptoms Gastrointestinal/Abdominal: Reports: diarrhea, bloating, other - abdominal pain . Genitourinary: Reports: no symptoms Neurologic: Reports: no symptoms Psychiatric: Reports: no symptoms Skin: Reports: no symptoms Endocrine: Reports: no symptoms Hematologic: Reports: no symptoms Musculoskeletal: Reports: no symptoms Allergies: Coded Allergies: PENICILLINS (Verified Allergy, Intermediate, Hives, 04/01/18) CIPROFLOXACIN (Verified Allergy, Unknown, Hives, 04/01/18) MORPHINE (Unverified Allergy, Unknown, 04/01/18) SULFAMETHOXAZOLE (Verified Allergy, Unknown, Hives, 04/01/18) TRIMETHOPRIM (Verified Allergy, Unknown, Hives, 04/01/18) VANCOMYCIN (Verified Allergy, Unknown, Rash, 04/01/18) Objective Vital Signs Last 24 Hour Vital Signs Date Time Temp Pulse Resp B/P (MAP) Pulse Ox O2 Delivery O2 Flow Rate FiO2 06/24/18 12:00 97.9 95 22 95/43 (60) 96 97.9 06/24/18 11:09 97.5 06/24/18 09:00 Room Air 06/24/18 08:00 97.5 80 18 103/49 (67) 97 97.5 06/24/18 06:33 98.4 06/24/18 06:03 98.4 06/24/18 04:55 98.4 80 19 117/58 (77) 100 98.4 06/24/18 00:29 98.1 61 19 104/61 (75) 99 98.1 06/23/18 21:19 97.9 06/23/18 21:07 Room Air 06/23/18 20:00 97.9 88 105/64 (78) 97.9 06/23/18 17:52 Room Air Height (Feet): 5 Height (Inches): 2.00 Weight (Pounds): 232 General Appearance: WD/WN, no acute distress HEENT: normocephalic, atraumatic, anicteric, mucous membranes moist, PERRL Respiratory/Chest: chest wall non-tender, lungs clear, normal breath sounds, no respiratory distress, no accessory muscle use Cardiovascular: normal peripheral pulses, normal rate, regular rhythm, no gallop/murmur, no JVD Abdomen: normal bowel sounds, no organomegaly, hypoactive bowel sounds, distended, tender Extremities: no cyanosis, no clubbing Skin: no rash, no lesions, no ulcers Current Medications Medications (Trade) Dose Ordered Sig/Regina Route PRN Reason Start Time Stop Time Status Last Admin Dose Admin Acetaminophen (Tylenol) 650 mg Q4H PRN ORAL Mild Pain (Pain Scale 1-3) 06/23/18 12:15 07/23/18 12:14 Atorvastatin Calcium (Lipitor) 10 mg QHS ORAL 06/23/18 21:00 07/23/18 20:59 06/23/18 20:40 Calcium Carbonate (Os-Toni) 1,000 mg TID ORAL 06/23/18 13:00 07/23/18 12:59 06/24/18 13:48 Dextrose (Dextrose 50%) 25 ml Q1H PRN IV Hypoglycemia 06/23/18 12:15 Dextrose (Dextrose 50%) 50 ml Q1H PRN IV Hypoglycemia 06/23/18 12:15 Diphenhydramine HCl (Benadryl) 50 mg Q6H PRN IVP Itching 06/23/18 17:30 07/23/18 17:29 06/24/18 08:53 Ertapenem 0.5 gm/ Sodium Chloride 55 ml @ 110 mls/hr Q24H IVPB 06/24/18 17:00 06/28/18 16:59 06/24/18 16:09 Gabapentin (Neurontin) 300 mg QHS ORAL 06/23/18 21:00 07/23/18 20:59 06/23/18 20:40 Glyburide (Diabeta) 5 mg BIAC ORAL 9/26/18 06:30 07/24/18 06:29 06/24/18 16:02 Heparin Sodium (Porcine) (Heparin 5000 units/ml) 5,000 units EVERY 8 HOURS SUBQ 06/23/18 14:00 07/23/18 13:59 06/23/18 16:31 Hydromorphone HCl (Dilaudid) 1 mg Q6H PRN IVP Severe Pain (Pain Scale 7-10) 06/24/18 09:39 07/01/18 09:38 06/24/18 11:09 Insulin Aspart (NovoLOG) BEFORE MEALS AND HS SUBQ 06/23/18 21:00 07/23/18 20:59 06/23/18 20:40 Iopamidol (Isovue-300 100ml) 100 ml NOW PRN INJ Radiology Procedure 06/23/18 08:00 Ondansetron HCl (Zofran) 4 mg Q6H PRN IVP Nausea & Vomiting 06/23/18 12:15 07/23/18 12:14 06/24/18 06:42 Zolpidem Tartrate (Ambien) 5 mg HSPRN PRN ORAL Insomnia 06/23/18 21:00 06/30/18 20:59 06/23/18 20:40 Italia De La Vega M.D. Jun 24, 2018 16:48
[2018-06-24 20:00] VITALS: BP 101/57
[2018-06-24] MEDS: Zolpidem 5mg tab ORAL PRN (21:07)
[2018-06-25] VITALS: BP 107/60
[2018-06-25 04:00] VITALS: BP 102/65
[2018-06-25] MEDS: Heparin 5000 units/ml inj SUBQ SCH ×3 (06:00→22:00)
[2018-06-25] MEDS: NovoLOG Insulin Flexpen SUBQ SCH ×4 (06:07→20:21)
[2018-06-25 08:00] VITALS: BP 95/65
[2018-06-25] MEDS: DiphenhydrAMINE 50mg/ml Inj IVP PRN ×2 (08:22→17:57)
[2018-06-25] MEDS: HYDROmorphone 1mg/ml Carpuject IVP PRN ×2 (08:23→17:57)
[2018-06-25] MEDS: Calcium Carbonate 1250mg/5ml Liquid ud ORAL SCH ×4 (08:23→18:00)
--- NOTE | 2018-06-25 09:14 | Nephrology Progress Note ---
Assessment/Plan Assessment/Plan A/P 1) ESRD- MWF. 2) Abd Pain- component of narcotic seeking - DC once cleared by Gen Surg and ID 3) Diverticulitis- Abx. US GB negative 4) Anemia of CKD- EPo Hgb <10 5) DM- oral agent and ISS 6) Diarrhea- CDiff testing. Cslt GI Subjective Date patient seen: Jun 25, 2018 Time patient seen: 09:11 ROS Limited/Unobtainable: No Gastrointestinal/Abdominal: Reports: diarrhea Allergies: Coded Allergies: PENICILLINS (Verified Allergy, Intermediate, Hives, 04/01/18) CIPROFLOXACIN (Verified Allergy, Unknown, Hives, 04/01/18) MORPHINE (Unverified Allergy, Unknown, 04/01/18) SULFAMETHOXAZOLE (Verified Allergy, Unknown, Hives, 04/01/18) TRIMETHOPRIM (Verified Allergy, Unknown, Hives, 04/01/18) VANCOMYCIN (Verified Allergy, Unknown, Rash, 04/01/18) Subjective Patient c/o diarrhea this am Objective Last 24 Hour Vital Signs Date Time Temp Pulse Resp B/P (MAP) Pulse Ox O2 Delivery O2 Flow Rate FiO2 06/25/18 04:00 97.8 80 15 102/65 (77) 98 97.8 80 06/25/18 00:00 97.7 86 17 107/60 (76) 99 97.7 86 06/24/18 21:00 Room Air 06/24/18 20:00 98.1 93 17 101/57 (72) 94 98.1 93 06/24/18 18:17 Room Air 06/24/18 17:22 97.9 06/24/18 16:00 97.9 95 20 95/53 (67) 99 97.9 06/24/18 12:00 97.9 95 22 95/43 (60) 96 97.9 06/24/18 11:09 97.5 Intake and Output 06/24/18 06/25/18 19:00 07:00 Intake Total 720 ml Output Total 2000 ml Balance -1280 ml Intake Oral 720 ml Output Hemodialysis UF 2000 ml # Voids 3 Height (Feet): 5 Height (Inches): 2.00 Weight (Pounds): 232 General Appearance: no apparent distress, alert EENT: normal ENT inspection Neck: normal alignment, supple Cardiovascular: regular rhythm Respiratory/Chest: lungs clear, normal breath sounds Abdomen: non tender, soft, guarding Edema: no edema noted Arm (L), no edema noted Arm (R), no edema noted Leg (L), no edema noted Leg (R), no edema noted Pedal (L), no edema noted Pedal (R), no edema noted Generalized Seymour Wayne MD Jun 25, 2018 09:14
--- NOTE | 2018-06-25 10:48 | GI Initial Consult Note ---
History of Present Illness General Date patient seen: Jun 25, 2018 Time patient seen: 10:37 Reason for Hospitalization: Abdominal Pain Referring physician: JIMMY MUNOZ Reason for Consultation: abdominal pain Present Illness HPI 53-year-old female presents ED complaining of abdominal pain. Started around 3 AM. Sudden onset. Sharp, diffuse, 8 out of 10, nonradiating. Notes nausea and vomiting. Denies diarrhea. States this feels like when she had her diverticulitis in the past. Denies fevers or chills. History of end-stage renal disease on dialysis. Last dialysis was yesterday. Denies chest pain or shortness of breath. No other aggravating relieving factors. Denies any other associated symptoms GI consulted for abdominal pain. Pt seen, awake A&Ox4 NAD with no active s/sx of N/V. States she had an episode of emesis a few days prior; denies hematemesis or coffee grounds. Currently having soft/loose bowel movements. Abdomen is soft, non distended with mild tenderness in epigastric/all quadrants. Labs show elevated alkaline phosphatase. No anemia. No leukocytosis. Per patient, she had endoscopy/colonoscopy performed approximately 8 years ago because her bowels were "inflamed." She had an unremarkable abdominal US here. CT showed extensive diverticulosis, possible early diverticulitis. Slight wall thickening of the distal transverse, proximal descending colon and splenic flexure. Possibly related to the above, or could indicate colitis unrelated to diverticular disease. Home Meds Active Scripts Ondansetron (Zofran) 4 Mg Tablet, 4 MG ORAL Q6H PRN for Nausea & Vomiting, #30 TAB 0 Refills Prov:Eleuterio Cook MD 05/10/18 Hydrocodone Bit/Acetaminophen 10-325* (NORCO 10-325*) 1 Each Tablet, 1 TAB ORAL Q6H PRN for For Pain, #10 TAB 0 Refills PRN PAIN Prov:Eleuterio Cook MD 05/10/18 Fluconazole* (DIFLUCAN*) 100 Mg Tablet, 100 MG ORAL DAILY, #1 TAB Prov:Eleuterio Cook MD 04/01/18 Cephalexin* (KEFLEX*) 500 Mg Capsule, 500 MG ORAL EVERY 6 HOURS, #28 CAP Prov:Eleuterio Cook MD 04/01/18 Cod Liver Oil/Zinc Oxide (DESITIN DIAPER RASH 40% PASTE) 28 Gm Paste..g., 28 GM TP DAILY, #30 GM Prov:Eleuterio Cook MD 04/01/18 Ciprofloxacin Hcl* (CIPROFLOXACIN HCL*) 500 Mg Tablet, 500 MG ORAL EVERY 12 HOURS for 7 Days, #14 TAB 0 Refills limit sports/physical activity x 2-3 weeks, tendon rupture precautions. Prov:Kati Obrien 03/27/18 Trimethoprim/Sulfamethoxazole 160/800* (BACTRIM DS TABLET*) 1 Each Tablet, 1 TAB ORAL TWICE A DAY for 7 Days, #14 TAB Prov:Kati Obrien 03/27/18 Gabapentin* (GABAPENTIN*) 300 Mg Capsule, 300 MG ORAL THREE TIMES A DAY, #30 CAP 0 Refills Prov:ALOK AGUILLON M.D. 03/23/18 Tramadol Hcl* (ULTRAM*) 50 Mg Tablet, 50 MG ORAL Q6H PRN for For Pain, #30 TAB 0 Refills Prov:ALOK AGUILLON M.D. 03/23/18 Reported Medications Calcium Carbonate (Calcium) 500 Mg Tab, 500 MG ORAL AC, TAB 2 tabs with each meal 3x a day 09/03/17 Brimonidine Tartrate (ALPHAGAN P) 5 Ml Drops 09/03/17 Lorazepam* (LORAZEPAM*) 1 Mg Tablet, 1 MG ORAL PRN PRN for For Anxiety, TAB taken every MWF x 1 dose before dialysis 06/11/13 Zolpidem Tartrate* (ZOLPIDEM TARTRATE*) 10 Mg Tablet, 10 MG ORAL BEDTIME 02/13/13 Atorvastatin Calcium* (LIPITOR*) 10 Mg Tablet, 10 MG ORAL BEDTIME 02/13/13 Med list reviewed/reconciled: Yes Allergies: Coded Allergies: PENICILLINS (Verified Allergy, Intermediate, Hives, 04/01/18) CIPROFLOXACIN (Verified Allergy, Unknown, Hives, 04/01/18) MORPHINE (Unverified Allergy, Unknown, 04/01/18) SULFAMETHOXAZOLE (Verified Allergy, Unknown, Hives, 04/01/18) TRIMETHOPRIM (Verified Allergy, Unknown, Hives, 04/01/18) VANCOMYCIN (Verified Allergy, Unknown, Rash, 04/01/18) Patient History History Provided By: Patient, Medical Record [facility] Narrative Past Medical History: HTN, renal disease, dialysis, other - diverticulitis Past Surgical History: none Pertinent Family History: none Social History: Denies: smoking, alcohol use, drug use Now: No Immunizations: UTD Reviewed Nursing Documentation: PMH: Agreed; PSxH: Agreed Nursing Documentation-PMH Hx Cardiac Problems: No Hx Hypertension: Yes Hx Pacemaker: No Hx Asthma: No Hx COPD: No Hx Diabetes: Yes Hx Cancer: No Hx Gastrointestinal Problems: Yes - DIVERTICULITIS Hx Dialysis: Yes - M-W-F, shunt upper right arm Hx Neurological Problems: No Hx Cerebrovascular Accident: No Hx Seizures: No Social History: Denies: smoking, alcohol use, drug use, other Review of Systems All Other Systems: negative except mentioned in HPI Physical Exam Vital Signs Date Time Temp Pulse Resp B/P (MAP) Pulse Ox O2 Delivery O2 Flow Rate FiO2 06/23/18 07:37 98.4 98 18 105/72 94 Room Air 98.4 Sp02 EP Interpretation: reviewed, normal General Appearance: well appearing, no apparent distress, alert, obese Head: normocephalic EENT: PERRL/EOMI, normal ENT inspection Neck: supple Respiratory: normal breath sounds, no respiratory distress Cardiovascular: normal rate Gastrointestinal: normal inspection, non tender, soft, normal bowel sounds, non -distended Rectal: deferred Genitourinary: no CVA tenderness Musculoskeletal: normal inspection, back normal Neurologic: normal inspection, alert, oriented x3, responsive Psychiatric: normal inspection, judgement/insight normal, memory normal Skin: normal inspection, normal color, no rash, warm/dry, palpation normal, well hydrated Lymphatic: normal inspection, no adenopathy Current Medications Current Medications Medications (Trade) Dose Ordered Sig/Regina Route PRN Reason Start Time Stop Time Status Last Admin Dose Admin Acetaminophen (Tylenol) 650 mg Q4H PRN ORAL Mild Pain (Pain Scale 1-3) 06/23/18 12:15 07/23/18 12:14 Atorvastatin Calcium (Lipitor) 10 mg QHS ORAL 06/23/18 21:00 07/23/18 20:59 06/24/18 21:06 Calcium Carbonate (Os-Toni) 1,000 mg TID ORAL 06/23/18 13:00 07/23/18 12:59 06/24/18 13:48 Dextrose (Dextrose 50%) 25 ml Q1H PRN IV Hypoglycemia 06/23/18 12:15 Dextrose (Dextrose 50%) 50 ml Q1H PRN IV Hypoglycemia 06/23/18 12:15 Diphenhydramine HCl (Benadryl) 50 mg Q6H PRN IVP Itching 06/23/18 17:30 07/23/18 17:29 06/25/18 08:22 Ertapenem 0.5 gm/ Sodium Chloride 55 ml @ 110 mls/hr Q24H IVPB 06/24/18 17:00 06/28/18 16:59 06/24/18 16:09 Gabapentin (Neurontin) 300 mg QHS ORAL 06/23/18 21:00 07/23/18 20:59 06/24/18 21:06 Glyburide (Diabeta) 5 mg BIAC ORAL 06/24/18 06:30 07/24/18 06:29 06/24/18 16:02 Heparin Sodium (Porcine) (Heparin 5000 units/ml) 5,000 units EVERY 8 HOURS SUBQ 06/23/18 14:00 07/23/18 13:59 06/23/18 16:31 Hydromorphone HCl (Dilaudid) 1 mg Q6H PRN IVP Severe Pain (Pain Scale 7-10) 06/24/18 09:39 07/01/18 09:38 06/25/18 08:23 Insulin Aspart (NovoLOG) BEFORE MEALS AND HS SUBQ 06/23/18 21:00 07/23/18 20:59 06/23/18 20:40 Iopamidol (Isovue-300 100ml) 100 ml NOW PRN INJ Radiology Procedure 06/23/18 08:00 Ondansetron HCl (Zofran) 4 mg Q6H PRN IVP Nausea & Vomiting 06/23/18 12:15 07/23/18 12:14 06/25/18 08:22 Zolpidem Tartrate (Ambien) 5 mg HSPRN PRN ORAL Insomnia 06/23/18 21:00 06/30/18 20:59 06/24/18 21:07 GI: Plan Problems: (1) GERD (gastroesophageal reflux disease) (2) Obesity (3) Diabetes mellitus (4) Hypertension (5) Abdominal pain (6) Diverticulitis of sigmoid colon Plan CT AP reviewed >> extensive diverticulosis, possible early diverticulitis. Colonic wall thickening. no anemia no leukocytosis cdiff cancelled >> formed stool recommend endoscopy / colonoscopy as outpatient x2 months patient is already on renal diet and tolerating pain mgmt PO ppi zofran prn, reglan for persistent N/V DM management dc planning discussed in length POC with patient. Discussed with Dr. Bolivar. Thank you for this patient referral, we will follow. The patient was seen and examined at bedside and all new and available data was reviewed in the patients chart. I agree with the above findings, impression and plan. (Patient seen earlier today. Signature stamp does not reflect patient encounter time.). - MD Laxmi PalmerTucson Medical CenterArielaBrock ARTIFICIAL INSEMINATION TECHNICIAN Jun 25, 2018 10:48
[2018-06-25 12:00] VITALS: BP 135/65
--- NOTE | 2018-06-25 14:49 | Infectious Diseases Prog Note ---
Assessment/Plan Problems: (1) Diverticulitis of sigmoid colon Assessment & Plan: continue ertapenem empirically and send stool for culture, continue hydration and pain management (2) Colitis Assessment & Plan: will send stool for C diff toxin , and culture , will start ertapenem empirically (3) Abdominal pain Assessment & Plan: due to the above, continue antibiotics and pain management as needed (4) ESRD (end stage renal disease) on dialysis Assessment & Plan: continue HD as per renal (5) Diabetes mellitus Assessment & Plan: recommend tight glycemic control to keep blood glucose between 100-140 Subjective Constitutional: Reports: no symptoms HEENT: Reports: no symptoms Respiratory: Reports: no symptoms Breasts: Reports: no symptoms Cardiovascular: Reports: no symptoms Gastrointestinal/Abdominal: Reports: diarrhea, bloating Genitourinary: Reports: no symptoms Neurologic: Reports: no symptoms Psychiatric: Reports: no symptoms Skin: Reports: no symptoms Endocrine: Reports: no symptoms Hematologic: Reports: no symptoms Musculoskeletal: Reports: no symptoms Allergies: Coded Allergies: PENICILLINS (Verified Allergy, Intermediate, Hives, 04/01/18) CIPROFLOXACIN (Verified Allergy, Unknown, Hives, 04/01/18) MORPHINE (Unverified Allergy, Unknown, 04/01/18) SULFAMETHOXAZOLE (Verified Allergy, Unknown, Hives, 04/01/18) TRIMETHOPRIM (Verified Allergy, Unknown, Hives, 04/01/18) VANCOMYCIN (Verified Allergy, Unknown, Rash, 04/01/18) Objective Vital Signs Last 24 Hour Vital Signs Date Time Temp Pulse Resp B/P (MAP) Pulse Ox O2 Delivery O2 Flow Rate FiO2 06/25/18 12:00 97.0 81 19 135/65 (88) 97 97.0 06/25/18 09:00 Room Air 06/25/18 08:00 97.6 90 20 95/65 (75) 95 97.6 06/25/18 04:00 97.8 80 15 102/65 (77) 98 97.8 80 06/25/18 00:00 97.7 86 17 107/60 (76) 99 97.7 86 06/24/18 21:00 Room Air 06/24/18 20:00 98.1 93 17 101/57 (72) 94 98.1 93 06/24/18 18:17 Room Air 06/24/18 17:22 97.9 06/24/18 16:00 97.9 95 20 95/53 67 99 97.9 Height (Feet): 5 Height (Inches): 2.00 Weight (Pounds): 232 General Appearance: WD/WN, no acute distress HEENT: normocephalic, atraumatic, anicteric, mucous membranes moist, PERRL Respiratory/Chest: chest wall non-tender, lungs clear, normal breath sounds, no respiratory distress, no accessory muscle use Cardiovascular: normal peripheral pulses, normal rate, regular rhythm, no gallop/murmur, no JVD Abdomen: no organomegaly, non distended, no mass, no scars, hypoactive bowel sounds, distended Extremities: no cyanosis, no clubbing Skin: no rash, no lesions, no ulcers Neurologic/Psychiatric: alert, oriented x 3 Lymphatic: no neck adenopathy, no groin adenopathy Musculoskeletal: normal muscle bulk, no effusion Microbiology Date/Time Source Procedure Growth Status 06/23/18 16:15 Blood Blood Culture - Preliminary NO GROWTH AFTER 24 HOURS Resulted 06/23/18 16:00 Blood Blood Culture - Preliminary NO GROWTH AFTER 24 HOURS Resulted 06/24/18 06:17 Stool Stool Culture - Preliminary NO SALMONELLA,SHIGELLA,OR CAMPYLOBACT... Resulted Current Medications Medications (Trade) Dose Ordered Sig/Regina Route PRN Reason Start Time Stop Time Status Last Admin Dose Admin Acetaminophen (Tylenol) 650 mg Q4H PRN ORAL Mild Pain (Pain Scale 1-3) 06/23/18 12:15 07/23/18 12:14 Atorvastatin Calcium (Lipitor) 10 mg QHS ORAL 06/23/18 21:00 07/23/18 20:59 06/24/18 21:06 Calcium Carbonate (Os-Toni) 1,000 mg TID ORAL 06/23/18 13:00 07/23/18 12:59 06/24/18 13:48 Dextrose (Dextrose 50%) 25 ml Q1H PRN IV Hypoglycemia 06/23/18 12:15 Dextrose (Dextrose 50%) 50 ml Q1H PRN IV Hypoglycemia 06/23/18 12:15 Diphenhydramine HCl (Benadryl) 50 mg Q6H PRN IVP Itching 06/23/18 17:30 07/23/18 17:29 06/25/18 08:22 Ertapenem 0.5 gm/ Sodium Chloride 55 ml @ 110 mls/hr Q24H IVPB 06/24/18 17:00 06/28/18 16:59 06/24/18 16:09 Gabapentin (Neurontin) 300 mg QHS ORAL 06/23/18 21:00 07/23/18 20:59 06/24/18 21:06 Glyburide (Diabeta) 5 mg BIAC ORAL 06/24/18 06:30 07/24/18 06:29 06/24/18 16:02 Heparin Sodium (Porcine) (Heparin 5000 units/ml) 5,000 units EVERY 8 HOURS SUBQ 06/23/18 14:00 07/23/18 13:59 06/23/18 16:31 Hydromorphone HCl (Dilaudid) 1 mg Q6H PRN IVP Severe Pain (Pain Scale 7-10) 06/24/18 09:39 07/01/18 09:38 06/25/18 08:23 Insulin Aspart (NovoLOG) BEFORE MEALS AND HS SUBQ 06/23/18 21:00 07/23/18 20:59 06/23/18 20:40 Iopamidol (Isovue-300 100ml) 100 ml NOW PRN INJ Radiology Procedure 06/23/18 08:00 Ondansetron HCl (Zofran) 4 mg Q6H PRN IVP Nausea & Vomiting 06/23/18 12:15 07/23/18 12:14 06/25/18 08:22 Zolpidem Tartrate (Ambien) 5 mg HSPRN PRN ORAL Insomnia 06/23/18 21:00 06/30/18 20:59 06/24/18 21:07 Italia De La Vega M.D. Jun 25, 2018 14:49
[2018-06-25 15:57] VITALS: BP 111/53
--- NOTE | 2018-06-25 17:04 | General Surgery Progress Note ---
General Surgery-Progress Note Subjective Symptoms: improved, tolerating diet, passing flatus, BM Objective Last 24 Hour Vital Signs Date Time Temp Pulse Resp B/P (MAP) Pulse Ox O2 Delivery O2 Flow Rate FiO2 06/25/18 16:21 Room Air 06/25/18 15:57 97.8 77 18 111/53 (72) 100 97.8 06/25/18 12:00 97.0 81 19 135/65 (88) 97 97.0 06/25/18 09:00 Room Air 06/25/18 08:00 97.6 90 20 95/65 (75) 95 97.6 06/25/18 04:00 97.8 80 15 102/65 (77) 98 97.8 80 06/25/18 00:00 97.7 86 17 107/60 (76) 99 97.7 86 06/24/18 21:00 Room Air 06/24/18 20:00 98.1 93 17 101/57 (72) 94 98.1 93 06/24/18 18:17 Room Air 06/24/18 17:22 97.9 I&O Intake and Output 06/24/18 06/25/18 19:00 07:00 Intake Total 720 ml Output Total 2000 ml Balance -1280 ml Intake Oral 720 ml Output Hemodialysis UF 2000 ml # Voids 3 Drains: other Cardiovascular: RSR Respiratory: clear Abdomen: soft, flat, non-tender, present bowel sounds Extremities: no edema, no tenderness Plan Problems: (1) Abdominal pain Assessment & Plan: acute upper abdominal pain, nausea, emesis. no leukocytosis. elevated lft's. CT with Extensive diverticulosis, also previously reported. Equivocal slight infiltration of the pericolonic fat adjacent to the descending colon, could indicate very early acute diverticulitis. Correlate with clinical findings. Slight wall thickening of the distal transverse, proximal descending colon and splenic flexure. Possibly related to the above, or could indicate colitis unrelated to diverticular disease. US without stones or GB pathology -okay for diet -d/c planing will follow with recs. thank you for this consultation Pardeep Robins Jun 25, 2018 17:04
[2018-06-25] MEDS: Ertapenem 0.5gm in NS 55ml IVPB SCH (17:57)
[2018-06-25 20:00] VITALS: BP 135/65
[2018-06-25] MEDS: Zolpidem 5mg tab ORAL PRN (20:17)
[2018-06-26] VITALS: BP 114/54
[2018-06-26] MEDS: DiphenhydrAMINE 50mg/ml Inj IVP PRN ×3 (00:38→13:30)
[2018-06-26] MEDS: HYDROmorphone 1mg/ml Carpuject IVP PRN ×3 (00:38→13:31)
[2018-06-26 04:00] VITALS: BP 124/51
[2018-06-26] MEDS: Heparin 5000 units/ml inj SUBQ SCH ×2 (06:00→14:23)
[2018-06-26] MEDS: NovoLOG Insulin Flexpen SUBQ SCH ×3 (06:10→17:17)
[2018-06-26 07:26] LABS: BASOPHILS % (AUTO) 1.3 % (0.0-2.0); EOSINOPHILS % (AUTO) 1.5 % (0.0-3.0); HEMATOCRIT 35.7 % (37.0-47.0); HEMOGLOBIN 11.6 G/DL (12.0-16.0); LYMPHOCYTES % (AUTO) 30.6 % (20.0-45.0); MEAN CORPUSCULAR VOLUME 98 FL (80-99); MONOCYTES % (AUTO) 9.7 % (1.0-10.0); NEUTROPHILS % (AUTO) 56.8 % (45.0-75.0); PLATELET COUNT 216 K/UL (150-450); RED BLOOD COUNT 3.64 M/UL (4.20-5.40); RED CELL DISTRIBUTION WIDTH 13.6 % (11.6-14.8); WHITE BLOOD COUNT 12.2 K/UL (4.8-10.8)
[2018-06-26 07:39] LABS: ANION GAP 17 mmol/L (5-15); BLOOD UREA NITROGEN 73 mg/dL (7-18); CALCIUM 8.1 MG/DL (8.5-10.1); CARBON DIOXIDE 21 MMOL/L (21-32); CHLORIDE 98 MMOL/L (98-107); CREATININE 13.4 MG/DL (0.55-1.30); SODIUM 136 MMOL/L (136-145)
[2018-06-26 07:43] LABS: PHOSPHORUS 8.4 MG/DL (2.5-4.9)
[2018-06-26 08:00] VITALS: BP 120/69
--- NOTE | 2018-06-26 08:55 | Nephrology Progress Note ---
Assessment/Plan Assessment/Plan A/P 1) ESRD- MWF. DC today after HD 2) Abd Pain- resolved. DC today 3) Diverticulitis- Abx. US GB negative - DC today with ID final reccs 4) Anemia of CKD- EPo Hgb <10 5) DM- oral agent and ISS 6) Diarrhea- resolved. 7) Hyperk+- HD today on 2 K Subjective Date patient seen: Jun 26, 2018 Time patient seen: 08:54 Allergies: Coded Allergies: PENICILLINS (Verified Allergy, Intermediate, Hives, 04/01/18) CIPROFLOXACIN (Verified Allergy, Unknown, Hives, 04/01/18) MORPHINE (Unverified Allergy, Unknown, 04/01/18) SULFAMETHOXAZOLE (Verified Allergy, Unknown, Hives, 04/01/18) TRIMETHOPRIM (Verified Allergy, Unknown, Hives, 04/01/18) VANCOMYCIN (Verified Allergy, Unknown, Rash, 04/01/18) All Systems: reviewed and negative except above Subjective Patient diarrhea and abdominal pain resolved Objective Last 24 Hour Vital Signs Date Time Temp Pulse Resp B/P (MAP) Pulse Ox O2 Delivery O2 Flow Rate FiO2 06/26/18 04:00 97.4 81 18 124/51 (75) 100 97.4 81 06/26/18 00:00 97.5 79 18 114/54 (74) 95 97.5 79 06/25/18 21:00 Room Air 06/25/18 20:00 98.0 86 18 135/65 (88) 95 98.0 86 06/25/18 16:21 Room Air 06/25/18 15:57 97.8 77 18 111/53 (72) 100 97.8 06/25/18 12:00 97.0 81 19 135/65 (88) 97 97.0 06/25/18 09:00 Room Air Intake and Output 06/25/18 06/26/18 19:00 07:00 Intake Total 480 ml 600 ml Output Total 2 ml Balance 478 ml 600 ml Intake Oral 480 ml 600 ml Output Urine Total 2 ml # Voids 2 # Bowel Movements 3 Laboratory Tests 06/26/18 05:50: White Blood Count 12.2H, Red Blood Count 3.64L, Hemoglobin 11.6L, Hematocrit 35.7L, Mean Corpuscular Volume 98, Mean Corpuscular Hemoglobin 32.0H, Mean Corpuscular Hemoglobin Concent 32.6, Red Cell Distribution Width 13.6, Platelet Count 216, Mean Platelet Volume 8.7, Neutrophils (%) (Auto) 56.8, Lymphocytes (% ) (Auto) 30.6, Monocytes (%) (Auto) 9.7, Eosinophils (%) (Auto) 1.5, Basophils ( %) (Auto) 1.3, Sodium Level 136, Potassium Level 6.0*H, Chloride Level 98, Carbon Dioxide Level 21, Anion Gap 17H, Blood Urea Nitrogen 73H, Creatinine 13.4H, Estimat Glomerular Filtration Rate 3.5, Glucose Level 146H, Calcium Level 8.1L, Phosphorus Level 8.4H, Magnesium Level 2.5H Height (Feet): 5 Height (Inches): 2.00 Weight (Pounds): 232 General Appearance: no apparent distress, alert EENT: normal ENT inspection Neck: normal alignment, supple Cardiovascular: normal rate, regular rhythm Respiratory/Chest: lungs clear, normal breath sounds Abdomen: non tender, soft Edema: no edema noted Arm (L), no edema noted Arm (R), no edema noted Leg (L), no edema noted Leg (R), no edema noted Pedal (L), no edema noted Pedal (R), no edema noted Generalized Seymour Wayne MD Jun 26, 2018 08:55
[2018-06-26] MEDS: Calcium Carbonate 1250mg/5ml Liquid ud ORAL SCH ×3 (09:32→17:20)
[2018-06-26 12:00] VITALS: BP 101/53
--- NOTE | 2018-06-26 12:52 | GI Progress Note ---
Assessment/Plan Problems: (1) Diverticulitis of sigmoid colon ICD Codes: K57.32 - Diverticulitis of sigmoid colon SNOMED: 519109862 (2) GERD (gastroesophageal reflux disease) ICD Codes: K21.9 - GERD (gastroesophageal reflux disease) SNOMED: 343968862 (3) Diabetes mellitus ICD Codes: E11.9 - Diabetes mellitus SNOMED: 68141983 (4) Colitis (5) ESRD (end stage renal disease) on dialysis ICD Codes: N18.6 - End stage renal disease; Z99.2 - Dependence on renal dialysis SNOMED: 570929821 Status: stable Status Narrative Discussed with Dr. Bolivar. Assessment/Plan CT AP reviewed >> extensive diverticulosis, possible early diverticulitis. Colonic wall thickening. no anemia no leukocytosis cdiff cancelled >> formed stool recommend endoscopy / colonoscopy as outpatient x2 months patient is already on renal diet and tolerating pain mgmt PO ppi zofran prn, reglan for persistent N/V DM management dc planning discussed in length POC with patient. Subjective Gastrointestinal/Abdominal: Reports: no symptoms Objective Last 24 Hour Vital Signs Date Time Temp Pulse Resp B/P (MAP) Pulse Ox O2 Delivery O2 Flow Rate FiO2 06/26/18 12:00 97.5 74 20 101/53 (69) 95 97.5 06/26/18 09:00 Room Air 06/26/18 08:00 98.2 76 20 120/69 (86) 97 98.2 06/26/18 04:00 97.4 81 18 124/51 (75) 100 97.4 81 06/26/18 00:00 97.5 79 18 114/54 (74) 95 97.5 79 06/25/18 21:00 Room Air 06/25/18 20:00 98.0 86 18 135/65 (88) 95 98.0 86 06/25/18 16:21 Room Air 06/25/18 15:57 97.8 77 18 111/53 (72) 100 97.8 Intake and Output 06/25/18 06/26/18 19:00 07:00 Intake Total 480 ml 600 ml Output Total 2 ml Balance 478 ml 600 ml Intake Oral 480 ml 600 ml Output Urine Total 2 ml # Voids 2 # Bowel Movements 3 Laboratory Tests Test 06/26/18 05:50 White Blood Count 12.2 K/UL (4.8-10.8) H Red Blood Count 3.64 M/UL (4.20-5.40) L Hemoglobin 11.6 G/DL (12.0-16.0) L Hematocrit 35.7 % (37.0-47.0) L Mean Corpuscular Volume 98 FL (80-99) Mean Corpuscular Hemoglobin 32.0 PG (27.0-31.0) H Mean Corpuscular Hemoglobin Concent 32.6 G/DL (32.0-36.0) Red Cell Distribution Width 13.6 % (11.6-14.8) Platelet Count 216 K/UL (150-450) Mean Platelet Volume 8.7 FL (6.5-10.1) Neutrophils (%) (Auto) 56.8 % (45.0-75.0) Lymphocytes (%) (Auto) 30.6 % (20.0-45.0) Monocytes (%) (Auto) 9.7 % (1.0-10.0) Eosinophils (%) (Auto) 1.5 % (0.0-3.0) Basophils (%) (Auto) 1.3 % (0.0-2.0) Sodium Level 136 MMOL/L (136-145) Potassium Level 6.0 MMOL/L (3.5-5.1) *H Chloride Level 98 MMOL/L (98-107) Carbon Dioxide Level 21 MMOL/L (21-32) Anion Gap 17 mmol/L (5-15) H Blood Urea Nitrogen 73 mg/dL (7-18) H Creatinine 13.4 MG/DL (0.55-1.30) H Estimat Glomerular Filtration Rate 3.5 mL/min (>60) Glucose Level 146 MG/DL (74-106) H Calcium Level 8.1 MG/DL (8.5-10.1) L Phosphorus Level 8.4 MG/DL (2.5-4.9) H Magnesium Level 2.5 MG/DL (1.8-2.4) H Height (Feet): 5 Height (Inches): 2.00 Weight (Pounds): 240 General Appearance: WD/WN, no apparent distress, alert Cardiovascular: normal rate Respiratory/Chest: normal breath sounds, no respiratory distress Abdominal Exam: normal bowel sounds, non tender, soft Extremities: normal range of motion, non-tender Chris Hair NP Jun 26, 2018 12:51
--- NOTE | 2018-06-26 14:52 | General Surgery Progress Note ---
General Surgery-Progress Note Subjective Symptoms: improved, pain absent, tolerating diet, passing flatus, BM Objective Last 24 Hour Vital Signs Date Time Temp Pulse Resp B/P (MAP) Pulse Ox O2 Delivery O2 Flow Rate FiO2 06/26/18 12:00 97.5 74 20 101/53 (69) 95 97.5 06/26/18 09:00 Room Air 06/26/18 08:00 98.2 76 20 120/69 (86) 97 98.2 06/26/18 04:00 97.4 81 18 124/51 (75) 100 97.4 81 06/26/18 00:00 97.5 79 18 114/54 (74) 95 97.5 79 06/25/18 21:00 Room Air 06/25/18 20:00 98.0 86 18 135/65 (88) 95 98.0 86 06/25/18 16:21 Room Air 06/25/18 15:57 97.8 77 18 111/53 (72) 100 97.8 I&O Intake and Output 06/25/18 06/26/18 19:00 07:00 Intake Total 480 ml 600 ml Output Total 2 ml Balance 478 ml 600 ml Intake Oral 480 ml 600 ml Output Urine Total 2 ml # Voids 2 # Bowel Movements 3 Drains: none Cardiovascular: RSR Respiratory: clear Abdomen: soft, flat, non-tender, present bowel sounds Extremities: no tenderness Laboratory Tests Test 06/26/18 05:50 White Blood Count 12.2 K/UL (4.8-10.8) H Red Blood Count 3.64 M/UL (4.20-5.40) L Hemoglobin 11.6 G/DL (12.0-16.0) L Hematocrit 35.7 % (37.0-47.0) L Mean Corpuscular Volume 98 FL (80-99) Mean Corpuscular Hemoglobin 32.0 PG (27.0-31.0) H Mean Corpuscular Hemoglobin Concent 32.6 G/DL (32.0-36.0) Red Cell Distribution Width 13.6 % (11.6-14.8) Platelet Count 216 K/UL (150-450) Mean Platelet Volume 8.7 FL (6.5-10.1) Neutrophils (%) (Auto) 56.8 % (45.0-75.0) Lymphocytes (%) (Auto) 30.6 % (20.0-45.0) Monocytes (%) (Auto) 9.7 % (1.0-10.0) Eosinophils (%) (Auto) 1.5 % (0.0-3.0) Basophils (%) (Auto) 1.3 % (0.0-2.0) Sodium Level 136 MMOL/L (136-145) Potassium Level 6.0 MMOL/L (3.5-5.1) *H Chloride Level 98 MMOL/L (98-107) Carbon Dioxide Level 21 MMOL/L (21-32) Anion Gap 17 mmol/L (5-15) H Blood Urea Nitrogen 73 mg/dL (7-18) H Creatinine 13.4 MG/DL (0.55-1.30) H Estimat Glomerular Filtration Rate 3.5 mL/min (>60) Glucose Level 146 MG/DL (74-106) H Calcium Level 8.1 MG/DL (8.5-10.1) L Phosphorus Level 8.4 MG/DL (2.5-4.9) H Magnesium Level 2.5 MG/DL (1.8-2.4) H Plan Problems: (1) Abdominal pain Assessment & Plan: acute upper abdominal pain, nausea, emesis. no leukocytosis. elevated lft's. CT with Extensive diverticulosis, also previously reported. Equivocal slight infiltration of the pericolonic fat adjacent to the descending colon, could indicate very early acute diverticulitis. Correlate with clinical findings. Slight wall thickening of the distal transverse, proximal descending colon and splenic flexure. Possibly related to the above, or could indicate colitis unrelated to diverticular disease. US without stones or GB pathology -okay for diet -d/c planing will follow with recs. thank you for this consultation Pardeep Robins Jun 26, 2018 14:52
[2018-06-26] MEDS: Ertapenem 0.5gm in NS 55ml IVPB SCH (17:20)
--- NOTE | 2018-06-29 07:56 | Discharge Summary ---
Discharge Summary Discharge Summary _ DATE OF ADMISSION: 06/23/2018 DATE OF DISCHARGE: 06/26/2018 REASON FOR ADMISSION: 53 years old female with history of end-stage renal disease, on hemodialysis Friday, hypertension, end-stage renal disease, diverticular disease, presented to emergency room for evaluation for abdominal pain. She denied nausea and vomiting ,but had diarrhea. No chest pain or shortness of breath. Hemodialysis was done on day prior to presentation to emergency department. Upon evaluation vital signs were stable ; patient was afebrile . Laboratory workup revealed no leukocytosis. Troponin negative. BUN 33, creatinine 9.3, consistent with known history of end-stage renal disease. Potassium 5.1. Glucose 182 CT of the abdomen and pelvis revealed extensive diverticular disease , probably early acute diverticulitis. Atrophic bilateral kidneys, consistent with known history of chronic renal disease. Fatty liver. Patient admitted with diagnoses of abdominal pain , diverticulitis ,end-stage renal disease, on hemodialysis, anemia of chronic kidney disease, hypertension. CONSULTANTS: ID specialist Dr. De La Vega GI specialist Dr. Bolivar surgery Dr. Robins [facility]SE: Patient admitted to medical surgical floor. Patient started on IV fluids and empiric antibiotics. Abdominal ultrasound revealed no gallstones, no dilated ducts. DVT and GI prophylaxis provided. Pain management was addressed, and pain was controlled. Antiemetics provided as needed. Diarrhea resolved . GI specialist , surgeon and ID specialist closely followed. Patient was slowly started on diet and was advanced as tolerated . Patient was able to tolerate diet. No elevated LFT. Patient was cleared for discharge by all consultants, GI specialist recommended outpatient endoscopy/colonoscopy in 2 months. Next day potassium 6.0 . Hemodialysis was done. Electrolytes were closely monitored and corrected as needed. Hemoglobin and hematocrit were closely monitored with goal to start Epogen if hemoglobin below 10. , remained stable. Blood pressure was closely monitored, remained stable. Blood sugar was managed with glyburide and sliding scale of insulin. Supportive care provided . Patient clinically improved , abdominal pain resolved, no further,diarrhea . Patient was stable for discharge. FINAL DIAGNOSES: Sigmoid colon diverticulitis Abdominal pain secondary to diverticulitis End-stage renal disease, on hemodialysis Diabetes mellitus Anemia of chronic kidney disease Diarrhea, resolved Hyperkalemia, status post hemodialysis DISCHARGE MEDICATIONS: See Medication Reconciliation list. DISCHARGE INSTRUCTIONS: Patient was discharged home Follow up with primary care provider in one week. Follow-up with outpatient hemodialysis as scheduled . Follow up with outpatient endoscopy/colonoscopy in 2 months. I have been assigned to dictate discharge summary for this account. I was not involved in the patient's management. Jaja Gallagher NP Jun 29, 2018 07:55
== END 2018-06-26 18:36 | disposition home or self-care (01) | DRG 244 ==
LOC: EMR 08:00 → 4E 11:46 → EDBEDREQ 11:52
PROC: 5A1D70Z Performance of Urinary Filtration, Intermittent, Less than 6 Hours Per Day (ICD-10-PCS; principal; 2018-06-23)
DX: K57.32 Diverticulitis of large intestine without perforation or abscess without bleeding (principal); E11.22 Type 2 diabetes mellitus with diabetic chronic kidney disease; I12.0 Hypertensive chronic kidney disease with stage 5 chronic kidney disease or end stage renal disease; K76.0 Fatty (change of) liver, not elsewhere classified; D63.1 Anemia in chronic kidney disease; N18.6 End stage renal disease; Z99.2 Dependence on renal dialysis; Z88.6 Allergy status to analgesic agent; Z88.1 Allergy status to other antibiotic agents; Z88.0 Allergy status to penicillin; E21.3 Hyperparathyroidism, unspecified; N18.9 Chronic kidney disease, unspecified; R19.7 Diarrhea, unspecified; E87.5 Hyperkalemia; K21.9 Gastro-esophageal reflux disease without esophagitis; E66.9 Obesity, unspecified; K52.9 Noninfective gastroenteritis and colitis, unspecified; Z79.84 Long term (current) use of oral hypoglycemic drugs
CPT/HCPCS: 36415; 74177; 76700; 80048; 80053; 82962; 83690; 83735; 84100; 84484; 85025; 87040; 87045; 87081; 96365; 96374; 96376; 99285; J1815; J2405

== ENCOUNTER 2018-07-02 20:39 | Emergency (ER) | payer MEDICAID ==
[~2018-07-02] VITALS: Ht 165.1 cm; Wt 105.2 kg
[2018-07-02 21:13] VITALS: BP 130/85
--- NOTE | 2018-07-02 21:16 | Emergency Room Report ---
History of Present Illness General Chief Complaint: Abdominal Pain Source: Patient, Medical Record, EMS Present Illness HPI Is a 53-year-old female with a history of end-stage renal disease on hemodialysis. She also has a history of diverticulosis and chronic abdominal pain. She presents with chief complaint of abdominal pain. She was just discharged here with diagnosis of diverticulitis. CT scan here show possible minimal fat stranding that could be consistent with diverticulitis. Her labs are unremarkable. She was just discharged here. She presents with chief complaint of abdominal pain and went to [facility]. Her labs were unremarkable. CT scan showed diverticulosis with very minimal possible residual diverticulitis. She was transferred to [facility] and the amylase took her to the wrong hospital. She was supposed to go to [facility]. She left hospital there with an IV in her left arm. Her brought her here to be admitted since her records are here. Patient said Anderson is not helping. Pain is 10 out of 10. No nausea no vomiting. No diarrhea. No fever or chills. She is getting antibiotics at home. Allergies: Coded Allergies: PENICILLINS (Verified Allergy, Intermediate, Hives, 04/01/18) CIPROFLOXACIN (Verified Allergy, Unknown, Hives, 04/01/18) MORPHINE (Unverified Allergy, Unknown, 04/01/18) SULFAMETHOXAZOLE (Verified Allergy, Unknown, Hives, 04/01/18) TRIMETHOPRIM (Verified Allergy, Unknown, Hives, 04/01/18) VANCOMYCIN (Verified Allergy, Unknown, Rash, 04/01/18) Patient History Past Medical History: see triage record, old chart reviewed, HTN, renal disease , dialysis Past Surgical History: other Pertinent Family History: none Last Menstrual Period: 2005 Now: No : 3 Para: 3 Immunizations: other Reviewed Nursing Documentation: PMH: Agreed; PSxH: Agreed Nursing Documentation-PMH Past Medical History: No History, Except For Hx Cardiac Problems: Yes Hx Hypertension: No Hx Pacemaker: No Hx Asthma: No Hx COPD: No Hx Diabetes: Yes Hx Cancer: No Hx Gastrointestinal Problems: Yes Hx Dialysis: Yes - M-W-F, shunt upper right arm Hx Neurological Problems: No Hx Cerebrovascular Accident: No Hx Seizures: No Review of Systems Eye: Denies: eye pain, blurred vision ENT: Denies: ear pain, nose congestion, throat swelling Respiratory: Denies: cough, shortness of breath Cardiovascular: Denies: chest pain, palpitations Gastrointestinal: Reports: abdominal pain; Denies: diarrhea, nausea, vomiting Musculoskeletal: Denies: back pain, joint pain Skin: Denies: rash Neurological: Denies: headache, numbness Endocrine: Denies: increased thirst, increased urine Hematologic/Lymphatic: Denies: easy bruising All Other Systems: negative except mentioned in HPI Physical Exam Vital Signs Date Time Temp Pulse Resp B/P (MAP) Pulse Ox O2 Delivery O2 Flow Rate FiO2 07/02/18 20:49 98.8 82 16 128/86 95 Room Air 98.8 vitals normal Sp02 EP Interpretation: reviewed, normal General Appearance: well appearing, no apparent distress, alert Head: normocephalic, atraumatic Eyes: bilateral eye PERRL, bilateral eye EOMI ENT: hearing grossly normal, normal pharynx Neck: full range of motion, supple, no meningismus Respiratory: chest non-tender, lungs clear, normal breath sounds Cardiovascular #1: regular rate, rhythm, no murmur Gastrointestinal: normal bowel sounds, no mass, no organomegaly, no bruit, non- distended, tenderness - mild diffuse Musculoskeletal: back normal, gait/station normal, normal range of motion Psychiatric: mood/affect normal Skin: warm/dry Medical Decision Making Diagnostic Impression: Primary Impression: Abdominal pain Qualified Codes: R10.84 - Generalized abdominal pain Additional Impression: Chronic pain Qualified Codes: G89.4 - Chronic pain syndrome ER Course Patient presents with chronic abdominal pain. CT scan is really unremarkable. Reading is very equivicol. It only said possible minimal residual diverticulitis. Patient is currently on antibiotics already. I see no need for admission. Her labs are unremarkable. Patient was not happy with this. She wanted IV narcotics. Patient said she is going to leave and go to another hospital. I explained to her that she cannot leave without an IV in. They just got up and left. I will have nursing staff call the police to have the patient come back to remove the IV. On the [employer] system, she get monthly Anderson 10 mg, #90, Braeden Lu. I suspect this is more of a narcotic seeking and anxiety rather than true disease process. Patient is otherwise stable. She left AMA without signing any paperwork. Last Vital Signs Date Time Temp Pulse Resp B/P (MAP) Pulse Ox O2 Delivery O2 Flow Rate FiO2 07/02/18 20:49 98.8 82 16 128/86 95 Room Air 98.8 Status: unchanged Disposition: AGAINST MEDICAL ADVICE Condition: Stable Patient Instructions: Abdominal Pain, Adult Clayton Hair MD Jul 02, 2018 21:15
== END 2018-07-02 22:00 | disposition left against medical advice (07) ==
LOC: EMR 21:19
DX: R10.9 Unspecified abdominal pain (principal); G89.29 Other chronic pain; I12.0 Hypertensive chronic kidney disease with stage 5 chronic kidney disease or end stage renal disease; N18.6 End stage renal disease; E11.22 Type 2 diabetes mellitus with diabetic chronic kidney disease; Z99.2 Dependence on renal dialysis; Z87.19 Personal history of other diseases of the digestive system; Z88.0 Allergy status to penicillin; Z88.2 Allergy status to sulfonamides; Z88.5 Allergy status to narcotic agent
CPT/HCPCS: 99282

== ENCOUNTER 2019-01-04 16:04 | Emergency (ER) | payer MEDICAID ==
[~2019-01-04] VITALS: Ht 165.1 cm; Wt 101.2 kg
[2019-01-04 16:30] VITALS: BP 110/68
[2019-01-04] MEDS ORDERED: oxyCODONE HCL/Acetaminophen 5/325mg ORAL ONE (17:15)
--- NOTE | 2019-01-04 17:53 | Diagnostic Imaging Report ---
Indication: Low back pain Technique: 3 views of the lumbar spine Comparison: None Findings: Bony alignment is normal. Vertebral body heights are preserved. Disc spaces are preserved. The pedicles are intact. Sacral arches are preserved. There is evidence of degenerative facet arthrosis of the lower lumbar spine. Surgical clips are seen in the left iliac fossa. Impression: No acute bony trauma Mild degenerative changes, as described
[2019-01-04] MEDS ORDERED: Methocarbamol 750mg tab ORAL ONE (18:15)
--- NOTE | 2019-01-04 18:35 | Emergency Room Report ---
History of Present Illness General Chief Complaint: Lower Back Pain or Injury Source: Medical Record Present Illness HPI 53-year-old female presents to the emergency department complaining of 10 out of 10 in severity progressive low back pain that radiates across the low back 10 days. Patient denies acute trauma or fall she denies fevers, chills, history of neoplastic disease or recent spinal procedures. She reports that she has a history of kidney failure and transplant and is currently on dialysis awaiting additional kidney transplant.Denies numbness tingling or loss of sensation or gross motor movements of the extremities, incontinence of bowel or bladder. Denies CP, Palpitations, LOC, AMS, dizziness, Changes in Vision, weakness or a sudden severe headache. Allergies: Coded Allergies: PENICILLINS (Verified Allergy, Intermediate, Hives, 04/01/18) CIPROFLOXACIN (Verified Allergy, Unknown, Hives, 04/01/18) MORPHINE (Unverified Allergy, Unknown, 04/01/18) SULFAMETHOXAZOLE (Verified Allergy, Unknown, Hives, 04/01/18) TRIMETHOPRIM (Verified Allergy, Unknown, Hives, 04/01/18) VANCOMYCIN (Verified Allergy, Unknown, Rash, 04/01/18) Patient History Past Medical History: see triage record, HTN, dialysis Past Surgical History: none Pertinent Family History: none Last Menstrual Period: menopause Now: No Reviewed Nursing Documentation: PMH: Agreed Nursing Documentation-PMH Past Medical History: No History, Except For Hx Cardiac Problems: Yes Hx Hypertension: No Hx Pacemaker: No Hx Asthma: No Hx COPD: No Hx Diabetes: Yes Hx Cancer: No Hx Gastrointestinal Problems: Yes Hx Dialysis: Yes - M-W-F, shunt upper right arm Hx Neurological Problems: No Hx Cerebrovascular Accident: No Hx Seizures: No Review of Systems All Other Systems: negative except mentioned in HPI Physical Exam Vital Signs Date Time Temp Pulse Resp B/P (MAP) Pulse Ox O2 Delivery O2 Flow Rate FiO2 01/04/19 16:13 98.2 112 18 103/62 95 Room Air Sp02 EP Interpretation: reviewed, normal General Appearance: alert, GCS 15, non-toxic, moderate distress Head: normocephalic, atraumatic Eyes: bilateral eye normal inspection, bilateral eye PERRL ENT: hearing grossly normal, normal voice Neck: full range of motion, no bony tend Respiratory: chest non-tender, lungs clear, normal breath sounds, no respiratory distress, no wheezing, speaking full sentences Cardiovascular #1: regular rate, rhythm Gastrointestinal: normal bowel sounds, non tender, soft Genitourinary: normal inspection, no CVA tenderness Musculoskeletal: gait/station normal, normal range of motion, tender - TTP midline and bilaterally across the lumbar back, no obvious step off, no warmth, no erythema, no specific localized ttp, no sciatica Neurologic: alert, oriented x3, responsive, motor strength/tone normal, sensory intact, speech normal, grossly normal Psychiatric: judgement/insight normal Skin: normal color, no rash, warm/dry, well hydrated Lymphatic: no adenopathy Medical Decision Making PA Attestation Dr. Cook is my supervising Physician whom patient management has been discussed with. Diagnostic Impression: Primary Impression: Back pain Qualified Codes: M54.5 - Low back pain; G89.29 - Other chronic pain Additional Impression: Low back pain Qualified Codes: M54.5 - Low back pain ER Course 53-year-old female presents to the emergency department complaining of 10 out of 10 in severity progressive low back pain that radiates across the low back 10 days. Patient denies acute trauma or fall she denies fevers, chills, history of neoplastic disease or recent spinal procedures. She reports that she has a history of kidney failure and transplant and is currently on dialysis awaiting additional kidney transplant.Denies numbness tingling or loss of sensation or gross motor movements of the extremities, incontinence of bowel or bladder. Denies CP, Palpitations, LOC, AMS, dizziness, Changes in Vision, weakness or a sudden severe headache. Pt. presents to ED c/o LBP. Ddx considered: epidural abscess, fracture, sprain/strain, meningitis, spinal chord injury, sciatica, cauda equina, Pyelonephritis, renal calculi just to name a few. Vital signs reviewed and are WNL during ED visit. Pt. is afebrile with no signs of infection No new symptoms, and denies recent trauma. No saddle anesthesia noted, Pt. denies incontinence Neurovascular is intact ROM is limited due to pain * Mild Tenderness to palpation to paraspinal muscles of the lower back with midline tenderness. no obvious deformity, no warmth or erythema *Pt. describes pain today as moderate and radiates across the lower back. *Reviewed pt. previous MRI imaging which noted degenerative changes and low bone marrow. ORDERS: -X-ray L-Spine INTERVENTIONS: - Percocet -Robaxin -Lidoderm D/W Pt. that for further pain management is it recommended to consult PCP or a Chronic Pain management doctor. A provider who can safely prescribe controlled substances with close follow up. D/w pt. to only take rx's as prescribed as having renal impairment puts her at risk for toxicity. DISCHARGE: At this time pt. is stable for d/c to home. Will provide printed patient care instructions, and any necessary prescriptions. Care plan and follow up instructions have been discussed with the patient prior to discharge. Other X-Ray Diagnostic Results Other X-Ray Diagnostic Results : X-Ray ordered: Lumbar Spine # of Views/Limited Vs Complete: 3 View Indication: Pain EP Interpretation: Yes LIBRADO Xray: Interpretation reviewed, by supervising MD, and agrees with findings. Interpretation: no dislocation, no soft tissue swelling, no fractures Impression: No acute disease Electronically Signed by: Kati Obrien PA-C Last Vital Signs Date Time Temp Pulse Resp B/P (MAP) Pulse Ox O2 Delivery O2 Flow Rate FiO2 01/04/19 16:30 98.4 96 17 110/68 98 Room Air Disposition: HOME, SELF-CARE Condition: Stable Scripts Lidocaine (Lidoderm) 1 Each Adh..patch 1 PATCH TOPIC DAILY, #30 PATCH 0 Refills Patch(es) may remain in place for up to 12 hours in any 24-hour period. Prov: Kati Obrien 01/04/19 Methocarbamol* (ROBAXIN*) 500 Mg Tablet 500 MG PO TID for 7 Days, #21 TAB 0 Refills Prov: Kati Obrien 01/04/19 Referrals: [facility],REFERRING (PCP) Patient Instructions: Back Pain, Adult Additional Instructions: Take medications as directed. -- do not take more often or more than prescribed as with renal failure, you are at very high risk for toxicity. Follow up with a Primary Care Provider in 3-5 days, even if your symptoms have resolved. --Please review list of primary care clinics, if you do not already have a primary care provider Return sooner to ED if new symptoms occur, or current symptoms become worse. Do not drink alcohol, drive, or operate heavy machinery while taking Robaxin ( Muscle Relaxers) as this may cause drowsiness. - Please note that this Emergency Department Report was dictated using [employer] player technology software, occasionally this can lead to erroneous entry secondary to interpretation by the dictation equipment. Kati Obrien Jan 04, 2019 18:35
[2019-01-04] MEDS ORDERED: ROBAXIN500 MG PO (18:37)
[2019-01-04] MEDS ORDERED: LIDODERM700 M1 TOPIC (18:37)
[2019-01-04 18:45] VITALS: BP 114/72
== END 2019-01-04 18:49 | disposition home or self-care (01) ==
LOC: EMR 17:31
DX: M54.5 Low back pain (principal); G89.29 Other chronic pain; I12.9 Hypertensive chronic kidney disease with stage 1 through stage 4 chronic kidney disease, or unspecified chronic kidney disease; E11.22 Type 2 diabetes mellitus with diabetic chronic kidney disease; N18.9 Chronic kidney disease, unspecified; Z94.0 Kidney transplant status; Z99.2 Dependence on renal dialysis; Z88.0 Allergy status to penicillin; Z88.2 Allergy status to sulfonamides; Z88.6 Allergy status to analgesic agent; Z88.8 Allergy status to other drugs, medicaments and biological substances
CPT/HCPCS: 72020; 99283

== ENCOUNTER 2019-03-19 14:10 | Inpatient (IN) | payer MEDICAID ==
[~2019-03-19] VITALS: Ht 165.1 cm; Wt 103.6 kg
[~2019-03-19 14:10] MED LIST changes: +LIDODERM700 M1 TOPIC; +ROBAXIN500 MG PO
--- NOTE | 2019-03-19 14:25 | NUR ---
Note raffaele in EDM - 03/19/19 at 1429 by RADAMES ED Nurse Note: PT WALKED IN TO ER TODAY FROM HOME. AOX4. PT C/O STABBING, NONRADIATING CHEST PAIN, 8/10 X THIS AM EXACERBATED BY COUGH. AT BEDSIDE, HR 104 WITH SINUS TACHYCARDIA ON EKG. PT STATES SHE IS A DIAYLSIS PT AND GOT DIALYZED TODAY.
--- NOTE | 2019-03-19 14:29 | NUR ---
ED Nurse Note: PT WALKED IN TO ER TODAY FROM HOME. AOX4. PT C/O STABBING, NONRADIATING CHEST PAIN, 8/10 X THIS AM EXACERBATED BY COUGH. AT BEDSIDE, HR 104 WITH SINUS TACHYCARDIA ON EKG. PT STATES SHE IS A DIAYLSIS PT AND GOT DIALYZED TODAY. DIALYSIS DAYS ARE MWF. PT PRESENTS WITH AV SHUNT TO RIGHT UPPER ARM.
[2019-03-19 14:30] VITALS: BP 114/55
[2019-03-19] MEDS ORDERED: DiphenhydrAMINE 50mg/ml Inj IVP ONE (14:30)
[2019-03-19] MEDS ORDERED: Morphine Sulfate 4mg/ml Inj (IV USE ONLY) IVP ONE (14:30)
--- NOTE | 2019-03-19 14:36 | Emergency Room Report ---
History of Present Illness General Chief Complaint: Chest Pain Source: Medical Record Present Illness HPI Patient is a 53-year-old female who presented after increased chest discomfort. Patient reports having onset of symptoms this morning presently 530. She reports having sharp pain to the center of her chest. She stated that she had received dialysis subsequently and stated this did not improve the pain at all. Patient had prior history of end-stage renal disease and is normally dialyzed Friday and Friday. Patient had previously been hospitalized after similar episodes of pain in the past. She reports having a negative stress test back in April. Patient states she is currently awaiting transplant. She reports having a recent bone marrow biopsy. She is unsure of the results. Patient denies any fever or cough. Allergies: Coded Allergies: PENICILLINS (Verified Allergy, Intermediate, Hives, 04/01/18) CIPROFLOXACIN (Verified Allergy, Unknown, Hives, 04/01/18) MORPHINE (Unverified Allergy, Unknown, 04/01/18) SULFAMETHOXAZOLE (Verified Allergy, Unknown, Hives, 04/01/18) TRIMETHOPRIM (Verified Allergy, Unknown, Hives, 04/01/18) VANCOMYCIN (Verified Allergy, Unknown, Rash, 04/01/18) Patient History Past Medical History: see triage record Reviewed Nursing Documentation: PMH: Agreed; PSxH: Agreed Nursing Documentation-PMH Past Medical History: No History, Except For Hx Cardiac Problems: Yes Hx Hypertension: No Hx Pacemaker: No Hx Asthma: No Hx COPD: No Hx Diabetes: Yes Hx Cancer: No Hx Gastrointestinal Problems: Yes Hx Dialysis: Yes - M-W-F, shunt upper right arm Hx Neurological Problems: No Hx Cerebrovascular Accident: No Hx Seizures: No Review of Systems All Other Systems: negative except mentioned in HPI Physical Exam Vital Signs Date Time Temp Pulse Resp B/P (MAP) Pulse Ox O2 Delivery O2 Flow Rate FiO2 03/19/19 14:19 98.1 106 16 129/78 (95) 99 Room Air Sp02 EP Interpretation: reviewed, normal General Appearance: normal inspection, no apparent distress, alert, GCS 15, obese, Chronically Ill Head: atraumatic ENT: normal ENT inspection, hearing grossly normal, normal voice Neck: normal inspection, full range of motion, supple, no bony tend Respiratory: normal inspection, lungs clear, normal breath sounds, no respiratory distress, no retraction, no wheezing Cardiovascular #1: regular rate, rhythm, no edema Gastrointestinal: normal inspection, normal bowel sounds, non tender, soft, no guarding, no hernia Genitourinary: no CVA tenderness Musculoskeletal: normal inspection, back normal, normal range of motion Neurologic: normal inspection, alert, oriented x3, responsive, tilting head band sawyer III-XII nml as tested, motor strength/tone normal, speech normal Psychiatric: normal inspection, judgement/insight normal, mood/affect normal Skin: normal inspection, normal color, no rash Medical Decision Making Diagnostic Impression: Primary Impression: ACS (acute coronary syndrome) Additional Impressions: Chronic pain ESRD (end stage renal disease) on dialysis ER Course Patient presented for chest pain. Differential diagnosis include was not limited to chest wall pain, ACS, neuropathic pain, cervical radiculopathy among others. Because of complexity of patient's case laboratory testing and imaging studies were ordered. Patient was noted to have prior negative stress test. Laboratory testing showed negative troponin. Patient's EKG interpreted by me showed normal sinus rhythm without acute ST elevation. Patient was noted to have some flattening of the inferior T waves. Patient's was noted to have a recent negative stress test in April. Dr. Aguilar Carvalho was contacted for inpatient management due to panel physician. Labs Test 03/19/19 14:54 White Blood Count 13.2 K/UL (4.8-10.8) Red Blood Count 3.89 M/UL (4.20-5.40) Hemoglobin 12.2 G/DL (12.0-16.0) Hematocrit 34.4 % (37.0-47.0) Mean Corpuscular Volume 88 FL (80-99) Mean Corpuscular Hemoglobin 31.5 PG (27.0-31.0) Mean Corpuscular Hemoglobin Concent 35.6 G/DL (32.0-36.0) Red Cell Distribution Width 12.8 % (11.6-14.8) Platelet Count 246 K/UL (150-450) Mean Platelet Volume 7.0 FL (6.5-10.1) Neutrophils (%) (Auto) 75.0 % (45.0-75.0) Lymphocytes (%) (Auto) 16.4 % (20.0-45.0) Monocytes (%) (Auto) 5.8 % (1.0-10.0) Eosinophils (%) (Auto) 1.4 % (0.0-3.0) Basophils (%) (Auto) 1.4 % (0.0-2.0) Sodium Level 134 MMOL/L (136-145) Potassium Level 3.8 MMOL/L (3.5-5.1) Chloride Level 94 MMOL/L (98-107) Carbon Dioxide Level 27 MMOL/L (21-32) Anion Gap 13 mmol/L (5-15) Blood Urea Nitrogen 29 mg/dL (7-18) Creatinine 6.8 MG/DL (0.55-1.30) Estimat Glomerular Filtration Rate 7.8 mL/min (>60) Glucose Level 200 MG/DL (74-106) Calcium Level 9.3 MG/DL (8.5-10.1) Total Bilirubin 0.3 MG/DL (0.2-1.0) Aspartate Amino Transf (AST/SGOT) 15 U/L (15-37) Alanine Aminotransferase (ALT/SGPT) 19 U/L (12-78) Alkaline Phosphatase 190 U/L (46-116) Total Creatine Kinase 40 U/L (26-308) Creatine Kinase MB < 0.5 NG/ML (0.0-3.6) Creatine Kinase MB Relative Index 1.2 Troponin I 0.000 ng/mL (0.000-0.056) Pro-B-Type Natriuretic Peptide 246 pg/mL (0-125) Total Protein 8.0 G/DL (6.4-8.2) Albumin 4.0 G/DL (3.4-5.0) Globulin 4.0 g/dL Albumin/Globulin Ratio 1.0 (1.0-2.7) Lipase 226 U/L (73-393) EKG Diagnostic Results Rate: normal Rhythm: NSR ST Segments: no acute changes Last Vital Signs Date Time Temp Pulse Resp B/P (MAP) Pulse Ox O2 Delivery O2 Flow Rate FiO2 03/19/19 14:19 98.1 106 16 129/78 (95) 99 Room Air Status: improved Disposition: ADMITTED INPATIENT Condition: Stable Eleuterio Cook MD Mar 19, 2019 14:36
[2019-03-19] MEDS ORDERED: Aspirin Baby 81mg ORAL ONE (14:45)
[2019-03-19 15:16] LABS: BASOPHILS % (AUTO) 1.4 % (0.0-2.0); EOSINOPHILS % (AUTO) 1.4 % (0.0-3.0); HEMATOCRIT 34.4 % (37.0-47.0); HEMOGLOBIN 12.2 G/DL (12.0-16.0); LYMPHOCYTES % (AUTO) 16.4 % (20.0-45.0); MEAN CORPUSCULAR VOLUME 88 FL (80-99); MONOCYTES % (AUTO) 5.8 % (1.0-10.0); PLATELET COUNT 246 K/UL (150-450); RED BLOOD COUNT 3.89 M/UL (4.20-5.40); RED CELL DISTRIBUTION WIDTH 12.8 % (11.6-14.8); WHITE BLOOD COUNT 13.2 K/UL (4.8-10.8)
[2019-03-19 15:20] LABS: ANION GAP 13 mmol/L (5-15); BLOOD UREA NITROGEN 29 mg/dL (7-18); CALCIUM 9.3 MG/DL (8.5-10.1); CARBON DIOXIDE 27 MMOL/L (21-32); CHLORIDE 94 MMOL/L (98-107); CREATININE 6.8 MG/DL (0.55-1.30); POTASSIUM 3.8 MMOL/L (3.5-5.1); SODIUM 134 MMOL/L (136-145)
--- NOTE | 2019-03-19 15:41 | Diagnostic Imaging Report ---
Indication: Chest pain Technique: One view of the chest Comparison: 05/10/2018 Findings: Body habitus somewhat limits evaluation. There is questionable nodular opacity in the right midlung measuring 15 mm diameter, not evident previously. The lungs and pleural spaces are otherwise clear. The heart is borderline enlarged. Impression: Questionable 15 mm right lung nodule. Recommend follow-up chest radiographs to resolution, consider CT should lesion failed to resolve
[2019-03-19 15:45] LABS: ALANINE AMINOTRANSFERASE 19 U/L (12-78); ALKALINE PHOSPHATASE 190 U/L (46-116); ASPARTATE AMINO TRANSFERASE 15 U/L (15-37); BILIRUBIN,TOTAL 0.3 MG/DL (0.2-1.0); CKMB < 0.5 NG/ML (0.0-3.6); CREATINE KINASE 40 U/L (26-308)
[2019-03-19 16:43] VITALS: BP 110/60
--- NOTE | 2019-03-19 17:11 | NUR ---
ED Nurse Note: TELE UNIT CALLED FOR PT REPORT. CURT LANIER NOT READY AT THIS TIME. SHE WILL CALL BACK IN 5 MINUTES.
--- NOTE | 2019-03-19 17:27 | NUR ---
ED Nurse Note: TELE UNIT CALLED FOR PT TRANSFER. REPORT GIVEN TO CURT LANIER. 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 VSS.
[2019-03-19] MEDS ORDERED: Nitroglycerin Subl 0.4mg tab SL PRN (17:30)
--- NOTE | 2019-03-19 17:35 | NUR ---
NURSE NOTES: Left message to page Dr. Carvalho for admission orders
[2019-03-19 17:56] VITALS: BP 102/55
[2019-03-19] MEDS ORDERED: RENVELA0.8 GM ORAL (18:47)
[2019-03-19] MEDS ORDERED: BENADRYL25 M3 PO (18:47)
[2019-03-19] MEDS ORDERED: GLYBURIDE5 MG PO (18:47)
--- NOTE | 2019-03-19 18:49 | NUR ---
NURSE NOTES: 1748: Pt admitted to 2E 202-1 via gurney from ER. CURT Willams in ED gave report. Pt brought to 2E with all belongings accompanied by . Pt complaining of Chest Pain not relieved by morphine. Pt A/Ox4, ambulatory, talkative, no respiratory distress noted. Vitals obtained and assessment done, see flowsheet. Pt requesting private room, notified Atif LOVETT. 1840: Called CURT Willams in ED to update pt's home medication list.
--- NOTE | 2019-03-19 18:56 | NUR ---
NURSE NOTES: Left message to page Dr. Carvalho for orders
--- NOTE | 2019-03-19 19:39 | NUR ---
HAND-OFF: Report given to CURT Huggins.
--- NOTE | 2019-03-19 19:48 | NUR ---
NURSE NOTES: Received report from CURT Guidry. Patient is awake sitting on the bed; resting comfortably. No signs of acute distress or pain noted at this time. Family members at bedside. AOx4; able to make needs known. Ambulates independently. Checked IV site; patent and flushed. No erythema, bleeding, or infiltration noted. Right upper arm AV shunt noted; thrill and bruit present. Bed at lowest position, brakes on, siderails up x2. Call light within reach. Will continue to monitor.
[2019-03-19 20:00] VITALS: BP 122/85
--- NOTE | 2019-03-19 20:13 | NUR ---
NURSE NOTES: Called Dr. Carvalho for admission orders. Awaiting callback.
--- NOTE | 2019-03-19 20:53 | NUR ---
NURSE NOTES: Called Dr. Carvalho's exchange for admission orders. Awaiting callback.
--- NOTE | 2019-03-19 21:11 | NUR ---
NURSE NOTES: Received new admission orders from Dr. Carvalho, but per Dr. Carvalho, no Dilaudid order for patient. Noted and carried out.
[2019-03-19] MEDS ORDERED: LORazepam 1mg tab ORAL PRN (21:15)
[2019-03-19] MEDS ORDERED: Zolpidem 5mg tab ORAL PRN (21:15)
[2019-03-19] MEDS ORDERED: HYDROcodone/Acetamin 10/325 tab ORAL PRN (21:15)
--- NOTE | 2019-03-19 21:29 | NUR ---
NURSE NOTES: Notified patient that Dr. Carvalho does not want to order Dilaudid. Patient requests Morphine instead with Benadryl administered for allergies. Called Dr. Carvalho regarding patient's request for Morphine. Received new order. Noted and carried out.
[2019-03-19] MEDS: Morphine Sulfate 2mg/ml Inj(IV/IM USE ONLY) IVP PRN (22:03)
--- NOTE | 2019-03-19 22:12 | NUR ---
NURSE NOTES: Called Dr. Carvalho regarding patient's request to have her Morphine dose increased and for her Benadryl 50 mg medication to be changed from PO to IV. Awaiting callback.
[2019-03-20] VITALS: BP 97/58
[2019-03-20 04:00] VITALS: BP 100/61
--- NOTE | 2019-03-20 04:30 | NUR ---
NURSE NOTES: Patient is asleep lying semi-almazan's; resting comfortably. No signs of acute distress or pain noted at this time.
[2019-03-20] MEDS: NovoLOG Insulin Flexpen SUBQ SCH ×3 (06:30→16:20)
[2019-03-20] MEDS: Morphine Sulfate 2mg/ml Inj(IV/IM USE ONLY) IVP PRN ×2 (06:51→13:40)
--- NOTE | 2019-03-20 07:33 | NUR ---
HAND-OFF: Report given to CURT Charles. Patient is awake eating breakfast. In stable condition.
--- NOTE | 2019-03-20 07:47 | NUR ---
NURSE NOTES: Received report from Bhavna/CURT. Patient is awake, eating breakfast. No signs of acute distress noted; denies pain at this time. Checked IV site; patent, No bleeding, or infiltration noted. Call light within reach. Will continue plan of care.
[2019-03-20 08:00] VITALS: BP 99/50
[2019-03-20] MEDS: Renvela 800mg Pkt ORAL SCH ×3 (08:41→18:00)
--- NOTE | 2019-03-20 10:51 | NUR ---
CASE MANAGEMENT: INITIAL REVIEW 53 YO F PRESENTED TO OUR ED FROM HOME CC: CP PMHx: HD MWF. ESRD. DM. SI:CP. ACS. T 98.1 HR 106 RR 16 B/P 129/78 SATS 99% ON RA WBC 13.2 NA 134 CL 94 BUN 29 CR 6.8 GLU 200 ALP 190 BNP 246 IS: MORPHINE IV X1 BENADRYL IV X1 PEPCID IV X1 ASA PO X1 PATIENT ADMITTED TO TELE 03/19/2019 @ 7273 DCP: PATIENT TO BE DISCHARGED TO HOME ONCE MEDICALLY CLEARED. PLAN OF CARE: CARDIO EVAL Addendum: 03/20/19 at 1751 by Tonie Fish CM INTERQUAL MET
[2019-03-20 12:00] VITALS: BP 118/69
--- NOTE | 2019-03-20 12:04 | NUR ---
NURSE NOTES: Patient's Blood sugar is 162, Pt refused Insulin.
[2019-03-20 16:00] VITALS: BP 131/63
--- NOTE | 2019-03-20 17:50 | NUR ---
NURSE NOTES: Discharge instruction given and patient verbalized understanding. Vital signs are stable, No acute distress/SOB noted. Heart monitor and IV removed, No bleeding or infiltration noted. Belonging check done and signed by patient. Escorted downstairs patient left with Family via private vehicle.
--- NOTE | 2019-03-20 19:37 | Cardiology Report ---
APPROVED REPORT EKG Measurement Heart [id number] Sinus tachycardia Cannot rule out Anterior infarct, age undetermined Abnormal ECG
--- NOTE | 2019-03-20 21:15 | History and Physical Report ---
DATE OF ADMISSION: 03/19/2019 HISTORY OF PRESENT ILLNESS: This is a 53 years old female, who came to the emergency room for having left-sided chest pain, short of breath, and palpitations. PAST MEDICAL HISTORY: Significant for diverticulitis, hyperkalemia, diabetes, muscle strain, arthritis, degenerative changes, lung nodules. MEDICATIONS: See the list. She is taking Lipitor, gabapentin, glyburide, hydrocodone, insulin, and sevelamer. ALLERGIES: NKA. FAMILY HISTORY: Noncontributory. SOCIAL HISTORY: The patient lives at home with . Denies any smoking and drinking. Denies any illegal drugs. REVIEW OF SYSTEMS: The patient is sitting in the bed, comfortable. PHYSICAL EXAMINATION: VITAL SIGNS: Blood pressure is 131/63, pulse 85, respirations 19, and temperature is 98. SKIN: Good skin turgor. HEENT: NAD. CHEST: Bilaterally clear. CARDIOVASCULAR: Regular rhythm. No gallop. No murmur. ABDOMEN: Soft. Positive bowel sounds. EXTREMITIES: CCE. NEUROLOGICAL: No focal deficit. LABORATORY DATA: White counts are 13,000, hemoglobin 12, hematocrit 34, platelets are 246. Chemistry panel, sodium 134, potassium 3.8, BUN 29, creatinine is 6.8, and glucose 200. Troponins are negative. BNP was 246. Troponins are negative. BNP is 246. Her EKG is normal sinus rhythm. ASSESSMENT: 1. Atypical chest pain. 2. Chronic renal failure. 3. Diabetes. 4. Morbid obesity. Diet, she is on 2 grams sodium, 1800 ADA diet. Activity, the patient is tolerating. We discussed with the patient. She can go home. Follow up with primary care doctor and follow up the kidney tests as an outpatient. Discussed with the patient. This is also the discharge summary. The patient is going to continue home medications. Follow up as an outpatient. Aguilar Carvalho M.D. DR: DANY JOB#: [id number] CC:
--- NOTE | 2019-03-24 08:01 | Discharge Summary ---
Discharge Summary Discharge Summary _ DATE OF ADMISSION: 03/19/2019 DATE OF DISCHARGE: 03/20/2019 DISCHARGED BY: Dr. Carvalho REASON FOR ADMISSION: 35 years old female with past medical history of end-stage renal disease , on hemodialysis, diabetes mellitus, presented to emergency department with left- sided chest pain , shortness of breath and palpitation. Upon evaluation she was slightly tachycardic with a heart rate of 106 otherwise stable vital signs. Stable electrolytes . BUN 29 . creatinine 6.8 , consistent with known history of end-stage renal disease. Troponin negative. EKG revealed normal sinus rhythm, no acute ischemic changes. Patient received aspirin and nitroglycerin in the emergency department and admitted for further management to telemetry floor. HOSPITAL COURSE: Patient admitted to telemetry floor. Serial troponin were negative. EKG and telemetry revealed no acute ischemic changes. Home medication resumed. Blood sugar was managed with glyburide and sliding scale of insulin as needed. GI prophylaxis provided. Chest pain resolved. Pro BNP 246. Cardiac renal diabetic diet provided. Condition was discharged with patient . Patient had atypical chest pain and was ready for discharge. Due to rapid and unexpected improvement patient condition patient was discharged in 1 day. FINAL DIAGNOSES: Atypical chest pain End-stage renal disease on hemodialysis Diabetes mellitus Morbid obesity DISCHARGE MEDICATIONS: See Medication Reconciliation list. DISCHARGE INSTRUCTIONS: Patient was discharged home . Follow up with primary care provider in one week. I have been assigned to dictate discharge summary for this account. I was not involved in the patient's management. Jaja Gallagher NP Mar 24, 2019 08:01
== END 2019-03-20 17:50 | disposition home or self-care (01) | DRG 203 ==
LOC: EMR 15:20 → 2E 16:03 → EDBEDREQ 17:01 → 2E 18:16
DX: R07.89 Other chest pain (principal); E11.22 Type 2 diabetes mellitus with diabetic chronic kidney disease; N18.6 End stage renal disease; Z99.2 Dependence on renal dialysis; Z68.38 Body mass index [BMI] 38.0-38.9, adult; Z88.6 Allergy status to analgesic agent; Z88.1 Allergy status to other antibiotic agents; Z88.2 Allergy status to sulfonamides; Z79.4 Long term (current) use of insulin; E66.01 Morbid (severe) obesity due to excess calories
CPT/HCPCS: 36415; 71045; 80053; 82550; 82553; 82962; 83690; 83880; 84484; 85025; 93005; 96374; 96375; 99285; J1815

== ENCOUNTER 2019-04-09 18:02 | Emergency (ER) | payer MEDICAID ==
[~2019-04-09] VITALS: Ht 165.1 cm; Wt 102.5 kg
[~2019-04-09 18:02] MED LIST changes: +BENADRYL25 M3 PO; +RENVELA0.8 GM ORAL
[2019-04-09 18:06] VITALS: BP 98/62
--- NOTE | 2019-04-09 18:30 | NUR ---
ED Nurse Note: Patient presents to ER due to bleeding from dialysis site. Dialysis was done today and patient noticed the dressing with blood since 1330. Patient has AV shunt to the RUE with 2x2 dressing with some blood. No bright, red blood noted. Patient using cell phone. No facial grimacing or guarding noted.
--- NOTE | 2019-04-09 18:45 | NUR ---
ED Nurse Note: Dr. Berkowitz at bedside. Removed dressing and applied Dermabond. No bleeding from dialysis site noted. Patient tolerated the procedure wtihout difficulty.
--- NOTE | 2019-04-09 18:48 | Emergency Room Report ---
History of Present Illness General Chief Complaint: General Complaint Source: Patient Present Illness HPI The patient presents with a complaint of bleeding from her dialysis fistula on the right-hand side. There is a new person that punctured through scab. There is some prolonged bleeding after dialysis and when she was removing the bandage of the lower puncture wound she noticed that there was bleeding from the upper. She continued to keep this wound covered and the bleeding slowed down. She does not believe she is lost a significant amount of blood. 2010 she had a similar problem and almost exsanguinated from the bleeding dialysis fistula on the left-hand side. Concerned that this might happen with this. She denies any pain at this time. The patient's renal failure came from hypertension. She had a kidney transplant and states that the medications caused her to have diabetes. She is currently on oral medications. She on glipizide 5 mg. When she takes that occasionally she gets low blood sugar. 2 weeks ago her blood sugar was 78 and she felt shaky and this was improved by eating. She does not take the glipizide every day. The patient denies any chest pain, shortness of breath, dyspnea on exertion, nausea, vomiting or diarrhea. She does not make urine at this time. Her weight has remained stable. Allergies: Coded Allergies: PENICILLINS (Verified Allergy, Intermediate, Hives, 04/01/18) CIPROFLOXACIN (Verified Allergy, Unknown, Hives, 04/01/18) MORPHINE (Unverified Allergy, Unknown, 04/01/18) SULFAMETHOXAZOLE (Verified Allergy, Unknown, Hives, 04/01/18) TRIMETHOPRIM (Verified Allergy, Unknown, Hives, 04/01/18) VANCOMYCIN (Verified Allergy, Unknown, Rash, 04/01/18) Patient History Past Medical History: see triage record Past Surgical History: other - dialysis fistulae, post renal transplant Social History: Denies: smoking Social History Narrative at home, surprise BD tomorrow Reviewed Nursing Documentation: PMH: Agreed; PSxH: Agreed Nursing Documentation-PM Past Medical History: No History, Except For Hx Cardiac Problems: Yes Hx Hypertension: No Hx Pacemaker: No Hx Asthma: No Hx COPD: No Hx Diabetes: Yes Hx Cancer: No Hx Gastrointestinal Problems: Yes Hx Dialysis: Yes - M-W-F, shunt upper right arm Hx Neurological Problems: No Hx Cerebrovascular Accident: No Hx Seizures: No Review of Systems All Other Systems: negative except mentioned in HPI Physical Exam Vital Signs Date Time Temp Pulse Resp B/P (MAP) Pulse Ox O2 Delivery O2 Flow Rate FiO2 04/09/19 18:06 98.2 117 18 98/62 (74) 100 Room Air Sp02 EP Interpretation: reviewed, normal General Appearance: well appearing, no apparent distress, GCS 15, obese Head: normocephalic Eyes: bilateral eye normal inspection, bilateral eye PERRL, bilateral eye EOMI ENT: moist mucus membranes Respiratory: lungs clear, normal breath sounds Cardiovascular #1: regular rate, rhythm Cardiovascular #2: 2+ radial (L) - fistula with thrill Gastrointestinal: normal inspection, non tender, soft, overweight Musculoskeletal: back normal, digits/nails normal, gait/station normal Neurologic: alert, grossly normal Psychiatric: mood/affect normal Skin: normal color, no rash, warm/dry, other - fistula with small ulceration/ eschar whithout active bleeding Procedures Additional Procedure Procedure Narrative Dialysis fistula treated with application of dermabond. No further bleeding. Medical Decision Making Diagnostic Impression: Primary Impression: Bleeding from dialysis shunt Qualified Codes: T82.838A - Hemorrhage due to vascular prosthetic devices, implants and grafts, initial encounter Additional Impression: ESRD (end stage renal disease) on dialysis ER Course Patient presents with bleeding from dialysis fistula. She is slightly tachycardic at this time but feels no weakness or dizziness. She claims she has not had significant blood loss. Application of Dermabond is indicated. I suggested we get lab to ascertain amount of blood loss and also electrolytes. She declines this and states that there was not enough blood loss to need labs. She also states that she follows her own blood sugar. Dermabond applied and no bleeding at this time. Discussed outpatient treatment with patient. Patient not tachycardic and blood pressure improved during observation and treatment. Patient stable for outpatient observation and treatment. Last Vital Signs Date Time Temp Pulse Resp B/P (MAP) Pulse Ox O2 Delivery O2 Flow Rate FiO2 04/09/19 18:56 98.2 88 18 101/70 100 Room Air Status: improved Disposition: HOME, SELF-CARE Condition: Improved Ken Berkowitz MD Apr 09, 2019 18:47
[2019-04-09 18:56] VITALS: BP 101/70
--- NOTE | 2019-04-09 18:57 | NUR ---
ER DISCHARGE NOTE: Patient is cleared to be discharged per ERMD with family member, pt is aox4, on room air, with stable vital signs. pt was given dc instructions, pt was able to verbalize understanding, pt id band removed. pt is able to ambulate with steady gait. pt took all belongings.
== END 2019-04-09 18:56 | disposition home or self-care (01) ==
LOC: EMR 18:43
DX: T82.838A Hemorrhage due to vascular prosthetic devices, implants and grafts, initial encounter (principal); Y83.2 Surgical operation with anastomosis, bypass or graft as the cause of abnormal reaction of the patient, or of later complication, without mention of misadventure at the time of the procedure; Y92.9 Unspecified place or not applicable; N18.6 End stage renal disease; Z99.2 Dependence on renal dialysis; E11.9 Type 2 diabetes mellitus without complications; Z88.0 Allergy status to penicillin; Z88.5 Allergy status to narcotic agent; Z88.2 Allergy status to sulfonamides; Z88.1 Allergy status to other antibiotic agents
CPT/HCPCS: 99281

== ENCOUNTER 2019-07-18 04:05 | Emergency (ER) | payer MEDICAID ==
[~2019-07-18] VITALS: Ht 165.1 cm; Wt 102.5 kg
[2019-07-18 04:17] VITALS: BP 135/76
--- NOTE | 2019-07-18 04:18 | NUR ---
ER Nurse Note: Pt walked in c/o sore throat, cough with yellow mucus, body aches since 2 days ago (07/16) but progresssively gotten worse. Pt is congeste; states she has 7/10 generalized body pain. Pt hx of diaylsis on RT upper arm; current with tx plan.
[2019-07-18] MEDS ORDERED: ZITHROMAX250 MG ORAL (04:22)
[2019-07-18] MEDS ORDERED: PROMETHAZINE-C118 M1 ORAL (04:22)
--- NOTE | 2019-07-18 04:22 | Emergency Room Report ---
History of Present Illness General Chief Complaint: Flu Like Symptoms Source: Patient Present Illness HPI This is a 54-year-old female with a history of high blood pressure and renal failure on hemodialysis. Dialysis days are Friday, Friday, and Friday. She presents with chief complaint of cough and sore throat. She woke up with this. She has subjective fever, cough, congestion body pain. Pain is 8 out of 10. Coughing is worse with inspiration. Coughing up whitish phlegm. No nausea no vomiting. Allergies: Coded Allergies: PENICILLINS (Verified Allergy, Intermediate, Hives, 04/01/18) CIPROFLOXACIN (Verified Allergy, Unknown, Hives, 04/01/18) MORPHINE (Unverified Allergy, Unknown, 04/01/18) SULFAMETHOXAZOLE (Verified Allergy, Unknown, Hives, 04/01/18) TRIMETHOPRIM (Verified Allergy, Unknown, Hives, 04/01/18) VANCOMYCIN (Verified Allergy, Unknown, Rash, 04/01/18) Patient History Past Medical History: see triage record, old chart reviewed, HTN, renal disease , dialysis Past Surgical History: other Pertinent Family History: none Social History: Denies: smoking Last Menstrual Period: 2005 Now: No Immunizations: other Reviewed Nursing Documentation: PMH: Agreed; PSxH: Agreed Nursing Documentation-PMH Hx Cardiac Problems: Yes Hx Hypertension: No Hx Pacemaker: No Hx Asthma: No Hx COPD: No Hx Diabetes: Yes Hx Cancer: No Hx Gastrointestinal Problems: Yes Hx Dialysis: Yes - M-W-F, shunt upper right arm Hx Neurological Problems: No Hx Cerebrovascular Accident: No Hx Seizures: No Review of Systems Eye: Denies: eye pain, blurred vision ENT: Reports: nose congestion; Denies: ear pain, throat swelling Respiratory: Reports: cough, shortness of breath Cardiovascular: Denies: chest pain, palpitations Gastrointestinal: Denies: abdominal pain, diarrhea, nausea, vomiting Musculoskeletal: Denies: back pain, joint pain Skin: Denies: rash Neurological: Denies: headache, numbness Endocrine: Denies: increased thirst, increased urine Hematologic/Lymphatic: Denies: easy bruising All Other Systems: negative except mentioned in HPI Physical Exam Vital Signs Date Time Temp Pulse Resp B/P (MAP) Pulse Ox O2 Delivery O2 Flow Rate FiO2 07/18/19 04:09 98.2 90 16 135/76 (95) 96 Room Air Vitals normal Sp02 EP Interpretation: reviewed, normal General Appearance: well appearing, no apparent distress, alert Head: normocephalic, atraumatic Eyes: bilateral eye PERRL, bilateral eye EOMI ENT: hearing grossly normal, tonsillar swelling, pharyngeal erythema Neck: full range of motion, supple, no meningismus Respiratory: chest non-tender, lungs clear, normal breath sounds Cardiovascular #1: regular rate, rhythm, no murmur Gastrointestinal: normal bowel sounds, non tender, no mass, no organomegaly, no bruit, non-distended Musculoskeletal: back normal, gait/station normal, normal range of motion Psychiatric: mood/affect normal Medical Decision Making Diagnostic Impression: Primary Impression: URI (upper respiratory infection) Qualified Codes: J06.9 - Acute upper respiratory infection, unspecified ER Course Patient presents with an upper respiratory infection. Most likely viral. Because of her medical problems, will put on antibiotics for possible secondary or atypical bacterial infection. No evidence of ACS, PE, ACS to name a few. Will discharge home. Last Vital Signs Date Time Temp Pulse Resp B/P (MAP) Pulse Ox O2 Delivery O2 Flow Rate FiO2 07/18/19 04:17 98.2 90 16 135/76 96 Room Air Status: unchanged Disposition: HOME, SELF-CARE Condition: Stable Scripts Azithromycin* (ZITHROMAX*) 250 Mg Tablet 250 MG ORAL DAILY, #6 TAB 0 Refills Take two tables once daily for 1 day, then one tablet once daily for 4 days. Prov: Clayton Hair MD 07/18/19 Codeine/Promethazine Hcl* (PROMETHAZINE-CODEINE SYRUP*) 118 Ml Syrup 5 ML ORAL Q6H PRN for For Cough, #118 ML 0 Refills Prov: Clayton Hair MD 07/18/19 Referrals: NON PHYSICIAN (PCP) Additional Instructions: Salt water gargle. Follow-up with your doctor in 5 to 7 days. Return if symptoms worsen. Clayton Hair MD Jul 18, 2019 04:22
--- NOTE | 2019-07-18 04:28 | NUR ---
ER DISCHARGE NOTE: Patient is cleared to be discharged per ERMD, pt is aox4, on room air, with stable vital signs. pt was given dc and prescription instructions, pt was able to verbalize understanding, pt id band removed without complications. pt is able to ambulate with steady gait. pt took all belongings.
[2019-07-18 04:30] VITALS: BP 135/76
== END 2019-07-18 04:30 | disposition home or self-care (01) ==
LOC: EMR 04:17
DX: J06.9 Acute upper respiratory infection, unspecified (principal); E11.22 Type 2 diabetes mellitus with diabetic chronic kidney disease; N18.6 End stage renal disease; Z99.2 Dependence on renal dialysis; Z88.0 Allergy status to penicillin; Z88.1 Allergy status to other antibiotic agents; Z88.6 Allergy status to analgesic agent; Z88.2 Allergy status to sulfonamides
CPT/HCPCS: 99282

== ENCOUNTER 2019-11-14 01:47 | Emergency (ER) | payer MEDICAID ==
[~2019-11-14] VITALS: Ht 165.1 cm; Wt 102.5 kg
[~2019-11-14 01:47] MED LIST changes: +ANUSOL-HC30 GM RC; +PROMETHAZINE-C118 M1 ORAL; +ZITHROMAX250 MG ORAL
[2019-11-14 02:00] VITALS: BP 115/82
--- NOTE | 2019-11-14 02:00 | NUR ---
ED Nurse Note: Patient walked in from home d/t lower back pain 10/10 lasting for 1 week radiating to bilateral legs. Per patient, tingling can be felt on bilateral legs. Patient aao x 4 and ambulatory. Patient has right upper arm shunt for dialysis and goes Friday, Friday, Friday. Last dialysis was on 11/12/19. No acute distress noted.
--- NOTE | 2019-11-14 02:10 | NUR ---
ED Nurse Note: Per EMR, pt allergy to morphine, confirmed with ERMD regarding administration of morphine.
[2019-11-14] MEDS ORDERED: Morphine Sulfate 2mg/ml Inj(IV/IM USE ONLY) IM ONE (02:15)
--- NOTE | 2019-11-14 02:20 | NUR ---
ED Nurse Note: Per ERMD, patient requested for Morphine for pain. Morphine administered, patient then c/o itching d/t morphine, ERMD notified and Benadryl administered.
[2019-11-14] MEDS ORDERED: DiphenhydrAMINE 50mg/ml Inj IM ONE (02:30)
--- NOTE | 2019-11-14 02:42 | NUR ---
ED Nurse Note: Reassessed patient, no acute distress noted. Patient stable and alert.
--- NOTE | 2019-11-14 02:43 | NUR ---
ED Nurse Note: Xray at bedside
--- NOTE | 2019-11-14 03:02 | NUR ---
ED Nurse Note: ERMD at bedside.
[2019-11-14 03:20] VITALS: BP 122/75
--- NOTE | 2019-11-14 03:20 | NUR ---
ER DISCHARGE NOTE: Patient is cleared to be discharged per ERMD, pt is aox4, on room air, with stable vital signs. pt was given dc instructions, pt was able to verbalize understanding, pt id band removed. pt is able to ambulate with steady gait. pt took all belongings. pt stable upon discharge.
--- NOTE | 2019-11-14 04:18 | Diagnostic Imaging Report ---
EXAM: XR Pelvis, 1 or 2 Views CLINICAL HISTORY: PAIN TECHNIQUE: Frontal view of the pelvis. COMPARISON: CT A/P 04/01/17. FINDINGS: Bones/joints: Unremarkable. No acute fracture. No dislocation. Soft tissues: Surgical clips over the left hemipelvis. IMPRESSION: Surgical clips over the left hemipelvis. Otherwise negative single view pelvis x-ray.
--- NOTE | 2019-11-14 04:33 | Emergency Room Report ---
History of Present Illness General Chief Complaint: Pain Source: Patient Present Illness HPI 54-year-old female presents ED for evaluation. States that she is having hip pain x2 weeks. Denies any fall or injury. Pain is throbbing, 10 out of 10, radiating through the thighs. Worse with walking. No other aggravating relieving factors. Denies any other associated symptoms Allergies: Coded Allergies: PENICILLINS (Verified Allergy, Intermediate, Hives, 04/01/18) CIPROFLOXACIN (Verified Allergy, Unknown, Hives, 04/01/18) MORPHINE (Unverified Allergy, Unknown, 04/01/18) SULFAMETHOXAZOLE (Verified Allergy, Unknown, Hives, 04/01/18) TRIMETHOPRIM (Verified Allergy, Unknown, Hives, 04/01/18) VANCOMYCIN (Verified Allergy, Unknown, Rash, 04/01/18) Patient History Past Medical History: DM, renal disease, dialysis Past Surgical History: none Pertinent Family History: none Social History: Denies: smoking, alcohol use, drug use Last Menstrual Period: na Now: No Immunizations: UTD Reviewed Nursing Documentation: PMH: Agreed; PSxH: Agreed Nursing Documentation-PMH Hx Cardiac Problems: No Hx Hypertension: No Hx Pacemaker: No Hx Asthma: No Hx COPD: No Hx Diabetes: Yes Hx Cancer: No Hx Gastrointestinal Problems: Yes Hx Dialysis: Yes - M-W-F, shunt upper right arm Hx Neurological Problems: No Hx Cerebrovascular Accident: No Hx Seizures: No Review of Systems All Other Systems: negative except mentioned in HPI Physical Exam Vital Signs Date Time Temp Pulse Resp B/P (MAP) Pulse Ox O2 Delivery O2 Flow Rate FiO2 11/14/19 01:52 98.4 90 16 110/72 (85) 98 Room Air Sp02 EP Interpretation: reviewed, normal General Appearance: no apparent distress, alert, GCS 15, non-toxic, obese Head: normocephalic Eyes: bilateral eye normal inspection, bilateral eye PERRL ENT: normal ENT inspection Neck: normal inspection Respiratory: normal inspection Cardiovascular #1: normal inspection Gastrointestinal: normal bowel sounds, non tender, soft, non-distended, no guarding, no rebound Rectal: deferred Genitourinary: no CVA tenderness Musculoskeletal: normal range of motion, tender - bilateral hips Neurologic: alert, motor strength/tone normal, oriented x3, sensory intact, responsive, speech normal Psychiatric: normal inspection Lymphatic: normal inspection Medical Decision Making Diagnostic Impression: Primary Impression: Hip pain, bilateral ER Course Hospital Course 54 yo F presents to ED c/o bilateral hip pain Differential diagnoses include: Fracture, dislocation, sprain, contusion Clinical course Patient placed on stretcher. 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 No fracture or dislocation. Explained these findings to the patient. Patient is obese with significant comorbidities including ESRD on dialysis. Patient states she was told in the past that she may need surgery on her hip. Patient is safe for discharge. Would benefit from outpatient orthopedic evaluation. Physical therapy. States she will follow-up with her PMD. I will provide Ortho referrals Diagnosis - bilateral hip pain Stable and discharged to home. weight bear as tolerated. Followup with PMD/ ortho. Return to ED if symptoms recur or worsen Other X-Ray Diagnostic Results Other X-Ray Diagnostic Results : X-Ray ordered: Pelvic XR # of Views/Limited Vs Complete: 1 View Indication: Pain EP Interpretation: Yes Interpretation: no dislocation, no soft tissue swelling, no fractures, other - DJD Impression: Other - arthritis Electronically Signed by: Electronically signed by Miguel Baez MD Last Vital Signs Date Time Temp Pulse Resp B/P (MAP) Pulse Ox O2 Delivery O2 Flow Rate FiO2 11/14/19 03:20 98.2 82 18 122/75 97 Room Air Status: improved Disposition: HOME, SELF-CARE Condition: Stable Referrals: NOT CHOSEN IPA/,REFERRING (PCP) [facility] Open 24 hour /7 days a week by Appointment Only [address] [facility] [address] [facility] [id number] Patient Instructions: Hip Pain Additional Instructions: you need to discuss with your doctor about physical therapy, orthopedic evaluation Miguel Baez MD Nov 14, 2019 04:33
== END 2019-11-14 03:20 | disposition home or self-care (01) ==
LOC: EMR 02:35
DX: M25.552 Pain in left hip (principal); M25.551 Pain in right hip; Z88.0 Allergy status to penicillin; Z88.6 Allergy status to analgesic agent; Z88.2 Allergy status to sulfonamides; E11.22 Type 2 diabetes mellitus with diabetic chronic kidney disease; N18.9 Chronic kidney disease, unspecified; Z99.2 Dependence on renal dialysis; E66.9 Obesity, unspecified; Z68.37 Body mass index [BMI] 37.0-37.9, adult
CPT/HCPCS: 72170; 96372; J1200; J2270; Z7502; 99283

== ENCOUNTER 2019-11-28 17:31 | Inpatient (IN) | payer MEDICAID ==
[~2019-11-28] VITALS: Ht 165.1 cm; Wt 113.0 kg
[2019-11-28 17:40] VITALS: BP 118/52
[2019-11-28] MEDS ORDERED: Nitroglycerin 2% oint pkt TOPIC ONE (17:45)
--- NOTE | 2019-11-28 17:45 | NUR ---
ED Nurse Note: Patient walked into ED from home with c/o midsternal 10/10 chest pressure that started this AM. Patient states she has had it before but it feels worse this time. Patient AxO x 4, no s/s of acute distress. 20 IV started in left hand. Blood sent to lab.
--- NOTE | 2019-11-28 18:02 | Emergency Room Report ---
History of Present Illness General Chief Complaint: Chest Pain Source: Patient Present Illness HPI 54-year-old female history of hypertension history of smoking in the past history of dialysis Friday last dialysis was Friday presents with shortness of breath dyspnea started this morning while cooking no aggravating relieving factors severity is moderate, constant patient also endorses chest tightness no radiation of pain patient presents for evaluation Allergies: Coded Allergies: PENICILLINS (Verified Allergy, Intermediate, Hives, 04/01/18) MORPHINE (Unverified Allergy, Mild, itching, 11/28/19) CIPROFLOXACIN (Verified Allergy, Unknown, Hives, 04/01/18) SULFAMETHOXAZOLE (Verified Allergy, Unknown, Hives, 04/01/18) TRIMETHOPRIM (Verified Allergy, Unknown, Hives, 04/01/18) VANCOMYCIN (Verified Allergy, Unknown, Rash, 04/01/18) Patient History Past Medical History: see triage record Reviewed Nursing Documentation: PMH: Agreed; PSxH: Agreed Nursing Documentation-PMH Hx Cardiac Problems: No Hx Hypertension: No Hx Pacemaker: No Hx Asthma: No Hx COPD: No Hx Diabetes: Yes Hx Cancer: No Hx Gastrointestinal Problems: Yes Hx Dialysis: Yes - M-W-F, shunt upper right arm AND L- UPPER ARM Hx Neurological Problems: No Hx Cerebrovascular Accident: No Hx Seizures: No Review of Systems All Other Systems: negative except mentioned in HPI Physical Exam Vital Signs Date Time Temp Pulse Resp B/P (MAP) Pulse Ox O2 Delivery O2 Flow Rate FiO2 11/28/19 17:37 99.0 121 23 118/52 (74) 89 Room Air Sp02 EP Interpretation: reviewed, normal General Appearance: alert, mild distress Head: normocephalic, atraumatic Eyes: bilateral eye PERRL, bilateral eye EOMI ENT: uvula midline, moist mucus membranes Neck: supple, thyroid normal, supple/symm/no masses Respiratory: decreased breath sounds, accessory muscle use, speaking full sentences Cardiovascular #1: normal peripheral pulses, no edema, no gallop, no murmur, tachycardia Gastrointestinal: non tender, soft, no guarding, no rebound Musculoskeletal: normal inspection Neurologic: alert, oriented x3 Psychiatric: anxious Skin: no rash, warm/dry Medical Decision Making Diagnostic Impression: Primary Impression: Chest pain Qualified Codes: R07.9 - Chest pain, unspecified Additional Impression: Pulmonary edema Qualified Codes: J81.0 - Acute pulmonary edema ER Course 54-year-old female history of dialysis presents with chest pain concerning for possible ACS differential diagnosis includes pneumonia, pneumothorax Aspirin nitro, steroids, duo nebs given Reevaluation 6:28 PM patient feeling better with breathing treatments chest x- ray shows pulmonary edema spoke with patient patient reports that she may have drank a little more fluids than she was supposed to over the weekend Patient admitted to Dr. Devaughn Padilla consulted for hemodialysis Laboratory Tests Test 11/28/19 18:23 White Blood Count 11.9 K/UL (4.8-10.8) H Red Blood Count 3.55 M/UL (4.20-5.40) L Hemoglobin 11.1 G/DL (12.0-16.0) L Hematocrit 33.8 % (37.0-47.0) L Mean Corpuscular Volume 95 FL (80-99) Mean Corpuscular Hemoglobin 31.2 PG (27.0-31.0) H Mean Corpuscular Hemoglobin Concent 32.8 G/DL (32.0-36.0) Red Cell Distribution Width 13.2 % (11.6-14.8) Platelet Count 249 K/UL (150-450) Mean Platelet Volume 7.0 FL (6.5-10.1) Neutrophils (%) (Auto) 70.3 % (45.0-75.0) Lymphocytes (%) (Auto) 20.6 % (20.0-45.0) Monocytes (%) (Auto) 5.6 % (1.0-10.0) Eosinophils (%) (Auto) 2.3 % (0.0-3.0) Basophils (%) (Auto) 1.2 % (0.0-2.0) Prothrombin Time 9.8 SEC (9.30-11.50) Prothrombin Time INR 0.9 (0.9-1.1) Activated Partial Thromboplast Time 24 SEC (23-33) Sodium Level 140 MMOL/L (136-145) Potassium Level 4.6 MMOL/L (3.5-5.1) Chloride Level 100 MMOL/L (98-107) Carbon Dioxide Level 21 MMOL/L (21-32) Anion Gap 19 mmol/L (5-15) H Blood Urea Nitrogen 57 mg/dL (7-18) H Creatinine 12.2 MG/DL (0.55-1.30) H Estimate Glomerular Filtration Rate 3.9 mL/min (>60) Glucose Level 266 MG/DL (74-106) H Calcium Level 9.1 MG/DL (8.5-10.1) Total Bilirubin 0.2 MG/DL (0.2-1.0) Aspartate Amino Transferase (AST) 14 U/L (15-37) L Alanine Aminotransferase (ALT) 17 U/L (12-78) Alkaline Phosphatase 236 U/L (46-116) H Troponin I 0.000 ng/mL (0.000-0.056) Pro-B-Type Natriuretic Peptide 214 pg/mL (0-125) H Total Protein 7.6 G/DL (6.4-8.2) Albumin 3.5 G/DL (3.4-5.0) Globulin 4.1 g/dL Albumin/Globulin Ratio 0.9 (1.0-2.7) L Lipase 286 U/L (73-393) EKG Diagnostic Results EKG Time: 17:36 EP Interpretation: Sinus tachycardia, rate 120, QTc 455, no acute ST elevations normal axis Rhythm Strip Diag. Results Rhythm Strip Time: 18:01 EP Interpretation: yes Rate: 118 Rhythm: other - Sinus tachycardia Chest X-Ray Diagnostic Results Chest X-Ray Diagnostic Results : Chest X-Ray Ordered: Yes # of Views/Limited/Complete: 1 View Indication: Shortness of Breath EP Interpretation: Yes Interpretation: other - Pulmonary edema Impression: Other - Pulmonary edema Electronically Signed by: Aurelio Tang MD Last Vital Signs Date Time Temp Pulse Resp B/P (MAP) Pulse Ox O2 Delivery O2 Flow Rate FiO2 11/28/19 17:51 111/88 11/28/19 17:37 99.0 121 23 89 Room Air Disposition: ADMITTED INPATIENT Condition: Stable Aurelio Tang MD Nov 28, 2019 18:02
[2019-11-28] MEDS: Albuterol ud Inhalation HHN SCH ×3 (18:07→18:09)
[2019-11-28] MEDS: Ipratropium 0.02% Inh Soln 2.5ml UD HHN SCH ×3 (18:07→18:09)
--- NOTE | 2019-11-28 18:20 | NUR ---
ED Nurse Note: Patient tolerating medications well. States she can breathe better. Chest pain not as severe.
[2019-11-28] MEDS ORDERED: Morphine Sulfate 4mg/ml Inj (IV USE ONLY) IVP ONE ×2 (18:30→19:45)
[2019-11-28] MEDS ORDERED: DiphenhydrAMINE 50mg/ml Inj IVP ONE ×2 (18:30→19:45)
[2019-11-28 18:58] LABS: BASOPHILS % (AUTO) 1.2 % (0.0-2.0); EOSINOPHILS % (AUTO) 2.3 % (0.0-3.0); HEMATOCRIT 33.8 % (37.0-47.0); HEMOGLOBIN 11.1 G/DL (12.0-16.0); LYMPHOCYTES % (AUTO) 20.6 % (20.0-45.0); MEAN CORPUSCULAR VOLUME 95 FL (80-99); MONOCYTES % (AUTO) 5.6 % (1.0-10.0); NEUTROPHILS % (AUTO) 70.3 % (45.0-75.0); PLATELET COUNT 249 K/UL (150-450); RED BLOOD COUNT 3.55 M/UL (4.20-5.40); RED CELL DISTRIBUTION WIDTH 13.2 % (11.6-14.8); WHITE BLOOD COUNT 11.9 K/UL (4.8-10.8)
--- NOTE | 2019-11-28 19:05 | NUR ---
ED Nurse Note: Dialysis Friday, Friday, Friday and last dialysis was last Friday.
--- NOTE | 2019-11-28 19:05 | NUR ---
ED Nurse Note: Reassessed patient, patient resting in bed, no acute distress noted.
--- NOTE | 2019-11-28 19:05 | NUR ---
ED Nurse Note: Patient has bilateral AV shunts on upper arms and is unable to produce urine.
[2019-11-28 19:12] LABS: INR 0.9 (0.9-1.1)
[2019-11-28 19:14] LABS: ANION GAP 19 mmol/L (5-15); BLOOD UREA NITROGEN 57 mg/dL (7-18); CALCIUM 9.1 MG/DL (8.5-10.1); CARBON DIOXIDE 21 MMOL/L (21-32); CHLORIDE 100 MMOL/L (98-107); CREATININE 12.2 MG/DL (0.55-1.30); POTASSIUM 4.6 MMOL/L (3.5-5.1); SODIUM 140 MMOL/L (136-145)
[2019-11-28 19:28] LABS: ALANINE AMINOTRANSFERASE 17 U/L (12-78); ALBUMIN 3.5 G/DL (3.4-5.0); ALBUMIN/GLOBULIN RATIO 0.9 (1.0-2.7); ALKALINE PHOSPHATASE 236 U/L (46-116); ASPARTATE AMINO TRANSFERASE 14 U/L (15-37); BILIRUBIN,TOTAL 0.2 MG/DL (0.2-1.0)
--- NOTE | 2019-11-28 19:35 | NUR ---
ED Nurse Note: Patient c/o chest pain 06/08. Patient requesting for morphine despite reported allergy, per patient she gets itching when taking morphine. ERMD aware.
[2019-11-28 19:57] VITALS: BP_SYST 113; BP_SYST 143; BP_DIAS 47; BP_DIAS 63
--- NOTE | 2019-11-28 20:01 | NUR ---
ED Nurse Note: Dr. Casey at bedside.
--- NOTE | 2019-11-28 20:08 | NUR ---
ED Nurse Note: Belongings list completed.
--- NOTE | 2019-11-28 20:40 | NUR ---
ED Nurse Note: Dr. Padilla at bedside.
--- NOTE | 2019-11-28 20:53 | NUR ---
ED Nurse Note: Report given to CURT Huggins in telemetry.
[2019-11-28] MEDS ORDERED: NovoLOG Insulin Flexpen SUBQ SCH (21:00)
--- NOTE | 2019-11-28 21:00 | NUR ---
TRANSFER TO FLOOR: Patient transferred to tele as ordered, per ERMD. Report given to CURT Huggins. Patient transported via gurney on ACLS protocol with physician scientist accompanied by 1 RN and serology technician in stable condition.
--- NOTE | 2019-11-28 21:10 | NUR ---
NURSE NOTES: Received report from Cinthia CHEN RN. Transferred by kerri to room 2013-09. Patient in stable condition with no signs of distress or pain, AO x 4. IV in place and patent and flushed. was by her side. Patient put on tele box. Sinus rhythm on the monitor. Belongings list checked with patient and transferring RN. Left and right arm AV shunts noted thrill and bruit present. Skin assessment performed, no wounds noted. Skin is intact. Bed in the lowest position, side rails up x2, brakes on, call light within reach.
[2019-11-28] MEDS ORDERED: Nitroglycerin Subl 0.4mg tab SL PRN (21:15)
--- NOTE | 2019-11-28 21:16 | NUR ---
NURSE NOTES: Called Jakob from [facility] to confirm patient's possible hemodialysis procedure tonight and tomorrow, 11/29/2019. Was told, "I'll call you back."
--- NOTE | 2019-11-28 21:24 | NUR ---
NURSE NOTES: Received call from Yohannes managed care nurse from [facility], with confirmation of dialysis for tomorrow, 11/29/2019, at 1000.
--- NOTE | 2019-11-28 21:29 | NUR ---
NURSE NOTES: Notified Dr. Padilla that claims adjustor is unable to dialyze the patient tonight, but will instead dialyze the patient tomorrow, 11/29/2019, at 1000. No new orders received at this time.
[2019-11-28] MEDS ORDERED: GABAPENTIN100 MG ORAL (21:47)
--- NOTE | 2019-11-28 21:47 | NUR ---
NURSE NOTES: Called Dr. Huerta regarding patient's request for nausea medication and to have her Gabapentin 100mg PO BID medication continued. Awaiting callback.
[2019-11-28] MEDS: Heparin 5000 units/ml inj SUBQ SCH (21:51)
[2019-11-28] MEDS: NovoLOG Insulin Flexpen SUBQ SCH (21:51)
[2019-11-28] MEDS: Zolpidem 5mg tab ORAL SCH (21:57)
[2019-11-28] MEDS: HYDROmorphone 1mg/ml Carpuject IVP PRN (21:59)
[2019-11-28 22:10] VITALS: BP 119/72
[2019-11-28] MEDS: Nitroglycerin Patch 0.1mg/hr TDERMAL SCH (22:38)
--- NOTE | 2019-11-28 23:36 | NUR ---
NURSE NOTES: Called Dr. Lin regarding patients request for benadryl medication. Awaiting call back.
[2019-11-29] VITALS: BP 117/60
--- NOTE | 2019-11-29 00:15 | History and Physical Report ---
DATE OF ADMISSION: 11/28/2019 CHIEF COMPLAINT: Shortness of breath, CHF. HISTORY OF PRESENT ILLNESS: The patient is a 54-year-old female. She has history of hypertension, diabetes, and end-stage renal disease. She presented with complaints of chest tightness and shortness of breath. According to the patient, she was well until the last 24 hours and she has had worsening shortness of breath and tightness. She admits to some dietary noncompliance with salt and fluid intake. She has a history of prior kidney transplant approximately 20 years ago that failed. She denies any fevers or chills. She has had a nonproductive cough. She also states that she had a stress test a year ago that was normal. On evaluation in the emergency room, the patient's x-ray had evidence of fluid overload. Her white count was 12. Troponin was negative. She was given a dose of Lasix as well as aspirin and Nitropaste and is now admitted for further evaluation and care. PAST MEDICAL HISTORY: As above. PAST SURGICAL HISTORY: A prior kidney transplant and a tubal ligation. CURRENT MEDICATIONS: Reconciled and reviewed. ALLERGIES: Include Cipro, penicillin, Bactrim, vancomycin, and morphine which causes itching. FAMILY HISTORY: Noncontributory. SOCIAL HISTORY: Negative for tobacco, ethanol, or drugs. REVIEW OF SYSTEMS: GENERAL: No fevers or chills. HEENT: No headaches or visual changes. CARDIOPULMONARY: Mild cough. Positive chest tightness. Positive shortness of breath. GASTROINTESTINAL: No nausea or vomiting. GENITOURINARY: No urgency or frequency. MUSCULOSKELETAL: No joint pain or swelling. NEUROLOGIC: No evidence of seizures. PHYSICAL EXAMINATION: VITAL SIGNS: Temperature 99, pulse 112, respirations 25, and blood pressure 143/63. GENERAL: The patient is well-developed female, in no apparent distress. HEART: Regular rate and rhythm. LUNGS: Bibasilar rales. ABDOMEN: Soft, nontender, nondistended. EXTREMITIES: Without clubbing, cyanosis, or edema. LABORATORY DATA: White count 12, hemoglobin 11, hematocrit 33, and platelets of 249,000. Sodium is 140, potassium 4.6, chloride 100, bicarb 21, BUN 67, creatinine 12.2. Natriuretic peptide was 214. ASSESSMENT: This is a pleasant female with a history of end-stage renal disease, hypertension, diabetes, admitted with complaints of chest tightness and shortness of breath secondary to volume overload from dietary noncompliance. PLAN: Antiplatelet therapy. Nitrates p.r.n. Renal consultation for hemodialysis. We will check a venous duplex of the legs, check a 2D echo, and repeat troponin in the morning. Cardiology consultation will be obtained. We will continue the patient on her outpatient medications for now. We will hold the glyburide in light of her history of end-stage renal disease because of concerns for hypoglycemia. Plan of care was discussed with the patient and her family at the bedside. Mejia Huerta M.D. DR: SANGEETA JOB#: [id number] CC:
--- NOTE | 2019-11-29 01:15 | Consultation ---
DATE OF CONSULTATION: 11/28/2019 CONSULTING PHYSICIAN: Gonzalo Padilla M.D. REFERRING PHYSICIAN: Mejia Huerta M.D. REASON FOR CONSULTATION: End-stage renal disease and CHF. HISTORY OF PRESENT ILLNESS: The patient has a history of end-stage renal disease. She has been on dialysis since about 20 years, presents for fluid overload and evidence of CHF on chest x-ray. She said she has some upper back pain and shortness of breath and then pain in the lower neck and upper chest when she bends forward and this progressed through the day and she presented to the emergency department. There is no history of prior PA or definite coronary artery disease and she states she has had a negative stress test in 2019 in preparation for another kidney transplant possibility. She has dialysis every Friday, Friday, and Friday, and usually amounts about 4 liters of fluid each time, but has not had fluid overload to this extent before. ALLERGIES: Penicillin, morphine, and Flagyl. HOME MEDICATIONS: Include atorvastatin, codeine and promethazine cough syrup, glyburide, Ada, hydrocortisone cream, lorazepam, sevelamer, and zolpidem. PAST SURGICAL HISTORY: Include right arm AV fistula, kidney transplant, and tubal ligation. Kidney transplant was in year 1999 and would like the durational time being checked. SYSTEM REVIEW: HEAD, EYES, EARS, NOSE, AND THROAT: Vision and hearing is good. ENDOCRINE: History of diabetes, status post transplant, and history of morbid obesity. No known thyroid disease. PULMONARY: No asthma, TB, or chronic cough. CARDIAC: See history of present illness. She has had hypertension when she started dialysis, but is currently off of hypertensive medication. She is running low normal blood pressures. There is a history of hyperlipidemia. GASTROINTESTINAL: She has had GI problems and now with some gastritis and constipation. GENITOURINARY: She is anuric. NEUROLOGIC: No CVA or syncope. MUSCULOSKELETAL: History of chronic joint pain. PHYSICAL EXAMINATION: GENERAL: The patient is alert, obese lady, in mild distress, seen in the emergency room. VITAL SIGNS: Temperature 98.9, pulse 112, respirations 19, blood pressure 143/63, and O2 saturation 100%. HEAD, EYES, EARS, NOSE, AND THROAT: Sclerae are nonicteric. Ocular motions intact in all directions. Oral mucosa moist. NECK: No adenopathy. LUNGS: Diminished breath sounds at the bases. HEART: Rhythm is regular. I hear no murmur or rub. ABDOMEN: Soft without organomegaly or masses. EXTREMITIES: No edema. There is a very large AV fistula on the right arm. PERTINENT LABORATORY DATA: Show white count of 11.9 and hemoglobin 11.1. Sodium 140, potassium 4.6, BUN 57, creatinine 12.2, and glucose 266. Troponin 0. BNP 214. IMPRESSION: 1. Fluid overload and congestive heart failure. 2. End-stage renal disease. 3. Back pain and upper chest pain, rule out acute coronary syndrome. 4. Morbid obesity. PLAN: The patient will be dialyzed for fluid overload. Watch closely in view of her comorbidities. Gonzalo Padilla M.D. DR: ALMA JOB#: [id number] CC:
[2019-11-29] MEDS: HYDROmorphone 1mg/ml Carpuject IVP PRN ×5 (02:05→21:42)
[2019-11-29 04:00] VITALS: BP 114/62
[2019-11-29] MEDS: Promethazine/Codeine 5ml UD ORAL PRN (06:14)
[2019-11-29] MEDS: NovoLOG Insulin Flexpen SUBQ SCH ×4 (06:19→21:44)
--- NOTE | 2019-11-29 07:00 | NUR ---
NURSE NOTES: Received report from CURT Mattson. Pt A/Ox4, breathing even and unlabored in RA. No s/sx of acute distress, denies any pain, complains of itching (will follow up with for adria). Pt scheduled to have dialysis today. Bed on lowest position, call light within reach. Will continue plan of care.
--- NOTE | 2019-11-29 07:11 | General Progress Note ---
Assessment/Plan Problem List: (1) Cervical radiculopathy ICD Codes: M54.12 - Cervical radiculopathy SNOMED: 40628693 (2) Chronic pain ICD Codes: G89.29 - Other chronic pain SNOMED: 50694621 (3) HTN (hypertension) ICD Codes: I10 - HTN (hypertension) SNOMED: 44914831 (4) Chest pain ICD Codes: R07.9 - Chest pain, unspecified SNOMED: 83148704 (5) GERD (gastroesophageal reflux disease) ICD Codes: K21.9 - GERD (gastroesophageal reflux disease) SNOMED: 393561759 (6) Diabetic peripheral neuropathy ICD Codes: E13.42 - Diabetic peripheral neuropathy; G62.9 - Polyneuropathy, unspecified SNOMED: 711443496 (7) Obesity ICD Codes: E66.9 - Obesity SNOMED: 360102297 (8) Diabetes mellitus ICD Codes: E11.9 - Diabetes mellitus SNOMED: 51442442 (9) Hypertension ICD Codes: I10 - Hypertension SNOMED: 30656039 (10) ESRD (end stage renal disease) on dialysis ICD Codes: N18.6 - End stage renal disease; Z99.2 - Dependence on renal dialysis SNOMED: 466884755 Status: stable Assessment/Plan: HD per renal ct chest monitor BS pain rx Subjective ROS Limited/Unobtainable: No Constitutional: Reports: weakness HEENT: Reports: no symptoms Cardiovascular: Reports: chest pain, edema Respiratory: Reports: no symptoms Gastrointestinal/Abdominal: Reports: no symptoms Genitourinary: Reports: no symptoms Neurologic/Psychiatric: Reports: pre-existing deficit Endocrine: Reports: no symptoms Hematologic/Lymphatic: Reports: no symptoms Allergies: Coded Allergies: PENICILLINS (Verified Allergy, Intermediate, Hives, 04/01/18) MORPHINE (Unverified Allergy, Mild, itching, 11/28/19) CIPROFLOXACIN (Verified Allergy, Unknown, Hives, 04/01/18) SULFAMETHOXAZOLE (Verified Allergy, Unknown, Hives, 04/01/18) TRIMETHOPRIM (Verified Allergy, Unknown, Hives, 04/01/18) VANCOMYCIN (Verified Allergy, Unknown, Rash, 04/01/18) All Systems: reviewed and negative except above Subjective no complaints. still with chest and back pain. due for HD today. Objective Last 24 Hour Vital Signs Date Time Temp Pulse Resp B/P (MAP) Pulse Ox O2 Delivery O2 Flow Rate FiO2 11/29/19 04:00 97.7 103 18 114/62 (79) 95 11/29/19 04:00 100 11/29/19 00:00 97.8 103 19 117/60 (79) 95 11/29/19 00:00 105 11/28/19 23:40 Room Air 11/28/19 22:38 119/72 11/28/19 22:10 98.1 105 20 119/72 (88) 99 11/28/19 22:02 99 11/28/19 21:00 98.7 105 16 139/57 99 Room Air 11/28/19 20:12 98.9 11/28/19 19:57 112 19 143/63 100 Room Air 11/28/19 19:01 98.9 11/28/19 18:09 115 27 100 Room Air 21 11/28/19 17:51 111/88 11/28/19 17:40 99.0 121 23 118/52 89 Room Air 11/28/19 17:40 121 23 Room Air 11/28/19 17:37 99.0 121 23 118/52 (74) 89 Room Air Intake and Output 11/28/19 11/29/19 19:00 07:00 Intake Total 0 ml 480 ml Balance 0 ml 480 ml Intake Oral 0 ml 480 ml # Voids 2 Laboratory Tests 11/28/19 18:23: White Blood Count 11.9H, Red Blood Count 3.55L, Hemoglobin 11.1L, Hematocrit 33.8L, Mean Corpuscular Volume 95, Mean Corpuscular Hemoglobin 31.2H, Mean Corpuscular Hemoglobin Concent 32.8, Red Cell Distribution Width 13.2, Platelet Count 249, Mean Platelet Volume 7.0, Neutrophils (%) (Auto) 70.3, Lymphocytes (% ) (Auto) 20.6, Monocytes (%) (Auto) 5.6, Eosinophils (%) (Auto) 2.3, Basophils ( %) (Auto) 1.2, Prothrombin Time 9.8, Prothromb Time International Ratio 0.9, Activated Partial Thromboplast Time 24, Sodium Level 140, Potassium Level 4.6, Chloride Level 100, Carbon Dioxide Level 21, Anion Gap 19H, Blood Urea Nitrogen 57H, Creatinine 12.2H, Estimat Glomerular Filtration Rate 3.9, Glucose Level 266H, Calcium Level 9.1, Total Bilirubin 0.2, Aspartate Amino Transf (AST/SGOT) 14L, Alanine Aminotransferase (ALT/SGPT) 17, Alkaline Phosphatase 236H, Troponin I 0.000, Pro-B-Type Natriuretic Peptide 214H, Total Protein 7.6, Albumin 3.5, Globulin 4.1, Albumin/Globulin Ratio 0.9L, Lipase 286 Height (Feet): 5 Height (Inches): 5.00 Weight (Pounds): 224 General Appearance: WD/WN, alert Neck: supple Cardiovascular: normal rate, regular rhythm Respiratory/Chest: chest wall non-tender, lungs clear, normal breath sounds, no respiratory distress Abdomen: normal bowel sounds, non tender, soft, no organomegaly Edema: trace edema 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
[2019-11-29] MEDS ORDERED: Omnipaque 350 100ml vial INJ PRN (07:15)
--- NOTE | 2019-11-29 07:37 | NUR ---
HAND-OFF: Report given to CURT Smith.Patient in bed with by her side. No signs of distress or pain noted at this time.
[2019-11-29 09:00] VITALS: BP 137/70
[2019-11-29] MEDS: Heparin 5000 units/ml inj SUBQ SCH ×2 (09:00→21:00)
[2019-11-29] MEDS: Renvela 800mg Pkt ORAL SCH ×3 (09:24→17:53)
[2019-11-29] MEDS: DiphenhydrAMINE 50mg/ml Inj IVP PRN ×3 (09:24→21:41)
[2019-11-29] MEDS: Aspirin EC 81mg tab ORAL SCH (09:24)
--- NOTE | 2019-11-29 09:35 | CDS Physician Query ---
Clarification is required for compliance, coding accuracy, and to reflect severity of illness for this patient Dear Dr. Padilla Date: 11.29.19 CDS: Isabel Corado "Heart Failure / CHF" documented in consultation. . Fluid overload and congestive heart failure. Please Clarify: Acuity [ ] Acute [ ] Chronic [ x] Acute on Chronic Type [ ] Systolic [ x] Diastolic [ ] Systolic & Diastolic (Combined) [ ] Other: Present on Admission: [ ] Yes [ ] No [ ] Clinically Undetermined Physician signature Date Please also document in your Progress Notes and/or Discharge Summary and indicate if the condition was present on admission. WINSOMED
--- NOTE | 2019-11-29 10:54 | Diagnostic Imaging Report ---
Indication: Dyspnea Comparison: 03/19/2019 A single view chest radiograph was obtained. Findings: Pulmonary vascular congestion suspected. This appears slightly worse than on the prior occasion which was 03/19/2019. The heart is enlarged. IMPRESSION: Mild CHF suspected
--- NOTE | 2019-11-29 11:13 | NUR ---
NURSE NOTES: Pt off tele for CTA chest
--- NOTE | 2019-11-29 12:08 | NUR ---
CASE MANAGEMENT:REVIEW 54 YR OLD FEMALE FROM HOME TO ER CC: CHEST PAIN PMH: ESRD ON HD -- SI: CHEST PAIN. PULMONARY EDEMA 99.0 121 23 118/52 89% ON RA WBC+11.9 BUN+57 CR+12.2 IS: DECADRON PO X1 ATROVENT/ALBUTEROL HHN Q15 X3 NITRO BID 1" X1 IV LASIX X1 IV MORPHINE X2 IV BENADRYL X2 : TO TELEMETRY DCP: FROM HOME PLAN: CTA CHEST 2DECHO VENOUS DUPLEX
--- NOTE | 2019-11-29 13:20 | NUR ---
CTA SCAN COMPLETED.
--- NOTE | 2019-11-29 14:00 | NUR ---
NURSE NOTES: Pt currently having dialysis and asked for Benadryl, but it is not due yet. Dr Huerta aware, and stated that it is okay to administer.
--- NOTE | 2019-11-29 15:59 | Diagnostic Imaging Report ---
Indication: Chest pain Technique: Continuous helical transaxial imaging of the chest was obtained from the thoracic inlet to the upper abdomen during rapid intravenous contrast administration. Arterial phase of enhancement obtained. Coronal 2-D reformats were also obtained and maximum intensity projection images in multiple planes. Study obtained in a Siemens sensation [address] Automatic Exposure Control was utilized. Total Dose length Product (DLP): 1334.[address] Dose Index Volume (CTDIvol): 228 mGy Comparison: None Findings: The scan is limited due to technical factors decrease in resolution. Bolus injection is suboptimal but there are no obvious filling defects demonstrated within the pulmonary artery or branches. The aorta is normal in caliber without aneurysm or dissection. There are mild groundglass opacities in the perihilar central aspects of both lungs. The heart is enlarged. There are multiple pulmonary nodules less than 1 cm in size within the lungs bilaterally in both upper and lower lobes. The nodules were present on prior studies for example 09/03/2017 CT chest and 06/12/2013 CT chest. In general, the nodules appear stable and are therefore likely postinflammatory and benign. The visualized part of the upper abdomen shows atrophic kidneys and and prominent hypodense liver. Extensive diverticula noted within the colon. IMPRESSION: No definite evidence of pulmonary embolus although evaluation is limited. No evidence of aortic dissection or aneurysm. Mild groundglass perihilar opacification within the lungs with cardiomegaly. Consider mild pulmonary vascular congestion. Multiple lung nodules stable compared to CT dating back to 2012, likely benign. Hepatomegaly and fatty infiltration. Diverticulosis of the colon The CT scanner at [facility] is accredited by the [employer] and the scans are performed using dose optimization techniques as appropriate to a performed exam including Automatic Exposure control.
[2019-11-29 16:00] VITALS: BP 117/80
--- NOTE | 2019-11-29 16:17 | NUR ---
*-* INSURANCE *-* ALL CLINICALS AND REVIEWS HAVE BEEN FAXED TO: [employer] NO CM OR TRACKING # YET # [phone] FAX# [phone] REVIEWS/CLINICALS & [facility] REF# [id number] # [phone] FAX# [phone] REVIEWS/CLINICALS
--- NOTE | 2019-11-29 16:55 | Nephrology Progress Note ---
Assessment/Plan Problem List: (1) Back pain (2) ESRD (end stage renal disease) on dialysis (3) Diabetes mellitus (4) CHF (congestive heart failure) Plan seen on HD 11/28, repeat HD 11/29 Subjective Constitutional: Reports: weakness HEENT: Reports: no symptoms Genitourinary: Reports: no symptoms Neurologic/Psychiatric: Reports: no symptoms Objective Objective Last 24 Hour Vital Signs Date Time Temp Pulse Resp B/P (MAP) Pulse Ox O2 Delivery O2 Flow Rate FiO2 11/29/19 11:44 109 11/29/19 09:00 98.6 84 18 137/70 (92) 97 11/29/19 07:36 97 11/29/19 04:00 97.7 103 18 114/62 (79) 95 11/29/19 04:00 100 11/29/19 00:00 97.8 103 19 117/60 (79) 95 11/29/19 00:00 105 11/28/19 23:40 Room Air 11/28/19 22:38 119/72 11/28/19 22:10 98.1 105 20 119/72 (88) 99 11/28/19 22:02 99 11/28/19 21:00 98.7 105 16 139/57 99 Room Air 11/28/19 20:12 98.9 11/28/19 19:57 112 19 143/63 100 Room Air 11/28/19 19:01 98.9 11/28/19 18:09 115 27 100 Room Air 21 11/28/19 17:51 111/88 11/28/19 17:40 99.0 121 23 118/52 89 Room Air 11/28/19 17:40 121 23 Room Air 11/28/19 17:37 99.0 121 23 118/52 (74) 89 Room Air Intake and Output 11/28/19 11/29/19 19:00 07:00 Intake Total 0 ml 480 ml Balance 0 ml 480 ml Intake Oral 0 ml 480 ml # Voids 2 Laboratory Tests 11/28/19 18:23: White Blood Count 11.9H, Red Blood Count 3.55L, Hemoglobin 11.1L, Hematocrit 33.8L, Mean Corpuscular Volume 95, Mean Corpuscular Hemoglobin 31.2H, Mean Corpuscular Hemoglobin Concent 32.8, Red Cell Distribution Width 13.2, Platelet Count 249, Mean Platelet Volume 7.0, Neutrophils (%) (Auto) 70.3, Lymphocytes (% ) (Auto) 20.6, Monocytes (%) (Auto) 5.6, Eosinophils (%) (Auto) 2.3, Basophils ( %) (Auto) 1.2, Prothrombin Time 9.8, Prothromb Time International Ratio 0.9, Activated Partial Thromboplast Time 24, Sodium Level 140, Potassium Level 4.6, Chloride Level 100, Carbon Dioxide Level 21, Anion Gap 19H, Blood Urea Nitrogen 57H, Creatinine 12.2H, Estimat Glomerular Filtration Rate 3.9, Glucose Level 266H, Calcium Level 9.1, Total Bilirubin 0.2, Aspartate Amino Transf (AST/SGOT) 14L, Alanine Aminotransferase (ALT/SGPT) 17, Alkaline Phosphatase 236H, Troponin I 0.000, Pro-B-Type Natriuretic Peptide 214H, Total Protein 7.6, Albumin 3.5, Globulin 4.1, Albumin/Globulin Ratio 0.9L, Lipase 286 11/29/19 13:34: Troponin I 0.000, Hepatitis B Surface Antigen [Pending] Height (Feet): 5 Height (Inches): 5.00 Weight (Pounds): 154 General Appearance: morbidly obese EENT: normal ENT inspection Neck: normal alignment Cardiovascular: normal rate, regular rhythm Respiratory/Chest: lungs clear Abdomen: non tender, soft Extremities: no edema 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
--- NOTE | 2019-11-29 19:57 | NUR ---
HAND-OFF: Report given to CURT Vasques. pt in stable condition. endorsed plan of care.
--- NOTE | 2019-11-29 19:58 | NUR ---
NURSE NOTES: Pt received from CURT Smith alert and oriented x4 with no acute s/s of distress noted. IV site asymptomatic and patent on L hand 20g, saline lock. Bed in lowest position, call light and belongings within reach.
[2019-11-29 20:00] VITALS: BP 111/65
--- NOTE | 2019-11-29 20:15 | NUR ---
NURSE NOTES: Yohannes, HD nurse from [facility] Nephrology on the unit to administer HD for another nurse. RN informed Yohannes of pt's scheduled HD for tomorrow. Per Yohannes, "Dr. Padilla already told me, I'll be here tomorrow morning."
[2019-11-29] MEDS ORDERED: Heparin Sod 1000 units/ml 10ml IV PRN ×2 (20:45→21:00)
[2019-11-29] MEDS: Zolpidem 5mg tab ORAL SCH (21:42)
[2019-11-29] MEDS: Nitroglycerin Patch 0.1mg/hr TDERMAL SCH (21:50)
[2019-11-30] VITALS: BP 108/55
[2019-11-30] MEDS: DiphenhydrAMINE 50mg/ml Inj IVP PRN ×3 (03:21→19:52)
[2019-11-30] MEDS: HYDROmorphone 1mg/ml Carpuject IVP PRN ×4 (03:22→22:56)
[2019-11-30 04:00] VITALS: BP 138/67
[2019-11-30] MEDS: Promethazine/Codeine 5ml UD ORAL PRN (05:43)
[2019-11-30] MEDS: NovoLOG Insulin Flexpen SUBQ SCH ×4 (05:43→21:00)
--- NOTE | 2019-11-30 07:35 | NUR ---
NURSE NOTES: pt sitting in bed talking to another pt. continued monitoring specialist, no signs of cardiac or respiratory distress at this time. Pt is in pain 6/10 wants pain meds. Call light with in reach. Bed is locked and in lowest position, rails are up pt is able to walk to the restroom. Will continue to monitor pt.
--- NOTE | 2019-11-30 07:55 | NUR ---
HAND-OFF: Report given to CURT Kelly.
[2019-11-30 08:00] VITALS: BP 98/47
[2019-11-30] MEDS: Renvela 800mg Pkt ORAL SCH ×3 (08:57→17:34)
[2019-11-30] MEDS: Aspirin EC 81mg tab ORAL SCH (08:57)
[2019-11-30] MEDS: Heparin 5000 units/ml inj SUBQ SCH ×2 (09:00→21:00)
[2019-11-30 12:00] VITALS: BP 100/49
--- NOTE | 2019-11-30 12:45 | NUR ---
NURSE NOTES: endorse pt and pt care to Grace pt in stable condition. Pt on conveyor monitor, no signs of cardiac or respiratory distress. Bed in lowest position and locked, call light next to pt.
[2019-11-30] MEDS ORDERED: Miralax 17gm pkt ORAL PRN (13:30)
--- NOTE | 2019-11-30 14:00 | NUR ---
CASE MANAGEMENT:REVIEW 11/30/19 SI: CHEST/BACK PAIN. CHF ESRD. DM 97.9 91 20 98/47 94% ON RA IS: LACTULOSE PO TID RENVELA PO TID ASA PO QD PROTONIX PO QD NEURONTIN PO BID HEPARIN SQ Q12 : TELEMETRY STATUS DCP: FROM HOME PLAN: DIALYZE TODAY
--- NOTE | 2019-11-30 15:58 | General Progress Note ---
Assessment/Plan Problem List: (1) Cervical radiculopathy ICD Codes: M54.12 - Cervical radiculopathy SNOMED: 07374696 (2) Chronic pain ICD Codes: G89.29 - Other chronic pain SNOMED: 47392322 (3) HTN (hypertension) ICD Codes: I10 - HTN (hypertension) SNOMED: 80242658 (4) Chest pain ICD Codes: R07.9 - Chest pain, unspecified SNOMED: 92505336 (5) GERD (gastroesophageal reflux disease) ICD Codes: K21.9 - GERD (gastroesophageal reflux disease) SNOMED: 559532089 (6) Diabetic peripheral neuropathy ICD Codes: E13.42 - Diabetic peripheral neuropathy; G62.9 - Polyneuropathy, unspecified SNOMED: 933762759 (7) Obesity ICD Codes: E66.9 - Obesity SNOMED: 987885892 (8) Diabetes mellitus ICD Codes: E11.9 - Diabetes mellitus SNOMED: 88739796 (9) Hypertension ICD Codes: I10 - Hypertension SNOMED: 37299469 (10) ESRD (end stage renal disease) on dialysis ICD Codes: N18.6 - End stage renal disease; Z99.2 - Dependence on renal dialysis SNOMED: 576848799 Status: stable, progressing Assessment/Plan: HD per renal ct chest reviewed with pt monitor BS pain rx dc planning tomorrow Subjective Constitutional: Reports: malaise, weakness HEENT: Reports: no symptoms Cardiovascular: Reports: no symptoms Respiratory: Reports: cough, shortness of breath Gastrointestinal/Abdominal: Reports: no symptoms Genitourinary: Reports: no symptoms Neurologic/Psychiatric: Reports: no symptoms Endocrine: Reports: no symptoms Hematologic/Lymphatic: Reports: anemia Allergies: Coded Allergies: PENICILLINS (Verified Allergy, Intermediate, Hives, 04/01/18) MORPHINE (Unverified Allergy, Mild, itching, 11/28/19) CIPROFLOXACIN (Verified Allergy, Unknown, Hives, 04/01/18) SULFAMETHOXAZOLE (Verified Allergy, Unknown, Hives, 04/01/18) TRIMETHOPRIM (Verified Allergy, Unknown, Hives, 04/01/18) VANCOMYCIN (Verified Allergy, Unknown, Rash, 04/01/18) All Systems: reviewed and negative except above Subjective no complaints. still with chest and back pain. due for HD today. Objective Last 24 Hour Vital Signs Date Time Temp Pulse Resp B/P (MAP) Pulse Ox O2 Delivery O2 Flow Rate FiO2 11/30/19 13:24 85 11/30/19 12:00 97.7 71 20 100/49 (66) 97 11/30/19 09:00 Room Air 11/30/19 08:00 96 11/30/19 08:00 97.9 91 20 98/47 (64) 94 11/30/19 04:00 95 11/30/19 04:00 97.8 95 16 138/67 (90) 97 11/30/19 00:00 101 11/30/19 00:00 98.5 102 18 108/55 (72) 96 11/29/19 21:50 111/75 11/29/19 21:00 Room Air 11/29/19 20:00 98.7 105 18 111/65 (80) 96 11/29/19 20:00 104 11/29/19 16:00 97.6 60 19 117/80 (92) 97 Intake and Output 11/29/19 11/30/19 19:00 07:00 Intake Total 3640 ml 250 ml Balance 3640 ml 250 ml Intake Oral 140 ml 250 ml Hemodialysis 3500 ml # Voids 3 Height (Feet): 5 Height (Inches): 5.00 Weight (Pounds): 154 General Appearance: WD/WN, alert Neck: supple Cardiovascular: normal rate, regular rhythm Respiratory/Chest: chest wall non-tender, lungs clear, normal breath sounds, no respiratory distress Abdomen: normal bowel sounds, non tender, soft, no organomegaly, no mass Edema: no edema noted Arm (L), no edema noted Arm (R), no edema noted Leg (L), no edema noted Leg (R), no edema noted Pedal (L), no edema noted Pedal (R), no edema noted 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
[2019-11-30 16:00] VITALS: BP 119/62
[2019-11-30] MEDS ORDERED: Heparin Sod 1000 units/ml 10ml IV ONE (17:00)
[2019-11-30] MEDS: Lactulose 20gm/30ml UDC ORAL SCH (17:34)
[2019-11-30] MEDS: Docusate 250mg cap ORAL SCH (17:34)
--- NOTE | 2019-11-30 17:57 | Nephrology Progress Note ---
Assessment/Plan Problem List: (1) Back pain (2) ESRD (end stage renal disease) on dialysis (3) Diabetes mellitus (4) CHF (congestive heart failure) Plan seen on HD 11/28, repeat HD 11/29+11/30 still feels fluid overloaded Subjective Constitutional: Reports: weakness HEENT: Reports: no symptoms Genitourinary: Reports: no symptoms Neurologic/Psychiatric: Reports: no symptoms Objective Objective Last 24 Hour Vital Signs Date Time Temp Pulse Resp B/P (MAP) Pulse Ox O2 Delivery O2 Flow Rate FiO2 11/30/19 13:24 85 11/30/19 12:00 97.7 71 20 100/49 (66) 97 11/30/19 09:00 Room Air 11/30/19 08:00 96 11/30/19 08:00 97.9 91 20 98/47 (64) 94 11/30/19 04:00 95 11/30/19 04:00 97.8 95 16 138/67 (90) 97 11/30/19 00:00 101 11/30/19 00:00 98.5 102 18 108/55 (72) 96 11/29/19 21:50 111/75 11/29/19 21:00 Room Air 11/29/19 20:00 98.7 105 18 111/65 (80) 96 11/29/19 20:00 104 Intake and Output 11/29/19 11/30/19 19:00 07:00 Intake Total 3640 ml 250 ml Balance 3640 ml 250 ml Intake Oral 140 ml 250 ml Hemodialysis 3500 ml # Voids 3 Height (Feet): 5 Height (Inches): 5.00 Weight (Pounds): 154 General Appearance: obese EENT: normal ENT inspection Neck: normal alignment, supple Cardiovascular: regular rhythm Respiratory/Chest: lungs clear Abdomen: non tender, soft Extremities: trace edema Neurologic: underwriter II-XII grossly normal Gonzalo Padilla MD Nov 30, 2019 17:57
[2019-11-30] MEDS ORDERED: DiphenhydrAMINE 50mg/ml Inj IVP PRN (18:00)
--- NOTE | 2019-11-30 19:35 | NUR ---
NURSE NOTES: Received report from CURT Cabral. Patient is in the chair, awake, alert and responsive. Breathing regular and unlabored with no s/s of SOB noted on room air. Patient denies any pain or discomfort at this time. Patient is awaiting to get dialysis. Dialysis nurse at bedside to start dialysis. Patient asked for PRN Benadryl, given per MD orders. IV access remains in tact. Bed remains in the lowest position, breaks engaged, and call light is within reach at all times. All other needs attended to, patient remains stable, will continue to monitor.
--- NOTE | 2019-11-30 19:47 | NUR ---
HAND-OFF: Report given to Radha ELIAS.Patient is in stable condition.
[2019-11-30 20:00] VITALS: BP 115/63
[2019-11-30] MEDS: Nitroglycerin Patch 0.1mg/hr TDERMAL SCH (22:00)
[2019-11-30] MEDS: Zolpidem 5mg tab ORAL SCH (22:55)
[2019-12-01] VITALS: BP 100/53
[2019-12-01 04:00] VITALS: BP 116/68
[2019-12-01] MEDS: DiphenhydrAMINE 50mg/ml Inj IVP PRN ×2 (04:58→12:08)
[2019-12-01] MEDS: HYDROmorphone 1mg/ml Carpuject IVP PRN (04:59)
[2019-12-01] MEDS ORDERED: Heparin Sod 1000 units/ml 10ml IV PRN (06:00)
[2019-12-01] MEDS: NovoLOG Insulin Flexpen SUBQ SCH ×2 (06:15→11:30)
--- NOTE | 2019-12-01 07:34 | NUR ---
NURSE NOTES: Received report from CURT Garcia. Patient is in bed resting, awake, alert and responsive. Patient denies any pain or discomfort at this time. IV access is patent and intact. Bed remains in the lowest position, breaks engaged, and call light is within reach at all times. All other needs attended to and met. Will continue with the plan of care.
--- NOTE | 2019-12-01 07:41 | NUR ---
HAND-OFF: Report given to CURT Cabral. Patient in stable condition. Plan of care endorsed.
[2019-12-01 08:00] VITALS: BP 156/87
[2019-12-01] MEDS ORDERED: HYDROcodone/Acetamin 10/325 tab ORAL PRN (08:29)
[2019-12-01] MEDS: Aspirin EC 81mg tab ORAL SCH (09:13)
[2019-12-01] MEDS: Docusate 250mg cap ORAL SCH (09:13)
[2019-12-01] MEDS: Renvela 800mg Pkt ORAL SCH ×2 (09:13→12:56)
[2019-12-01] MEDS: Lactulose 20gm/30ml UDC ORAL SCH ×2 (09:14→12:56)
[2019-12-01] MEDS: Heparin 5000 units/ml inj SUBQ SCH (09:17)
[2019-12-01 12:00] VITALS: BP 121/62
--- NOTE | 2019-12-01 12:21 | Nephrology Progress Note ---
Assessment/Plan Problem List: (1) Back pain (2) ESRD (end stage renal disease) on dialysis (3) Diabetes mellitus (4) CHF (congestive heart failure) Plan seen on HD 11/30, repeat HD 11/29+11/30 fluid overloaded improved, agree with dc Subjective Constitutional: Reports: no symptoms HEENT: Reports: no symptoms Genitourinary: Reports: no symptoms Neurologic/Psychiatric: Reports: no symptoms Objective Objective Last 24 Hour Vital Signs Date Time Temp Pulse Resp B/P (MAP) Pulse Ox O2 Delivery O2 Flow Rate FiO2 12/01/19 09:00 Room Air 12/01/19 08:00 98.1 89 20 156/87 (110) 96 12/01/19 08:00 89 12/01/19 04:00 97 12/01/19 04:00 97.3 98 20 116/68 (84) 100 12/01/19 00:00 98 12/01/19 00:00 97.7 95 20 100/53 (69) 100 11/30/19 21:00 Room Air 11/30/19 20:00 116 11/30/19 20:00 97.7 103 19 115/63 (80) 92 11/30/19 16:00 97.1 90 20 119/62 (81) 96 11/30/19 16:00 90 11/30/19 13:24 85 Intake and Output 11/30/19 12/01/19 19:00 07:00 Intake Total 400 ml 3500 ml Balance 400 ml 3500 ml Intake Oral 400 ml Hemodialysis 3500 ml # Voids 2 Height (Feet): 5 Height (Inches): 5.00 Weight (Pounds): 249 General Appearance: no apparent distress, obese Cardiovascular: normal rate, regular rhythm Respiratory/Chest: lungs clear Abdomen: non tender Extremities: non-tender, no edema Neurologic: wage and hour investigator II-XII grossly normal Gonzalo Padilla MD Dec 01, 2019 12:21
--- NOTE | 2019-12-01 14:13 | NUR ---
*-* INSURANCE *-* ALL CLINICALS AND REVIEWS HAVE BEEN FAXED TO: [employer] NO CM OR TRACKING # YET # [phone] FAX# [phone] REVIEWS/CLINICALS
--- NOTE | 2019-12-01 15:00 | NUR ---
NURSE NOTES: PATIENT WAS DIALYZED TODAY. 3L OUT, BP 105/52. PATIENT IS IN STABLE CONDITION.
--- NOTE | 2019-12-01 15:23 | NUR ---
NURSE NOTES: Patient is discharged home via private vehicle after dialysis per MD order. IV is taking out, no bleeding, no infiltration noted. quality assurance monitor chassis removed and given to quality assurance monitor chassis. Notified family of patient's discharge. Dialysis shunt on the right upper hand is intact, no bleeding noted. Patient is in stable condition.
--- NOTE | 2019-12-01 19:30 | Discharge Summary ---
DATE OF ADMISSION: 11/28/2019 DATE OF DISCHARGE: 12/01/2019 ADMISSION DIAGNOSES: 1. CHF. 2. Chest pain. 3. End-stage renal disease. 4. Hypertension. 5. Diabetes. DISCHARGE DIAGNOSES: 1. CHF. 2. Chest pain. 3. End-stage renal disease. 4. Hypertension. 5. Diabetes. HOSPITAL COURSE: The patient is admitted with complaints of fluid overload and chest pain. She was ruled out for AR with serial enzymes and EKGs. She had a CT scan of the chest showed no evidence of . Her symptoms improved with ultrafiltration, compliance with her diet, was stressed. On discharge, she was stable. She will be discharged home. She will follow up with her warehouse man. DISCHARGE MEDICATIONS: Please see discharge medication list for discharge medications. DIET: Cardiac diabetic diet. ACTIVITIES: Ad-rosey. Mejia Huerta M.D. DR: ALEKSANDER JOB#: [id number] CC:
--- NOTE | 2019-12-02 14:01 | NUR ---
*-* INSURANCE *-* DISCHARGE SUMMARY HAS BEEN FAXED TO: [facility] NO CM OR TRACKING # YET # [phone] FAX# [phone] REVIEWS/CLINICALS
== END 2019-12-01 15:24 | disposition home or self-care (01) | DRG 194 ==
LOC: EMR 18:00 → EDBEDREQ 20:38 → 2E 20:42
PROC: 5A1D70Z Performance of Urinary Filtration, Intermittent, Less than 6 Hours Per Day (ICD-10-PCS; principal; 2019-11-29)
DX: I13.2 Hypertensive heart and chronic kidney disease with heart failure and with stage 5 chronic kidney disease, or end stage renal disease (principal); I50.33 Acute on chronic diastolic (congestive) heart failure; N18.6 End stage renal disease; E11.22 Type 2 diabetes mellitus with diabetic chronic kidney disease; E66.01 Morbid (severe) obesity due to excess calories; Z68.37 Body mass index [BMI] 37.0-37.9, adult; E11.40 Type 2 diabetes mellitus with diabetic neuropathy, unspecified; Z88.6 Allergy status to analgesic agent; Z88.1 Allergy status to other antibiotic agents; Z88.2 Allergy status to sulfonamides; Z88.8 Allergy status to other drugs, medicaments and biological substances; Z91.11 Patient's noncompliance with dietary regimen; E11.649 Type 2 diabetes mellitus with hypoglycemia without coma; Z79.84 Long term (current) use of oral hypoglycemic drugs; Z99.2 Dependence on renal dialysis; G89.29 Other chronic pain; M54.12 Radiculopathy, cervical region; K21.9 Gastro-esophageal reflux disease without esophagitis; E11.42 Type 2 diabetes mellitus with diabetic polyneuropathy
CPT/HCPCS: 36415; 71045; 71275; 80053; 82962; 83690; 83880; 84484; 85025; 85610; 85730; 86706; 87081; 93005; 93306; 93970; 96374; 96375; 96376; 99285; J1815; J2405